=== PATIENT | male | born 1960 | race Caucasian/White ===

== ENCOUNTER → 2016-08-16 | Outpatient (CLI) | payer OTHER ==
[~2016-08-16] MED LIST: CGN1 PO; CLON1TAB3 PO; CLOZ100T PO
[2016-08-16 09:35] LABS: ESTIMATED AVERAGE GLUCOSE 111 mg/dl; HA1C FLAG Normal (Normal)
[2016-08-16 09:44] LABS: PROSTATE SPECIFIC ANTIGEN 1.75 ng/ml (0.000-4.000)
== END | disposition home or self-care (01) ==
LOC: C.LAB 08:44
PROVIDERS: ATTEND Family Medicine
DX: Z00.00 Encounter for general adult medical examination without abnormal findings (principal); Z12.5 Encounter for screening for malignant neoplasm of prostate; R73.9 Hyperglycemia, unspecified; F20.9 Schizophrenia, unspecified

== ENCOUNTER 2016-12-07 11:43 | Emergency (ER) | payer OTHER ==
[~2016-12-07] VITALS: Ht 185.4 cm; Wt 101.9 kg
[~2016-12-07 11:43] MED LIST changes: +BENZ-89 PO; -CGN1 PO
[2016-12-07 12:02] VITALS: Ht 185.4 cm; Wt 101.9 kg
[2016-12-07 12:47] LABS: BASO % 0.5 %; BASO ABS # 0.03 K/uL (0-0.2); COMPLETE YES; EOS % 2.5 %; IG% 0.2 %; LYMPH ABS # 1.57 K/uL (1.2-3.4); MEAN CELL VOLUME 86.3 fL (80-100); MEAN CORPUSCULAR HEMOGLOBIN 30.3 pg (25-34); MEAN CORPUSCULAR HGB CONC 35.1 g/dl (32-36); MEAN PLATELET VOLUME 9.5 fL (7.4-10.4); MONO % 6.5 %; NEUT % 65.3 %; PLATELET COUNT 150 K/uL (130-400); RED BLOOD COUNT 4.75 M/uL (4.7-6.1); WHITE BLOOD COUNT 6.29 K/uL (4.8-10.8)
[2016-12-07 13:04] LABS: CREATININE 0.74 mg/dl (0.60-1.40); POTASSIUM 4.1 mmol/L (3.5-5.1)
--- NOTE | 2016-12-07 13:04 | EMERGENCY ROOM VISIT NOTE ---
History Report prepared by Sanjuana: Ko Burroughs Under the Supervision of: Dr. Regina Kamaar M.D. First contact with patient: 12:31 Chief Complaint: MENTAL HEALTH EVALUATION Stated Complaint: MENTALLY UNSTABLE, MANIC History of Present Illness The patient is a 56 year old male with diagnosed paranoid schizophrenia who presents to the Emergency Room with worsening mental health issues that started over the past month. Per the patient's director of casework department, the patient may not be taking his medications, and has been getting more unstable over the past month. The patient is noted to live unsupervised currently, but usually is known to be responsible. The patient was noted to have had 2 recent run-ins with the police in the last month, and he missed his mental health counseling last week, which was a red flag to the director of casework department. The patient had that scheduled appointment at [facility] in order to get his medications evaluated. He is noted to usually make his appointments on time. The patient has been walking and in and out of the [facility] near where he lives often over the past few days without buying anything. Per the director of casework department, the patient tried to purchase an item there yesterday, and when his card did not work, he started throwing candy bars at the [employer]. Today, the patient was in there 9 times and did not buy anything, so the manager university of the store called to police. The patient says that he is feeling okay and nothing is bothering him. He states that he is not feeling nervous, and he does not know what happened today. He notes that he is taking medications, and is not taking any extra pills. He says that he did not hurt himself today. The patient adds that he is open to an inpatient stay. He smokes cigarettes, but does not drink any alcohol. Source of History: patient, other (director of casework department) Onset: Over past month Position: other (global - mental health issues) Quality: other (unstable) Timing: worsening Note: Associated symptoms: Over past few days, walking in and out of [facility] not buying anything. Was throwing candy bars at [employer] yesterday. Missed appointment last week. Denies anything bothering him. Review of Systems See HPI for pertinent positives & negatives. A total of 10 systems reviewed and were otherwise negative. Past Medical & Surgical Medical Problems: (1) Bronchitis (2) Diabetes (3) PNA (pneumonia) Family History Diabetes mellitus Heart disease Seizures Social History Smoking Status: Never Smoker Alcohol Use: none Marital Status: single Occupation Status: employed Current/Historical Medications Scheduled Benztropine Mesylate (Benztropine Mesylate), 1 MG PO QAM Clonazepam (Klonopin), 1 MG PO HS Clozapine (Clozaril), 400 MG PO HS Olanzapine (Zyprexa), 5 MG PO HS Allergies Coded Allergies: No Known Allergies (Unverified , 12/07/16) Physical Exam Vital Signs Date Time Temp Pulse Resp B/P (MAP) Pulse Ox O2 Delivery O2 Flow Rate FiO2 12/07/16 20:39 36.8 96 16 119/75 96 Room Air 12/07/16 14:34 95 16 117/68 96 Room Air 12/07/16 12:02 37.0 86 18 144/91 97 Room Air Physical Exam Vital signs reviewed. General: Ambulatory but somewhat agitated 56 year old male in room, in no significant distress. HEENT: No scleral icterus, PERRLA, neck supple. Atraumatic. Cardiovascular: Regular rate and rhythm, no extra sounds. Pulmonary: Clear to auscultation bilaterally, normal work of breathing. Abdomen: Soft, nontender, nondistended, positive bowel sounds. Musculoskeletal: Atraumatic, no peripheral edema. Neurologic: Patient awake alert and minimally verbal but responsive to verbal stimuli. Psych: Denies suicidal or homicidal ideations. Skin: Warm, dry, no rash Medical Decision & Procedures Laboratory Results 12/07/16 12:35 Red Blood Count 4.75, Mean Corpuscular Volume 86.3, Mean Corpuscular Hemoglobin 30.3, Mean Corpuscular Hemoglobin Concent 35.1, Mean Platelet Volume 9.5, Neutrophils (%) (Auto) 65.3, Lymphocytes (%) (Auto) 25.0, Monocytes (%) (Auto) 6.5, Eosinophils (%) (Auto) 2.5, Basophils (%) (Auto) 0.5, Neutrophils # (Auto) 4.11, Lymphocytes # (Auto) 1.57, Monocytes # (Auto) 0.41, Eosinophils # (Auto) 0.16, Basophils # (Auto) 0.03 12/07/16 12:35 Test 12/07/16 12:35 12/07/16 12:45 White Blood Count 6.29 K/uL (4.8-10.8) Red Blood Count 4.75 M/uL (4.7-6.1) Hemoglobin 14.4 g/dL (14.0-18.0) Hematocrit 41.0 % (42-52) Mean Corpuscular Volume 86.3 fL (80-100) Mean Corpuscular Hemoglobin 30.3 pg (25-34) Mean Corpuscular Hemoglobin Concent 35.1 g/dl (32-36) Platelet Count 150 K/uL (130-400) Mean Platelet Volume 9.5 fL (7.4-10.4) Neutrophils (%) (Auto) 65.3 % Lymphocytes (%) (Auto) 25.0 % Monocytes (%) (Auto) 6.5 % Eosinophils (%) (Auto) 2.5 % Basophils (%) (Auto) 0.5 % Neutrophils # (Auto) 4.11 K/uL (1.4-6.5) Lymphocytes # (Auto) 1.57 K/uL (1.2-3.4) Monocytes # (Auto) 0.41 K/uL (0.11-0.59) Eosinophils # (Auto) 0.16 K/uL (0-0.5) Basophils # (Auto) 0.03 K/uL (0-0.2) RDW Standard Deviation 41.8 fL (36.4-46.3) RDW Coefficient of Variation 13.1 % (11.5-14.5) Immature Granulocyte % (Auto) 0.2 % Immature Granulocyte # (Auto) 0.01 K/uL (0.00-0.02) Anion Gap 7.0 mmol/L (3-11) Est Creatinine Clear Calc Drug Dose 136.5 ml/min Estimated GFR () 117.8 Estimated GFR (Non- 101.7 BUN/Creatinine Ratio 14.0 (10-20) Calcium Level 9.0 mg/dl (8.5-10.1) Total Bilirubin 0.5 mg/dl (0.2-1) Aspartate Amino Transf (AST/SGOT) 14 U/L (15-37) Alanine Aminotransferase (ALT/SGPT) 32 U/L (12-78) Alkaline Phosphatase 69 U/L (45-117) Total Protein 6.7 gm/dl (6.4-8.2) Albumin 4.3 gm/dl (3.4-5.0) Globulin 2.4 gm/dl (2.5-4.0) Albumin/Globulin Ratio 1.8 (0.9-2) Thyroid Stimulating Hormone (TSH) 1.020 uIu/ml (0.300-4.500) Salicylates Level 1.9 mg/dl (2.8-20) Acetaminophen Level < 2 ug/ml (10-30) Ethyl Alcohol mg/dL < 3.0 mg/dl (0-3) Urine Color DK YELLOW Urine Appearance CLEAR (CLEAR) Urine pH 6.0 (4.5-7.5) Urine Specific [place] 1.026 (1.000-1.030) Urine Protein NEG (NEG) Urine Glucose (UA) NEG (NEG) Urine Ketones NEG (NEG) Urine Occult Blood NEG (NEG) Urine Nitrite NEG (NEG) Urine Bilirubin NEG (NEG) Urine Urobilinogen NEG (NEG) Urine Leukocyte Esterase TRACE (NEG) Urine WBC (Auto) 1-5 /hpf (0-5) Urine RBC (Auto) 0-4 /hpf (0-4) Urine Hyaline Casts (Auto) 1-5 /lpf (0-5) Urine Epithelial Cells (Auto) 0-5 /lpf (0-5) Urine Bacteria (Auto) NEG (NEG) Urine Opiates Screen NEG (NEG) Urine Methadone, Qualitative NEG (NEG) Urine Barbiturates NEG (NEG) Urine Phencyclidine (PCP) Level NEG (NEG) Ur Amphetamine/Methamphetamine NEG (NEG) MDMA (Ecstasy) Screen NEG (NEG) Urine Benzodiazepines Screen NEG (NEG) Urine Cocaine Metabolite NEG (NEG) Urine Marijuana (THC) NEG (NEG) Laboratory results per my review. Medications Administered Medications (Trade) Dose Ordered Sig/Kinsey Route Start Time Stop Time Status Last Admin Dose Admin Lorazepam (Ativan Tab) 2 mg NOW STAT SL 12/07/16 18:43 12/07/16 18:44 DC 12/07/16 18:49 2 MG ECG Indication: altered mental status Rate (beats per minute): 90 Rhythm: sinus rhythm, other (poor quality baseline for interpretation) Findings: no acute ischemic change, prolonged QT (528), no ectopy, other ( repolarization abnormality diffusely) ED Course 1238: Past medical records reviewed. The patient was evaluated in room A6. A complete history and physical examination was performed. 155: I reevaluated and updated the patient. 1842: Ordered Ativan Tab 2 mg SL. 2037: Upon reevaluation, the patient appeared to have improvement of his symptoms. I discussed findings with him. He verbalized agreement of the treatment plan. He was discharged home. Medical Decision Differential diagnosis: Etiologies such as mood disorder, infection, hypoglycemia, electrolyte abnormalities, cardiac sources, intracerebral event, toxicologic, neurologic, as well as others were entertained. This pt was evaluated and appeared to be in no distress. Pt was medically cleared. He was evaluated by 3S nurse liaison. She c/s with psychiatry who recommended 2 mg ativan po. Pt was given this medication and observed. Pt was cooperative in the ED. He was much more forthcoming with information. Pt was felt to be stable for d/c. He was able to safety contract and signed releases for [employer] and [employer]. His CM is aware. Pt is aware of the plan and agrees. Pt will f/u with PCP regarding prolonged QT interval. He is currently not on QT prolonging medications. He will return to the ED for worsening of symptoms or any medical concerns. Medication Reconcilliation Current Medication List: was personally reviewed by me Blood Pressure Screening Patient's blood pressure: Elevated blood pressure Blood pressure disposition: Elevated BP felt to be situational Impression Primary Impression: Mood disorder Additional Impressions: Schizophrenia Prolonged QT interval Scribe Attestation The scribe's documentation has been prepared under my direction and personally reviewed by me in its entirety. I confirm that the note above accurately reflects all work, treatment, procedures, and medical decision making performed by me. Departure Information Dispostion Home / Self-Care Referrals Shawnee Carpio MD (PCP) Patient Instructions My [facility] Additional Instructions Diagnosis: Mood disorder, prolonged QT interval Please continue your medications as prescribed. Follow up with your doctor this week for reevaluation of your EKG. Seek psychiatric reevaluation this week as well. Return to the ED for worsening of symptoms or any medical concerns. Problem Qualifiers
[2016-12-07 13:05] LABS: URINE APPEARANCE CLEAR (CLEAR); URINE BILIRUBIN NEG (NEG); URINE COLOR DK YELLOW; URINE EPITHELIAL CELL AUTO 0-5 /lpf (0-5); URINE NITRITE NEG (NEG); URINE SPECIFIC GRAVITY 1.026 (1.000-1.030); UROBILINOGEN NEG (NEG); ZZUR CULT IF INDIC CLEAN CATCH NO
[2016-12-07 13:05] LABS: ACETAMINOPHEN < 2 ug/ml (10-30)
[2016-12-07 13:06] LABS: MANUAL MICROSCOPIC REQUIRED? NO; REVIEW REQ? NO
[2016-12-07 13:15] LABS: ALB/GLOB RATIO 1.8 (0.9-2); THYROID STIMULATING HORMONE 1.02 uIu/ml (0.300-4.500)
[2016-12-07 13:41] LABS: BENZODIAZEPINE, URINE NEG (NEG); COCAINE,URINE NEG (NEG); PHENCYCLIDINE, URINE NEG (NEG)
[2016-12-07] MEDS ORDERED: OLAN-111 PO (16:34)
[2016-12-07] MEDS ORDERED: CLOZ100T PO (16:34)
[2016-12-07] MEDS ORDERED: BENZ-88 PO (16:34)
[2016-12-07] MEDS ORDERED: LORAZEPAM 1 MG TAB SL STA (18:43)
[2016-12-07 20:39] VITALS: BP 119/75; PULSE 96; TEMP 36.8; O2SAT 96
--- NOTE | 2016-12-07 21:12 | Psych Management Progress Note ---
Psychiatry Miscellaneous Date of Service: Dec 07, 2016. liaison contacted watermelon inspector physician for case review given need for med dosing instructions for discharge from ED. Patient has been monitored for several hours without evidence of agitation. He has consistently denied SI and howard and hasn't expressed any delusions. His frustration tolerance and organization is not as good during period of med non-compliance, only taking 200 mg Clozaril (?restart) for past 2 nights, no Zyprexa. I am unable to locate the patient in the PDMP. He appears to be attending to ADLs. As reported to me, there is no indication for 302 involuntary commitment. QTc is prolonged on EKG obtained by Dr. Kamara. Generally this is not an issue with Clozaril and he has been non-compliant with Zyprexa. Service recognizes that he is not completely his baseline but he doesn't meet acute inpatient criteria at this time either. He agrees (per liaison) to sign releases for his outpatient providers and rehabilitation case coordinator and to call both on Saturday. He agrees to continue his restart of Clozaril of 200 mg this weekend until speaks with outpatient providers. I would recommend a repeat EKG next week per PCP with results to be shared with psychiatrist. A short supply of Ativan 1 mg would not be unreasonable as prn comfort measure for weekend.
[2016-12-14 14:38] LABS: SYNTHETIC CANNABINOIDS QL URIN NEGATIVE (Negative)
== END 2016-12-07 20:52 | disposition home or self-care (01) ==
LOC: C.EDB 11:44 → C.EDA 20:52
DX: F39 Unspecified mood [affective] disorder (principal); F20.0 Paranoid schizophrenia; I45.81 Long QT syndrome; F17.210 Nicotine dependence, cigarettes, uncomplicated; E11.9 Type 2 diabetes mellitus without complications; Z83.3 Family history of diabetes mellitus; Z82.0 Family history of epilepsy and other diseases of the nervous system

== ENCOUNTER 2016-12-12 16:23 | Emergency (ER) | payer OTHER ==
[~2016-12-12] VITALS: Ht 180.3 cm; Wt 100.2 kg
[~2016-12-12 16:23] MED LIST changes: +BENZ-88 PO; -BENZ-89 PO; -CLON1TAB3 PO; +OLAN-111 PO
[2016-12-12 16:26] VITALS: TEMP 36.5; Ht 180.3 cm; Wt 100.2 kg
[2016-12-12] MEDS ORDERED: CLON1TAB3 PO (16:34)
--- NOTE | 2016-12-12 16:43 | EMERGENCY ROOM VISIT NOTE ---
History Report prepared by Sanjuana: Citlali Smith Under the Supervision of: Dr. Walt Buchanan M.D. First contact with patient: 16:28 Chief Complaint: MENTAL HEALTH EVALUATION Stated Complaint: UNSTABLE, MANIC History of Present Illness The patient is a 56 year old male who presents to the Emergency Room for a mental health evaluation. The patient is here with his field case manager. The patient was seen in the ED on Saturday. Per field case manager, he doesn't believe the patient has been taking his medication. The patient was seen by his psychologist today who referred him to the ED because she couldn't find him an inpatient bed. He denies wanting to hurt himself or any one else. The patient lives alone and denies any alcohol, tobacco, or street drug use. The patient lives alone. He notes he has been sleeping around 6-8 hours. The patient denies any abdominal pain. He has a history of mood disorder and schizophrenia. Source of History: patient, other Position: other (generalized) Quality: other (mental health evaluation) Modifying Factors (Relieving): other (none) Associated Symptoms: No abdominal pain Review of Systems See HPI for pertinent positives & negatives. A total of 10 systems reviewed and were otherwise negative. Past Medical & Surgical Medical Problems: (1) Bronchitis (2) Diabetes (3) PNA (pneumonia) Old medical records were reviewed. Nurse's notes were reviewed and I agree with. Family History Diabetes mellitus Heart disease Seizures Social History Smoking Status: Never Smoker Smokeless Tobacco Use: No Alcohol Use: none Drug Use: none Marital Status: single Occupation Status: employed Current/Historical Medications Scheduled Benztropine Mesylate (Benztropine Mesylate), 1 MG PO QAM Clonazepam (Klonopin), 1 MG PO HS Clozapine (Clozaril), 400 MG PO HS Olanzapine (Zyprexa), 5 MG PO HS Allergies Coded Allergies: No Known Allergies (Unverified , 12/07/16) Physical Exam Vital Signs Date Time Temp Pulse Resp B/P (MAP) Pulse Ox O2 Delivery O2 Flow Rate FiO2 12/12/16 18:54 97 18 122/85 97 Room Air 12/12/16 16:26 36.5 92 18 120/79 97 Room Air Physical Exam General: Non-ill appearing middle-aged male in no acute distress. Quiet, answers questions slowly but tersely and appropriately. HEENT: Normal cephalic atraumatic. Pupils are equal round and reactive to light. Extraocular movements are intact. Oropharynx is pink with moist mucous membranes. No swelling of the mouth lips or tongue. Neck: Supple with a midline trachea. No meningeal signs or stiffness, no JVD or bruits. No Stridor. Chest: Clear to auscultation bilaterally. No wheezes or rhonchi. No increased work of breathing. Heart: regular rate and rhythm. Abdomen: Soft nontender, nondistended without rebound guarding or rigidity. Extremities: No cyanosis clubbing or edema. No calf tenderness or assymetry Spine/Back. Non tender to palpation. No CVA tenderness Skin: Good turgor without rashes. Neurologic exam: Cranial nerves two through 12 are intact. Motor and sensation are intact and symmetrical throughout. Psych: Flattened affect. Medical Decision & Procedures Laboratory Results 12/12/16 17:06 Red Blood Count 4.48, Mean Corpuscular Volume 87.1, Mean Corpuscular Hemoglobin 30.1, Mean Corpuscular Hemoglobin Concent 34.6, Mean Platelet Volume 9.7, Neutrophils (%) (Auto) 59.8, Lymphocytes (%) (Auto) 30.1, Monocytes (%) (Auto) 6.0, Eosinophils (%) (Auto) 3.7, Basophils (%) (Auto) 0.3, Neutrophils # (Auto) 4.22, Lymphocytes # (Auto) 2.12, Monocytes # (Auto) 0.42, Eosinophils # (Auto) 0.26, Basophils # (Auto) 0.02 12/12/16 17:06 Test 12/12/16 16:55 12/12/16 17:06 Urine Opiates Screen NEG (NEG) Urine Methadone, Qualitative NEG (NEG) Urine Barbiturates NEG (NEG) Urine Phencyclidine (PCP) Level NEG (NEG) Ur Amphetamine/Methamphetamine NEG (NEG) MDMA (Ecstasy) Screen NEG (NEG) Urine Benzodiazepines Screen NEG (NEG) Urine Cocaine Metabolite NEG (NEG) Urine Marijuana (THC) NEG (NEG) White Blood Count 7.05 K/uL (4.8-10.8) Red Blood Count 4.48 M/uL (4.7-6.1) Hemoglobin 13.5 g/dL (14.0-18.0) Hematocrit 39.0 % (42-52) Mean Corpuscular Volume 87.1 fL (80-100) Mean Corpuscular Hemoglobin 30.1 pg (25-34) Mean Corpuscular Hemoglobin Concent 34.6 g/dl (32-36) Platelet Count 168 K/uL (130-400) Mean Platelet Volume 9.7 fL (7.4-10.4) Neutrophils (%) (Auto) 59.8 % Lymphocytes (%) (Auto) 30.1 % Monocytes (%) (Auto) 6.0 % Eosinophils (%) (Auto) 3.7 % Basophils (%) (Auto) 0.3 % Neutrophils # (Auto) 4.22 K/uL (1.4-6.5) Lymphocytes # (Auto) 2.12 K/uL (1.2-3.4) Monocytes # (Auto) 0.42 K/uL (0.11-0.59) Eosinophils # (Auto) 0.26 K/uL (0-0.5) Basophils # (Auto) 0.02 K/uL (0-0.2) RDW Standard Deviation 42.7 fL (36.4-46.3) RDW Coefficient of Variation 13.4 % (11.5-14.5) Immature Granulocyte % (Auto) 0.1 % Immature Granulocyte # (Auto) 0.01 K/uL (0.00-0.02) Anion Gap 9.0 mmol/L (3-11) Est Creatinine Clear Calc Drug Dose 119.8 ml/min Estimated GFR () 113.5 Estimated GFR (Non- 98.0 BUN/Creatinine Ratio 14.6 (10-20) Calcium Level 9.3 mg/dl (8.5-10.1) Total Bilirubin 0.7 mg/dl (0.2-1) Direct Bilirubin 0.2 mg/dl (0-0.2) Aspartate Amino Transf (AST/SGOT) 17 U/L (15-37) Alanine Aminotransferase (ALT/SGPT) 28 U/L (12-78) Alkaline Phosphatase 74 U/L (45-117) Total Protein 6.6 gm/dl (6.4-8.2) Albumin 4.2 gm/dl (3.4-5.0) Lipase 81 U/L (73-393) Salicylates Level < 1.7 mg/dl (2.8-20) Acetaminophen Level < 2 ug/ml (10-30) Ethyl Alcohol mg/dL < 3.0 mg/dl (0-3) Laboratory studies as stated above per my review. ED Course 1629: Past medical records reviewed. The patient was evaluated in room A8, and a complete history and physical examination were performed. 2004: [place] doesn't have beds, checking on [place]. 2042: Placement pending. Medical Decision Differential diagnoses include: schizophrenia, bipolar disorder, toxicologic process, electrolyte metabolic abnormality. This patient comes in as described above. He was brought in by his case management team he was here a couple days ago a similar complaints. He has a history of schizophrenia and they're worried about his ability to care for himself. He denies any suicidal or homicidal ideations. Multiple blood testing was obtained for medical clearance. He was reassessed frequently. He was medically cleared. Blood work does not suggest an acute electrolyte or metabolic abnormalities. There is nothing to suggest acute infectious process. He has nothing suggest an acute toxicologic process. [place] does not have any beds and we are trying to get him in the [place]. At this point bed search is pending and the patient will be signed out to Dr. Saavedra. Medication Reconcilliation Current Medication List: was personally reviewed by me Blood Pressure Screening Patient's blood pressure: Normal blood pressure Impression Primary Impression: Schizophrenia Additional Impression: Mood disorder Scribe Attestation The scribe's documentation has been prepared under my direction and personally reviewed by me in its entirety. I confirm that the note above accurately reflects all work, treatment, procedures, and medical decision making performed by me. Departure Information Referrals No Doctor, Assigned (PCP) Patient Instructions My [facility] Problem Qualifiers
[2016-12-12 17:31] LABS: BENZODIAZEPINE, URINE NEG (NEG); COCAINE,URINE NEG (NEG); PHENCYCLIDINE, URINE NEG (NEG)
[2016-12-12 17:58] LABS: BASO % 0.3 %; BASO ABS # 0.02 K/uL (0-0.2); COMPLETE YES; EOS % 3.7 %; IG% 0.1 %; LYMPH % 30.1 %; LYMPH ABS # 2.12 K/uL (1.2-3.4); MEAN CELL VOLUME 87.1 fL (80-100); MEAN CORPUSCULAR HEMOGLOBIN 30.1 pg (25-34); MEAN CORPUSCULAR HGB CONC 34.6 g/dl (32-36); MEAN PLATELET VOLUME 9.7 fL (7.4-10.4); NEUT % 59.8 %; PLATELET COUNT 168 K/uL (130-400); RED BLOOD COUNT 4.48 M/uL (4.7-6.1); WHITE BLOOD COUNT 7.05 K/uL (4.8-10.8)
[2016-12-12 18:19] LABS: BUN/CREATININE RATIO 14.6 (10-20); CALCIUM 9.3 mg/dl (8.5-10.1); CREATININE 0.81 mg/dl (0.60-1.40); POTASSIUM 3.8 mmol/L (3.5-5.1)
[2016-12-12 18:25] LABS: ACETAMINOPHEN < 2 ug/ml (10-30)
[2016-12-12] MEDS ORDERED: HALOPERIDOL 5 MG TAB PO STA (21:49)
[2016-12-12] MEDS ORDERED: LORAZEPAM 1 MG TAB SL STA (21:49)
[2016-12-13 00:31] VITALS: BP 120/71; PULSE 89; O2SAT 96
--- NOTE | 2016-12-14 00:59 | EMERGENCY ROOM VISIT NOTE ---
ED Visit Note This is a 56-year-old male who presents emergency department. Received patient in signout. History and physical verified by me. Patient is not acting appropriate and believes that people are talking to him through the TV. I feel he cannot be safely discharged. For this reason a 302 warrant was initiated. The patient was discussed with case management who agreed to admit the patient. Patient and family were in agreement with treatment plan.
== END 2016-12-13 00:31 ==
LOC: C.EDB 16:25 → C.EDA 12-13 00:31
DX: F20.9 Schizophrenia, unspecified (principal); F39 Unspecified mood [affective] disorder; E11.9 Type 2 diabetes mellitus without complications; Z79.899 Other long term (current) drug therapy; Z83.3 Family history of diabetes mellitus; Z82.49 Family history of ischemic heart disease and other diseases of the circulatory system; Z82.0 Family history of epilepsy and other diseases of the nervous system

== ENCOUNTER 2018-02-25 09:27 | Inpatient (IN) ==
[2018-02-25 10:22] LABS: Appearance Urine Clear (Clear); Bilirubin Urine Negative (Negative); Color Urine Yellow; Glucose Urine UA Negative (Negative); Ketones Urine Negative (Negative); Leukocyte Esterase Urine Negative (Negative); Nitrite Urine Negative (Negative); Protein Urine Negative (Negative); Specific Gravity Urine 1.007 (1.000-1.030); Urobilinogen Urine Negative (Negative)
[2018-02-25 10:42] LABS: Amphetamines+Metham, Urine Neg (Neg); Barbiturates, Urine Neg (Neg); Benzodiazepine, Urine Neg (Neg); Cocaine, Urine Neg (Neg); MDMA (Ecstacy), Urine Neg (Neg); Methadone, Urine Neg (Neg); Opiate, Urine Neg (Neg); Phencyclidine, Urine Neg (Neg)
[2018-02-25 10:58] LABS: Basophils # (auto) 0.02 K/uL (0-0.2); Basophils % (auto) 0.3 %; Eosinophils # (auto) 0.06 K/uL (0-0.5); Hematocrit (blood only) 39.4 % (42-52); Hemoglobin 13.3 g/dL (14.0-18.0); Immature Granulocytes # (auto) 0.01 K/uL (0.00-0.02); Immature Granulocytes % (auto) 0.2 %; Lymphocytes % (auto) 22.5 %; Mean Corpuscular Hgb Conc 33.8 g/dL (32-36); Mean Corpuscular Volume 89.1 fL (80-100); Mean Platelet Volume 10.1 fL (7.4-10.4); Monocytes # (auto) 0.43 K/uL (0.11-0.59); Monocytes % (auto) 6.9 %; Neutrophils % (auto) 69.1 %; Platelet Count 203 K/uL (130-400); RDW Coefficient of Variation 13.4 % (11.5-14.5); RDW Standard Deviation 44.1 fL (36.4-46.3); Red Blood Count 4.42 M/uL (4.7-6.1); White Blood Count 6.22 K/uL (4.8-10.8)
[2018-02-25 11:16] LABS: Alanine Aminotransferase 23 U/L (12-78); Albumin Level 4.4 gm/dl (3.4-5.0); Aspartate Aminotransferase 12 U/L (15-37); BUN Creatinine Ratio 9.2 (10-20); Blood Urea Nitrogen 7 mg/dl (7-18); Calcium 9.2 mg/dl (8.5-10.1); Carbon Dioxide 26 mmol/L (21-32); Chloride 107 mmol/L (98-107); Est GFR (African American) 115.1; Est GFR (Non-African American) 99.3; Glucose 109 mg/dl (70-99); Sodium 137 mmol/L (136-145)
[2018-02-25 11:27] LABS: Acetaminophen < 2 ug/ml (10-30); Albumin Globulin Ratio 1.8 (0.9-2); Alkaline Phosphatase 80 U/L (45-117); Bilirubin,Total 0.5 mg/dl (0.2-1); Globulin 2.4 gm/dl (2.5-4.0); Total Protein 6.8 gm/dl (6.4-8.2)
[2018-02-25] MEDS ORDERED: LORazepam 1 MG TAB PO STA (12:14)
[2018-02-25] MEDS ORDERED: HALOPERIDOL 5 MG TAB PO STA ×2 (12:14→13:29)
[2018-02-25] MEDS ORDERED: BENZTROPINE MESYLATE 1 MG TAB PO STA (12:14)
[2018-02-25] MEDS ORDERED: LORazepam 1 MG TAB SL STA (13:29)
[2018-02-25] MEDS ORDERED: ALUMINUM/MAGNESIUM SUSP 30 ML UDC PO PRN (14:17)
[2018-02-25] MEDS ORDERED: ACETAMINOPHEN 325 MG TAB PO PRN (14:17)
[2018-02-25] MEDS ORDERED: BISMUTH SUBSALICYLATE PER ML OMNICELL CHARGE PO PRN (14:17)
[2018-02-25] MEDS ORDERED: MAGNESIUM HYDROXIDE SUSP 30 ML UDC PO PRN (14:17)
[2018-02-25] MEDS ORDERED: SODIUM CHLORIDE 0.65% NA SOLN 45 ML (OCEAN) PRN (14:17)
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
[2018-02-25] MEDS ORDERED: OLANZapine 5 MG TABLET PO SCH (21:00)
[2018-02-26] MEDS: SERTRALINE HCL 100 MG TABLET PO SCH (08:06)
--- NOTE | 2018-02-26 10:11 | Psychiatric Progress Note ---
Date of Service February 26, 2018 Impression / Recommendations Impression 57 yo CM with history of schizophrenia and depression, admitted for deterioration of his schizophrenia with poor self care and possibly suspected in vandalism of vehicles in his living area. Patient is with psychomotor retardation, flat affect and drowsiness. He recieved haldol and ativan in the ER prior to being brought to unit. 02/25/18: Seems to be with some blocking but denies SI/HI/aVh and denies CAH. Will start zyprexa 5mg qhs in addition to home meds. Patient this time with poor functioning and will need treatment for stabilization. 02/26/18: Patient affect fluctuates, and he remains grossly disorganized and incoherent. Is tangential and seems to be distracted. Did deny Si/HI/aVH. Will increase zyprexa to 5mg bid and continue to treat for stabilization. (1) Schizophrenia: -Invega sustenna 156mg IM, last given 02/06/18 -Increase Zyprexa 5mg PO bid (2) Depression: - Continue Zoloft 100mg daily Inventory Assets Strengths: not homeless, access to care, has case management Needs: medications, therapy Risk Factors Assessment Male: Yes : Yes Health Problems: No Substance Use Disorders: Yes Hopelessness: No Protective Factors Assessment : No Responsible for Young Children: No Employed: No Review of Systems Sleep Information Total Hours of Sleep: 7 Sleep Comments: pt DEANNE since 414 and thereafter. pt on q-15 mnute checks Subjective Subjective Patient was found in day room and picked up a puzzle box and said "this is nice center piece". Was rambling throughout interview about incomprehensible statements. When asked about Si/Hi/aVH he denied these. When asked if he cleans his apartment, he states "no, I don't". He started staring at a picture of a edwige on the wall and did not answer anymore questions. Patient was seen & assessed and interval progress reviewed with Treatment Team and Nursing Physical Exam Psychiatric Orientation: alert, oriented to person and oriented to place Apperance: + disheveled; + inappropriately groomed Eye Contact: + poor eye contact Motor Behavior: no abnormal motor movements Speech: normal rate/rhythm/volume of speech Affect: euthymic affect and mood congruent with affect Thought Process: + thought blocking and + tangential thought process Disorganized Thought Content: + preoccupation Suicidal Thoughts: denies suicidal thoughts Homicidal Thoughts: denies homicidal thoughts Hallucinations: no auditory hallucinations and no visual hallucinations distracted Estimated Intelligence: + below average estimated intelligence Insight: + poor insight Judgement: + poor judgement Vital Signs (Past 24 Hours) Last Vital Signs Temp 36.8 C 02/26/18 06:51 Pulse 56 L 02/26/18 06:52 Resp 18 02/26/18 06:51 BP 115/78 02/26/18 06:52 Pulse Ox 96 02/25/18 16:00 Results & Data Laboratory Results Laboratory Results - last 24 hr 02/25/18 02/25/18 02/25/18 10:00 10:00 10:19 WBC 6.22 RBC 4.42 L Hgb 13.3 L Hct 39.4 L MCV 89.1 MCH 30.1 MCHC 33.8 RDW Std Deviation 44.1 RDW Coeff of Ramu 13.4 Plt Count 203 MPV 10.1 Immature Gran % (Auto) 0.2 Neut % (Auto) 69.1 Lymph % (Auto) 22.5 Alexander % (Auto) 6.9 Eos % (Auto) 1.0 Baso % (Auto) 0.3 Immature Gran # (Auto) 0.01 Neut # (Auto) 4.30 Lymph # (Auto) 1.40 Alexander # (Auto) 0.43 Eos # (Auto) 0.06 Baso # (Auto) 0.02 Sodium Potassium Chloride Carbon Dioxide Anion Gap BUN Creatinine Est Cr Clr Drug Dosing Est GFR ( Amer) Est GFR (Non-Af Amer) BUN/Creatinine Ratio Glucose Calcium Total Bilirubin AST ALT Alkaline Phosphatase Total Protein Albumin Globulin Albumin/Globulin Ratio TSH Urine Color Yellow Urine Appearance Clear Urine pH 7.0 Ur Specific [place] 1.007 Urine Protein Negative Urine Glucose (UA) Negative Urine Ketones Negative Urine Blood Negative Urine Nitrite Negative Urine Bilirubin Negative Urine Urobilinogen Negative Ur Leukocyte Esterase Negative Salicylates Urine Opiates Screen Neg Ur Methadone, Qual Neg Acetaminophen Urine Barbiturates Neg Ur Phencyclidine (PCP) Neg U Amphetamin/Meth Scrn Neg MDMA (Ecstasy) Screen Neg U Benzodiazepines Scrn Neg Ur Cocaine Metabolite Neg U Marijuana (THC) Screen Neg Ethyl Alcohol mg/dL 02/25/18 02/25/18 02/25/18 10:19 10:19 10:19 WBC RBC Hgb Hct MCV MCH MCHC RDW Std Deviation RDW Coeff of Ramu Plt Count MPV Immature Gran % (Auto) Neut % (Auto) Lymph % (Auto) Alexander % (Auto) Eos % (Auto) Baso % (Auto) Immature Gran # (Auto) Neut # (Auto) Lymph # (Auto) Alexander # (Auto) Eos # (Auto) Baso # (Auto) Sodium 137 Potassium 4.0 Chloride 107 Carbon Dioxide 26 Anion Gap 4.0 BUN 7 Creatinine 0.77 Est Cr Clr Drug Dosing Not Reportable Est GFR ( Amer) 115.1 Est GFR (Non-Af Amer) 99.3 BUN/Creatinine Ratio 9.2 L Glucose 109 H Calcium 9.2 Total Bilirubin 0.5 AST 12 L ALT 23 Alkaline Phosphatase 80 Total Protein 6.8 Albumin 4.4 Globulin 2.4 L Albumin/Globulin Ratio 1.8 TSH 1.310 Urine Color Urine Appearance Urine pH Ur Specific [place] Urine Protein Urine Glucose (UA) Urine Ketones Urine Blood Urine Nitrite Urine Bilirubin Urine Urobilinogen Ur Leukocyte Esterase Salicylates 4.0 Urine Opiates Screen Ur Methadone, Qual Acetaminophen < 2 L Urine Barbiturates Ur Phencyclidine (PCP) U Amphetamin/Meth Scrn MDMA (Ecstasy) Screen U Benzodiazepines Scrn Ur Cocaine Metabolite U Marijuana (THC) Screen Ethyl Alcohol mg/dL < 3.0 Current Inpatient Medications Current Inpatient Medications: Current Inpatient Medications Acetaminophen (Tylenol) 650 mg PO Q4H PRN PRN Reason: Headache or Minor Fever Stop: 03/27/18 14:16 Al Hydrox/Mg Hydrox/Simethicone (Maalox) 30 ml PO Q4H PRN PRN Reason: GI Upset Stop: 03/27/18 14:16 Bismuth Subsalicylate (Kaopectate) 15 ml PO PRN PRN PRN Reason: Loose Stool Stop: 03/27/18 14:16 Hydroxyzine HCl (Vistaril) 50 mg PO HSZ PRN PRN Reason: Insomnia Stop: 03/27/18 14:16 Magnesium Hydroxide (Milk Of Magnesia) 30 ml PO DAILY PRN PRN Reason: Heartburn Stop: 03/27/18 14:16 Olanzapine (Zyprexa) 5 mg PO BID HANNAH Stop: 03/28/18 10:14 Sertraline HCl (Zoloft) 100 mg PO QAM HANNAH Stop: 03/28/18 08:59 Last Admin: 02/26/18 08:06 Dose: 100 mg Sodium Chloride ([place] Nasal) 1 - 2 sprays NA PRN PRN PRN Reason: Nasal Dryness/Congestion Stop: 03/27/18 14:16 Post Discharge Appointments Sizing Machine Tender Name of Sizing Machine Tender: yovanny marie CPT Code CPT Code 17355 _ (1) Schizophrenia Schizophrenia type: unspecified Qualified Code(s): F20.9 - Schizophrenia, unspecified (2) Depression Depression Type: unspecified Major depression recurrence: Active/Remission status: Major depression episode severity: Psychotic features: Trimester: Qualified Code(s): F32.9 - Major depressive disorder, single episode, unspecified
[2018-02-26] MEDS: OLANZapine 5 MG TABLET PO SCH ×2 (10:22→21:11)
[2018-02-27] MEDS: OLANZapine 5 MG TABLET PO SCH ×2 (07:38→21:04)
[2018-02-27] MEDS: SERTRALINE HCL 100 MG TABLET PO SCH (07:38)
[2018-02-27 07:55] LABS: Chol HDL Ratio 3; Cholesterol 121 mg/dl (0-200); HDL Cholesterol 41 mg/dl; LDL Cholesterol Calculated 65 mg/dl; Triglycerides 76 mg/dl (0-150); VLDL Cholesterol 15 mg/dl
[2018-02-27] MEDS: OLANZapine 5 MG TABLET PO PRN ×2 (09:15→13:37)
[2018-02-27] MEDS: DIVALPROEX DELAY RELEASE 500 MG TAB PO SCH ×2 (09:30→21:04)
--- NOTE | 2018-02-27 10:41 | Psychiatric Progress Note ---
Date of Service February 27, 2018 Impression / Recommendations Impression 303'd yesterday and has decompensated to some degree since then. Confirmed with case folder that the patient did receive his Sustenna injection on 02/07 and so will be due in 1 month. Due to concerns that he can't maintain appropriate boundaries with a roommate we will order a MNPR for now. We will also start Depakote DR 500 mg BID to target racing thoughts and behavioral dysregulation. He was willing to begin this. Will also order Zyprexa 5 mg TID prn psychosis as well. He continues not to be reality based, and remains at risk of harm to self or others if not in a supervised inpatient environment. (1) Schizophrenia: -Invega sustenna 156mg IM, last given 02/06/18 -Increase Zyprexa 5mg PO bid 02/25/18: Seems to be with some blocking but denies SI/HI/aVh and denies CAH. Will start zyprexa 5mg qhs in addition to home meds. Patient this time with poor functioning and will need treatment for stabilization. 02/26/18: Patient affect fluctuates, and he remains grossly disorganized and incoherent. Is tangential and seems to be distracted. Did deny Si/HI/aVH. Will increase zyprexa to 5mg bid and continue to treat for stabilization. 02/18 - Continue Sustenna and Zyprexa and will add prn 5 mg TID - Start Depakote 500 mg BID to target racing thoughts and behavioral dysregulation. - Will need level in 5 days on 03/04 - Continue to coordinate with his OP providers (2) Depression: - Continue Zoloft 100mg daily Inventory Assets Strengths: not homeless, access to care, has case management Needs: medications, therapy Risk Factors Assessment Male: Yes : Yes Health Problems: No Substance Use Disorders: Yes Hopelessness: No Protective Factors Assessment : No Responsible for Young Children: No Employed: No Interval History Identifying Information 57 yo CM with history of schizophrenia and depression, admitted for deterioration of his schizophrenia with poor self care and possibly suspected in vandalism of vehicles in his living area. Patient is with psychomotor retardation, flat affect and drowsiness. He recieved haldol and ativan in the ER prior to being brought to unit. Chief Complaint None stated Review of Systems Sleep Information Total Hours of Sleep: 3.5 Sleep Comments: pt NPO during the night. pt given vistaril x2 during the night. pt wandering along the hallways when awake, pacing and resistant in laying down in bed. pt appeared to be asleep @ 0230 and awoke @0530 to void. pt on q-15 minute checks Meal Information Percent Meal Consumed - Breakfast: 100 Percent Meal Consumed - Lunch: 100 Percent Meal Consumed - Dinner: 100 Subjective Subjective Patient was seen & assessed and interval progress reviewed with Treatment Team. Nursing reports that the patient took his roommates radio out of his arms last night and brought it to the nurses station saying that he couldn't have it. This AM he has been wandering the unit taking things off of the wall, pushing things under doors, and making rambling disconnected statements. At the time I see him he remains so. He says that his thoughts are racing, but cannot tell me whether he is having hallucinations. He stares at the postings on the wall behind me as if having psychotic thoughts. When asked about why he was pulling things off of the wall he says "I don't know". He denies SI/HI. He says "I had to disconnect my bed to talk to you", but when asked for clarification, he is silent. Physical Exam Psychiatric Orientation: alert and cooperative Apperance: appropriately dressed (wearing the same akbar sweater with food stains on the front) and appropriately groomed Eye Contact: + fair eye contact (at times stares at the wall behind me) Motor Behavior: steady gait and station and no abnormal motor movements speech is minimal, comments disjointed Affect: + flat affect Mood: no depressed mood and no anxious mood Thought Process: + thought process not clear or coherent disjointed Thought Content: + delusions Suicidal Thoughts: denies suicidal thoughts Homicidal Thoughts: denies homicidal thoughts cannot clearly answer Cognition: + recent memory not intact, + remote memory not intact, + attention not intact and + language not intact Estimated Intelligence: + below average estimated intelligence Insight: + severely impaired insight Judgement: + severely impaired judgement Vital Signs (Past 24 Hours) Last Vital Signs Temp 36.4 C L 02/27/18 06:59 Pulse 72 02/27/18 07:00 Resp 18 02/27/18 06:59 BP 115/79 02/27/18 07:00 Pulse Ox 96 02/25/18 16:00 Results & Data Laboratory Results Laboratory Results - last 24 hr 02/27/18 07:07 Triglycerides 76 Cholesterol 121 LDL Cholesterol, Calc 65 VLDL Cholesterol, Calc 15 HDL Cholesterol 41 Cholesterol/HDL Ratio 3 Current Inpatient Medications Current Inpatient Medications: Current Inpatient Medications Acetaminophen (Tylenol) 650 mg PO Q4H PRN PRN Reason: Headache or Minor Fever Stop: 03/27/18 14:16 Al Hydrox/Mg Hydrox/Simethicone (Maalox) 30 ml PO Q4H PRN PRN Reason: GI Upset Stop: 03/27/18 14:16 Bismuth Subsalicylate (Kaopectate) 15 ml PO PRN PRN PRN Reason: Loose Stool Stop: 03/27/18 14:16 Divalproex Sodium (Depakote Delay Release) 500 mg PO BID [facility] Stop: 03/29/18 08:59 Last Admin: 02/27/18 09:30 Dose: 500 mg Hydroxyzine HCl (Vistaril) 50 mg PO HSZ PRN PRN Reason: Insomnia Stop: 03/27/18 14:16 Last Admin: 02/27/18 00:47 Dose: 50 mg Magnesium Hydroxide (Milk Of Magnesia) 30 ml PO DAILY PRN PRN Reason: Heartburn Stop: 03/27/18 14:16 Olanzapine (Zyprexa) 5 mg PO BID [facility] Stop: 03/28/18 10:59 Last Admin: 02/27/18 07:38 Dose: 5 mg Olanzapine (Zyprexa) 5 mg PO TID PRN PRN Reason: psychosis Stop: 03/29/18 08:59 Last Admin: 02/27/18 09:15 Dose: 5 mg Sertraline HCl (Zoloft) 100 mg PO QAM HANNAH Stop: 03/28/18 08:59 Last Admin: 02/27/18 07:38 Dose: 100 mg Sodium Chloride ([place] Nasal) 1 - 2 sprays NA PRN PRN PRN Reason: Nasal Dryness/Congestion Stop: 03/27/18 14:16 Post Discharge Appointments Therapist Name of Therapist: [facility] Rn Emergency Name of Rn Emergency: yovanny marie CPT Code CPT Code 88466 _ (1) Depression Active/Remission status: Depression Type: unspecified Major depression episode severity: Major depression recurrence: Psychotic features: Trimester: Qualified Code(s): F32.9 - Major depressive disorder, single episode, unspecified (2) Schizophrenia Schizophrenia type: unspecified Qualified Code(s): F20.9 - Schizophrenia, unspecified
[2018-02-28] MEDS: SERTRALINE HCL 100 MG TABLET PO SCH (09:15)
[2018-02-28] MEDS: DIVALPROEX EXTENDED RELEASE 500 MG TAB PO SCH ×2 (09:16→21:48)
[2018-02-28] MEDS: OLANZapine 5 MG TABLET PO SCH (09:16)
--- NOTE | 2018-02-28 11:14 | Psychiatric Progress Note ---
Date of Service February 28, 2018 Impression / Recommendations Impression 57 yo CM with history of schizophrenia and depression, admitted for deterioration of his schizophrenia with poor self care and possibly suspected in vandalism of vehicles in his living area. Now on 303 and confirmed with special education case manager that the patient did receive his Sustenna injection on 02/07 and so will be due in 1 month. It remains that he can't maintain appropriate boundaries with a roommate will continue with MNPR for now. He continues not to be reality based, and remains at risk of harm to self or others if not in a supervised inpatient environment. Will increase zyprexa as he required 2 prn doses yesterday and change depakote to depakote ER. (1) Schizophrenia: -Invega sustenna 156mg IM, last given 02/06/18 -Increase Zyprexa to 10mg PO bid -Zyprexa 5mg bid prn available for acute needs -Continue Depakote ER 500mg bid for mood 02/25/18: Seems to be with some blocking but denies SI/HI/aVh and denies CAH. Will start zyprexa 5mg qhs in addition to home meds. Patient this time with poor functioning and will need treatment for stabilization. 02/26/18: Patient affect fluctuates, and he remains grossly disorganized and incoherent. Is tangential and seems to be distracted. Did deny Si/HI/aVH. Will increase zyprexa to 5mg bid and continue to treat for stabilization. 02/27/18: - Continue Sustenna and Zyprexa and will add prn 5 mg TID - Start Depakote 500 mg BID to target racing thoughts and behavioral dysregulation. - Will need level in 5 days on 03/04 - Continue to coordinate with his OP providers 02/28/18: Patient with minimal improvement and required 2 prn doses of zyprexa yesterday. Will increase scheduled zyprexa to 10mg bid. Depakote change to Depakote ER to treat mood and tangential racing thoughts. The consideration of returning to clozaril at this time is on hold as issues of compliance with meds and lab draws is of concern. Depakote level in AM. (2) Depression: - Continue Zoloft 100mg daily Inventory Assets Strengths: not homeless, access to care, has case management Needs: medications, therapy Risk Factors Assessment Male: Yes : Yes Health Problems: No Substance Use Disorders: Yes Hopelessness: No Protective Factors Assessment : No Responsible for Young Children: No Employed: No Interval History Identifying Information 57 yo CM with history of schizophrenia and depression, admitted for deterioration of his schizophrenia with poor self care and possibly suspected in vandalism of vehicles in his living area. Patient is with psychomotor retardation, flat affect and drowsiness. He recieved haldol and ativan in the ER prior to being brought to unit. Review of Systems Sleep Information Total Hours of Sleep: 1 Sleep Comments: pt very restless and appeared to be bored: pt trying to find something like word find and pacing the hallways. pt appeared to be asleep @ 0530 and thereafter. pt on q-15 minute checks Meal Information Percent Meal Consumed - Breakfast: 100 Percent Meal Consumed - Lunch: 100 Percent Meal Consumed - Dinner: 100 Subjective Subjective Patient found roaming in the hallway and brought to room for interview. He was calm and able to answer a few questions appropriately. Denies SI/HI/AVH. States that he lives alone in an apartment. States he took zyprexa before, but didn't answer about how it helps him. He makes random comments stating names and cars and sentences that are nonsensical. Per nursing patient is more redirectable but received total zyprexa 10mg prn yesterday in addition to scheduled. Patient was seen & assessed and interval progress reviewed with [Treatment Team ] [Nursing] Physical Exam Psychiatric Orientation: alert, oriented to person and oriented to place Apperance: appropriately dressed and + disheveled Eye Contact: + poor eye contact Motor Behavior: no abnormal motor movements Speech: normal rate/rhythm/volume of speech Affect: + blunted affect and mood congruent with affect Thought Process: + thought blocking and + tangential thought process Thought Content: not paranoid and no delusions Suicidal Thoughts: denies suicidal thoughts Homicidal Thoughts: denies homicidal thoughts Hallucinations: no auditory hallucinations and no visual hallucinations Cognition: recent memory grossly intact and remote memory grossly intact Estimated Intelligence: average estimated intelligence Insight: + poor insight Judgement: + poor judgement Vital Signs (Past 24 Hours) Last Vital Signs Temp 36.7 C 02/28/18 09:45 Pulse 86 02/28/18 09:45 Resp 16 02/28/18 09:45 BP 129/70 02/28/18 09:45 Pulse Ox 96 02/25/18 16:00 Results & Data Current Inpatient Medications Current Inpatient Medications: Current Inpatient Medications Acetaminophen (Tylenol) 650 mg PO Q4H PRN PRN Reason: Headache or Minor Fever Stop: 03/27/18 14:16 Al Hydrox/Mg Hydrox/Simethicone (Maalox) 30 ml PO Q4H PRN PRN Reason: GI Upset Stop: 03/27/18 14:16 Bismuth Subsalicylate (Kaopectate) 15 ml PO PRN PRN PRN Reason: Loose Stool Stop: 03/27/18 14:16 Divalproex Sodium (Depakote Extended Release) 500 mg PO BID HANNAH Stop: 03/30/18 08:59 Last Admin: 02/28/18 09:16 Dose: 500 mg Hydroxyzine HCl (Vistaril) 50 mg PO HSZ PRN PRN Reason: Insomnia Stop: 03/27/18 14:16 Last Admin: 02/27/18 00:47 Dose: 50 mg Magnesium Hydroxide (Milk Of Magnesia) 30 ml PO DAILY PRN PRN Reason: Heartburn Stop: 03/27/18 14:16 Olanzapine (Zyprexa) 5 mg PO TID PRN PRN Reason: psychosis Stop: 03/29/18 08:59 Last Admin: 02/27/18 13:37 Dose: 5 mg Olanzapine (Zyprexa) 10 mg PO BID HANNAH Stop: 03/30/18 20:59 Sertraline HCl (Zoloft) 100 mg PO QAM HANNAH Stop: 03/28/18 08:59 Last Admin: 02/28/18 09:15 Dose: 100 mg Sodium Chloride ([place] Nasal) 1 - 2 sprays NA PRN PRN PRN Reason: Nasal Dryness/Congestion Stop: 03/27/18 14:16 Post Discharge Appointments Psychiatrist Name of Psychiatrist: TOMASZ TATUM [facility] Psychiatrist's Date of Appointment with Psychiatrist: 03/07/18 Time of Appointment with Psychiatrist: 9:45am Psychiatric Appointment Comment: [address], [place] [id number] Therapist Name of Therapist: [facility] [place] Therapist's Date of Therapist Appointment: 03/12/18 Time of Therapist Appointment: 3:30pm Therapy Appointment Comment: [address] [address] [place] [address] Plant Protection Supervisor Name of Plant Protection Supervisor: Gustabo Chandan Mabry Case Management Appointment Comment: [id number], [place] [address] CPT Code CPT Code [id number] _ (1) Schizophrenia Schizophrenia type: unspecified Qualified Code(s): F20.9 - Schizophrenia, unspecified (2) Depression Depression Type: unspecified Major depression recurrence: Active/Remission status: Major depression episode severity: Psychotic features: Trimester: Qualified Code(s): F32.9 - Major depressive disorder, single episode, unspecified
[2018-02-28] MEDS: OLANZapine 10 MG TAB PO SCH (21:48)
[2018-03-01] MEDS: OLANZapine 5 MG TABLET PO PRN (08:17)
[2018-03-01] MEDS: DIVALPROEX EXTENDED RELEASE 500 MG TAB PO SCH ×2 (09:52→21:41)
[2018-03-01] MEDS: SERTRALINE HCL 100 MG TABLET PO SCH (09:52)
[2018-03-01] MEDS: OLANZapine 10 MG TAB PO SCH ×2 (09:52→21:41)
--- NOTE | 2018-03-01 11:26 | Psychiatric Progress Note ---
Date of Service March 01, 2018 Impression / Recommendations Impression 57 yo CM with history of schizophrenia and depression, admitted for deterioration of his schizophrenia with poor self care and possibly suspected in vandalism of vehicles in his living area. Now on 303 and confirmed with caser up that the patient did receive his Sustenna injection on 02/07 and so will be due in 1 month. It remains that he can't maintain appropriate boundaries with a roommate will continue with [facility] for now. He continues not to be reality based, and remains at risk of harm to self or others if not in a supervised inpatient environment. (1) Schizophrenia: -Invega sustenna 156mg IM, last given 02/06/18 -Continue Zyprexa to 10mg PO bid -Zyprexa 5mg bid prn available for acute needs -Increase Depakote ER to 500mg qam and 1000mg qhs for mood 02/25/18: Seems to be with some blocking but denies SI/HI/aVh and denies CAH. Will start zyprexa 5mg qhs in addition to home meds. Patient this time with poor functioning and will need treatment for stabilization. 02/26/18: Patient affect fluctuates, and he remains grossly disorganized and incoherent. Is tangential and seems to be distracted. Did deny Si/HI/aVH. Will increase zyprexa to 5mg bid and continue to treat for stabilization. 02/27/18: - Continue Sustenna and Zyprexa and will add prn 5 mg TID - Start Depakote 500 mg BID to target racing thoughts and behavioral dysregulation. - Will need level in 5 days on 03/04 - Continue to coordinate with his OP providers 02/28/18: Patient with minimal improvement and required 2 prn doses of zyprexa yesterday. Will increase scheduled zyprexa to 10mg bid. Depakote change to Depakote ER to treat mood and tangential racing thoughts. The consideration of returning to clozaril at this time is on hold as issues of compliance with meds and lab draws is of concern. Depakote level in AM. 03/01/18: He continues to be grossly disorganized, tangential and RIS. He is intrusive but redirectable per nursing staff. Increased zyprexa dose plus prn and will continue to treat for stabilization. He is not aggressive or agitated however is unable to care for himself at this time. VPA level was 62 and will increase depakote for mood stabilization and intrusive behaviors. (2) Depression: - Continue Zoloft 100mg daily Inventory Assets Strengths: not homeless, access to care, has case management Needs: medications, therapy Risk Factors Assessment Male: Yes : Yes Health Problems: No Substance Use Disorders: Yes Hopelessness: No Protective Factors Assessment : No Responsible for Young Children: No Employed: No Interval History Identifying Information 57 yo CM with history of schizophrenia and depression, admitted for deterioration of his schizophrenia with poor self care and possibly suspected in vandalism of vehicles in his living area. Patient is with psychomotor retardation, flat affect and drowsiness. He recieved haldol and ativan in the ER prior to being brought to unit. Review of Systems Sleep Information Total Hours of Sleep: 7 Sleep Comments: pt very restless and appeared to be bored: pt trying to find something like word find and pacing the hallways. pt appeared to be asleep @ 0530 and thereafter. pt on q-15 minute checks Meal Information Percent Meal Consumed - Breakfast: 100 Percent Meal Consumed - Lunch: 100 Percent Meal Consumed - Dinner: 100 Subjective Subjective Patient found walking in the halls and was asked if he remembers who I was and he states "ya from the other day" but was not able to choose between, doctor, nurse or social media strategist. Patient was tangential and was not able to answer most questions appropriately. When asked why he takes things off the wall, he states "the flag was made for me". He rambles on non-sensically. Patient was asked to stay away from the other patients rooms and stop removing things from the wall. He stated "ok, I wont". Patient was seen & assessed and interval progress reviewed with Treatment Team and Nursing Physical Exam Psychiatric Orientation: alert, oriented to person and oriented to place Apperance: appropriately dressed and + disheveled Eye Contact: + poor eye contact Motor Behavior: no abnormal motor movements Speech: normal rate/rhythm/volume of speech Affect: + blunted affect elevated mood Thought Process: + thought blocking and + tangential thought process Thought Content: + preoccupation Suicidal Thoughts: denies suicidal thoughts Homicidal Thoughts: denies homicidal thoughts seems to be RIS Cognition: attention grossly intact Estimated Intelligence: average estimated intelligence Insight: + poor insight Judgement: + poor judgement Vital Signs (Past 24 Hours) Last Vital Signs Temp 36.7 C 03/01/18 06:48 Pulse 78 03/01/18 06:48 Resp 20 03/01/18 06:48 BP 128/78 03/01/18 06:48 Pulse Ox 96 02/25/18 16:00 Results & Data Laboratory Results Laboratory Results - last 24 hr 03/01/18 09:04 Valproic Acid 62 Current Inpatient Medications Current Inpatient Medications: Current Inpatient Medications Acetaminophen (Tylenol) 650 mg PO Q4H PRN PRN Reason: Headache or Minor Fever Stop: 03/27/18 14:16 Al Hydrox/Mg Hydrox/Simethicone (Maalox) 30 ml PO Q4H PRN PRN Reason: GI Upset Stop: 03/27/18 14:16 Bismuth Subsalicylate (Kaopectate) 15 ml PO PRN PRN PRN Reason: Loose Stool Stop: 03/27/18 14:16 Divalproex Sodium (Depakote Extended Release) 500 mg PO BID HANNAH Stop: 03/30/18 08:59 Last Admin: 03/01/18 09:52 Dose: 500 mg Hydroxyzine HCl (Vistaril) 50 mg PO HSZ PRN PRN Reason: Insomnia Stop: 03/27/18 14:16 Last Admin: 02/27/18 00:47 Dose: 50 mg Magnesium Hydroxide (Milk Of Magnesia) 30 ml PO DAILY PRN PRN Reason: Heartburn Stop: 03/27/18 14:16 Olanzapine (Zyprexa) 5 mg PO TID PRN PRN Reason: psychosis Stop: 03/29/18 08:59 Last Admin: 03/01/18 08:17 Dose: 5 mg Olanzapine (Zyprexa) 10 mg PO BID HANNAH Stop: 03/30/18 20:59 Last Admin: 03/01/18 09:52 Dose: 10 mg Sertraline HCl (Zoloft) 100 mg PO QAM HANNAH Stop: 03/28/18 08:59 Last Admin: 03/01/18 09:52 Dose: 100 mg Sodium Chloride ([place] Nasal) 1 - 2 sprays NA PRN PRN PRN Reason: Nasal Dryness/Congestion Stop: 03/27/18 14:16 Post Discharge Appointments Psychiatrist Name of Psychiatrist: [facility] TATUM Bolivar Psychiatrist's Date of Appointment with Psychiatrist: 03/07/18 Time of Appointment with Psychiatrist: 9:45am Psychiatric Appointment Comment: [address], [place] [address] Therapist Name of Therapist: [facility] King Amando Sawyer Therapist's Date of Therapist Appointment: 03/12/18 Time of Therapist Appointment: 3:30pm Therapy Appointment Comment: [address], [place] [address] Financial Operations Clerk Name of Financial Operations Clerk: Gustabo Mabry Case Management Appointment Comment: [id number], [place] [address] CPT Code CPT Code 06846 _ (1) Schizophrenia Schizophrenia type: unspecified Qualified Code(s): F20.9 - Schizophrenia, unspecified (2) Depression Depression Type: unspecified Major depression recurrence: Active/Remission status: Major depression episode severity: Psychotic features: Trimester: Qualified Code(s): F32.9 - Major depressive disorder, single episode, unspecified
[2018-03-02] MEDS: DIVALPROEX EXTENDED RELEASE 500 MG TAB PO SCH ×2 (07:32→21:31)
[2018-03-02] MEDS: SERTRALINE HCL 100 MG TABLET PO SCH (07:32)
[2018-03-02] MEDS: OLANZapine 10 MG TAB PO SCH ×2 (07:32→21:31)
--- NOTE | 2018-03-02 13:13 | Psychiatric Progress Note ---
Date of Service March 02, 2018 Impression / Recommendations Impression 57 yo CM with history of schizophrenia and depression, admitted for deterioration of his schizophrenia with poor self care and possibly suspected in vandalism of vehicles in his living area. Now on 303 and confirmed with case management director that the patient did receive his Sustenna injection on 02/07 and so will be due in 1 month. It remains that he can't maintain appropriate boundaries with a roommate will continue with MNPR for now. He continues not to be reality based, and remains at risk of harm to self or others if not in a supervised inpatient environment. (1) Schizophrenia: -Invega sustenna 156mg IM, last given 02/06/18 -Continue Zyprexa to 10mg PO bid -Zyprexa 5mg bid prn available for acute needs -Increase Depakote ER to 500mg qam and 1000mg qhs for mood 02/25/18: Seems to be with some blocking but denies SI/HI/aVh and denies CAH. Will start zyprexa 5mg qhs in addition to home meds. Patient this time with poor functioning and will need treatment for stabilization. 02/26/18: Patient affect fluctuates, and he remains grossly disorganized and incoherent. Is tangential and seems to be distracted. Did deny Si/HI/aVH. Will increase zyprexa to 5mg bid and continue to treat for stabilization. 02/27/18: - Continue Sustenna and Zyprexa and will add prn 5 mg TID - Start Depakote 500 mg BID to target racing thoughts and behavioral dysregulation. - Will need level in 5 days on 03/04 - Continue to coordinate with his OP providers 02/28/18: Patient with minimal improvement and required 2 prn doses of zyprexa yesterday. Will increase scheduled zyprexa to 10mg bid. Depakote change to Depakote ER to treat mood and tangential racing thoughts. The consideration of returning to clozaril at this time is on hold as issues of compliance with meds and lab draws is of concern. Depakote level in AM. 03/01/18: He continues to be grossly disorganized, tangential and RIS. He is intrusive but redirectable per nursing staff. Increased zyprexa dose plus prn and will continue to treat for stabilization. He is not aggressive or agitated however is unable to care for himself at this time. VPA level was 62 and will increase depakote for mood stabilization and intrusive behaviors. 03/02/18: Patient seems to be with mild improvement and is less tangential today. Seems to be able to follow basic line of questioning. Does make random comment about irrelevant things, seems to be preoccupied at times and RIS. Patient is not aggressive or agitated and redirectable per nursing staff. Denies SI/Hi/AVH. (2) Depression: - Continue Zoloft 100mg daily Inventory Assets Strengths: not homeless, access to care, has case management Needs: medications, therapy Risk Factors Assessment Male: Yes : Yes Health Problems: No Substance Use Disorders: Yes Hopelessness: No Protective Factors Assessment : No Responsible for Young Children: No Employed: No Interval History Identifying Information 57 yo CM with history of schizophrenia and depression, admitted for deterioration of his schizophrenia with poor self care and possibly suspected in vandalism of vehicles in his living area. Patient is with psychomotor retardation, flat affect and drowsiness. He recieved haldol and ativan in the ER prior to being brought to unit. Review of Systems Sleep Information Total Hours of Sleep: 5.25 Sleep Comments: pt very restless and appeared to be bored: pt trying to find something like word find and pacing the hallways. pt appeared to be asleep @ 0530 and thereafter. pt on q-15 minute checks Meal Information Percent Meal Consumed - Breakfast: 100 Percent Meal Consumed - Lunch: 100 Percent Meal Consumed - Dinner: 100 Subjective Subjective Patient was able to follow directions to come and interview. He remained calm and answered most questions with yes and no. Was able to say that it snowed outside and he would wear a jacket if he went outside. He denies Si/Hi/aVH. He states that he has been eating fine and wakes up on/off through the night. He reports that he has a couple of brothers and his mother lives in a facility. Patient was seen & assessed and interval progress reviewed with [Treatment Team ] [Nursing] Physical Exam Psychiatric Orientation: alert and oriented to person Apperance: appropriately dressed Eye Contact: + poor eye contact Motor Behavior: no abnormal motor movements Speech: normal rate/rhythm/volume of speech Affect: + blunted affect stated as "ok" Thought Process: + thought blocking and + tangential thought process Thought Content: + preoccupation Suicidal Thoughts: denies suicidal thoughts Homicidal Thoughts: denies homicidal thoughts Hallucinations: no auditory hallucinations and no visual hallucinations Cognition: recent memory grossly intact and remote memory grossly intact Estimated Intelligence: average estimated intelligence Insight: + poor insight Judgement: + poor judgement Vital Signs (Past 24 Hours) Last Vital Signs Temp 36.4 C L 03/02/18 06:28 Pulse 78 03/02/18 06:29 Resp 20 03/02/18 06:28 BP 109/71 03/02/18 06:29 Pulse Ox 96 02/25/18 16:00 Results & Data Current Inpatient Medications Current Inpatient Medications: Current Inpatient Medications Acetaminophen (Tylenol) 650 mg PO Q4H PRN PRN Reason: Headache or Minor Fever Stop: 03/27/18 14:16 Al Hydrox/Mg Hydrox/Simethicone (Maalox) 30 ml PO Q4H PRN PRN Reason: GI Upset Stop: 03/27/18 14:16 Bismuth Subsalicylate (Kaopectate) 15 ml PO PRN PRN PRN Reason: Loose Stool Stop: 03/27/18 14:16 Divalproex Sodium (Depakote Extended Release) 500 mg PO QAM HANNAH Stop: 04/01/18 08:59 Last Admin: 03/02/18 07:32 Dose: 500 mg Divalproex Sodium (Depakote Extended Release) 1,000 mg PO HS HANNAH Stop: 03/31/18 21:59 Last Admin: 03/01/18 21:41 Dose: 1,000 mg Hydroxyzine HCl (Vistaril) 50 mg PO HSZ PRN PRN Reason: Insomnia Stop: 03/27/18 14:16 Last Admin: 02/27/18 00:47 Dose: 50 mg Magnesium Hydroxide (Milk Of Magnesia) 30 ml PO DAILY PRN PRN Reason: Heartburn Stop: 03/27/18 14:16 Olanzapine (Zyprexa) 5 mg PO TID PRN PRN Reason: psychosis Stop: 03/29/18 08:59 Last Admin: 03/01/18 08:17 Dose: 5 mg Olanzapine (Zyprexa) 10 mg PO BID HANNAH Stop: 03/30/18 20:59 Last Admin: 03/02/18 07:32 Dose: 10 mg Sertraline HCl (Zoloft) 100 mg PO QAM HANNAH Stop: 03/28/18 08:59 Last Admin: 03/02/18 07:32 Dose: 100 mg Sodium Chloride ([place] Nasal) 1 - 2 sprays NA PRN PRN PRN Reason: Nasal Dryness/Congestion Stop: 03/27/18 14:16 Post Discharge Appointments Psychiatrist Name of Psychiatrist: [facility] TATUM Bolivar Psychiatrist's Date of Appointment with Psychiatrist: 03/07/18 Time of Appointment with Psychiatrist: 9:45am Psychiatric Appointment Comment: [address], [place] [address] Therapist Name of Therapist: [facility] King Sawyer Therapist's Date of Therapist Appointment: 03/12/18 Time of Therapist Appointment: 3:30pm Therapy Appointment Comment: [address], [place] [address] Sql Developer Name of Senior Oracle [employer] Sql Developer: Gustabo Mabry Case Management Appointment Comment: [id number], [place] [address] CPT Code CPT Code 12596 _ (1) Schizophrenia Schizophrenia type: unspecified Qualified Code(s): F20.9 - Schizophrenia, unspecified (2) Depression Depression Type: unspecified Major depression recurrence: Active/Remission status: Major depression episode severity: Psychotic features: Trimester: Qualified Code(s): F32.9 - Major depressive disorder, single episode, unspecified
[2018-03-03] MEDS: DIVALPROEX EXTENDED RELEASE 500 MG TAB PO SCH ×2 (07:24→21:14)
[2018-03-03] MEDS: SERTRALINE HCL 100 MG TABLET PO SCH (07:24)
[2018-03-03] MEDS: OLANZapine 10 MG TAB PO SCH ×2 (07:24→21:14)
--- NOTE | 2018-03-03 11:33 | Psychiatric Progress Note ---
Date of Service March 03, 2018 Impression / Recommendations Impression Continues with slow progress. Conversation more appropriate and spontaneous. Will ask his case folder Marcell to visit to estimate how close to baseline he is, as we suspect that he may be close. If so will establish a robust aftercare plan moving toward discharge. (1) Schizophrenia: -Invega sustenna 156mg IM, last given 02/06/18 -Continue Zyprexa to 10mg PO bid -Zyprexa 5mg bid prn available for acute needs -Increase Depakote ER to 500mg qam and 1000mg qhs for mood 02/25/18: Seems to be with some blocking but denies SI/HI/aVh and denies CAH. Will start zyprexa 5mg qhs in addition to home meds. Patient this time with poor functioning and will need treatment for stabilization. 02/26/18: Patient affect fluctuates, and he remains grossly disorganized and incoherent. Is tangential and seems to be distracted. Did deny Si/HI/aVH. Will increase zyprexa to 5mg bid and continue to treat for stabilization. 02/27/18: - Continue Sustenna and Zyprexa and will add prn 5 mg TID - Start Depakote 500 mg BID to target racing thoughts and behavioral dysregulation. - Will need level in 5 days on 03/04 - Continue to coordinate with his OP providers 02/28/18: Patient with minimal improvement and required 2 prn doses of zyprexa yesterday. Will increase scheduled zyprexa to 10mg bid. Depakote change to Depakote ER to treat mood and tangential racing thoughts. The consideration of returning to clozaril at this time is on hold as issues of compliance with meds and lab draws is of concern. Depakote level in AM. 03/01/18: He continues to be grossly disorganized, tangential and RIS. He is intrusive but redirectable per nursing staff. Increased zyprexa dose plus prn and will continue to treat for stabilization. He is not aggressive or agitated however is unable to care for himself at this time. VPA level was 62 and will increase depakote for mood stabilization and intrusive behaviors. 03/02/18: Patient seems to be with mild improvement and is less tangential today. Seems to be able to follow basic line of questioning. Does make random comment about irrelevant things, seems to be preoccupied at times and RIS. Patient is not aggressive or agitated and redirectable per nursing staff. Denies SI/Hi/AVH. 03/03 - Continue current meds. Consider shifting bulk of APM to HS given more daytime sedation - Invite case folder in to see patient to estimate closeness to baseline (2) Depression: - Continue Zoloft 100mg daily Inventory Assets Strengths: not homeless, access to care, has case management Needs: medications, therapy Risk Factors Assessment Male: Yes : Yes Health Problems: No Substance Use Disorders: Yes Hopelessness: No Protective Factors Assessment : No Responsible for Young Children: No Employed: No Interval History Identifying Information 57 yo CM with history of schizophrenia and depression, admitted for deterioration of his schizophrenia with poor self care and possibly suspected in vandalism of vehicles in his living area. Patient is with psychomotor retardation, flat affect and drowsiness. He recieved haldol and ativan in the ER prior to being brought to unit. Chief Complaint "Fine". Review of Systems Sleep Information Total Hours of Sleep: 2 Sleep Comments: pt awake @0015 and thereafter. pt walking the hallways, sitting in the dayarea, appeared to be keeping himself awake. pt currently in dayarea looking at a magazine. pt on q-15 minute checks Meal Information Percent Meal Consumed - Breakfast: 100 Percent Meal Consumed - Lunch: 100 Percent Meal Consumed - Dinner: 100 Subjective Subjective Patient was seen & assessed and interval progress reviewed with Treatment Team. Nursing reports that the patient has been more tired than usual. He reports that he is "fine" and rates his mood 4/10 today. He is more appropriate conversationally and the only disconnected comment he makes is to ask me how I like the new sheryl Perry. He asks if he can go home today. He denies that he is hearing voices or having visual experiences. When asked if he feels better he says yes but cannot tell me how. He denies side effects to medications, and denies physical complaints today including N/V/D, CP or SOB. Physical Exam Psychiatric Orientation: alert and cooperative Apperance: appropriately dressed and appropriately groomed Eye Contact: + poor eye contact Motor Behavior: no abnormal motor movements Speech: normal rate/rhythm/volume of speech (more spontaneous than last week) Affect: + flat affect Mood: no depressed mood and no anxious mood more linear, fewer disconnected comments. Thought Content: reality based without delusions Suicidal Thoughts: denies suicidal thoughts Homicidal Thoughts: denies homicidal thoughts Hallucinations: no auditory hallucinations and no visual hallucinations Cognition: attention grossly intact and language grossly intact Estimated Intelligence: average estimated intelligence Insight: + impaired insight Judgement: + impaired judgement Vital Signs (Past 24 Hours) Last Vital Signs Temp 36.6 C 03/03/18 06:52 Pulse 52 L 03/03/18 06:53 Resp 18 03/03/18 06:52 BP 113/75 03/03/18 06:53 Pulse Ox 96 02/25/18 16:00 Results & Data Current Inpatient Medications Current Inpatient Medications: Current Inpatient Medications Acetaminophen (Tylenol) 650 mg PO Q4H PRN PRN Reason: Headache or Minor Fever Stop: 03/27/18 14:16 Al Hydrox/Mg Hydrox/Simethicone (Maalox) 30 ml PO Q4H PRN PRN Reason: GI Upset Stop: 03/27/18 14:16 Bismuth Subsalicylate (Kaopectate) 15 ml PO PRN PRN PRN Reason: Loose Stool Stop: 03/27/18 14:16 Divalproex Sodium (Depakote Extended Release) 500 mg PO QAM HANNAH Stop: 04/01/18 08:59 Last Admin: 03/03/18 07:24 Dose: 500 mg Divalproex Sodium (Depakote Extended Release) 1,000 mg PO HS HANNAH Stop: 03/31/18 21:59 Last Admin: 03/02/18 21:31 Dose: 1,000 mg Hydroxyzine HCl (Vistaril) 50 mg PO HSZ PRN PRN Reason: Insomnia Stop: 03/27/18 14:16 Last Admin: 02/27/18 00:47 Dose: 50 mg Magnesium Hydroxide (Milk Of Magnesia) 30 ml PO DAILY PRN PRN Reason: Heartburn Stop: 03/27/18 14:16 Olanzapine (Zyprexa) 5 mg PO TID PRN PRN Reason: psychosis Stop: 03/29/18 08:59 Last Admin: 03/01/18 08:17 Dose: 5 mg Olanzapine (Zyprexa) 10 mg PO BID HANNAH Stop: 03/30/18 20:59 Last Admin: 03/03/18 07:24 Dose: 10 mg Sertraline HCl (Zoloft) 100 mg PO QAM HANNAH Stop: 03/28/18 08:59 Last Admin: 03/03/18 07:24 Dose: 100 mg Sodium Chloride ([place] Nasal) 1 - 2 sprays NA PRN PRN PRN Reason: Nasal Dryness/Congestion Stop: 03/27/18 14:16 Post Discharge Appointments Psychiatrist Name of Psychiatrist: [facility] TATUM Bolivar Psychiatrist's Date of Appointment with Psychiatrist: 03/07/18 Time of Appointment with Psychiatrist: 9:45am Psychiatric Appointment Comment: [address], [place] [address] Therapist Name of Therapist: SHY Sawyer Therapist's Date of Therapist Appointment: 03/12/18 Time of Therapist Appointment: 3:30pm Therapy Appointment Comment: [address], [place] [address] Delivery Representative Name of Delivery Representative: Gustabo Mabry Case Management Appointment Comment: [id number], [place] [address] CPT Code CPT Code 34567 _ (1) Schizophrenia Schizophrenia type: unspecified Qualified Code(s): F20.9 - Schizophrenia, unspecified (2) Depression Depression Type: unspecified Major depression recurrence: Active/Remission status: Major depression episode severity: Psychotic features: Trimester: Qualified Code(s): F32.9 - Major depressive disorder, single episode, unspecified
[2018-03-04] MEDS: OLANZapine 5 MG TABLET PO PRN (05:53)
[2018-03-04] MEDS: DIVALPROEX EXTENDED RELEASE 500 MG TAB PO SCH ×2 (07:37→21:13)
[2018-03-04] MEDS: OLANZapine 10 MG TAB PO SCH ×2 (07:37→21:13)
[2018-03-04] MEDS: SERTRALINE HCL 100 MG TABLET PO SCH (07:37)
--- NOTE | 2018-03-04 10:29 | Psychiatric Progress Note ---
Date of Service March 04, 2018 Impression / Recommendations Impression 57 yo CM with history of schizophrenia and depression, admitted for deterioration of his schizophrenia with poor self care and possibly suspected in vandalism of vehicles in his living area. Now on 303 and confirmed with case loader operator that the patient did receive his Sustenna injection on 02/07 and so will be due in 1 month. At this time, patient seems to be with continued slow improvement with decreased blocking, tangentiality and ability to be redirectable. He does have some intrusive behaviors however has not been agitated or aggressive. Seems to be maintaining a clean room, eating and complying with self-care. Perhaps he is nearing baseline, however will request assistance of case folder for baseline functioning. (1) Schizophrenia: -Invega sustenna 156mg IM, last given 02/06/18 -Continue Zyprexa to 10mg PO bid -Zyprexa 5mg bid prn available for acute needs -Conitnue Depakote ER to 500mg qam and 1000mg qhs for mood 02/25/18: Seems to be with some blocking but denies SI/HI/aVh and denies CAH. Will start zyprexa 5mg qhs in addition to home meds. Patient this time with poor functioning and will need treatment for stabilization. 02/26/18: Patient affect fluctuates, and he remains grossly disorganized and incoherent. Is tangential and seems to be distracted. Did deny Si/HI/aVH. Will increase zyprexa to 5mg bid and continue to treat for stabilization. 02/27/18: - Continue Sustenna and Zyprexa and will add prn 5 mg TID - Start Depakote 500 mg BID to target racing thoughts and behavioral dysregulation. - Will need level in 5 days on 03/04 - Continue to coordinate with his OP providers 02/28/18: Patient with minimal improvement and required 2 prn doses of zyprexa yesterday. Will increase scheduled zyprexa to 10mg bid. Depakote change to Depakote ER to treat mood and tangential racing thoughts. The consideration of returning to clozaril at this time is on hold as issues of compliance with meds and lab draws is of concern. Depakote level in AM. 03/01/18: He continues to be grossly disorganized, tangential and RIS. He is intrusive but redirectable per nursing staff. Increased zyprexa dose plus prn and will continue to treat for stabilization. He is not aggressive or agitated however is unable to care for himself at this time. VPA level was 62 and will increase depakote for mood stabilization and intrusive behaviors. 03/02/18: Patient seems to be with mild improvement and is less tangential today. Seems to be able to follow basic line of questioning. Does make random comment about irrelevant things, seems to be preoccupied at times and RIS. Patient is not aggressive or agitated and redirectable per nursing staff. Denies SI/Hi/AVH. 03/03 - Continue current meds. Consider shifting bulk of APM to HS given more daytime sedation - Invite case loader operator in to see patient to estimate closeness to baseline 03/04/18: Patient seems to be with continued slow improvement with decreased blocking, tangentiality and ability to be redirectable. He does have some intrusive behaviors however has not been agitated or aggressive. Seems to be maintaining a clean room, eating and complying with self-care. Perhaps he is nearing baseline, however will request assistance of case folder. Continue current regimen at this time. (2) Depression: - Continue Zoloft 100mg daily Inventory Assets Strengths: not homeless, access to care, has case management Needs: medications, therapy Risk Factors Assessment Male: Yes : Yes Health Problems: No Substance Use Disorders: Yes Hopelessness: No Protective Factors Assessment : No Responsible for Young Children: No Employed: No Interval History Identifying Information 57 yo CM with history of schizophrenia and depression, admitted for deterioration of his schizophrenia with poor self care and possibly suspected in vandalism of vehicles in his living area. Patient is with psychomotor retardation, flat affect and drowsiness. He recieved haldol and ativan in the ER prior to being brought to unit. Review of Systems Sleep Information Total Hours of Sleep: 3.75 Sleep Comments: pt given vistaril x2 per rn. pt appeared to sleep one hr during evening shift. pt on q-15 minute checks. pt pacing during the night and busy with word search. Meal Information Percent Meal Consumed - Breakfast: 100 Percent Meal Consumed - Lunch: 100 Percent Meal Consumed - Dinner: 100 Subjective Subjective Patient states "I'm ok" and reports that he likes the physicians shirt. He states that he slept ok, but woke up a few times. He denies SI/HI/aVH. He is reported by nursing to continue to roam around the unit but is redirectable and is not aggressive or agitated. He states that his case loader operator is Tolu and he would like to talk to him if he comes to visit. This is different then when patient was admitted he refused to speak to the case loader operator saying he was illiterate. He states he will shower today and per nursing, he generally has been showering, eating and keeping his room clean. Patient was seen & assessed and interval progress reviewed with Treatment Team and Nursing Physical Exam Psychiatric Orientation: alert, oriented to person and oriented to place Apperance: appropriately dressed Eye Contact: + fair eye contact Motor Behavior: no abnormal motor movements Speech: normal rate/rhythm/volume of speech Affect: + blunted affect stated as "ok" Thought Process: + thought blocking and + tangential thought process at times with blocking and at times tangential. Improved slowly during stay Thought Content: + preoccupation Suicidal Thoughts: denies suicidal thoughts Homicidal Thoughts: denies homicidal thoughts Hallucinations: no auditory hallucinations and no visual hallucinations Estimated Intelligence: + below average estimated intelligence Insight: + limited insight Judgement: + limited judgement Vital Signs (Past 24 Hours) Last Vital Signs Temp 36.7 C 03/04/18 06:55 Pulse 79 03/04/18 06:55 Resp 18 03/04/18 06:55 BP 115/73 03/04/18 06:55 Pulse Ox 96 02/25/18 16:00 Results & Data Current Inpatient Medications Current Inpatient Medications: Current Inpatient Medications Acetaminophen (Tylenol) 650 mg PO Q4H PRN PRN Reason: Headache or Minor Fever Stop: 03/27/18 14:16 Al Hydrox/Mg Hydrox/Simethicone (Maalox) 30 ml PO Q4H PRN PRN Reason: GI Upset Stop: 03/27/18 14:16 Bismuth Subsalicylate (Kaopectate) 15 ml PO PRN PRN PRN Reason: Loose Stool Stop: 03/27/18 14:16 Divalproex Sodium (Depakote Extended Release) 500 mg PO [facility] Stop: 04/01/18 08:59 Last Admin: 03/04/18 07:37 Dose: 500 mg Divalproex Sodium (Depakote Extended Release) 1,000 mg PO HS HANNAH Stop: 03/31/18 21:59 Last Admin: 03/03/18 21:14 Dose: 1,000 mg Hydroxyzine HCl (Vistaril) 50 mg PO HSZ PRN PRN Reason: Insomnia Stop: 03/27/18 14:16 Last Admin: 03/03/18 21:15 Dose: 50 mg Magnesium Hydroxide (Milk Of Magnesia) 30 ml PO DAILY PRN PRN Reason: Heartburn Stop: 03/27/18 14:16 Olanzapine (Zyprexa) 5 mg PO TID PRN PRN Reason: psychosis Stop: 03/29/18 08:59 Last Admin: 03/04/18 05:53 Dose: 5 mg Olanzapine (Zyprexa) 10 mg PO BID HANNAH Stop: 03/30/18 20:59 Last Admin: 03/04/18 07:37 Dose: 10 mg Sertraline HCl (Zoloft) 100 mg PO QAM HANNAH Stop: 03/28/18 08:59 Last Admin: 03/04/18 07:37 Dose: 100 mg Sodium Chloride ([place] Nasal) 1 - 2 sprays NA PRN PRN PRN Reason: Nasal Dryness/Congestion Stop: 03/27/18 14:16 Post Discharge Appointments Psychiatrist Name of Psychiatrist: [facility] Psychiatrist's Date of Appointment with Psychiatrist: 03/07/18 Time of Appointment with Psychiatrist: 9:45am Psychiatric Appointment Comment: [address], [place], [place] [id number] Therapist Name of Therapist: [facility] [place] Therapist's Date of Therapist Appointment: 03/12/18 Time of Therapist Appointment: 3:30pm Therapy Appointment Comment: [address] [place], [place] [id number] Senior Packaging Engineer Name of Senior Packaging Engineer: Gustabo Mabry Phone Number for Senior Packaging Engineer: [phone] Case Management Appointment Comment: [address] [place] [address] CPT Code CPT Code 28806 _ (1) Depression Active/Remission status: Depression Type: unspecified Major depression episode severity: Major depression recurrence: Psychotic features: Trimester: Qualified Code(s): F32.9 - Major depressive disorder, single episode, unspecified (2) Schizophrenia Schizophrenia type: unspecified Qualified Code(s): F20.9 - Schizophrenia, unspecified
[2018-03-05] MEDS: SERTRALINE HCL 100 MG TABLET PO SCH (07:26)
[2018-03-05] MEDS: DIVALPROEX EXTENDED RELEASE 500 MG TAB PO SCH ×2 (07:26→21:31)
[2018-03-05] MEDS: OLANZapine 10 MG TAB PO SCH ×2 (07:27→21:31)
--- NOTE | 2018-03-05 10:15 | Psychiatric Progress Note ---
Date of Service March 05, 2018 Impression / Recommendations Impression 57 yo CM with history of schizophrenia and depression, admitted for deterioration of his schizophrenia with poor self care and possibly suspected in vandalism of vehicles in his living area. Now on 303 and confirmed with supportive employment case manager that the patient did receive his Sustenna injection on 02/07 and so will be due in 1 month. At this time, patient seems to be with continued slow improvement with decreased blocking, tangentiality and ability to be redirectable. He does have some intrusive behaviors however has not been agitated or aggressive. Seems to be maintaining a clean room, eating and complying with self-care. Perhaps he is nearing baseline, however will request assistance of block and case maker for baseline functioning. (1) Schizophrenia: -Invega sustenna 156mg IM, last given 02/06/18 -Continue Zyprexa to 10mg PO bid -Zyprexa 5mg bid prn available for acute needs -Conitnue Depakote ER to 500mg qam and 1000mg qhs for mood 02/25/18: Seems to be with some blocking but denies SI/HI/aVh and denies CAH. Will start zyprexa 5mg qhs in addition to home meds. Patient this time with poor functioning and will need treatment for stabilization. 02/26/18: Patient affect fluctuates, and he remains grossly disorganized and incoherent. Is tangential and seems to be distracted. Did deny Si/HI/aVH. Will increase zyprexa to 5mg bid and continue to treat for stabilization. 02/27/18: - Continue Sustenna and Zyprexa and will add prn 5 mg TID - Start Depakote 500 mg BID to target racing thoughts and behavioral dysregulation. - Will need level in 5 days on 03/04 - Continue to coordinate with his OP providers 02/28/18: Patient with minimal improvement and required 2 prn doses of zyprexa yesterday. Will increase scheduled zyprexa to 10mg bid. Depakote change to Depakote ER to treat mood and tangential racing thoughts. The consideration of returning to clozaril at this time is on hold as issues of compliance with meds and lab draws is of concern. Depakote level in AM. 03/01/18: He continues to be grossly disorganized, tangential and RIS. He is intrusive but redirectable per nursing staff. Increased zyprexa dose plus prn and will continue to treat for stabilization. He is not aggressive or agitated however is unable to care for himself at this time. VPA level was 62 and will increase depakote for mood stabilization and intrusive behaviors. 03/02/18: Patient seems to be with mild improvement and is less tangential today. Seems to be able to follow basic line of questioning. Does make random comment about irrelevant things, seems to be preoccupied at times and RIS. Patient is not aggressive or agitated and redirectable per nursing staff. Denies SI/Hi/AVH. 03/03 - Continue current meds. Consider shifting bulk of APM to HS given more daytime sedation - Invite supportive employment case manager in to see patient to estimate closeness to baseline 03/04/18: Patient seems to be with continued slow improvement with decreased blocking, tangentiality and ability to be redirectable. He does have some intrusive behaviors however has not been agitated or aggressive. Seems to be maintaining a clean room, eating and complying with self-care. Perhaps he is nearing baseline, however will request assistance of block and case maker. Continue current regimen at this time. 03/05/18: Patient remains without changes today and has had slow progression to improvement during admission. Will reach out to block and case maker to assist with determining baseline functioning of patient. (2) Depression: - Continue Zoloft 100mg daily Inventory Assets Strengths: not homeless, access to care, has case management Needs: medications, therapy Risk Factors Assessment Male: Yes : Yes Health Problems: No Substance Use Disorders: Yes Hopelessness: No Protective Factors Assessment : No Responsible for Young Children: No Employed: No Interval History Identifying Information 57 yo CM with history of schizophrenia and depression, admitted for deterioration of his schizophrenia with poor self care and possibly suspected in vandalism of vehicles in his living area. Patient is with psychomotor retardation, flat affect and drowsiness. He recieved haldol and ativan in the ER prior to being brought to unit. Review of Systems Sleep Information Total Hours of Sleep: 4 Sleep Comments: awake at the very beginning of the shift then asleep and awake for the first time at 0120. he got something to drink then back to sleep till 0400. he has been asleep /awake since. he has received 3 cups of coffee so far since 0600. Meal Information Percent Meal Consumed - Breakfast: 100 Percent Meal Consumed - Lunch: 100 Percent Meal Consumed - Dinner: 100 Subjective Subjective Patient states he is "ok". When asked how he was feeling, he states "I'm fine". Per nursing report, he told them they were illeterate yesterday, however when mentioning his block and case maker, he states "can Tolu get me doritos". He denies SI/ Hi/aVH. Seems he has been slowing down and not removing items off the wall like he was when admitted. When asked about the cars in his neighborhood and that they were damaged, he states "I think the greg steele piece is worth $9000". When asked if he damaged any cars he states "no" and states "I like license plates". Patient was seen & assessed and interval progress reviewed with Treatment Team and Nursing Physical Exam Psychiatric Orientation: alert, oriented to person and oriented to place Apperance: appropriately dressed Eye Contact: + poor eye contact Motor Behavior: no abnormal motor movements Speech: normal rate/rhythm/volume of speech Affect: + blunted affect Thought Process: + thought blocking and + tangential thought process some blocking and some tangentiality Thought Content: + preoccupation seems to be preoccupied with his thoughts at times Suicidal Thoughts: denies suicidal thoughts Homicidal Thoughts: denies homicidal thoughts Hallucinations: no auditory hallucinations and no visual hallucinations denies Cognition: language grossly intact Estimated Intelligence: + below average estimated intelligence Insight: + limited insight Judgement: + limited judgement Vital Signs (Past 24 Hours) Last Vital Signs Temp 36.6 C 03/05/18 06:56 Pulse 69 03/05/18 06:57 Resp 18 03/05/18 06:56 BP 121/77 03/05/18 06:57 Pulse Ox 96 02/25/18 16:00 Results & Data Current Inpatient Medications Current Inpatient Medications: Current Inpatient Medications Acetaminophen (Tylenol) 650 mg PO Q4H PRN PRN Reason: Headache or Minor Fever Stop: 03/27/18 14:16 Al Hydrox/Mg Hydrox/Simethicone (Maalox) 30 ml PO Q4H PRN PRN Reason: GI Upset Stop: 03/27/18 14:16 Bismuth Subsalicylate (Kaopectate) 15 ml PO PRN PRN PRN Reason: Loose Stool Stop: 03/27/18 14:16 Divalproex Sodium (Depakote Extended Release) 500 mg PO QAM HANNAH Stop: 04/01/18 08:59 Last Admin: 03/05/18 07:26 Dose: 500 mg Divalproex Sodium (Depakote Extended Release) 1,000 mg PO HS HANNAH Stop: 03/31/18 21:59 Last Admin: 03/04/18 21:13 Dose: 1,000 mg Hydroxyzine HCl (Vistaril) 50 mg PO HSZ PRN PRN Reason: Insomnia Stop: 03/27/18 14:16 Last Admin: 03/03/18 21:15 Dose: 50 mg Magnesium Hydroxide (Milk Of Magnesia) 30 ml PO DAILY PRN PRN Reason: Heartburn Stop: 03/27/18 14:16 Olanzapine (Zyprexa) 5 mg PO TID PRN PRN Reason: psychosis Stop: 03/29/18 08:59 Last Admin: 03/04/18 05:53 Dose: 5 mg Olanzapine (Zyprexa) 10 mg PO BID HANNAH Stop: 03/30/18 20:59 Last Admin: 03/05/18 07:27 Dose: 10 mg Sertraline HCl (Zoloft) 100 mg PO QAM HANNAH Stop: 03/28/18 08:59 Last Admin: 03/05/18 07:26 Dose: 100 mg Sodium Chloride ([place] Nasal) 1 - 2 sprays NA PRN PRN PRN Reason: Nasal Dryness/Congestion Stop: 03/27/18 14:16 Post Discharge Appointments Psychiatrist Name of Psychiatrist: [facility] [place] Psychiatrist's Date of Appointment with Psychiatrist: 03/07/18 Time of Appointment with Psychiatrist: 9:45am Psychiatric Appointment Comment: [address], [place] [id number] Therapist Name of Therapist: [facility] [place] Therapist's Date of Therapist Appointment: 03/12/18 Time of Therapist Appointment: 3:30pm Therapy Appointment Comment: [address], [place] [id number] Applications Support Engineer Name of Applications Support Engineer: Gustabo Mabry Phone Number for Applications Support Engineer: [phone] Case Management Appointment Comment: [address] [place] [address] CPT Code CPT Code 08982 _ (1) Schizophrenia Schizophrenia type: unspecified Qualified Code(s): F20.9 - Schizophrenia, unspecified (2) Depression Depression Type: unspecified Major depression recurrence: Active/Remission status: Major depression episode severity: Psychotic features: Trimester: Qualified Code(s): F32.9 - Major depressive disorder, single episode, unspecified
[2018-03-06] MEDS: SERTRALINE HCL 100 MG TABLET PO SCH (08:01)
[2018-03-06] MEDS: DIVALPROEX EXTENDED RELEASE 500 MG TAB PO SCH ×2 (08:01→21:42)
[2018-03-06] MEDS: OLANZapine 10 MG TAB PO SCH (08:01)
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
[2018-03-06 10:54] LABS: Basophils # (auto) 0.02 K/uL (0-0.2); Basophils % (auto) 0.3 %; Eosinophils # (auto) 0.17 K/uL (0-0.5); Eosinophils % (auto) 2.9 %; Hematocrit (blood only) 38.6 % (42-52); Lymphocytes # (auto) 1.59 K/uL (1.2-3.4); Lymphocytes % (auto) 27.4 %; Mean Corpuscular Hgb Conc 33.7 g/dL (32-36); Mean Corpuscular Volume 89.6 fL (80-100); Mean Platelet Volume 9.7 fL (7.4-10.4); Monocytes # (auto) 0.47 K/uL (0.11-0.59); Monocytes % (auto) 8.1 %; Neutrophils # (auto) 3.55 K/uL (1.4-6.5); Neutrophils % (auto) 61.3 %; Platelet Count 165 K/uL (130-400); RDW Coefficient of Variation 13.2 % (11.5-14.5); RDW Standard Deviation 43.5 fL (36.4-46.3); Red Blood Count 4.31 M/uL (4.7-6.1)
[2018-03-06] MEDS: cloZAPine 25 MG TAB PO SCH ×2 (16:04→21:40)
[2018-03-06] MEDS ORDERED: cloZAPine 25 MG TAB PO SCH (21:00)
[2018-03-06] MEDS: OLANZapine 5 MG TABLET PO SCH (21:42)
[2018-03-07] MEDS: cloZAPine 25 MG TAB PO SCH ×2 (07:43→22:05)
[2018-03-07] MEDS: SERTRALINE HCL 100 MG TABLET PO SCH (07:43)
[2018-03-07] MEDS: OLANZapine 5 MG TABLET PO SCH (07:44)
[2018-03-07] MEDS: DIVALPROEX EXTENDED RELEASE 500 MG TAB PO SCH ×2 (07:44→22:05)
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
[2018-03-07] MEDS ORDERED: cloZAPine 25 MG TAB PO ONE (09:38)
[2018-03-08] MEDS: DIVALPROEX EXTENDED RELEASE 500 MG TAB PO SCH ×2 (07:58→21:03)
[2018-03-08] MEDS: SERTRALINE HCL 100 MG TABLET PO SCH (07:58)
[2018-03-08] MEDS: cloZAPine 25 MG TAB PO SCH (07:59)
[2018-03-08] MEDS ORDERED: cloZAPine 25 MG TAB PO SCH ×2 (11:30→22:00)
--- NOTE | 2018-03-08 11:35 | Psychiatric Progress Note ---
Date of Service March 08, 2018 Impression / Recommendations Impression 57 yo CM with history of schizophrenia and depression, admitted for deterioration of his schizophrenia with poor self care and possibly suspected in vandalism of vehicles in his living area. Now on 303 and received his last Sustenna injection on 02/07. Clozapine was resumed given various reports of stability with previous trials of the medication. Will continue daily titration , as well as weekly CBCs. Pt continues to be wiht thought blocking and tangentiality during conversations. Will require ongoing inpatient mental health treatment due to significant deterioration prior to admission and necessary titration and monitoring with clozapine initiation. (1) Schizophrenia: -Invega sustenna 156mg IM, last given 02/06/18 -Taper Zyprexa to 5mg qhs and 5mg tomorrow morning and then stop -Zyprexa 5mg bid prn available for acute needs -Conitnue Depakote ER to 500mg qam and 1000mg qhs for mood -Start Clozapine 12.5mg bid and titrate (will obtain baseline EKG and ANC prior to this) 02/25/18: Seems to be with some blocking but denies SI/HI/aVh and denies CAH. Will start zyprexa 5mg qhs in addition to home meds. Patient this time with poor functioning and will need treatment for stabilization. 02/26/18: Patient affect fluctuates, and he remains grossly disorganized and incoherent. Is tangential and seems to be distracted. Did deny Si/HI/aVH. Will increase zyprexa to 5mg bid and continue to treat for stabilization. 02/27/18: - Continue Sustenna and Zyprexa and will add prn 5 mg TID - Start Depakote 500 mg BID to target racing thoughts and behavioral dysregulation. - Will need level in 5 days on 03/04 - Continue to coordinate with his OP providers 02/28/18: Patient with minimal improvement and required 2 prn doses of zyprexa yesterday. Will increase scheduled zyprexa to 10mg bid. Depakote change to Depakote ER to treat mood and tangential racing thoughts. The consideration of returning to clozaril at this time is on hold as issues of compliance with meds and lab draws is of concern. Depakote level in AM. 03/01/18: He continues to be grossly disorganized, tangential and RIS. He is intrusive but redirectable per nursing staff. Increased zyprexa dose plus prn and will continue to treat for stabilization. He is not aggressive or agitated however is unable to care for himself at this time. VPA level was 62 and will increase depakote for mood stabilization and intrusive behaviors. 03/02/18: Patient seems to be with mild improvement and is less tangential today. Seems to be able to follow basic line of questioning. Does make random comment about irrelevant things, seems to be preoccupied at times and RIS. Patient is not aggressive or agitated and redirectable per nursing staff. Denies SI/Hi/AVH. 03/03 - Continue current meds. Consider shifting bulk of APM to HS given more daytime sedation - Invite catalytic case operator in to see patient to estimate closeness to baseline 03/04/18: Patient seems to be with continued slow improvement with decreased blocking, tangentiality and ability to be redirectable. He does have some intrusive behaviors however has not been agitated or aggressive. Seems to be maintaining a clean room, eating and complying with self-care. Perhaps he is nearing baseline, however will request assistance of adult protective caseworker. Continue current regimen at this time. 03/05/18: Patient remains without changes today and has had slow progression to improvement during admission. Will reach out to adult protective caseworker to assist with determining baseline functioning of patient. 03/06/18: Patient seems to be quite disorganized, tangential and with loose associations. Will need to change meds for stabilization. Will discontinue zyprexa and start clozapine. According to catalytic case operator, patient is not close to his baseline and is functional when he is. QTC on 03/06/18 is 440 and last two ANC's are within normal. 03/07/18: Will increase clozapine to 25mg BID today, and discontinue olanzapine. Weekly CBC's ordered up to 03/20/18. 03/08/18: Will continue titration of clozapine and follow weeklly CBC's. (2) Depression: - Continue Zoloft 100mg daily Inventory Assets Strengths: not homeless, access to care, has case management Needs: medications, therapy Risk Factors Assessment Male: Yes : Yes Health Problems: No Substance Use Disorders: Yes Hopelessness: No Protective Factors Assessment : No Responsible for Young Children: No Employed: No Interval History Identifying Information 57 yo CM with history of schizophrenia and depression, admitted for deterioration of his schizophrenia with poor self care and possibly suspected in vandalism of vehicles in his living area. Patient is with psychomotor retardation, flat affect and drowsiness. He recieved haldol and ativan in the ER prior to being brought to unit. Chief Complaint "[]". Review of Systems Sleep Information Total Hours of Sleep: 1.75 Sleep Comments: pt awoke @0130 and remained awake thereafter. pt requested and drank 2 orange juices and a cup of decaf coffee. pt remained mostly in his room , standing/leaning by the wall doing puzzles, but at times pacing the hallway. pt quiet during the night. pt on q-15 minute checks Meal Information Percent Meal Consumed - Breakfast: 100 Percent Meal Consumed - Lunch: 100 Percent Meal Consumed - Dinner: 100 Subjective Subjective Patient was found in day room putting a puzzle together. He states "this is a puzzle". He reports "I'm ok" and denies SI/HI/aVH. When asked about showering, he states he plans to do so this afternoon. Conversation was limited as patient fixed on doing puzzle. Patient was seen & assessed and interval progress reviewed with Nursing Physical Exam Psychiatric Orientation: alert, oriented to person and oriented to place Apperance: appropriately dressed Eye Contact: + poor eye contact Motor Behavior: no abnormal motor movements Speech: normal rate/rhythm/volume of speech Affect: + blunted affect and mood congruent with affect Thought Process: + thought blocking Thought Content: + preoccupation Suicidal Thoughts: denies suicidal thoughts Homicidal Thoughts: denies homicidal thoughts Hallucinations: no auditory hallucinations and no visual hallucinations Cognition: attention grossly intact Estimated Intelligence: + below average estimated intelligence Insight: + impaired insight Judgement: + impaired judgement Vital Signs (Past 24 Hours) Last Vital Signs Temp 36.8 C 03/08/18 06:48 Pulse 71 03/08/18 06:49 Resp 16 03/08/18 06:48 BP 121/84 03/08/18 06:49 Pulse Ox 96 02/25/18 16:00 Results & Data Current Inpatient Medications Current Inpatient Medications: Current Inpatient Medications Acetaminophen (Tylenol) 650 mg PO Q4H PRN PRN Reason: Headache or Minor Fever Stop: 03/27/18 14:16 Al Hydrox/Mg Hydrox/Simethicone (Maalox) 30 ml PO Q4H PRN PRN Reason: GI Upset Stop: 03/27/18 14:16 Bismuth Subsalicylate (Kaopectate) 15 ml PO PRN PRN PRN Reason: Loose Stool Stop: 03/27/18 14:16 Clozapine (Clozaril) 50 mg PO BID HANNAH Stop: 04/08/18 08:59 Clozapine (Clozaril) 25 mg PO HS HANNAH Stop: 04/07/18 21:59 Divalproex Sodium (Depakote Extended Release) 500 mg PO QAM HANNAH Stop: 04/01/18 08:59 Last Admin: 03/08/18 07:58 Dose: 500 mg Divalproex Sodium (Depakote Extended Release) 1,000 mg PO HS HANNAH Stop: 03/31/18 21:59 Last Admin: 03/07/18 22:05 Dose: 1,000 mg Hydroxyzine HCl (Vistaril) 50 mg PO HSZ PRN PRN Reason: Insomnia Stop: 03/27/18 14:16 Last Admin: 03/03/18 21:15 Dose: 50 mg Magnesium Hydroxide (Milk Of Magnesia) 30 ml PO DAILY PRN PRN Reason: Heartburn Stop: 03/27/18 14:16 Olanzapine (Zyprexa) 5 mg PO TID PRN PRN Reason: psychosis Stop: 03/29/18 08:59 Last Admin: 03/04/18 05:53 Dose: 5 mg Sertraline HCl (Zoloft) 100 mg PO QAM HANNAH Stop: 03/28/18 08:59 Last Admin: 03/08/18 07:58 Dose: 100 mg Sodium Chloride ([place] Nasal) 1 - 2 sprays NA PRN PRN PRN Reason: Nasal Dryness/Congestion Stop: 03/27/18 14:16 Post Discharge Appointments Psychiatrist Name of Psychiatrist: [facility] King Gardner PA-C Psychiatrist's Date of Appointment with Psychiatrist: 03/18/18 Time of Appointment with Psychiatrist: 10:00am Psychiatric Appointment Comment: [address], [place] [address] Therapist Name of Therapist: [facility] King Sawyer Therapist's Date of Therapist Appointment: 03/19/18 Time of Therapist Appointment: 2:30pm Therapy Appointment Comment: [address], [place] [address] Satellite Tv Technician Installer Name of Satellite Tv Technician Installer: Gustabo Mabry Phone Number for Satellite Tv Technician Installer: [phone] Case Management Appointment Comment: [address], [place] [address] Contact Information Discharge Discharge Address: [facility] Divya Li [address] [place] [address],[place] [address] CPT Code CPT Code 94289 _ (1) Schizophrenia Schizophrenia type: unspecified Qualified Code(s): F20.9 - Schizophrenia, unspecified (2) Depression Depression Type: unspecified Major depression recurrence: Active/Remission status: Major depression episode severity: Psychotic features: Trimester: Qualified Code(s): F32.9 - Major depressive disorder, single episode, unspecified
[2018-03-09] MEDS ORDERED: cloZAPine 25 MG TAB PO SCH ×3 (09:00→22:00)
[2018-03-09] MEDS: DIVALPROEX EXTENDED RELEASE 500 MG TAB PO SCH ×2 (09:29→21:24)
[2018-03-09] MEDS: SERTRALINE HCL 100 MG TABLET PO SCH (09:29)
--- NOTE | 2018-03-09 10:44 | Psychiatric Progress Note ---
Date of Service March 09, 2018 Impression / Recommendations Impression 57 yo CM with history of schizophrenia and depression, admitted for deterioration of his schizophrenia with poor self care and possibly suspected in vandalism of vehicles in his living area. Now on 303 and received his last Sustenna injection on 02/07. Clozapine was resumed given various reports of stability with previous trials of the medication. Will continue daily titration , as well as weekly CBCs. Pt continues to be wiht thought blocking and tangentiality during conversations. Will require ongoing inpatient mental health treatment due to significant deterioration prior to admission and necessary titration and monitoring with clozapine initiation. (1) Schizophrenia: -Invega sustenna 156mg IM, last given 02/06/18 -Taper Zyprexa to 5mg qhs and 5mg tomorrow morning and then stop -Zyprexa 5mg bid prn available for acute needs -Conitnue Depakote ER to 500mg qam and 1000mg qhs for mood -Start Clozapine 12.5mg bid and titrate (will obtain baseline EKG and ANC prior to this) 02/25/18: Seems to be with some blocking but denies SI/HI/aVh and denies CAH. Will start zyprexa 5mg qhs in addition to home meds. Patient this time with poor functioning and will need treatment for stabilization. 02/26/18: Patient affect fluctuates, and he remains grossly disorganized and incoherent. Is tangential and seems to be distracted. Did deny Si/HI/aVH. Will increase zyprexa to 5mg bid and continue to treat for stabilization. 02/27/18: - Continue Sustenna and Zyprexa and will add prn 5 mg TID - Start Depakote 500 mg BID to target racing thoughts and behavioral dysregulation. - Will need level in 5 days on 03/04 - Continue to coordinate with his OP providers 02/28/18: Patient with minimal improvement and required 2 prn doses of zyprexa yesterday. Will increase scheduled zyprexa to 10mg bid. Depakote change to Depakote ER to treat mood and tangential racing thoughts. The consideration of returning to clozaril at this time is on hold as issues of compliance with meds and lab draws is of concern. Depakote level in AM. 03/01/18: He continues to be grossly disorganized, tangential and RIS. He is intrusive but redirectable per nursing staff. Increased zyprexa dose plus prn and will continue to treat for stabilization. He is not aggressive or agitated however is unable to care for himself at this time. VPA level was 62 and will increase depakote for mood stabilization and intrusive behaviors. 03/02/18: Patient seems to be with mild improvement and is less tangential today. Seems to be able to follow basic line of questioning. Does make random comment about irrelevant things, seems to be preoccupied at times and RIS. Patient is not aggressive or agitated and redirectable per nursing staff. Denies SI/Hi/AVH. 03/03 - Continue current meds. Consider shifting bulk of APM to HS given more daytime sedation - Invite case coordinator in to see patient to estimate closeness to baseline 03/04/18: Patient seems to be with continued slow improvement with decreased blocking, tangentiality and ability to be redirectable. He does have some intrusive behaviors however has not been agitated or aggressive. Seems to be maintaining a clean room, eating and complying with self-care. Perhaps he is nearing baseline, however will request assistance of lead case manager. Continue current regimen at this time. 03/05/18: Patient remains without changes today and has had slow progression to improvement during admission. Will reach out to lead case manager to assist with determining baseline functioning of patient. 03/06/18: Patient seems to be quite disorganized, tangential and with loose associations. Will need to change meds for stabilization. Will discontinue zyprexa and start clozapine. According to case coordinator, patient is not close to his baseline and is functional when he is. QTC on 03/06/18 is 440 and last two ANC's are within normal. 03/07/18: Will increase clozapine to 25mg BID today, and discontinue olanzapine. Weekly CBC's ordered up to 03/20/18. 03/08/18: Will continue titration of clozapine and follow weeklly CBC's. 03/09/18: Patient continues to be tangential, with blocking and detached from reality. Would be unable to care for himself if not treated for stabilization and will continue titration of Clozapine at this time. Increase to 75mg big for tomorrow with 50mg dose tonight. (2) Depression: - Continue Zoloft 100mg daily Inventory Assets Strengths: not homeless, access to care, has case management Needs: medications, therapy Risk Factors Assessment Male: Yes : Yes Health Problems: No Substance Use Disorders: Yes Hopelessness: No Protective Factors Assessment : No Responsible for Young Children: No Employed: No Interval History Identifying Information 57 yo CM with history of schizophrenia and depression, admitted for deterioration of his schizophrenia with poor self care and possibly suspected in vandalism of vehicles in his living area. Patient is with psychomotor retardation, flat affect and drowsiness. He recieved haldol and ativan in the ER prior to being brought to unit. Review of Systems Sleep Information Total Hours of Sleep: 4.5 Sleep Comments: brooklynn was awake at 0245 again this night. he comes out to the day area and he is dressed in the clothes he wore yesterday and the previous days as well per pt. report. he did nap a little more, maybe a half hour. Meal Information Percent Meal Consumed - Breakfast: 100 Percent Meal Consumed - Lunch: 100 Percent Meal Consumed - Dinner: 100 Subjective Subjective Patient was found in day area looking at a box of cereal. Stated "this has magnesium and sulfur in it and it and it's made under water". When asked how that's possible, the cereal would get wet? He states "I don't know". He then states "I didn't get the serial killer joke either". He rambles about on non- sensical statements. Denies SI/HI/aVH Patient was seen & assessed and interval progress reviewed with Nursing Physical Exam Psychiatric Orientation: alert, oriented to person and oriented to place Apperance: appropriately dressed Eye Contact: + poor eye contact Motor Behavior: no abnormal motor movements Speech: normal rate/rhythm/volume of speech Affect: + blunted affect and mood congruent with affect Thought Process: + thought blocking and + tangential thought process Thought Content: + preoccupation Suicidal Thoughts: denies suicidal thoughts Homicidal Thoughts: denies homicidal thoughts Hallucinations: no auditory hallucinations and no visual hallucinations denies but seems to be RIS Cognition: attention grossly intact Estimated Intelligence: + below average estimated intelligence Insight: + impaired insight Judgement: + impaired judgement Vital Signs (Past 24 Hours) Last Vital Signs Temp 36.9 C 03/09/18 06:44 Pulse 76 03/09/18 06:44 Resp 18 03/09/18 06:44 BP 123/77 03/09/18 06:44 Pulse Ox 96 02/25/18 16:00 Results & Data Current Inpatient Medications Current Inpatient Medications: Current Inpatient Medications Acetaminophen (Tylenol) 650 mg PO Q4H PRN PRN Reason: Headache or Minor Fever Stop: 03/27/18 14:16 Al Hydrox/Mg Hydrox/Simethicone (Maalox) 30 ml PO Q4H PRN PRN Reason: GI Upset Stop: 03/27/18 14:16 Bismuth Subsalicylate (Kaopectate) 15 ml PO PRN PRN PRN Reason: Loose Stool Stop: 03/27/18 14:16 Divalproex Sodium (Depakote Extended Release) 500 mg PO QAM HANNAH Stop: 04/01/18 08:59 Last Admin: 03/09/18 09:29 Dose: 500 mg Divalproex Sodium (Depakote Extended Release) 1,000 mg PO HS HANNAH Stop: 03/31/18 21:59 Last Admin: 03/08/18 21:03 Dose: 1,000 mg Hydroxyzine HCl (Vistaril) 50 mg PO HSZ PRN PRN Reason: Insomnia Stop: 03/27/18 14:16 Last Admin: 03/03/18 21:15 Dose: 50 mg Magnesium Hydroxide (Milk Of Magnesia) 30 ml PO DAILY PRN PRN Reason: Heartburn Stop: 03/27/18 14:16 Olanzapine (Zyprexa) 5 mg PO TID PRN PRN Reason: psychosis Stop: 03/29/18 08:59 Last Admin: 03/04/18 05:53 Dose: 5 mg Sertraline HCl (Zoloft) 100 mg PO QAM HANNAH Stop: 03/28/18 08:59 Last Admin: 03/09/18 09:29 Dose: 100 mg Sodium Chloride ([place] Nasal) 1 - 2 sprays NA PRN PRN PRN Reason: Nasal Dryness/Congestion Stop: 03/27/18 14:16 Post Discharge Appointments Psychiatrist Name of Psychiatrist: [facility] King Gardner PA-C Psychiatrist's Date of Appointment with Psychiatrist: 03/18/18 Time of Appointment with Psychiatrist: 10:00am Psychiatric Appointment Comment: [address], [place] [address] Therapist Name of Therapist: SHY Malik Lindsey Silverio Therapist's Date of Therapist Appointment: 03/19/18 Time of Therapist Appointment: 2:30pm Therapy Appointment Comment: [address], [place] [address] Senior Sales Representative Name of Senior Sales Representative: Gustabo Hawley King Kinneycarinasimoncarina Phone Number for Senior Sales Representative: [phone] Case Management Appointment Comment: [address] [place] [address] Contact Information Discharge Discharge Address: [facility] Divya Li [address] [place] [address] CPT Code CPT Code 19682 _ (1) Schizophrenia Schizophrenia type: unspecified Qualified Code(s): F20.9 - Schizophrenia, unspecified (2) Depression Depression Type: unspecified Major depression recurrence: Active/Remission status: Major depression episode severity: Psychotic features: Trimester: Qualified Code(s): F32.9 - Major depressive disorder, single episode, unspecified
[2018-03-10] MEDS: SERTRALINE HCL 100 MG TABLET PO SCH (08:51)
[2018-03-10] MEDS: DIVALPROEX EXTENDED RELEASE 500 MG TAB PO SCH ×2 (08:51→21:28)
[2018-03-10] MEDS: cloZAPine 25 MG TAB PO SCH ×2 (08:51→21:28)
--- NOTE | 2018-03-10 09:45 | Psychiatric Progress Note ---
Date of Service March 10, 2018 Impression / Recommendations Impression 57 yo CM with history of schizophrenia and depression, admitted for deterioration of his schizophrenia with poor self care and possibly suspected in vandalism of vehicles in his living area. Now on 303 and received his last Sustenna injection on 02/07. Clozapine was resumed given various reports of stability with previous trials of the medication. Will continue daily titration , as well as weekly CBCs. Pt continues to be with thought blocking and tangentiality during conversations. Will require ongoing inpatient mental health treatment due to significant deterioration prior to admission and necessary titration and monitoring with clozapine initiation. (1) Schizophrenia: -Invega sustenna 117mg IM on 03/10/18 (continue monthly) -Zyprexa 5mg bid prn available for acute needs -Continue Depakote ER to 500mg qam and 1000mg qhs for mood -Continue Clozapine titration with increase from 75mg to 100mg bid for tomorrow 02/25/18: Seems to be with some blocking but denies SI/HI/aVh and denies CAH. Will start zyprexa 5mg qhs in addition to home meds. Patient this time with poor functioning and will need treatment for stabilization. 02/26/18: Patient affect fluctuates, and he remains grossly disorganized and incoherent. Is tangential and seems to be distracted. Did deny Si/HI/aVH. Will increase zyprexa to 5mg bid and continue to treat for stabilization. 02/27/18: - Continue Sustenna and Zyprexa and will add prn 5 mg TID - Start Depakote 500 mg BID to target racing thoughts and behavioral dysregulation. - Will need level in 5 days on 03/04 - Continue to coordinate with his OP providers 02/28/18: Patient with minimal improvement and required 2 prn doses of zyprexa yesterday. Will increase scheduled zyprexa to 10mg bid. Depakote change to Depakote ER to treat mood and tangential racing thoughts. The consideration of returning to clozaril at this time is on hold as issues of compliance with meds and lab draws is of concern. Depakote level in AM. 03/01/18: He continues to be grossly disorganized, tangential and RIS. He is intrusive but redirectable per nursing staff. Increased zyprexa dose plus prn and will continue to treat for stabilization. He is not aggressive or agitated however is unable to care for himself at this time. VPA level was 62 and will increase depakote for mood stabilization and intrusive behaviors. 03/02/18: Patient seems to be with mild improvement and is less tangential today. Seems to be able to follow basic line of questioning. Does make random comment about irrelevant things, seems to be preoccupied at times and RIS. Patient is not aggressive or agitated and redirectable per nursing staff. Denies SI/Hi/AVH. 03/03 - Continue current meds. Consider shifting bulk of APM to HS given more daytime sedation - Invite nurse case management in to see patient to estimate closeness to baseline 03/04/18: Patient seems to be with continued slow improvement with decreased blocking, tangentiality and ability to be redirectable. He does have some intrusive behaviors however has not been agitated or aggressive. Seems to be maintaining a clean room, eating and complying with self-care. Perhaps he is nearing baseline, however will request assistance of bilingual case manager. Continue current regimen at this time. 03/05/18: Patient remains without changes today and has had slow progression to improvement during admission. Will reach out to bilingual case manager to assist with determining baseline functioning of patient. 03/06/18: Patient seems to be quite disorganized, tangential and with loose associations. Will need to change meds for stabilization. Will discontinue zyprexa and start clozapine. According to nurse case management, patient is not close to his baseline and is functional when he is. QTC on 03/06/18 is 440 and last two ANC's are within normal. 03/07/18: Will increase clozapine to 25mg BID today, and discontinue olanzapine. Weekly CBC's ordered up to 03/20/18. 03/08/18: Will continue titration of clozapine and follow weeklly CBC's. 03/09/18: Patient continues to be tangential, with blocking and detached from reality. Would be unable to care for himself if not treated for stabilization and will continue titration of Clozapine at this time. Increase to 75mg big for tomorrow with 50mg dose tonight. 03/10/18: Patient is tangential and disorganized at times and at times is able to answer basic questions. Does seem to RIS and with minimal improvement at this time. Will give monthly Invega today at 117mg IM today. Continue clozapine titration to 100mg bid for tomorrow. (2) Depression: - Continue Zoloft 100mg daily Inventory Assets Strengths: not homeless, access to care, has case management Needs: medications, therapy Risk Factors Assessment Male: Yes : Yes Health Problems: No Substance Use Disorders: Yes Hopelessness: No Protective Factors Assessment : No Responsible for Young Children: No Employed: No Interval History Identifying Information 57 yo CM with history of schizophrenia and depression, admitted for deterioration of his schizophrenia with poor self care and possibly suspected in vandalism of vehicles in his living area. Patient is with psychomotor retardation, flat affect and drowsiness. He recieved haldol and ativan in the ER prior to being brought to unit. Chief Complaint "I'm fine" Review of Systems Sleep Information Total Hours of Sleep: 2.75 Sleep Comments: pt appeared to wake up @ 0230 and thereafter. pt remained mostly in his room with a puzzle book in his hand sitting by the bed or leaning against one of the wall. pt on q-15 minute checks Meal Information Percent Meal Consumed - Breakfast: 100 Percent Meal Consumed - Lunch: 100 Percent Meal Consumed - Dinner: 100 Subjective Subjective Patient states that he is "fine". He was asked about Tolu, his nurse case management, and he states he didn't want to talk to him until he goes home and states that he is "mentally retarded". He made multiple tangential comments of no relevance. Discussed Invega IM today and patient agreed and stated "just give it to me in the deltoid". He denies SI/HI/aVH. Patient was seen & assessed and interval progress reviewed with Treatment Team and Nursing Physical Exam Psychiatric Orientation: alert, oriented to person and oriented to place Apperance: appropriately dressed Eye Contact: + poor eye contact Motor Behavior: no abnormal motor movements Speech: normal rate/rhythm/volume of speech Affect: + blunted affect and mood congruent with affect Thought Process: + thought blocking and + tangential thought process Thought Content: + preoccupation Suicidal Thoughts: denies suicidal thoughts Homicidal Thoughts: denies homicidal thoughts Hallucinations: no auditory hallucinations and no visual hallucinations denies but seems to RIS at times Cognition: attention grossly intact Estimated Intelligence: + below average estimated intelligence Insight: + impaired insight Judgement: + impaired judgement Vital Signs (Past 24 Hours) Last Vital Signs Temp 36.5 C 03/10/18 06:50 Pulse 86 03/10/18 06:50 Resp 18 03/10/18 06:50 BP 131/80 03/10/18 06:50 Pulse Ox 96 02/25/18 16:00 Results & Data Current Inpatient Medications Current Inpatient Medications: Current Inpatient Medications Acetaminophen (Tylenol) 650 mg PO Q4H PRN PRN Reason: Headache or Minor Fever Stop: 03/27/18 14:16 Al Hydrox/Mg Hydrox/Simethicone (Maalox) 30 ml PO Q4H PRN PRN Reason: GI Upset Stop: 03/27/18 14:16 Bismuth Subsalicylate (Kaopectate) 15 ml PO PRN PRN PRN Reason: Loose Stool Stop: 03/27/18 14:16 Clozapine (Clozaril) 75 mg PO BID HANNAH Stop: 03/10/18 21:01 Last Admin: 03/10/18 08:51 Dose: 75 mg Divalproex Sodium (Depakote Extended Release) 500 mg PO QAM HANNAH Stop: 04/01/18 08:59 Last Admin: 03/10/18 08:51 Dose: 500 mg Divalproex Sodium (Depakote Extended Release) 1,000 mg PO HS HANNAH Stop: 03/31/18 21:59 Last Admin: 03/09/18 21:24 Dose: 1,000 mg Hydroxyzine HCl (Vistaril) 50 mg PO HSZ PRN PRN Reason: Insomnia Stop: 03/27/18 14:16 Last Admin: 03/03/18 21:15 Dose: 50 mg Magnesium Hydroxide (Milk Of Magnesia) 30 ml PO DAILY PRN PRN Reason: Heartburn Stop: 03/27/18 14:16 Olanzapine (Zyprexa) 5 mg PO TID PRN PRN Reason: psychosis Stop: 03/29/18 08:59 Last Admin: 03/04/18 05:53 Dose: 5 mg Sertraline HCl (Zoloft) 100 mg PO QAM [facility] Stop: 03/28/18 08:59 Last Admin: 03/10/18 08:51 Dose: 100 mg Sodium Chloride ([place] Nasal) 1 - 2 sprays NA PRN PRN PRN Reason: Nasal Dryness/Congestion Stop: 03/27/18 14:16 Post Discharge Appointments Psychiatrist Name of Psychiatrist: [facility] King Gardner PA-C Psychiatrist's Date of Appointment with Psychiatrist: 03/18/18 Time of Appointment with Psychiatrist: 10:00am Psychiatric Appointment Comment: [address], [place] [address] Therapist Name of Therapist: TOMASZ King Sawyer Therapist's Date of Therapist Appointment: 03/19/18 Time of Therapist Appointment: 2:30pm Therapy Appointment Comment: [address], [place] [address] Heart Surgeon Name of Heart Surgeon: Gustabo Mabry Phone Number for Heart Surgeon: [phone] Case Management Appointment Comment: [address] [place] [address] Contact Information Discharge Discharge Address: [facility] [address] [place] [address] CPT Code CPT Code 56235 _ (1) Schizophrenia Schizophrenia type: unspecified Qualified Code(s): F20.9 - Schizophrenia, unspecified (2) Depression Depression Type: unspecified Major depression recurrence: Active/Remission status: Major depression episode severity: Psychotic features: Trimester: Qualified Code(s): F32.9 - Major depressive disorder, single episode, unspecified
[2018-03-10] MEDS ORDERED: PALIPERIDONE PALMITATE 117 MG/0.75 ML SYR IM ONE (11:00)
[2018-03-11] MEDS: DIVALPROEX EXTENDED RELEASE 500 MG TAB PO SCH ×2 (07:42→21:27)
[2018-03-11] MEDS: SERTRALINE HCL 100 MG TABLET PO SCH (07:42)
[2018-03-11] MEDS ORDERED: cloZAPine 100 MG TAB PO SCH ×3 (09:00→21:00)
--- NOTE | 2018-03-11 10:48 | Psychiatric Progress Note ---
Date of Service March 11, 2018 Impression / Recommendations Impression 57 yo CM with history of schizophrenia and depression, admitted for deterioration of his schizophrenia with poor self care and possibly suspected in vandalism of vehicles in his living area. Now on 303 and received his last Sustenna injection on 02/07. Clozapine was resumed given various reports of stability with previous trials of the medication. Will continue daily titration , as well as weekly CBCs. Pt continues to be with thought blocking and tangentiality during conversations. Will require ongoing inpatient mental health treatment due to significant deterioration prior to admission and necessary titration and monitoring with clozapine initiation. (1) Schizophrenia: -Invega sustenna 117mg IM on 03/10/18 (continue monthly) -Zyprexa 5mg bid prn available for acute needs -Continue Depakote ER to 500mg qam and 1000mg qhs for mood -Continue steady Clozapine titration 02/25/18: Seems to be with some blocking but denies SI/HI/aVh and denies CAH. Will start zyprexa 5mg qhs in addition to home meds. Patient this time with poor functioning and will need treatment for stabilization. 02/26/18: Patient affect fluctuates, and he remains grossly disorganized and incoherent. Is tangential and seems to be distracted. Did deny Si/HI/aVH. Will increase zyprexa to 5mg bid and continue to treat for stabilization. 02/27/18: - Continue Sustenna and Zyprexa and will add prn 5 mg TID - Start Depakote 500 mg BID to target racing thoughts and behavioral dysregulation. - Will need level in 5 days on 03/04 - Continue to coordinate with his OP providers 02/28/18: Patient with minimal improvement and required 2 prn doses of zyprexa yesterday. Will increase scheduled zyprexa to 10mg bid. Depakote change to Depakote ER to treat mood and tangential racing thoughts. The consideration of returning to clozaril at this time is on hold as issues of compliance with meds and lab draws is of concern. Depakote level in AM. 03/01/18: He continues to be grossly disorganized, tangential and RIS. He is intrusive but redirectable per nursing staff. Increased zyprexa dose plus prn and will continue to treat for stabilization. He is not aggressive or agitated however is unable to care for himself at this time. VPA level was 62 and will increase depakote for mood stabilization and intrusive behaviors. 03/02/18: Patient seems to be with mild improvement and is less tangential today. Seems to be able to follow basic line of questioning. Does make random comment about irrelevant things, seems to be preoccupied at times and RIS. Patient is not aggressive or agitated and redirectable per nursing staff. Denies SI/Hi/AVH. 03/03 - Continue current meds. Consider shifting bulk of APM to HS given more daytime sedation - Invite case management social worker in to see patient to estimate closeness to baseline 03/04/18: Patient seems to be with continued slow improvement with decreased blocking, tangentiality and ability to be redirectable. He does have some intrusive behaviors however has not been agitated or aggressive. Seems to be maintaining a clean room, eating and complying with self-care. Perhaps he is nearing baseline, however will request assistance of caser. Continue current regimen at this time. 03/05/18: Patient remains without changes today and has had slow progression to improvement during admission. Will reach out to caser to assist with determining baseline functioning of patient. 03/06/18: Patient seems to be quite disorganized, tangential and with loose associations. Will need to change meds for stabilization. Will discontinue zyprexa and start clozapine. According to case management social worker, patient is not close to his baseline and is functional when he is. QTC on 03/06/18 is 440 and last two ANC's are within normal. 03/07/18: Will increase clozapine to 25mg BID today, and discontinue olanzapine. Weekly CBC's ordered up to 03/20/18. 03/08/18: Will continue titration of clozapine and follow weeklly CBC's. 03/09/18: Patient continues to be tangential, with blocking and detached from reality. Would be unable to care for himself if not treated for stabilization and will continue titration of Clozapine at this time. Increase to 75mg big for tomorrow with 50mg dose tonight. 03/10/18: Patient is tangential and disorganized at times and at times is able to answer basic questions. Does seem to RIS and with minimal improvement at this time. Will give monthly Invega today at 117mg IM today. Continue clozapine titration to 100mg bid for tomorrow. 03/11/18: Patient seemed to be with some sedation this morning and with some difficulty balancing while walking. Patient repeat vital sign completed after interview with WNL. Patient put on fall precautions and asked to remain in bed. It is possible that the increase in clozapine could be contributory and will decrease dose to 75 mg bid and keep at this dose for tolerability. (2) Depression: - Continue Zoloft 100mg daily Inventory Assets Strengths: not homeless, access to care, has case management Needs: medications, therapy Risk Factors Assessment Male: Yes : Yes Health Problems: No Substance Use Disorders: Yes Hopelessness: No Protective Factors Assessment : No Responsible for Young Children: No Employed: No Interval History Identifying Information 57 yo CM with history of schizophrenia and depression, admitted for deterioration of his schizophrenia with poor self care and possibly suspected in vandalism of vehicles in his living area. Patient is with psychomotor retardation, flat affect and drowsiness. He recieved haldol and ativan in the ER prior to being brought to unit. Chief Complaint seemed sedated this morning Review of Systems Sleep Information Total Hours of Sleep: 5.5 Sleep Comments: pt on q-15 minute checks. pt appeared to sleep more tonight. Meal Information Percent Meal Consumed - Breakfast: 100 Percent Meal Consumed - Lunch: 100 Percent Meal Consumed - Dinner: 100 Subjective Subjective Patient with limited interaction as he seemed to be sedated this morning. Was found sleeping on day room chair. Patient taken to room asked to lay down. He stated he slept better last night and doesn't know why he feels sleepy. Patient was seen & assessed and interval progress reviewed with Nursing Physical Exam Psychiatric Orientation: alert, oriented to person and oriented to place Apperance: appropriately dressed Eye Contact: + poor eye contact seemed sedation and was with mild difficulty with balance when walking this morning Speech: normal rate/rhythm/volume of speech Affect: + blunted affect and mood congruent with affect Thought Process: + thought blocking and + tangential thought process Thought Content: + preoccupation Suicidal Thoughts: denies suicidal thoughts Homicidal Thoughts: denies homicidal thoughts Hallucinations: no auditory hallucinations and no visual hallucinations Cognition: attention grossly intact Estimated Intelligence: average estimated intelligence Insight: + impaired insight Judgement: + impaired judgement Vital Signs (Past 24 Hours) Last Vital Signs Temp 36.4 C L 03/11/18 09:28 Pulse 98 H 03/11/18 09:28 Resp 18 03/11/18 06:51 BP 142/89 H 03/11/18 09:28 Pulse Ox 96 02/25/18 16:00 Results & Data Current Inpatient Medications Current Inpatient Medications: Current Inpatient Medications Acetaminophen (Tylenol) 650 mg PO Q4H PRN PRN Reason: Headache or Minor Fever Stop: 03/27/18 14:16 Al Hydrox/Mg Hydrox/Simethicone (Maalox) 30 ml PO Q4H PRN PRN Reason: GI Upset Stop: 03/27/18 14:16 Bismuth Subsalicylate (Kaopectate) 15 ml PO PRN PRN PRN Reason: Loose Stool Stop: 03/27/18 14:16 Clozapine (Clozapine) 100 mg PO BID HANNAH Stop: 04/10/18 20:59 Divalproex Sodium (Depakote Extended Release) 500 mg PO QAM HANNAH Stop: 04/01/18 08:59 Last Admin: 03/11/18 07:42 Dose: 500 mg Divalproex Sodium (Depakote Extended Release) 1,000 mg PO HS HANNAH Stop: 03/31/18 21:59 Last Admin: 03/10/18 21:28 Dose: 1,000 mg Hydroxyzine HCl (Vistaril) 50 mg PO HSZ PRN PRN Reason: Insomnia Stop: 03/27/18 14:16 Last Admin: 03/03/18 21:15 Dose: 50 mg Magnesium Hydroxide (Milk Of Magnesia) 30 ml PO DAILY PRN PRN Reason: Heartburn Stop: 03/27/18 14:16 Olanzapine (Zyprexa) 5 mg PO TID PRN PRN Reason: psychosis Stop: 03/29/18 08:59 Last Admin: 03/04/18 05:53 Dose: 5 mg Sertraline HCl (Zoloft) 100 mg PO QAM [facility]ANNA[facility] Stop: 03/28/18 08:59 Last Admin: 03/11/18 07:42 Dose: 100 mg Sodium Chloride ([place] Nasal) 1 - 2 sprays NA PRN PRN PRN Reason: Nasal Dryness/Congestion Stop: 03/27/18 14:16 Post Discharge Appointments Psychiatrist Name of Psychiatrist: [facility] King Gardner PA-C Psychiatrist's Date of Appointment with Psychiatrist: 03/18/18 Time of Appointment with Psychiatrist: 10:00am Psychiatric Appointment Comment: [address], [place] [address] Therapist Name of Therapist: SHY Sawyer Therapist's Date of Therapist Appointment: 03/19/18 Time of Therapist Appointment: 2:30pm Therapy Appointment Comment: [address], [place] [address] Quality Assurance Coach Name of Quality Assurance Coach: Gustabo Chandan Kinneycarinahanane Phone Number for Quality Assurance Coach: [phone] Case Management Appointment Comment: [id number], [place] [address] Contact Information Discharge Discharge Address: [facility] [address] [place] [address] CPT Code CPT Code 40999 _ (1) Schizophrenia Schizophrenia type: unspecified Qualified Code(s): F20.9 - Schizophrenia, unspecified (2) Depression Depression Type: unspecified Major depression recurrence: Active/Remission status: Major depression episode severity: Psychotic features: Trimester: Qualified Code(s): F32.9 - Major depressive disorder, single episode, unspecified
[2018-03-11] MEDS: cloZAPine 25 MG TAB PO SCH (21:27)
[2018-03-12] MEDS: SERTRALINE HCL 100 MG TABLET PO SCH (08:25)
[2018-03-12] MEDS: DIVALPROEX EXTENDED RELEASE 500 MG TAB PO SCH ×2 (08:25→21:21)
[2018-03-12] MEDS: cloZAPine 25 MG TAB PO SCH ×2 (08:25→21:21)
--- NOTE | 2018-03-12 11:02 | Psychiatric Progress Note ---
Date of Service March 12, 2018 Impression / Recommendations Impression 57 yo CM with history of schizophrenia and depression, admitted for deterioration of his schizophrenia with poor self care and possibly suspected in vandalism of vehicles in his living area. Now on 303 and received his last Sustenna injection on 02/07. Clozapine was resumed given various reports of stability with previous trials of the medication. Will continue daily titration , as well as weekly CBCs. Pt continues to be with thought blocking and tangentiality during conversations. Will require ongoing inpatient mental health treatment due to significant deterioration prior to admission and necessary titration and monitoring with clozapine initiation. (1) Schizophrenia: -Invega sustenna 117mg IM on 03/10/18 (continue monthly) -Zyprexa 5mg bid prn available for acute needs -Continue Depakote ER to 500mg qam and 1000mg qhs for mood -Continue steady Clozapine titration 02/25/18: Seems to be with some blocking but denies SI/HI/aVh and denies CAH. Will start zyprexa 5mg qhs in addition to home meds. Patient this time with poor functioning and will need treatment for stabilization. 02/26/18: Patient affect fluctuates, and he remains grossly disorganized and incoherent. Is tangential and seems to be distracted. Did deny Si/HI/aVH. Will increase zyprexa to 5mg bid and continue to treat for stabilization. 02/27/18: - Continue Sustenna and Zyprexa and will add prn 5 mg TID - Start Depakote 500 mg BID to target racing thoughts and behavioral dysregulation. - Will need level in 5 days on 03/04 - Continue to coordinate with his OP providers 02/28/18: Patient with minimal improvement and required 2 prn doses of zyprexa yesterday. Will increase scheduled zyprexa to 10mg bid. Depakote change to Depakote ER to treat mood and tangential racing thoughts. The consideration of returning to clozaril at this time is on hold as issues of compliance with meds and lab draws is of concern. Depakote level in AM. 03/01/18: He continues to be grossly disorganized, tangential and RIS. He is intrusive but redirectable per nursing staff. Increased zyprexa dose plus prn and will continue to treat for stabilization. He is not aggressive or agitated however is unable to care for himself at this time. VPA level was 62 and will increase depakote for mood stabilization and intrusive behaviors. 03/02/18: Patient seems to be with mild improvement and is less tangential today. Seems to be able to follow basic line of questioning. Does make random comment about irrelevant things, seems to be preoccupied at times and RIS. Patient is not aggressive or agitated and redirectable per nursing staff. Denies SI/Hi/AVH. 03/03 - Continue current meds. Consider shifting bulk of APM to HS given more daytime sedation - Invite supportive employment case manager in to see patient to estimate closeness to baseline 03/04/18: Patient seems to be with continued slow improvement with decreased blocking, tangentiality and ability to be redirectable. He does have some intrusive behaviors however has not been agitated or aggressive. Seems to be maintaining a clean room, eating and complying with self-care. Perhaps he is nearing baseline, however will request assistance of pillowcase cutter. Continue current regimen at this time. 03/05/18: Patient remains without changes today and has had slow progression to improvement during admission. Will reach out to pillowcase cutter to assist with determining baseline functioning of patient. 03/06/18: Patient seems to be quite disorganized, tangential and with loose associations. Will need to change meds for stabilization. Will discontinue zyprexa and start clozapine. According to supportive employment case manager, patient is not close to his baseline and is functional when he is. QTC on 03/06/18 is 440 and last two ANC's are within normal. 03/07/18: Will increase clozapine to 25mg BID today, and discontinue olanzapine. Weekly CBC's ordered up to 03/20/18. 03/08/18: Will continue titration of clozapine and follow weeklly CBC's. 03/09/18: Patient continues to be tangential, with blocking and detached from reality. Would be unable to care for himself if not treated for stabilization and will continue titration of Clozapine at this time. Increase to 75mg big for tomorrow with 50mg dose tonight. 03/10/18: Patient is tangential and disorganized at times and at times is able to answer basic questions. Does seem to RIS and with minimal improvement at this time. Will give monthly Invega today at 117mg IM today. Continue clozapine titration to 100mg bid for tomorrow. 03/11/18: Patient seemed to be with some sedation this morning and with some difficulty balancing while walking. Patient repeat vital sign completed after interview with WNL. Patient put on fall precautions and asked to remain in bed. It is possible that the increase in clozapine could be contributory and will decrease dose to 75 mg bid and keep at this dose for tolerability. 03/12/18: Patient without over sedation today and will continue Clozapine at 75mg bid for today and consider increasing tomorrow. He remains with disorganized thought, RIS and intrusiveness. (2) Depression: - Continue Zoloft 100mg daily Inventory Assets Strengths: not homeless, access to care, has case management Needs: medications, therapy Risk Factors Assessment Male: Yes : Yes Health Problems: No Substance Use Disorders: Yes Hopelessness: No Protective Factors Assessment : No Responsible for Young Children: No Employed: No Interval History Identifying Information 57 yo CM with history of schizophrenia and depression, admitted for deterioration of his schizophrenia with poor self care and possibly suspected in vandalism of vehicles in his living area. Patient is with psychomotor retardation, flat affect and drowsiness. He recieved haldol and ativan in the ER prior to being brought to unit. Review of Systems Sleep Information Total Hours of Sleep: 4 Sleep Comments: pt on q-15 minute checks. pt appeared to sleep more tonight. Meal Information Percent Meal Consumed - Breakfast: 100 Percent Meal Consumed - Lunch: 100 Percent Meal Consumed - Dinner: 100 Subjective Subjective Patient states that "the 3 martians don't now how to tell the time right". He stopped in the middle of the hallway on the way to the office for interview and stood against the wall. He stated that he does not feel drowsy today like he did yesterday. Patient flipped the light switches off and was redirected to interview and informed that he may not do that. He states "ok". When asked about Tolu he states "he's too busy playing that game in his bag". He denies Si /Hi/aVH. does seem to be RIS and with blocking. Patient was seen & assessed and interval progress reviewed with Treatment Team and Nursing Physical Exam Psychiatric Orientation: alert, oriented to person and oriented to place Apperance: appropriately dressed Eye Contact: + fair eye contact Motor Behavior: no abnormal motor movements Speech: normal rate/rhythm/volume of speech Affect: + blunted affect and mood congruent with affect Thought Process: + thought blocking and + tangential thought process Thought Content: + preoccupation Suicidal Thoughts: denies suicidal thoughts Homicidal Thoughts: denies homicidal thoughts Hallucinations: no auditory hallucinations and no visual hallucinations seesm to be RIS Cognition: attention grossly intact Estimated Intelligence: + below average estimated intelligence Insight: + impaired insight Judgement: + impaired judgement Vital Signs (Past 24 Hours) Last Vital Signs Temp 36.4 C L 03/12/18 06:30 Pulse 86 03/12/18 06:32 Resp 18 03/12/18 06:30 BP 132/87 03/12/18 06:32 Pulse Ox 96 02/25/18 16:00 Results & Data Current Inpatient Medications Current Inpatient Medications: Current Inpatient Medications Acetaminophen (Tylenol) 650 mg PO Q4H PRN PRN Reason: Headache or Minor Fever Stop: 03/27/18 14:16 Al Hydrox/Mg Hydrox/Simethicone (Maalox) 30 ml PO Q4H PRN PRN Reason: GI Upset Stop: 03/27/18 14:16 Bismuth Subsalicylate (Kaopectate) 15 ml PO PRN PRN PRN Reason: Loose Stool Stop: 03/27/18 14:16 Clozapine (Clozaril) 75 mg PO BID HANNAH Stop: 04/10/18 20:59 Last Admin: 03/12/18 08:25 Dose: 75 mg Divalproex Sodium (Depakote Extended Release) 500 mg PO QAM HANNAH Stop: 04/01/18 08:59 Last Admin: 03/12/18 08:25 Dose: 500 mg Divalproex Sodium (Depakote Extended Release) 1,000 mg PO HS HANNAH Stop: 03/31/18 21:59 Last Admin: 03/11/18 21:27 Dose: 1,000 mg Hydroxyzine HCl (Vistaril) 50 mg PO HSZ PRN PRN Reason: Insomnia Stop: 03/27/18 14:16 Last Admin: 03/03/18 21:15 Dose: 50 mg Magnesium Hydroxide (Milk Of Magnesia) 30 ml PO DAILY PRN PRN Reason: Heartburn Stop: 03/27/18 14:16 Olanzapine (Zyprexa) 5 mg PO TID PRN PRN Reason: psychosis Stop: 03/29/18 08:59 Last Admin: 03/04/18 05:53 Dose: 5 mg Sertraline HCl (Zoloft) 100 mg PO QAM HANNAH Stop: 03/28/18 08:59 Last Admin: 03/12/18 08:25 Dose: 100 mg Sodium Chloride (Artois Nasal) 1 - 2 sprays NA PRN PRN PRN Reason: Nasal Dryness/Congestion Stop: 03/27/18 14:16 Post Discharge Appointments Psychiatrist Name of Psychiatrist: [facility] King Gardner PA-C Psychiatrist's Date of Appointment with Psychiatrist: 03/18/18 Time of Appointment with Psychiatrist: 10:00am Psychiatric Appointment Comment: Christie Cam, [place] [id number] Therapist Name of Therapist: [facility] King Sawyer Therapist's Date of Therapist Appointment: 03/19/18 Time of Therapist Appointment: 2:30pm Therapy Appointment Comment: Christie Cam, [place] [id number] Driftman Name of Driftman: Gustabo Mabry Phone Number for Driftman: [phone] Case Management Appointment Comment: [id number], [place] [address] Contact Information Discharge Discharge Address: [facility] Divya Li [address] [place], [place] [address] [id number] CPT Code CPT Code 67032 _ (1) Schizophrenia Schizophrenia type: unspecified Qualified Code(s): F20.9 - Schizophrenia, unspecified (2) Depression Depression Type: unspecified Major depression recurrence: Active/Remission status: Major depression episode severity: Psychotic features: Trimester: Qualified Code(s): F32.9 - Major depressive disorder, single episode, unspecified
[2018-03-13 07:18] LABS: Basophils # (auto) 0.03 K/uL (0-0.2); Basophils % (auto) 0.4 %; Eosinophils # (auto) 0.19 K/uL (0-0.5); Eosinophils % (auto) 2.8 %; Hematocrit (blood only) 40.1 % (42-52); Hemoglobin 13.5 g/dL (14.0-18.0); Immature Granulocytes # (auto) 0.03 K/uL (0.00-0.02); Immature Granulocytes % (auto) 0.4 %; Lymphocytes # (auto) 2.03 K/uL (1.2-3.4); Lymphocytes % (auto) 29.9 %; Mean Corpuscular Hgb Conc 33.7 g/dL (32-36); Mean Corpuscular Volume 88.1 fL (80-100); Mean Platelet Volume 9.8 fL (7.4-10.4); Monocytes # (auto) 0.77 K/uL (0.11-0.59); Monocytes % (auto) 11.3 %; Neutrophils # (auto) 3.75 K/uL (1.4-6.5); Neutrophils % (auto) 55.2 %; Platelet Count 137 K/uL (130-400); RDW Coefficient of Variation 13.3 % (11.5-14.5); RDW Standard Deviation 42.2 fL (36.4-46.3); Red Blood Count 4.55 M/uL (4.7-6.1)
[2018-03-13] MEDS: SERTRALINE HCL 100 MG TABLET PO SCH (07:49)
[2018-03-13] MEDS: cloZAPine 25 MG TAB PO SCH ×2 (07:49→21:07)
[2018-03-13] MEDS: DIVALPROEX EXTENDED RELEASE 500 MG TAB PO SCH ×2 (07:49→21:07)
--- NOTE | 2018-03-13 10:28 | Psychiatric Progress Note ---
Date of Service March 13, 2018 Impression / Recommendations Impression 57 yo CM with history of schizophrenia and depression, admitted for deterioration of his schizophrenia with poor self care and possibly suspected in vandalism of vehicles in his living area. Now on 303 and received his last Sustenna injection on 02/07. Clozapine was resumed given various reports of stability with previous trials of the medication. Will continue daily titration , as well as weekly CBCs. Pt continues to be with thought blocking and tangentiality during conversations. Will require ongoing inpatient mental health treatment due to significant deterioration prior to admission and necessary titration and monitoring with clozapine initiation. (1) Schizophrenia: -Invega sustenna 117mg IM on 03/10/18 (continue monthly) -Zyprexa 5mg bid prn available for acute needs -Continue Depakote ER to 500mg qam and 1000mg qhs for mood -Continue steady Clozapine titration 02/25/18: Seems to be with some blocking but denies SI/HI/aVh and denies CAH. Will start zyprexa 5mg qhs in addition to home meds. Patient this time with poor functioning and will need treatment for stabilization. 02/26/18: Patient affect fluctuates, and he remains grossly disorganized and incoherent. Is tangential and seems to be distracted. Did deny Si/HI/aVH. Will increase zyprexa to 5mg bid and continue to treat for stabilization. 02/27/18: - Continue Sustenna and Zyprexa and will add prn 5 mg TID - Start Depakote 500 mg BID to target racing thoughts and behavioral dysregulation. - Will need level in 5 days on 03/04 - Continue to coordinate with his OP providers 02/28/18: Patient with minimal improvement and required 2 prn doses of zyprexa yesterday. Will increase scheduled zyprexa to 10mg bid. Depakote change to Depakote ER to treat mood and tangential racing thoughts. The consideration of returning to clozaril at this time is on hold as issues of compliance with meds and lab draws is of concern. Depakote level in AM. 03/01/18: He continues to be grossly disorganized, tangential and RIS. He is intrusive but redirectable per nursing staff. Increased zyprexa dose plus prn and will continue to treat for stabilization. He is not aggressive or agitated however is unable to care for himself at this time. VPA level was 62 and will increase depakote for mood stabilization and intrusive behaviors. 03/02/18: Patient seems to be with mild improvement and is less tangential today. Seems to be able to follow basic line of questioning. Does make random comment about irrelevant things, seems to be preoccupied at times and RIS. Patient is not aggressive or agitated and redirectable per nursing staff. Denies SI/Hi/AVH. 03/03 - Continue current meds. Consider shifting bulk of APM to HS given more daytime sedation - Invite renal case manager in to see patient to estimate closeness to baseline 03/04/18: Patient seems to be with continued slow improvement with decreased blocking, tangentiality and ability to be redirectable. He does have some intrusive behaviors however has not been agitated or aggressive. Seems to be maintaining a clean room, eating and complying with self-care. Perhaps he is nearing baseline, however will request assistance of renal case manager. Continue current regimen at this time. 03/05/18: Patient remains without changes today and has had slow progression to improvement during admission. Will reach out to renal case manager to assist with determining baseline functioning of patient. 03/06/18: Patient seems to be quite disorganized, tangential and with loose associations. Will need to change meds for stabilization. Will discontinue zyprexa and start clozapine. According to renal case manager, patient is not close to his baseline and is functional when he is. QTC on 03/06/18 is 440 and last two ANC's are within normal. 03/07/18: Will increase clozapine to 25mg BID today, and discontinue olanzapine. Weekly CBC's ordered up to 03/20/18. 03/08/18: Will continue titration of clozapine and follow weeklly CBC's. 03/09/18: Patient continues to be tangential, with blocking and detached from reality. Would be unable to care for himself if not treated for stabilization and will continue titration of Clozapine at this time. Increase to 75mg big for tomorrow with 50mg dose tonight. 03/10/18: Patient is tangential and disorganized at times and at times is able to answer basic questions. Does seem to RIS and with minimal improvement at this time. Will give monthly Invega today at 117mg IM today. Continue clozapine titration to 100mg bid for tomorrow. 03/11/18: Patient seemed to be with some sedation this morning and with some difficulty balancing while walking. Patient repeat vital sign completed after interview with WNL. Patient put on fall precautions and asked to remain in bed. It is possible that the increase in clozapine could be contributory and will decrease dose to 75 mg bid and keep at this dose for tolerability. 03/12/18: Patient without over sedation today and will continue Clozapine at 75mg bid for today and consider increasing tomorrow. He remains with disorganized thought, RIS and intrusiveness. 03/13/17: Patient seems to be less talkative today and continues with blocking, tangentiality and seems preoccupied. Now tolerating clozapine without sedation, abs neutrophil count today was 3.75 and will increase Clozapine to 100mg bid starting tomorrow. (2) Depression: - Continue Zoloft 100mg daily Inventory Assets Strengths: not homeless, access to care, has case management Needs: medications, therapy Risk Factors Assessment Male: Yes : Yes Health Problems: No Substance Use Disorders: Yes Hopelessness: No Protective Factors Assessment : No Responsible for Young Children: No Employed: No Interval History Identifying Information 57 yo CM with history of schizophrenia and depression, admitted for deterioration of his schizophrenia with poor self care and possibly suspected in vandalism of vehicles in his living area. Patient is with psychomotor retardation, flat affect and drowsiness. He recieved haldol and ativan in the ER prior to being brought to unit. Review of Systems Sleep Information Total Hours of Sleep: 6.25 Sleep Comments: slept soundly from [id number]. he was able to fall back to sleep again at 0330 after being informed of his poor sleep this night. he thought he had slept 4 hours. Meal Information Percent Meal Consumed - Breakfast: 100 Percent Meal Consumed - Lunch: 100 Percent Meal Consumed - Dinner: 100 Subjective Subjective Patient was found laying in bed this morning and sat up to talk. He only answered yes and no to most questions. When asked open ended questions, he continued with blocking and remained quiet. Denies Si/HI/aVH. Per nursing, he gets upset and possibly paranoid when his renal case manager speaks to the nurses in the nurses station. Patient was seen & assessed and interval progress reviewed with Nursing Physical Exam Psychiatric Orientation: alert, oriented to person and oriented to place Apperance: appropriately dressed Eye Contact: + poor eye contact Motor Behavior: no abnormal motor movements low volume, rate and tone Affect: + blunted affect and mood congruent with affect Thought Process: + thought blocking Thought Content: + preoccupation Suicidal Thoughts: denies suicidal thoughts Homicidal Thoughts: denies homicidal thoughts Hallucinations: no auditory hallucinations and no visual hallucinations Cognition: attention grossly intact Estimated Intelligence: + below average estimated intelligence Insight: + impaired insight Judgement: + impaired judgement Vital Signs (Past 24 Hours) Last Vital Signs Temp 36.5 C 03/13/18 06:42 Pulse 73 03/13/18 06:42 Resp 16 03/13/18 06:42 BP 129/90 03/13/18 06:42 Pulse Ox 96 02/25/18 16:00 Results & Data Laboratory Results Laboratory Results - last 24 hr 03/13/18 06:56 WBC 6.80 RBC 4.55 L Hgb 13.5 L Hct 40.1 L MCV 88.1 MCH 29.7 MCHC 33.7 RDW Std Deviation 42.2 RDW Coeff of Ramu 13.3 Plt Count 137 MPV 9.8 Immature Gran % (Auto) 0.4 Neut % (Auto) 55.2 Lymph % (Auto) 29.9 Morehouse % (Auto) 11.3 Eos % (Auto) 2.8 Baso % (Auto) 0.4 Immature Gran # (Auto) 0.03 H Neut # (Auto) 3.75 Lymph # (Auto) 2.03 Morehouse # (Auto) 0.77 H Eos # (Auto) 0.19 Baso # (Auto) 0.03 Current Inpatient Medications Current Inpatient Medications: Current Inpatient Medications Acetaminophen (Tylenol) 650 mg PO Q4H PRN PRN Reason: Headache or Minor Fever Stop: 03/27/18 14:16 Al Hydrox/Mg Hydrox/Simethicone (Maalox) 30 ml PO Q4H PRN PRN Reason: GI Upset Stop: 03/27/18 14:16 Bismuth Subsalicylate (Kaopectate) 15 ml PO PRN PRN PRN Reason: Loose Stool Stop: 03/27/18 14:16 Clozapine (Clozaril) 75 mg PO BID HANNAH Stop: 04/10/18 20:59 Last Admin: 03/13/18 07:49 Dose: 75 mg Divalproex Sodium (Depakote Extended Release) 500 mg PO QAM HANNAH Stop: 04/01/18 08:59 Last Admin: 03/13/18 07:49 Dose: 500 mg Divalproex Sodium (Depakote Extended Release) 1,000 mg PO HS HANNAH Stop: 03/31/18 21:59 Last Admin: 03/12/18 21:21 Dose: 1,000 mg Hydroxyzine HCl (Vistaril) 50 mg PO HSZ PRN PRN Reason: Insomnia Stop: 03/27/18 14:16 Last Admin: 03/03/18 21:15 Dose: 50 mg Magnesium Hydroxide (Milk Of Magnesia) 30 ml PO DAILY PRN PRN Reason: Heartburn Stop: 03/27/18 14:16 Olanzapine (Zyprexa) 5 mg PO TID PRN PRN Reason: psychosis Stop: 03/29/18 08:59 Last Admin: 03/04/18 05:53 Dose: 5 mg Sertraline HCl (Zoloft) 100 mg PO QAM HANNAH Stop: 03/28/18 08:59 Last Admin: 03/13/18 07:49 Dose: 100 mg Sodium Chloride (Jenkins Nasal) 1 - 2 sprays NA PRN PRN PRN Reason: Nasal Dryness/Congestion Stop: 03/27/18 14:16 Post Discharge Appointments Psychiatrist Name of Psychiatrist: SHY Gardner PA-C Psychiatrist's Date of Appointment with Psychiatrist: 03/25/18 Time of Appointment with Psychiatrist: 10:00am Psychiatric Appointment Comment: SHY Murphy Therapist Name of Therapist: none Therapist's Date of Therapist Appointment: 03/19/18 Time of Therapist Appointment: 2:30pm Therapy Appointment Comment: Christie [address], [place] [address] Tele Grout Sewer Line Repairer Name of Tele Grout Sewer Line Repairer: Gustabo Mabry Phone Number for Tele Grout Sewer Line Repairer: [phone] Case Management Appointment Comment: [address] [place] [address] Contact Information Discharge Discharge Address: [facility] [address] [place] [address] CPT Code CPT Code 53762 _ (1) Schizophrenia Schizophrenia type: unspecified Qualified Code(s): F20.9 - Schizophrenia, unspecified (2) Depression Depression Type: unspecified Major depression recurrence: Active/Remission status: Major depression episode severity: Psychotic features: Trimester: Qualified Code(s): F32.9 - Major depressive disorder, single episode, unspecified
[2018-03-14] MEDS: SERTRALINE HCL 100 MG TABLET PO SCH (08:03)
[2018-03-14] MEDS: DIVALPROEX EXTENDED RELEASE 500 MG TAB PO SCH ×2 (08:03→21:32)
[2018-03-14] MEDS: cloZAPine 100 MG TAB PO SCH ×2 (08:03→21:32)
--- NOTE | 2018-03-14 09:41 | Psychiatric Progress Note ---
Date of Service March 14, 2018 Impression / Recommendations Impression 57 yo CM with history of schizophrenia and depression, admitted for deterioration of his schizophrenia with poor self care and possibly suspected in vandalism of vehicles in his living area. Now on 303 and received his last Sustenna injection on 02/07. Clozapine was resumed given various reports of stability with previous trials of the medication. Will continue daily titration , as well as weekly CBCs. Pt continues to be with thought blocking and tangentiality during conversations. Will require ongoing inpatient mental health treatment due to significant deterioration prior to admission and necessary titration and monitoring with clozapine initiation. (1) Schizophrenia: -Invega sustenna 117mg IM on 03/10/18 (continue monthly) -Zyprexa 5mg bid prn available for acute needs -Continue Depakote ER to 500mg qam and 1000mg qhs for mood -Continue steady Clozapine titration 02/25/18: Seems to be with some blocking but denies SI/HI/aVh and denies CAH. Will start zyprexa 5mg qhs in addition to home meds. Patient this time with poor functioning and will need treatment for stabilization. 02/26/18: Patient affect fluctuates, and he remains grossly disorganized and incoherent. Is tangential and seems to be distracted. Did deny Si/HI/aVH. Will increase zyprexa to 5mg bid and continue to treat for stabilization. 02/27/18: - Continue Sustenna and Zyprexa and will add prn 5 mg TID - Start Depakote 500 mg BID to target racing thoughts and behavioral dysregulation. - Will need level in 5 days on 03/04 - Continue to coordinate with his OP providers 02/28/18: Patient with minimal improvement and required 2 prn doses of zyprexa yesterday. Will increase scheduled zyprexa to 10mg bid. Depakote change to Depakote ER to treat mood and tangential racing thoughts. The consideration of returning to clozaril at this time is on hold as issues of compliance with meds and lab draws is of concern. Depakote level in AM. 03/01/18: He continues to be grossly disorganized, tangential and RIS. He is intrusive but redirectable per nursing staff. Increased zyprexa dose plus prn and will continue to treat for stabilization. He is not aggressive or agitated however is unable to care for himself at this time. VPA level was 62 and will increase depakote for mood stabilization and intrusive behaviors. 03/02/18: Patient seems to be with mild improvement and is less tangential today. Seems to be able to follow basic line of questioning. Does make random comment about irrelevant things, seems to be preoccupied at times and RIS. Patient is not aggressive or agitated and redirectable per nursing staff. Denies SI/Hi/AVH. 03/03 - Continue current meds. Consider shifting bulk of APM to HS given more daytime sedation - Invite pillowcase folder in to see patient to estimate closeness to baseline 03/04/18: Patient seems to be with continued slow improvement with decreased blocking, tangentiality and ability to be redirectable. He does have some intrusive behaviors however has not been agitated or aggressive. Seems to be maintaining a clean room, eating and complying with self-care. Perhaps he is nearing baseline, however will request assistance of watch caser. Continue current regimen at this time. 03/05/18: Patient remains without changes today and has had slow progression to improvement during admission. Will reach out to watch caser to assist with determining baseline functioning of patient. 03/06/18: Patient seems to be quite disorganized, tangential and with loose associations. Will need to change meds for stabilization. Will discontinue zyprexa and start clozapine. According to pillowcase folder, patient is not close to his baseline and is functional when he is. QTC on 03/06/18 is 440 and last two ANC's are within normal. 03/07/18: Will increase clozapine to 25mg BID today, and discontinue olanzapine. Weekly CBC's ordered up to 03/20/18. 03/08/18: Will continue titration of clozapine and follow weeklly CBC's. 03/09/18: Patient continues to be tangential, with blocking and detached from reality. Would be unable to care for himself if not treated for stabilization and will continue titration of Clozapine at this time. Increase to 75mg big for tomorrow with 50mg dose tonight. 03/10/18: Patient is tangential and disorganized at times and at times is able to answer basic questions. Does seem to RIS and with minimal improvement at this time. Will give monthly Invega today at 117mg IM today. Continue clozapine titration to 100mg bid for tomorrow. 03/11/18: Patient seemed to be with some sedation this morning and with some difficulty balancing while walking. Patient repeat vital sign completed after interview with WNL. Patient put on fall precautions and asked to remain in bed. It is possible that the increase in clozapine could be contributory and will decrease dose to 75 mg bid and keep at this dose for tolerability. 03/12/18: Patient without over sedation today and will continue Clozapine at 75mg bid for today and consider increasing tomorrow. He remains with disorganized thought, RIS and intrusiveness. 03/13/17: Patient seems to be less talkative today and continues with blocking, tangentiality and seems preoccupied. Now tolerating clozapine without sedation, abs neutrophil count today was 3.75 and will increase Clozapine to 100mg bid starting tomorrow. 03/14/18: Patient seems to be with mild improvement in blocking and less tangential today. Was able to have simple conversation without making grossly disorganized statements. Denies Si/Hi/aVH and will continue to titrate clozapine. Consider increasing to 125mg bid tomorrow if patient not having sedation side effects. (2) Depression: - Continue Zoloft 100mg daily Inventory Assets Strengths: not homeless, access to care, has case management Needs: medications, therapy Risk Factors Assessment Male: Yes : Yes Health Problems: No Substance Use Disorders: Yes Hopelessness: No Protective Factors Assessment : No Responsible for Young Children: No Employed: No Interval History Identifying Information 57 yo CM with history of schizophrenia and depression, admitted for deterioration of his schizophrenia with poor self care and possibly suspected in vandalism of vehicles in his living area. Patient is with psychomotor retardation, flat affect and drowsiness. He recieved haldol and ativan in the ER prior to being brought to unit. Chief Complaint "I'm ok" Review of Systems Sleep Information Total Hours of Sleep: 7 Sleep Comments: awake at 0020 after falling to sleep at 2100-he checked the time , got a drink and was able to fall back to sleep at 0045. he was awake again at 300-toileted, came out to check the time and back to sleep at 0400. he has been awake awake since shortly before 0600. Meal Information Percent Meal Consumed - Breakfast: 100 Percent Meal Consumed - Lunch: 100 Percent Meal Consumed - Dinner: 100 Subjective Subjective Patient was reading newspaper in the day area and came for interview. He stated "I'm fine" and showed me a package of magazine articles he states he wants to take home with him. He looked outside and said "i'm surprised by the weather" and when asked should it be like this at this time of year, he states "yes". He asked about the clozaril and dose he is on. He asked if the depakote is really needed and I informed patient about his medications and plans to increase clozaril. He states "ok" and did not seem to be grossly tangential today. Denied SI/HI/aVH. Patient was seen & assessed and interval progress reviewed with Treatment Team and Nursing Physical Exam Psychiatric Orientation: alert, oriented to person and oriented to place Apperance: appropriately dressed Eye Contact: + poor eye contact Motor Behavior: no abnormal motor movements Speech: normal rate/rhythm/volume of speech Affect: + blunted affect and mood congruent with affect Thought Process: + thought blocking and + tangential thought process mild decrease in blocking and less tangential Thought Content: + preoccupation Suicidal Thoughts: denies suicidal thoughts Homicidal Thoughts: denies homicidal thoughts Hallucinations: no auditory hallucinations and no visual hallucinations denies Cognition: attention grossly intact Estimated Intelligence: + below average estimated intelligence Insight: + poor insight Judgement: + poor judgement Vital Signs (Past 24 Hours) Last Vital Signs Temp 36.6 C 03/14/18 06:45 Pulse 89 03/14/18 06:46 Resp 18 03/14/18 06:45 BP 118/79 03/14/18 06:46 Pulse Ox 96 02/25/18 16:00 Results & Data Current Inpatient Medications Current Inpatient Medications: Current Inpatient Medications Acetaminophen (Tylenol) 650 mg PO Q4H PRN PRN Reason: Headache or Minor Fever Stop: 03/27/18 14:16 Al Hydrox/Mg Hydrox/Simethicone (Maalox) 30 ml PO Q4H PRN PRN Reason: GI Upset Stop: 03/27/18 14:16 Bismuth Subsalicylate (Kaopectate) 15 ml PO PRN PRN PRN Reason: Loose Stool Stop: 03/27/18 14:16 Clozapine (Clozapine) 100 mg PO BID [facility]AN[facility] Stop: 04/13/18 08:59 Last Admin: 03/14/18 08:03 Dose: 100 mg Divalproex Sodium (Depakote Extended Release) 500 mg PO QAM [facility] Stop: 04/01/18 08:59 Last Admin: 03/14/18 08:03 Dose: 500 mg Divalproex Sodium (Depakote Extended Release) 1,000 mg PO HS [facility]ANNA[facility] Stop: 03/31/18 21:59 Last Admin: 03/13/18 21:07 Dose: 1,000 mg Hydroxyzine HCl (Vistaril) 50 mg PO HSZ PRN PRN Reason: Insomnia Stop: 03/27/18 14:16 Last Admin: 03/03/18 21:15 Dose: 50 mg Magnesium Hydroxide (Milk Of Magnesia) 30 ml PO DAILY PRN PRN Reason: Heartburn Stop: 03/27/18 14:16 Olanzapine (Zyprexa) 5 mg PO TID PRN PRN Reason: psychosis Stop: 03/29/18 08:59 Last Admin: 03/04/18 05:53 Dose: 5 mg Sertraline HCl (Zoloft) 100 mg PO QAM [facility] Stop: 03/28/18 08:59 Last Admin: 03/14/18 08:03 Dose: 100 mg Sodium Chloride ([place] Nasal) 1 - 2 sprays NA PRN PRN PRN Reason: Nasal Dryness/Congestion Stop: 03/27/18 14:16 Post Discharge Appointments Psychiatrist Name of Psychiatrist: SHY Gardner PA-C Psychiatrist's Date of Appointment with Psychiatrist: 03/25/18 Time of Appointment with Psychiatrist: 10:00am Psychiatric Appointment Comment: SHY Murphy Therapist Name of Therapist: rukhsana Therapist's Date of Therapist Appointment: 03/19/18 Time of Therapist Appointment: 2:30pm Therapy Appointment Comment: [address], [place] [address] Molten Iron Pourer Name of Molten Iron Pourer: Gustabo Mabry Phone Number for Molten Iron Pourer: [phone] Case Management Appointment Comment: [address] [place] [address] Contact Information Discharge Discharge Address: [facility] [address] [place] [address] CPT Code CPT Code 47891 _ (1) Schizophrenia Schizophrenia type: unspecified Qualified Code(s): F20.9 - Schizophrenia, unspecified (2) Depression Depression Type: unspecified Major depression recurrence: Active/Remission status: Major depression episode severity: Psychotic features: Trimester: Qualified Code(s): F32.9 - Major depressive disorder, single episode, unspecified
--- NOTE | 2018-03-15 07:25 | Psychiatric Progress Note ---
Date of Service March 15, 2018 Impression / Recommendations Impression 57-year-old male with schizophrenia and depression who is admitted for deterioration of his schizophrenia with poor self care and suspected in vandalism of vehicles outside his apartment building. He is now on 303 involuntary commitment, and as he continued to have psychotic symptoms on Invega Sustenna, he was started on Clozapine for augmentation due to past good effect of this medication. Inpatient mental health treatment is medically necessary due to the severity of his symptoms, inability to provide for his own basic needs, and ongoing titration and monitoring of antipsychotic medications. (1) Schizophrenia: -Invega sustenna 117mg IM on 03/10/18 (continue monthly) -Zyprexa 5mg bid prn available for acute needs -Continue Depakote ER to 500mg qam and 1000mg qhs for mood -Continue steady Clozapine titration 02/25/18: Seems to be with some blocking but denies SI/HI/aVh and denies CAH. Will start zyprexa 5mg qhs in addition to home meds. Patient this time with poor functioning and will need treatment for stabilization. 02/26/18: Patient affect fluctuates, and he remains grossly disorganized and incoherent. Is tangential and seems to be distracted. Did deny Si/HI/aVH. Will increase zyprexa to 5mg bid and continue to treat for stabilization. 02/27/18: - Continue Sustenna and Zyprexa and will add prn 5 mg TID - Start Depakote 500 mg BID to target racing thoughts and behavioral dysregulation. - Will need level in 5 days on 03/04 - Continue to coordinate with his OP providers 02/28/18: Patient with minimal improvement and required 2 prn doses of zyprexa yesterday. Will increase scheduled zyprexa to 10mg bid. Depakote change to Depakote ER to treat mood and tangential racing thoughts. The consideration of returning to clozaril at this time is on hold as issues of compliance with meds and lab draws is of concern. Depakote level in AM. 03/01/18: He continues to be grossly disorganized, tangential and RIS. He is intrusive but redirectable per nursing staff. Increased zyprexa dose plus prn and will continue to treat for stabilization. He is not aggressive or agitated however is unable to care for himself at this time. VPA level was 62 and will increase depakote for mood stabilization and intrusive behaviors. 03/02/18: Patient seems to be with mild improvement and is less tangential today. Seems to be able to follow basic line of questioning. Does make random comment about irrelevant things, seems to be preoccupied at times and RIS. Patient is not aggressive or agitated and redirectable per nursing staff. Denies SI/Hi/AVH. 03/03 - Continue current meds. Consider shifting bulk of APM to HS given more daytime sedation - Invite wrapper caser in to see patient to estimate closeness to baseline 03/04/18: Patient seems to be with continued slow improvement with decreased blocking, tangentiality and ability to be redirectable. He does have some intrusive behaviors however has not been agitated or aggressive. Seems to be maintaining a clean room, eating and complying with self-care. Perhaps he is nearing baseline, however will request assistance of human services case manager. Continue current regimen at this time. 03/05/18: Patient remains without changes today and has had slow progression to improvement during admission. Will reach out to human services case manager to assist with determining baseline functioning of patient. 03/06/18: Patient seems to be quite disorganized, tangential and with loose associations. Will need to change meds for stabilization. Will discontinue zyprexa and start clozapine. According to wrapper caser, patient is not close to his baseline and is functional when he is. QTC on 03/06/18 is 440 and last two ANC's are within normal. 03/07/18: Will increase clozapine to 25mg BID today, and discontinue olanzapine. Weekly CBC's ordered up to 03/20/18. 03/08/18: Will continue titration of clozapine and follow weeklly CBC's. 03/09/18: Patient continues to be tangential, with blocking and detached from reality. Would be unable to care for himself if not treated for stabilization and will continue titration of Clozapine at this time. Increase to 75mg big for tomorrow with 50mg dose tonight. 03/10/18: Patient is tangential and disorganized at times and at times is able to answer basic questions. Does seem to RIS and with minimal improvement at this time. Will give monthly Invega today at 117mg IM today. Continue clozapine titration to 100mg bid for tomorrow. 03/11/18: Patient seemed to be with some sedation this morning and with some difficulty balancing while walking. Patient repeat vital sign completed after interview with WNL. Patient put on fall precautions and asked to remain in bed. It is possible that the increase in clozapine could be contributory and will decrease dose to 75 mg bid and keep at this dose for tolerability. 03/12/18: Patient without over sedation today and will continue Clozapine at 75mg bid for today and consider increasing tomorrow. He remains with disorganized thought, RIS and intrusiveness. 03/13/17: Patient seems to be less talkative today and continues with blocking, tangentiality and seems preoccupied. Now tolerating clozapine without sedation, abs neutrophil count today was 3.75 and will increase Clozapine to 100mg bid starting tomorrow. 03/14/18: Patient seems to be with mild improvement in blocking and less tangential today. Was able to have simple conversation without making grossly disorganized statements. Denies Si/Hi/aVH and will continue to titrate clozapine. Consider increasing to 125mg bid tomorrow if patient not having sedation side effects. 03/15 -increase clozapine to 125 mg twice daily to target ongoing psychotic symptoms. (2) Depression: - Continue Zoloft 100mg daily Inventory Assets Strengths: not homeless, access to care, has case management Needs: medications, therapy Risk Factors Assessment Male: Yes : Yes Health Problems: No Substance Use Disorders: Yes Hopelessness: No Protective Factors Assessment : No Responsible for Young Children: No Employed: No Interval History Identifying Information 57 y/o CM with history of schizophrenia and depression, admitted for deterioration of his schizophrenia with poor self care and suspected in vandalism of numerous vehicles at his apartment. Chief Complaint "Are you a cheerleader?" Review of Systems Sleep Information Total Hours of Sleep: 5.25 Sleep Comments: awake at 0115-out to the kitchen for water to drink and back to bed/sleep, awake at 0315-toileted and out to the day area/kitchen to check time and get water to drink then back to bed/sleep. awake for the day at 0545. Meal Information Percent Meal Consumed - Breakfast: 100 Percent Meal Consumed - Lunch: 100 Percent Meal Consumed - Dinner: 100 Subjective Subjective Patient was seen & assessed and interval progress reviewed with nursing and social work. Staff report he is resistant to ADLs at times, including showering or doing laundry, continues to be disorganized, nonsensical at times and his speech. He has been compliant with medications. He attempts to attend groups at times, with poor/inappropriate participation. On my assessment, the patient states that he is "fine." He says he has been spending his time here "sleeping. " He says he has not worked on any discharge plans, and is not sure what his goals are, but after a long pause states "restruction." He is unable to explain what he means by this. He then says "I shouldn't have bought a quart of peach yogurt, shouldn't have told them there were walnuts in the coffee..." Physical Exam Mental Examination White male appearing older than his stated age. Casually dressed in the same close since admission. Seated in no acute distress. No abnormal movements. Poor eye contact. Speech is normal rate and volume. Affect is inappropriate, laughing without provocation. Thoughts are tangential, disorganized, answers with unrelated information. Patient denies thoughts of harming himself or anyone else, and denies hallucinations. Attention is grossly intact. Insight and judgment are impaired. Vital Signs (Past 24 Hours) Last Vital Signs Temp 36.4 C L 03/15/18 06:35 Pulse 81 03/15/18 06:35 Resp 18 03/15/18 06:35 BP 130/86 03/15/18 06:35 Pulse Ox 96 02/25/18 16:00 Results & Data Current Inpatient Medications Current Inpatient Medications: Current Inpatient Medications Acetaminophen (Tylenol) 650 mg PO Q4H PRN PRN Reason: Headache or Minor Fever Stop: 03/27/18 14:16 Al Hydrox/Mg Hydrox/Simethicone (Maalox) 30 ml PO Q4H PRN PRN Reason: GI Upset Stop: 03/27/18 14:16 Bismuth Subsalicylate (Kaopectate) 15 ml PO PRN PRN PRN Reason: Loose Stool Stop: 03/27/18 14:16 Clozapine (Clozapine) 100 mg PO BID [facility] Stop: 04/13/18 08:59 Last Admin: 03/14/18 21:32 Dose: 100 mg Divalproex Sodium (Depakote Extended Release) 500 mg PO QAM [facility] Stop: 04/01/18 08:59 Last Admin: 03/14/18 08:03 Dose: 500 mg Divalproex Sodium (Depakote Extended Release) 1,000 mg PO HS [facility]ANNA[facility] Stop: 03/31/18 21:59 Last Admin: 03/14/18 21:32 Dose: 1,000 mg Hydroxyzine HCl (Vistaril) 50 mg PO HSZ PRN PRN Reason: Insomnia Stop: 03/27/18 14:16 Last Admin: 03/03/18 21:15 Dose: 50 mg Magnesium Hydroxide (Milk Of Magnesia) 30 ml PO DAILY PRN PRN Reason: Heartburn Stop: 03/27/18 14:16 Olanzapine (Zyprexa) 5 mg PO TID PRN PRN Reason: psychosis Stop: 03/29/18 08:59 Last Admin: 03/04/18 05:53 Dose: 5 mg Sertraline HCl (Zoloft) 100 mg PO QAM [facility] Stop: 03/28/18 08:59 Last Admin: 03/14/18 08:03 Dose: 100 mg Sodium Chloride ([place] Nasal) 1 - 2 sprays NA PRN PRN PRN Reason: Nasal Dryness/Congestion Stop: 03/27/18 14:16 Post Discharge Appointments Psychiatrist Name of Psychiatrist: [facility] King Gardner PA-C Psychiatrist's Date of Appointment with Psychiatrist: 03/25/18 Time of Appointment with Psychiatrist: 10:00am Psychiatric Appointment Comment: SHY Murphy Therapist Name of Therapist: rukhsana Therapist's Date of Therapist Appointment: 03/19/18 Time of Therapist Appointment: 2:30pm Therapy Appointment Comment: [address], [place] [address] Big 6 Dealer Name of Big 6 Dealer: Gustabo Mabry Phone Number for Big 6 Dealer: [phone] Case Management Appointment Comment: [address] [place] [address] Contact Information Discharge Discharge Address: [facility] [address] [place] [address] CPT Code CPT Code 59302 _ (1) Depression Active/Remission status: Depression Type: unspecified Major depression episode severity: Major depression recurrence: Psychotic features: Trimester: Qualified Code(s): F32.9 - Major depressive disorder, single episode, unspecified (2) Schizophrenia Schizophrenia type: unspecified Qualified Code(s): F20.9 - Schizophrenia, unspecified
[2018-03-15] MEDS: cloZAPine 100 MG TAB PO SCH ×2 (08:36→21:09)
[2018-03-15] MEDS: DIVALPROEX EXTENDED RELEASE 500 MG TAB PO SCH ×2 (08:36→21:09)
[2018-03-15] MEDS: SERTRALINE HCL 100 MG TABLET PO SCH (08:36)
[2018-03-15] MEDS: cloZAPine 25 MG TAB PO SCH (21:09)
--- NOTE | 2018-03-16 08:30 | Psychiatric Progress Note ---
Date of Service March 16, 2018 Impression / Recommendations Impression 57-year-old male with schizophrenia and depression who is admitted for deterioration of his schizophrenia with poor self care and suspected vandalism of vehicles outside his apartment building. As he continued to have psychotic symptoms on Invega Sustenna, he was started on Clozapine for augmentation due to past good effect of this medication. Inpatient mental health treatment is medically necessary due to the severity of his symptoms, inability to provide for his own basic needs, and ongoing titration and monitoring of antipsychotic medications. (1) Schizophrenia: -Invega sustenna 117mg IM on 03/10/18 (continue monthly) -Zyprexa 5mg bid prn available for acute needs -Continue Depakote ER to 500mg qam and 1000mg qhs for mood -Continue steady Clozapine titration 02/25/18: Seems to be with some blocking but denies SI/HI/aVh and denies CAH. Will start zyprexa 5mg qhs in addition to home meds. Patient this time with poor functioning and will need treatment for stabilization. 02/26/18: Patient affect fluctuates, and he remains grossly disorganized and incoherent. Is tangential and seems to be distracted. Did deny Si/HI/aVH. Will increase zyprexa to 5mg bid and continue to treat for stabilization. 02/27/18: - Continue Sustenna and Zyprexa and will add prn 5 mg TID - Start Depakote 500 mg BID to target racing thoughts and behavioral dysregulation. - Will need level in 5 days on 03/04 - Continue to coordinate with his OP providers 02/28/18: Patient with minimal improvement and required 2 prn doses of zyprexa yesterday. Will increase scheduled zyprexa to 10mg bid. Depakote change to Depakote ER to treat mood and tangential racing thoughts. The consideration of returning to clozaril at this time is on hold as issues of compliance with meds and lab draws is of concern. Depakote level in AM. 03/01/18: He continues to be grossly disorganized, tangential and RIS. He is intrusive but redirectable per nursing staff. Increased Zyprexa dose plus prn and will continue to treat for stabilization. He is not aggressive or agitated however is unable to care for himself at this time. VPA level was 62 and will increase Depakote for mood stabilization and intrusive behaviors. 03/02/18: Patient seems to be with mild improvement and is less tangential today. Seems to be able to follow basic line of questioning. Does make random comment about irrelevant things, seems to be preoccupied at times and RIS. Patient is not aggressive or agitated and redirectable per nursing staff. Denies SI/Hi/AVH. 03/03 - Continue current meds. Consider shifting bulk of APM to HS given more daytime sedation - Invite continuous pillowcase cutter in to see patient to estimate closeness to baseline 03/04/18: Patient seems to be with continued slow improvement with decreased blocking, tangentiality and ability to be redirectable. He does have some intrusive behaviors however has not been agitated or aggressive. Seems to be maintaining a clean room, eating and complying with self-care. Perhaps he is nearing baseline, however will request assistance of continuous pillowcase cutter. Continue current regimen at this time. 03/05/18: Patient remains without changes today and has had slow progression to improvement during admission. Will reach out to continuous pillowcase cutter to assist with determining baseline functioning of patient. 03/06/18: Patient seems to be quite disorganized, tangential and with loose associations. Will need to change meds for stabilization. Will discontinue zyprexa and start clozapine. According to continuous pillowcase cutter, patient is not close to his baseline and is functional when he is. QTC on 03/06/18 is 440 and last two ANC's are within normal. 03/07/18: Will increase clozapine to 25mg BID today, and discontinue olanzapine. Weekly CBC's ordered up to 03/20/18. 03/08/18: Will continue titration of clozapine and follow weekly CBC's. 03/09/18: Patient continues to be tangential, with blocking and detached from reality. Would be unable to care for himself if not treated for stabilization and will continue titration of Clozapine at this time. Increase to 75mg big for tomorrow with 50mg dose tonight. 03/10/18: Patient is tangential and disorganized at times and at times is able to answer basic questions. Does seem to RIS and with minimal improvement at this time. Will give monthly Invega today at 117mg IM today. Continue clozapine titration to 100mg bid for tomorrow. 03/11/18: Patient seemed to be with some sedation this morning and with some difficulty balancing while walking. Patient repeat vital sign completed after interview with WNL. Patient put on fall precautions and asked to remain in bed. It is possible that the increase in clozapine could be contributory and will decrease dose to 75 mg bid and keep at this dose for tolerability. 03/12/18: Patient without over sedation today and will continue Clozapine at 75mg bid for today and consider increasing tomorrow. He remains with disorganized thought, RIS and intrusiveness. 03/13/17: Patient seems to be less talkative today and continues with blocking, tangentiality and seems preoccupied. Now tolerating clozapine without sedation, abs neutrophil count today was 3.75 and will increase Clozapine to 100mg bid starting tomorrow. 03/14/18: Patient seems to be with mild improvement in blocking and less tangential today. Was able to have simple conversation without making grossly disorganized statements. Denies Si/Hi/aVH and will continue to titrate clozapine. Consider increasing to 125mg bid tomorrow if patient not having sedation side effects. 03/15 -increase clozapine to 125 mg twice daily to target ongoing psychotic symptoms. 03/16 -continue current medications and plan. (2) Depression: - Continue Zoloft 100mg daily Inventory Assets Strengths: Has housing, access to care, case management services Needs: medications, therapy Risk Factors Assessment Male: Yes : Yes Do You Have Access To A Gun?: No Health Problems: No Mental Health Diagnoses: Yes Substance Use Disorders: Yes Hopelessness: No Smoker: Yes Protective Factors Assessment : No Responsible for Young Children: No Employed: No Interval History Identifying Information 57 y/o CM with history of schizophrenia and depression, admitted for deterioration of his schizophrenia with poor self care and suspected in vandalism of numerous vehicles at his apartment. Chief Complaint "Fine, just reading". Review of Systems Sleep Information Total Hours of Sleep: 5.75 Sleep Comments: sleep hours total between 04/28 and 12/25 shifts. he came out to the kitchen for a drink of water at 0007 then back to bed/sleep. he was awake again at 0505, toileted, got more water to drink, back to bed/sleep. he has been awake since 0330. he stays mainly in his room or walks out to the day area to check the time. Meal Information Percent Meal Consumed - Breakfast: 100 Percent Meal Consumed - Lunch: 100 Percent Meal Consumed - Dinner: 100 Subjective Subjective Patient was seen & assessed and interval progress reviewed with Nursing. Staff report he continues with slow improvement, as disorganization and ability to converse appropriately are improving. He has been able to tolerate groups briefly, but spends most of his time in the day area. Behavior has been less disorganized, but he still needs prompts for bathing, changing clothes, and laundering clothes. On my assessment, he states that mood is "fine," and that he has been spending his time "just reading." He cannot give any further information about what he has been reading. Appetite is good, but sleep is still suboptimal, as he feels tired when he wakes up. He describes his thoughts as "disorganized," but cannot explain this further. He repeatedly says "I don't know," when asked about his future plans and treatment goals while he is here. Physical Exam Mental Examination Overweight white male appearing his stated age. Seated in no acute distress, with no abnormal movements. Poor eye contact, staring straight ahead. Cooperative with the assessment, but a limited historian due to disorganization. Dressed in multiple layers, limited hygiene and grooming. Mood is "fine," and affect is incongruent and flat. Speech is soft, minimal, nonspontaneous. Thoughts remain disorganized, although he is able to answer most questions appropriately. Paucity of thought content. No hallucinations or paranoia evident. Insight and judgment are limited. Vital Signs (Past 24 Hours) Last Vital Signs Temp 36.4 C L 03/16/18 06:24 Pulse 90 03/16/18 06:25 Resp 18 03/16/18 06:24 BP 106/73 03/16/18 06:25 Pulse Ox 96 02/25/18 16:00 Results & Data Current Inpatient Medications Current Inpatient Medications: Current Inpatient Medications Acetaminophen (Tylenol) 650 mg PO Q4H PRN PRN Reason: Headache or Minor Fever Stop: 03/27/18 14:16 Al Hydrox/Mg Hydrox/Simethicone (Maalox) 30 ml PO Q4H PRN PRN Reason: GI Upset Stop: 03/27/18 14:16 Bismuth Subsalicylate (Kaopectate) 15 ml PO PRN PRN PRN Reason: Loose Stool Stop: 03/27/18 14:16 Clozapine (Clozapine) 100 mg PO BID HANNAH Stop: 04/14/18 20:59 Last Admin: 03/15/18 21:09 Dose: 100 mg Clozapine (Clozaril) 25 mg PO BID HANNAH Stop: 04/14/18 20:59 Last Admin: 03/15/18 21:09 Dose: 25 mg Divalproex Sodium (Depakote Extended Release) 500 mg PO QAM HANNAH Stop: 04/01/18 08:59 Last Admin: 03/15/18 08:36 Dose: 500 mg Divalproex Sodium (Depakote Extended Release) 1,000 mg PO HS HANNAH Stop: 03/31/18 21:59 Last Admin: 03/15/18 21:09 Dose: 1,000 mg Hydroxyzine HCl (Vistaril) 50 mg PO HSZ PRN PRN Reason: Insomnia Stop: 03/27/18 14:16 Last Admin: 03/03/18 21:15 Dose: 50 mg Magnesium Hydroxide (Milk Of Magnesia) 30 ml PO DAILY PRN PRN Reason: Heartburn Stop: 03/27/18 14:16 Olanzapine (Zyprexa) 5 mg PO TID PRN PRN Reason: psychosis Stop: 03/29/18 08:59 Last Admin: 03/04/18 05:53 Dose: 5 mg Sertraline HCl (Zoloft) 100 mg PO QAM HANNAH Stop: 03/28/18 08:59 Last Admin: 03/15/18 08:36 Dose: 100 mg Sodium Chloride ([place] Nasal) 1 - 2 sprays NA PRN PRN PRN Reason: Nasal Dryness/Congestion Stop: 03/27/18 14:16 Post Discharge Appointments Psychiatrist Name of Psychiatrist: SHY Gardner PA-C Psychiatrist's Date of Appointment with Psychiatrist: 03/25/18 Time of Appointment with Psychiatrist: 10:00am Psychiatric Appointment Comment: SHY Murphy Therapist Name of Therapist: [email or web address] Therapist's Date of Therapist Appointment: 03/19/18 Time of Therapist Appointment: 2:30pm Therapy Appointment Comment: [address], [place] [address] Crossing Gateman Name of Crossing Gateman: Gustabo Mabry Phone Number for Crossing Gateman: [phone] Case Management Appointment Comment: [phone], [place] [address] Contact Information Discharge Discharge Address: [facility] [place] [address] CPT Code CPT Code 75118 _ (1) Depression Active/Remission status: Depression Type: unspecified Major depression episode severity: Major depression recurrence: Psychotic features: Trimester: Qualified Code(s): F32.9 - Major depressive disorder, single episode, unspecified (2) Schizophrenia Schizophrenia type: unspecified Qualified Code(s): F20.9 - Schizophrenia, unspecified
[2018-03-16] MEDS: cloZAPine 100 MG TAB PO SCH ×2 (08:32→21:15)
[2018-03-16] MEDS: SERTRALINE HCL 100 MG TABLET PO SCH (08:33)
[2018-03-16] MEDS: DIVALPROEX EXTENDED RELEASE 500 MG TAB PO SCH ×2 (08:33→21:14)
[2018-03-16] MEDS: cloZAPine 25 MG TAB PO SCH ×2 (08:33→21:15)
[2018-03-17] MEDS: DIVALPROEX EXTENDED RELEASE 500 MG TAB PO SCH ×2 (07:29→21:06)
[2018-03-17] MEDS: cloZAPine 25 MG TAB PO SCH ×2 (07:29→21:06)
[2018-03-17] MEDS: cloZAPine 100 MG TAB PO SCH ×2 (07:30→21:06)
[2018-03-17] MEDS: SERTRALINE HCL 100 MG TABLET PO SCH (07:30)
--- NOTE | 2018-03-17 08:32 | Psychiatric Progress Note ---
Date of Service March 17, 2018 Impression / Recommendations Impression 57-year-old male with schizophrenia and depression who is admitted for deterioration of his schizophrenia with poor self care and suspected vandalism of vehicles outside his apartment building. As he continued to have psychotic symptoms on Invega Sustenna, he was started on Clozapine for augmentation due to past good response to this medication. Inpatient mental health treatment is medically necessary due to the severity of his symptoms, inability to provide for his own basic needs, and ongoing titration and monitoring of antipsychotic medications. (1) Schizophrenia: to target ongoing psychosis.-Invega sustenna 117mg IM on 03/10/18 ( continue monthly) -Zyprexa 5mg bid prn available for acute needs -Continue Depakote ER to 500mg qam and 1000mg qhs for mood -Continue steady Clozapine titration 02/25/18: Seems to be with some blocking but denies SI/HI/aVh and denies CAH. Will start zyprexa 5mg qhs in addition to home meds. Patient this time with poor functioning and will need treatment for stabilization. 02/26/18: Patient affect fluctuates, and he remains grossly disorganized and incoherent. Is tangential and seems to be distracted. Did deny Si/HI/aVH. Will increase zyprexa to 5mg bid and continue to treat for stabilization. 02/27/18: - Continue Sustenna and Zyprexa and will add prn 5 mg TID - Start Depakote 500 mg BID to target racing thoughts and behavioral dysregulation. - Will need level in 5 days on 03/04 - Continue to coordinate with his OP providers 02/28/18: Patient with minimal improvement and required 2 prn doses of zyprexa yesterday. Will increase scheduled zyprexa to 10mg bid. Depakote change to Depakote ER to treat mood and tangential racing thoughts. The consideration of returning to clozaril at this time is on hold as issues of compliance with meds and lab draws is of concern. Depakote level in AM. 03/01/18: He continues to be grossly disorganized, tangential and RIS. He is intrusive but redirectable per nursing staff. Increased Zyprexa dose plus prn and will continue to treat for stabilization. He is not aggressive or agitated however is unable to care for himself at this time. VPA level was 62 and will increase Depakote for mood stabilization and intrusive behaviors. 03/02/18: Patient seems to be with mild improvement and is less tangential today. Seems to be able to follow basic line of questioning. Does make random comment about irrelevant things, seems to be preoccupied at times and RIS. Patient is not aggressive or agitated and redirectable per nursing staff. Denies SI/Hi/AVH. 03/03 - Continue current meds. Consider shifting bulk of APM to HS given more daytime sedation - Invite disease case manager rn in to see patient to estimate closeness to baseline 03/04/18: Patient seems to be with continued slow improvement with decreased blocking, tangentiality and ability to be redirectable. He does have some intrusive behaviors however has not been agitated or aggressive. Seems to be maintaining a clean room, eating and complying with self-care. Perhaps he is nearing baseline, however will request assistance of catalytic case operator. Continue current regimen at this time. 03/05/18: Patient remains without changes today and has had slow progression to improvement during admission. Will reach out to catalytic case operator to assist with determining baseline functioning of patient. 03/06/18: Patient seems to be quite disorganized, tangential and with loose associations. Will need to change meds for stabilization. Will discontinue zyprexa and start clozapine. According to disease case manager rn, patient is not close to his baseline and is functional when he is. QTC on 03/06/18 is 440 and last two ANC's are within normal. 03/07/18: Will increase clozapine to 25mg BID today, and discontinue olanzapine. Weekly CBC's ordered up to 03/20/18. 03/08/18: Will continue titration of clozapine and follow weekly CBC's. 03/09/18: Patient continues to be tangential, with blocking and detached from reality. Would be unable to care for himself if not treated for stabilization and will continue titration of Clozapine at this time. Increase to 75mg big for tomorrow with 50mg dose tonight. 03/10/18: Patient is tangential and disorganized at times and at times is able to answer basic questions. Does seem to RIS and with minimal improvement at this time. Will give monthly Invega today at 117mg IM today. Continue clozapine titration to 100mg bid for tomorrow. 03/11/18: Patient seemed to be with some sedation this morning and with some difficulty balancing while walking. Patient repeat vital sign completed after interview with WNL. Patient put on fall precautions and asked to remain in bed. It is possible that the increase in clozapine could be contributory and will decrease dose to 75 mg bid and keep at this dose for tolerability. 03/12/18: Patient without over sedation today and will continue Clozapine at 75mg bid for today and consider increasing tomorrow. He remains with disorganized thought, RIS and intrusiveness. 03/13/17: Patient seems to be less talkative today and continues with blocking, tangentiality and seems preoccupied. Now tolerating clozapine without sedation, abs neutrophil count today was 3.75 and will increase Clozapine to 100mg bid starting tomorrow. 03/14/18: Patient seems to be with mild improvement in blocking and less tangential today. Was able to have simple conversation without making grossly disorganized statements. Denies Si/Hi/aVH and will continue to titrate clozapine. Consider increasing to 125mg bid tomorrow if patient not having sedation side effects. 03/15 -increase clozapine to 125 mg twice daily to target ongoing psychotic symptoms. 03/16 -continue current medications and plan. 03/17 -increase clozapine to 150 mg twice daily to target ongoing psychosis. Will need second meeting with disease case manager rn, as was unable to tolerate the first due to psychosis. (2) Depression: - Continue Zoloft 100mg daily Inventory Assets Strengths: Has housing, access to care, case management services Needs: medications, therapy Risk Factors Assessment Male: Yes : Yes Do You Have Access To A Gun?: No Health Problems: No Mental Health Diagnoses: Yes Substance Use Disorders: Yes Hopelessness: No Smoker: Yes Protective Factors Assessment : No Responsible for Young Children: No Employed: No Interval History Identifying Information 57 y/o CM with history of schizophrenia and depression, admitted for deterioration of his schizophrenia with poor self care and suspected in vandalism of numerous vehicles at his apartment. Chief Complaint "Fine, I had too much apple juice". Review of Systems Notes Dizziness, joint pain in elbows and knees -chronic, unable to give further information. Left eyelid swollen for the past 1-2 days per patient, denies pain , itching, vision changes. Sleep Information Total Hours of Sleep: 5.75 Sleep Comments: pt awoke x3, but appeared to be asleep withing 1/2 hr thereafter. pt on q-15 minute checks Meal Information Percent Meal Consumed - Breakfast: 100 Percent Meal Consumed - Lunch: 100 Percent Meal Consumed - Dinner: 100 Subjective Subjective Patient was seen & assessed and interval progress reviewed with Treatment Team. Staff report he goes to groups but does not participate and often falls asleep. He requires staff encouragement and prompting to complete ADLs. On my assessment, the patient was able to answer some questions appropriately, but answers others with unrelated information, and often cannot clarify when asked. He describes mood as "about a 6," and says it is "much better" than on admission. He is not sure what has led to the improvement. He denies thoughts of harming himself or anyone else, but endorses ongoing auditory hallucinations of voices. He does not recognize the voices, cannot say how many there are, and says "I don't know" when asked what they are saying. When attempts are made to further clarify the auditory hallucinations, he states "I don't want to say." He says he feels safe here. Physical Exam Mental Examination Overweight white male appearing his stated age. Casually dressed in the same closed, multiple layers, limited hygiene and grooming. Seated in no acute distress. No abnormal movements. Limited eye contact. Left eyelid is swollen. Cooperative with the assessment, but a limited historian, and did not want to answer questions regarding hallucinations. Mood is "much better," but affect is flattened and congruent. Speech is minimal, monotone. Thoughts are goal-directed at times, but other times answers with unrelated information. Paucity of thought content -blocking versus unwillingness to answer questions. Denies SI and HI, but endorses auditory hallucinations of voices. Insight and judgment are impaired. Vital Signs (Past 24 Hours) Last Vital Signs Temp 36.7 C 03/17/18 06:56 Pulse 105 H 03/17/18 06:57 Resp 18 03/17/18 06:56 BP 116/65 03/17/18 06:57 Pulse Ox 96 02/25/18 16:00 Results & Data Current Inpatient Medications Current Inpatient Medications: Current Inpatient Medications Acetaminophen (Tylenol) 650 mg PO Q4H PRN PRN Reason: Headache or Minor Fever Stop: 03/27/18 14:16 Al Hydrox/Mg Hydrox/Simethicone (Maalox) 30 ml PO Q4H PRN PRN Reason: GI Upset Stop: 03/27/18 14:16 Bismuth Subsalicylate (Kaopectate) 15 ml PO PRN PRN PRN Reason: Loose Stool Stop: 03/27/18 14:16 Clozapine (Clozapine) 100 mg PO BID HANNAH Stop: 04/14/18 20:59 Last Admin: 03/17/18 07:30 Dose: 100 mg Clozapine (Clozaril) 25 mg PO BID HANNAH Stop: 04/14/18 20:59 Last Admin: 03/17/18 07:29 Dose: 25 mg Divalproex Sodium (Depakote Extended Release) 500 mg PO QAM HANNAH Stop: 04/01/18 08:59 Last Admin: 03/17/18 07:29 Dose: 500 mg Divalproex Sodium (Depakote Extended Release) 1,000 mg PO HS HANNAH Stop: 03/31/18 21:59 Last Admin: 03/16/18 21:14 Dose: 1,000 mg Hydroxyzine HCl (Vistaril) 50 mg PO HSZ PRN PRN Reason: Insomnia Stop: 03/27/18 14:16 Last Admin: 03/03/18 21:15 Dose: 50 mg Magnesium Hydroxide (Milk Of Magnesia) 30 ml PO DAILY PRN PRN Reason: Heartburn Stop: 03/27/18 14:16 Olanzapine (Zyprexa) 5 mg PO TID PRN PRN Reason: psychosis Stop: 03/29/18 08:59 Last Admin: 03/04/18 05:53 Dose: 5 mg Sertraline HCl (Zoloft) 100 mg PO QAM HANNAH Stop: 03/28/18 08:59 Last Admin: 03/17/18 07:30 Dose: 100 mg Sodium Chloride ([place] Nasal) 1 - 2 sprays NA PRN PRN PRN Reason: Nasal Dryness/Congestion Stop: 03/27/18 14:16 Post Discharge Appointments Psychiatrist Name of Psychiatrist: SHY Gardner PA-C Psychiatrist's Date of Appointment with Psychiatrist: 03/25/18 Time of Appointment with Psychiatrist: 10:00am Psychiatric Appointment Comment: SHY Murphy Therapist Name of Therapist: none Therapist's Date of Therapist Appointment: 03/19/18 Time of Therapist Appointment: 2:30pm Therapy Appointment Comment: [phone], [facility] [place] [address] Manager Behavior Name of Manager Behavior: Gustabo Mabry Phone Number for Manager Behavior: [phone] Case Management Appointment Comment: [phone], [place] [address] Contact Information Discharge Discharge Address: [facility] Divya Li [address] [place] [address],[place] [address] CPT Code CPT Code 52021 _ (1) Depression Active/Remission status: Depression Type: unspecified Major depression episode severity: Major depression recurrence: Psychotic features: Trimester: Qualified Code(s): F32.9 - Major depressive disorder, single episode, unspecified (2) Schizophrenia Schizophrenia type: unspecified Qualified Code(s): F20.9 - Schizophrenia, unspecified
[2018-03-18] MEDS: cloZAPine 25 MG TAB PO SCH ×2 (07:54→21:17)
[2018-03-18] MEDS: cloZAPine 100 MG TAB PO SCH ×2 (07:55→21:17)
[2018-03-18] MEDS: DIVALPROEX EXTENDED RELEASE 500 MG TAB PO SCH ×2 (07:55→21:17)
[2018-03-18] MEDS: SERTRALINE HCL 100 MG TABLET PO SCH (07:55)
--- NOTE | 2018-03-18 10:35 | Psychiatric Progress Note ---
Date of Service March 18, 2018 Impression / Recommendations Impression 57-year-old male with schizophrenia and depression who is admitted for deterioration of his schizophrenia with poor self care and suspected vandalism of vehicles outside his apartment building. As he continued to have psychotic symptoms on Invega Sustenna, he was started on Clozapine for augmentation due to past good response to this medication. Inpatient mental health treatment is medically necessary due to the severity of his symptoms, inability to provide for his own basic needs, and ongoing titration and monitoring of antipsychotic medications. (1) Schizophrenia: to target ongoing psychosis.-Invega sustenna 117mg IM on 03/10/18 ( continue monthly) -Zyprexa 5mg bid prn available for acute needs -Continue Depakote ER to 500mg qam and 1000mg qhs for mood -Continue steady Clozapine titration 02/25/18: Seems to be with some blocking but denies SI/HI/aVh and denies CAH. Will start zyprexa 5mg qhs in addition to home meds. Patient this time with poor functioning and will need treatment for stabilization. 02/26/18: Patient affect fluctuates, and he remains grossly disorganized and incoherent. Is tangential and seems to be distracted. Did deny Si/HI/aVH. Will increase zyprexa to 5mg bid and continue to treat for stabilization. 02/27/18: - Continue Sustenna and Zyprexa and will add prn 5 mg TID - Start Depakote 500 mg BID to target racing thoughts and behavioral dysregulation. - Will need level in 5 days on 03/04 - Continue to coordinate with his OP providers 02/28/18: Patient with minimal improvement and required 2 prn doses of zyprexa yesterday. Will increase scheduled zyprexa to 10mg bid. Depakote change to Depakote ER to treat mood and tangential racing thoughts. The consideration of returning to clozaril at this time is on hold as issues of compliance with meds and lab draws is of concern. Depakote level in AM. 03/01/18: He continues to be grossly disorganized, tangential and RIS. He is intrusive but redirectable per nursing staff. Increased Zyprexa dose plus prn and will continue to treat for stabilization. He is not aggressive or agitated however is unable to care for himself at this time. VPA level was 62 and will increase Depakote for mood stabilization and intrusive behaviors. 03/02/18: Patient seems to be with mild improvement and is less tangential today. Seems to be able to follow basic line of questioning. Does make random comment about irrelevant things, seems to be preoccupied at times and RIS. Patient is not aggressive or agitated and redirectable per nursing staff. Denies SI/Hi/AVH. 03/03 - Continue current meds. Consider shifting bulk of APM to HS given more daytime sedation - Invite child welfare caseworker in to see patient to estimate closeness to baseline 03/04/18: Patient seems to be with continued slow improvement with decreased blocking, tangentiality and ability to be redirectable. He does have some intrusive behaviors however has not been agitated or aggressive. Seems to be maintaining a clean room, eating and complying with self-care. Perhaps he is nearing baseline, however will request assistance of egg caser. Continue current regimen at this time. 03/05/18: Patient remains without changes today and has had slow progression to improvement during admission. Will reach out to egg caser to assist with determining baseline functioning of patient. 03/06/18: Patient seems to be quite disorganized, tangential and with loose associations. Will need to change meds for stabilization. Will discontinue zyprexa and start clozapine. According to child welfare caseworker, patient is not close to his baseline and is functional when he is. QTC on 03/06/18 is 440 and last two ANC's are within normal. 03/07/18: Will increase clozapine to 25mg BID today, and discontinue olanzapine. Weekly CBC's ordered up to 03/20/18. 03/08/18: Will continue titration of clozapine and follow weekly CBC's. 03/09/18: Patient continues to be tangential, with blocking and detached from reality. Would be unable to care for himself if not treated for stabilization and will continue titration of Clozapine at this time. Increase to 75mg big for tomorrow with 50mg dose tonight. 03/10/18: Patient is tangential and disorganized at times and at times is able to answer basic questions. Does seem to RIS and with minimal improvement at this time. Will give monthly Invega today at 117mg IM today. Continue clozapine titration to 100mg bid for tomorrow. 03/11/18: Patient seemed to be with some sedation this morning and with some difficulty balancing while walking. Patient repeat vital sign completed after interview with WNL. Patient put on fall precautions and asked to remain in bed. It is possible that the increase in clozapine could be contributory and will decrease dose to 75 mg bid and keep at this dose for tolerability. 03/12/18: Patient without over sedation today and will continue Clozapine at 75mg bid for today and consider increasing tomorrow. He remains with disorganized thought, RIS and intrusiveness. 03/13/17: Patient seems to be less talkative today and continues with blocking, tangentiality and seems preoccupied. Now tolerating clozapine without sedation, abs neutrophil count today was 3.75 and will increase Clozapine to 100mg bid starting tomorrow. 03/14/18: Patient seems to be with mild improvement in blocking and less tangential today. Was able to have simple conversation without making grossly disorganized statements. Denies Si/Hi/aVH and will continue to titrate clozapine. Consider increasing to 125mg bid tomorrow if patient not having sedation side effects. 03/15 -increase clozapine to 125 mg twice daily to target ongoing psychotic symptoms. 03/16 -continue current medications and plan. 03/17 -increase clozapine to 150 mg twice daily to target ongoing psychosis. Will need second meeting with child welfare caseworker, as was unable to tolerate the first due to psychosis. 03/18 - Continue current meds - Meeting with Griselda Villarreal tomorrow - Continue with safety and discharge planning (2) Depression: - Continue Zoloft 100mg daily Inventory Assets Strengths: Has housing, access to care, case management services Needs: medications, therapy Risk Factors Assessment Male: Yes : Yes Do You Have Access To A Gun?: No Health Problems: No Mental Health Diagnoses: Yes Substance Use Disorders: Yes Hopelessness: No Smoker: Yes Protective Factors Assessment : No Responsible for Young Children: No Employed: No Interval History Identifying Information 57 y/o CM with history of schizophrenia and depression, admitted for deterioration of his schizophrenia with poor self care and suspected in vandalism of numerous vehicles at his apartment. Chief Complaint "OK". Review of Systems Sleep Information Total Hours of Sleep: 6 Sleep Comments: total sleep hours between 04/28 and 11 shifts. stefania toileted, then out to the kitchen for water to drink at 2325 and 0150. he has been awake for the day since 0415 Meal Information Percent Meal Consumed - Breakfast: 100 Percent Meal Consumed - Lunch: 100 Percent Meal Consumed - Dinner: 100 Nutrition Comment: breakfast recorded from the patient meal record Subjective Subjective Patient was seen & assessed and interval progress reviewed with Treatment Team. The patient remains a reluctant conversationalist. He offers no spontaneous conversation, but answers questions appropriately. He says that he has no problems, including side effects to meds, or aud/vis hallucinations. He is aware that we are working toward discharge and hopes that it will be Saturday. He has agreed to see the rep from [facility] who will see him in his home. I discuss with him that I would like to see how he does with a roommate, to which he responds "OK". Physical Exam Psychiatric Orientation: alert and cooperative Apperance: appropriately dressed and appropriately groomed Eye Contact: + fair eye contact Motor Behavior: no abnormal motor movements Speech: normal rate/rhythm/volume of speech (but minimal, nonspontaneous) Affect: + flat affect Mood: no depressed mood Thought Process: goal directed thought process Thought Content: reality based without delusions Suicidal Thoughts: denies suicidal thoughts Homicidal Thoughts: denies homicidal thoughts Hallucinations: no auditory hallucinations and no visual hallucinations Cognition: attention grossly intact and language grossly intact Estimated Intelligence: + below average estimated intelligence Insight: + limited insight Judgement: + limited judgement Vital Signs (Past 24 Hours) Last Vital Signs Temp 36.6 C 03/18/18 06:34 Pulse 98 H 03/18/18 06:35 Resp 18 03/18/18 06:34 BP 110/71 03/18/18 06:35 Pulse Ox 96 02/25/18 16:00 Results & Data Current Inpatient Medications Current Inpatient Medications: Current Inpatient Medications Acetaminophen (Tylenol) 650 mg PO Q4H PRN PRN Reason: Headache or Minor Fever Stop: 03/27/18 14:16 Al Hydrox/Mg Hydrox/Simethicone (Maalox) 30 ml PO Q4H PRN PRN Reason: GI Upset Stop: 03/27/18 14:16 Bismuth Subsalicylate (Kaopectate) 15 ml PO PRN PRN PRN Reason: Loose Stool Stop: 03/27/18 14:16 Clozapine (Clozapine) 100 mg PO BID HANNAH Stop: 04/14/18 20:59 Last Admin: 03/18/18 07:55 Dose: 100 mg Clozapine (Clozaril) 50 mg PO BID HANNAH Stop: 04/16/18 20:59 Last Admin: 03/18/18 07:54 Dose: 50 mg Divalproex Sodium (Depakote Extended Release) 500 mg PO QAM HANNAH Stop: 04/01/18 08:59 Last Admin: 03/18/18 07:55 Dose: 500 mg Divalproex Sodium (Depakote Extended Release) 1,000 mg PO HS HANNAH Stop: 03/31/18 21:59 Last Admin: 03/17/18 21:06 Dose: 1,000 mg Hydroxyzine HCl (Vistaril) 50 mg PO HSZ PRN PRN Reason: Insomnia Stop: 03/27/18 14:16 Last Admin: 03/03/18 21:15 Dose: 50 mg Magnesium Hydroxide (Milk Of Magnesia) 30 ml PO DAILY PRN PRN Reason: Heartburn Stop: 03/27/18 14:16 Olanzapine (Zyprexa) 5 mg PO TID PRN PRN Reason: psychosis Stop: 03/29/18 08:59 Last Admin: 03/04/18 05:53 Dose: 5 mg Sertraline HCl (Zoloft) 100 mg PO QAM HANNAH Stop: 03/28/18 08:59 Last Admin: 03/18/18 07:55 Dose: 100 mg Sodium Chloride ([place] Nasal) 1 - 2 sprays NA PRN PRN PRN Reason: Nasal Dryness/Congestion Stop: 03/27/18 14:16 Post Discharge Appointments Psychiatrist Name of Psychiatrist: [facility] King Gardner PA-C Psychiatrist's Date of Appointment with Psychiatrist: 03/25/18 Time of Appointment with Psychiatrist: 10:00am Psychiatric Appointment Comment: SHY Murphy Therapist Name of Therapist: rukhsana Therapist's Date of Therapist Appointment: 03/19/18 Time of Therapist Appointment: 2:30pm Therapy Appointment Comment: [address], [place] [address] English Language Learner Teacher Name of English Language Learner Teacher: Gustabo Mabry Phone Number for English Language Learner Teacher: [phone] Case Management Appointment Comment: [address], [place] [address] Contact Information Discharge Discharge [facility] [address] [place] [address] CPT Code CPT Code 08805 _ (1) Schizophrenia Schizophrenia type: unspecified Qualified Code(s): F20.9 - Schizophrenia, unspecified (2) Depression Depression Type: unspecified Major depression recurrence: Active/Remission status: Major depression episode severity: Psychotic features: Trimester: Qualified Code(s): F32.9 - Major depressive disorder, single episode, unspecified
[2018-03-19] MEDS: cloZAPine 25 MG TAB PO SCH ×2 (08:26→21:10)
[2018-03-19] MEDS: SERTRALINE HCL 100 MG TABLET PO SCH (08:26)
[2018-03-19] MEDS: DIVALPROEX EXTENDED RELEASE 500 MG TAB PO SCH ×2 (08:26→21:10)
[2018-03-19] MEDS: cloZAPine 100 MG TAB PO SCH ×2 (08:26→21:10)
--- NOTE | 2018-03-19 11:54 | Psychiatric Progress Note ---
Date of Service March 19, 2018 Impression / Recommendations Impression The patient continues with slow progress, having denies hallucinations for the last 2 days. He continues with delusions ( spring encaser running crack). His behavior is in better control, no longer ripping apart books, or signs from the wall. If progress continues, could consider discharge in the next few days. Will continue current dose of Clozaril. CBCD weekly remains WNL. (1) Schizophrenia: to target ongoing psychosis.-Invega sustenna 117mg IM on 03/10/18 ( continue monthly) -Zyprexa 5mg bid prn available for acute needs -Continue Depakote ER to 500mg qam and 1000mg qhs for mood -Continue steady Clozapine titration 02/25/18: Seems to be with some blocking but denies SI/HI/aVh and denies CAH. Will start zyprexa 5mg qhs in addition to home meds. Patient this time with poor functioning and will need treatment for stabilization. 02/26/18: Patient affect fluctuates, and he remains grossly disorganized and incoherent. Is tangential and seems to be distracted. Did deny Si/HI/aVH. Will increase zyprexa to 5mg bid and continue to treat for stabilization. 02/27/18: - Continue Sustenna and Zyprexa and will add prn 5 mg TID - Start Depakote 500 mg BID to target racing thoughts and behavioral dysregulation. - Will need level in 5 days on 03/04 - Continue to coordinate with his OP providers 02/28/18: Patient with minimal improvement and required 2 prn doses of zyprexa yesterday. Will increase scheduled zyprexa to 10mg bid. Depakote change to Depakote ER to treat mood and tangential racing thoughts. The consideration of returning to clozaril at this time is on hold as issues of compliance with meds and lab draws is of concern. Depakote level in AM. 03/01/18: He continues to be grossly disorganized, tangential and RIS. He is intrusive but redirectable per nursing staff. Increased Zyprexa dose plus prn and will continue to treat for stabilization. He is not aggressive or agitated however is unable to care for himself at this time. VPA level was 62 and will increase Depakote for mood stabilization and intrusive behaviors. 03/02/18: Patient seems to be with mild improvement and is less tangential today. Seems to be able to follow basic line of questioning. Does make random comment about irrelevant things, seems to be preoccupied at times and RIS. Patient is not aggressive or agitated and redirectable per nursing staff. Denies SI/Hi/AVH. 03/03 - Continue current meds. Consider shifting bulk of APM to HS given more daytime sedation - Invite spring encaser in to see patient to estimate closeness to baseline 03/04/18: Patient seems to be with continued slow improvement with decreased blocking, tangentiality and ability to be redirectable. He does have some intrusive behaviors however has not been agitated or aggressive. Seems to be maintaining a clean room, eating and complying with self-care. Perhaps he is nearing baseline, however will request assistance of casework manager. Continue current regimen at this time. 03/05/18: Patient remains without changes today and has had slow progression to improvement during admission. Will reach out to casework manager to assist with determining baseline functioning of patient. 03/06/18: Patient seems to be quite disorganized, tangential and with loose associations. Will need to change meds for stabilization. Will discontinue zyprexa and start clozapine. According to spring encaser, patient is not close to his baseline and is functional when he is. QTC on 03/06/18 is 440 and last two ANC's are within normal. 03/07/18: Will increase clozapine to 25mg BID today, and discontinue olanzapine. Weekly CBC's ordered up to 03/20/18. 03/08/18: Will continue titration of clozapine and follow weekly CBC's. 03/09/18: Patient continues to be tangential, with blocking and detached from reality. Would be unable to care for himself if not treated for stabilization and will continue titration of Clozapine at this time. Increase to 75mg big for tomorrow with 50mg dose tonight. 03/10/18: Patient is tangential and disorganized at times and at times is able to answer basic questions. Does seem to RIS and with minimal improvement at this time. Will give monthly Invega today at 117mg IM today. Continue clozapine titration to 100mg bid for tomorrow. 03/11/18: Patient seemed to be with some sedation this morning and with some difficulty balancing while walking. Patient repeat vital sign completed after interview with WNL. Patient put on fall precautions and asked to remain in bed. It is possible that the increase in clozapine could be contributory and will decrease dose to 75 mg bid and keep at this dose for tolerability. 03/12/18: Patient without over sedation today and will continue Clozapine at 75mg bid for today and consider increasing tomorrow. He remains with disorganized thought, RIS and intrusiveness. 03/13/17: Patient seems to be less talkative today and continues with blocking, tangentiality and seems preoccupied. Now tolerating clozapine without sedation, abs neutrophil count today was 3.75 and will increase Clozapine to 100mg bid starting tomorrow. 03/14/18: Patient seems to be with mild improvement in blocking and less tangential today. Was able to have simple conversation without making grossly disorganized statements. Denies Si/Hi/aVH and will continue to titrate clozapine. Consider increasing to 125mg bid tomorrow if patient not having sedation side effects. 03/15 -increase clozapine to 125 mg twice daily to target ongoing psychotic symptoms. 03/16 -continue current medications and plan. 03/17 -increase clozapine to 150 mg twice daily to target ongoing psychosis. Will need second meeting with spring encaser, as was unable to tolerate the first due to psychosis. 03/18 - Continue current meds - Meeting with Griselda Villarreal tomorrow - Continue with safety and discharge planning 03/19 - Continue current meds - Weekly CBCD - continue safety and discharge planning (2) Depression: - Continue Zoloft 100mg daily Inventory Assets Strengths: Has housing, access to care, case management services Needs: medications, therapy Risk Factors Assessment Male: Yes : Yes Do You Have Access To A Gun?: No Health Problems: No Mental Health Diagnoses: Yes Substance Use Disorders: Yes Hopelessness: No Smoker: Yes Protective Factors Assessment : No Responsible for Young Children: No Employed: No Interval History Identifying Information 57 y/o CM with history of schizophrenia and depression, admitted for deterioration of his schizophrenia with poor self care and suspected in vandalism of numerous vehicles at his apartment. Chief Complaint "OK". Review of Systems Sleep Information Total Hours of Sleep: 6.5 Sleep Comments: sleep hour totals between 04/28 and 11 shifts. he was awake at 0020 and requested, "Can I have a plastic cup from the fridge?" he wanted a plastic container of juice from the fridge. he was able then to go back to bed and slept till 0500. he has been awake since. Meal Information Percent Meal Consumed - Breakfast: 100 Percent Meal Consumed - Lunch: 100 Percent Meal Consumed - Dinner: 100 Nutrition Comment: breakfast recorded from the patient meal record Subjective Subjective Patient was seen & assessed and interval progress reviewed with Treatment Team.He says that he is "OK" and has no problems. I ask if the last increase to Clozaril has been helpful and he says that he likes depakote and Clozaril "and I'll stick with them". He says that since the last increase the voices have "gone away" and denies any visual hallucinations. I asked how his visit with his spring encaser Marcell went and he said that he asked him about "running crack through his apartment" and made a comment about a parole license, not knowing the value of it. I asked if the voices told him that Marcell was running crack and he said no. Despite these questions, he says that it will not interfere with allowing Marcell to be his spring encaser. He denies side effects to meds or other physical complaints. The sty on his left eye remains, but denies pain. Physical Exam Psychiatric Orientation: alert and cooperative Apperance: appropriately dressed and appropriately groomed Eye Contact: + fair eye contact Motor Behavior: no abnormal motor movements Speech: normal rate/rhythm/volume of speech (although some mumbling) Affect: + flat affect Mood: no depressed mood Thought Process: goal directed thought process Thought Content: + delusions (asking about his spring encaser running crack) Suicidal Thoughts: denies suicidal thoughts Homicidal Thoughts: denies homicidal thoughts Hallucinations: no auditory hallucinations and no visual hallucinations Cognition: attention grossly intact and language grossly intact Estimated Intelligence: + below average estimated intelligence Insight: + impaired insight Judgement: + impaired judgement Vital Signs (Past 24 Hours) Last Vital Signs Temp 36.7 C 03/19/18 06:32 Pulse 94 H 03/19/18 06:33 Resp 18 03/19/18 06:32 BP 118/75 03/19/18 06:33 Pulse Ox 96 02/25/18 16:00 Results & Data Current Inpatient Medications Current Inpatient Medications: Current Inpatient Medications Acetaminophen (Tylenol) 650 mg PO Q4H PRN PRN Reason: Headache or Minor Fever Stop: 03/27/18 14:16 Al Hydrox/Mg Hydrox/Simethicone (Maalox) 30 ml PO Q4H PRN PRN Reason: GI Upset Stop: 03/27/18 14:16 Bismuth Subsalicylate (Kaopectate) 15 ml PO PRN PRN PRN Reason: Loose Stool Stop: 03/27/18 14:16 Clozapine (Clozapine) 100 mg PO BID HANNAH Stop: 04/14/18 20:59 Last Admin: 03/19/18 08:26 Dose: 100 mg Clozapine (Clozaril) 50 mg PO BID HANNAH Stop: 04/16/18 20:59 Last Admin: 03/19/18 08:26 Dose: 50 mg Divalproex Sodium (Depakote Extended Release) 500 mg PO QAM HANNAH Stop: 04/01/18 08:59 Last Admin: 03/19/18 08:26 Dose: 500 mg Divalproex Sodium (Depakote Extended Release) 1,000 mg PO HS HANNAH Stop: 03/31/18 21:59 Last Admin: 03/18/18 21:17 Dose: 1,000 mg Hydroxyzine HCl (Vistaril) 50 mg PO HSZ PRN PRN Reason: Insomnia Stop: 03/27/18 14:16 Last Admin: 03/03/18 21:15 Dose: 50 mg Magnesium Hydroxide (Milk Of Magnesia) 30 ml PO DAILY PRN PRN Reason: Heartburn Stop: 03/27/18 14:16 Olanzapine (Zyprexa) 5 mg PO TID PRN PRN Reason: psychosis Stop: 03/29/18 08:59 Last Admin: 03/04/18 05:53 Dose: 5 mg Sertraline HCl (Zoloft) 100 mg PO QAM [facility] Stop: 03/28/18 08:59 Last Admin: 03/19/18 08:26 Dose: 100 mg Sodium Chloride ([place] Nasal) 1 - 2 sprays NA PRN PRN PRN Reason: Nasal Dryness/Congestion Stop: 03/27/18 14:16 Post Discharge Appointments Psychiatrist Name of Psychiatrist: [facility] King Gardner PA-C Psychiatrist's Date of Appointment with Psychiatrist: 03/25/18 Time of Appointment with Psychiatrist: 10:00am Psychiatric Appointment Comment: SHY Murphy Therapist Name of Therapist: none Therapist's Date of Therapist Appointment: 03/19/18 Time of Therapist Appointment: 2:30pm Therapy Appointment Comment: [address], [facility] [place] [address] Order Selector Name of Order Selector: Gustabo Hawley King Kinneycarinasimoncarina Phone Number for Order Selector: [phone] Case Management Appointment Comment: [address] [place] [address] Contact Information Discharge Discharge Address: [facility] [address] [place] [address] CPT Code CPT Code 53880 _ (1) Depression Active/Remission status: Depression Type: unspecified Major depression episode severity: Major depression recurrence: Psychotic features: Trimester: Qualified Code(s): F32.9 - Major depressive disorder, single episode, unspecified (2) Schizophrenia Schizophrenia type: unspecified Qualified Code(s): F20.9 - Schizophrenia, unspecified
[2018-03-20] MEDS: cloZAPine 100 MG TAB PO SCH (07:43)
[2018-03-20] MEDS: cloZAPine 25 MG TAB PO SCH (07:43)
[2018-03-20] MEDS: SERTRALINE HCL 100 MG TABLET PO SCH (07:44)
[2018-03-20] MEDS: DIVALPROEX EXTENDED RELEASE 500 MG TAB PO SCH ×2 (07:44→21:47)
--- NOTE | 2018-03-20 07:57 | Psychiatric Progress Note ---
Date of Service March 20, 2018 Impression / Recommendations Impression Although he has been denying hallucinations for the past couple of days, he continues to be very disorganized and is endorsing delusions. His behavior is in better control, but he appears very depressed, and is declining an increase to his antidepressant. Continue to titrate clozapine, and recommended an increase in his antidepressant to target mood, which he declined today, but will need to be revisited. CBCD weekly remains WNL. Continue with discharge planning: Refused meeting with case managers yesterday, but staff from [facility] [employer] med management will attempt to meet with him today. (1) Schizophrenia: to target ongoing psychosis.-Invega sustenna 117mg IM on 03/10/18 ( continue monthly) -Zyprexa 5mg bid prn available for acute needs -Continue Depakote ER to 500mg qam and 1000mg qhs for mood -Continue steady Clozapine titration 02/25/18: Seems to be with some blocking but denies SI/HI/aVh and denies CAH. Will start zyprexa 5mg qhs in addition to home meds. Patient this time with poor functioning and will need treatment for stabilization. 02/26/18: Patient affect fluctuates, and he remains grossly disorganized and incoherent. Is tangential and seems to be distracted. Did deny Si/HI/aVH. Will increase zyprexa to 5mg bid and continue to treat for stabilization. 02/27/18: - Continue Sustenna and Zyprexa and will add prn 5 mg TID - Start Depakote 500 mg BID to target racing thoughts and behavioral dysregulation. - Will need level in 5 days on 03/04 - Continue to coordinate with his OP providers 02/28/18: Patient with minimal improvement and required 2 prn doses of zyprexa yesterday. Will increase scheduled zyprexa to 10mg bid. Depakote change to Depakote ER to treat mood and tangential racing thoughts. The consideration of returning to clozaril at this time is on hold as issues of compliance with meds and lab draws is of concern. Depakote level in AM. 03/01/18: He continues to be grossly disorganized, tangential and RIS. He is intrusive but redirectable per nursing staff. Increased Zyprexa dose plus prn and will continue to treat for stabilization. He is not aggressive or agitated however is unable to care for himself at this time. VPA level was 62 and will increase Depakote for mood stabilization and intrusive behaviors. 03/02/18: Patient seems to be with mild improvement and is less tangential today. Seems to be able to follow basic line of questioning. Does make random comment about irrelevant things, seems to be preoccupied at times and RIS. Patient is not aggressive or agitated and redirectable per nursing staff. Denies SI/Hi/AVH. 03/03 - Continue current meds. Consider shifting bulk of APM to HS given more daytime sedation - Invite case managers in to see patient to estimate closeness to baseline 03/04/18: Patient seems to be with continued slow improvement with decreased blocking, tangentiality and ability to be redirectable. He does have some intrusive behaviors however has not been agitated or aggressive. Seems to be maintaining a clean room, eating and complying with self-care. Perhaps he is nearing baseline, however will request assistance of gearcase assembler. Continue current regimen at this time. 03/05/18: Patient remains without changes today and has had slow progression to improvement during admission. Will reach out to gearcase assembler to assist with determining baseline functioning of patient. 03/06/18: Patient seems to be quite disorganized, tangential and with loose associations. Will need to change meds for stabilization. Will discontinue zyprexa and start clozapine. According to case managers, patient is not close to his baseline and is functional when he is. QTC on 03/06/18 is 440 and last two ANC's are within normal. 03/07/18: Will increase clozapine to 25mg BID today, and discontinue olanzapine. Weekly CBC's ordered up to 03/20/18. 03/08/18: Will continue titration of clozapine and follow weekly CBC's. 03/09/18: Patient continues to be tangential, with blocking and detached from reality. Would be unable to care for himself if not treated for stabilization and will continue titration of Clozapine at this time. Increase to 75mg big for tomorrow with 50mg dose tonight. 03/10/18: Patient is tangential and disorganized at times and at times is able to answer basic questions. Does seem to RIS and with minimal improvement at this time. Will give monthly Invega today at 117mg IM today. Continue clozapine titration to 100mg bid for tomorrow. 03/11/18: Patient seemed to be with some sedation this morning and with some difficulty balancing while walking. Patient repeat vital sign completed after interview with WNL. Patient put on fall precautions and asked to remain in bed. It is possible that the increase in clozapine could be contributory and will decrease dose to 75 mg bid and keep at this dose for tolerability. 03/12/18: Patient without over sedation today and will continue Clozapine at 75mg bid for today and consider increasing tomorrow. He remains with disorganized thought, RIS and intrusiveness. 03/13/17: Patient seems to be less talkative today and continues with blocking, tangentiality and seems preoccupied. Now tolerating clozapine without sedation, abs neutrophil count today was 3.75 and will increase Clozapine to 100mg bid starting tomorrow. 03/14/18: Patient seems to be with mild improvement in blocking and less tangential today. Was able to have simple conversation without making grossly disorganized statements. Denies Si/Hi/aVH and will continue to titrate clozapine. Consider increasing to 125mg bid tomorrow if patient not having sedation side effects. 03/15 -increase clozapine to 125 mg twice daily to target ongoing psychotic symptoms. 03/16 -continue current medications and plan. 03/17 -increase clozapine to 150 mg twice daily to target ongoing psychosis. Will need second meeting with case managers, as was unable to tolerate the first due to psychosis. 03/18 - Continue current meds - Meeting with Griselda Villarreal tomorrow - Continue with safety and discharge planning 03/19 - Continue current meds - Weekly CBCD - continue safety and discharge planning 03/20 - Consolidate cloazpine to HS and increase to 350mg. - CBCD reviewed: ANC normal at 3.94. - Unable to tolerate meeting with case managers yesterday. Continue to work on discharge planning; mobile med management staff to visit with him today. (2) Depression: - Continue Zoloft 100mg daily 03/20 -patient admits to depressed mood and appears depressed. Recommend increasing sertraline to 150 mg daily, which he declined today, for delusional reasons. Continue to encourage, and revisit tomorrow. Inventory Assets Strengths: Has housing, access to care, case management services Needs: medications, therapy Risk Factors Assessment Male: Yes : Yes Do You Have Access To A Gun?: No Health Problems: No Mental Health Diagnoses: Yes Substance Use Disorders: Yes Previous Psychiatric Hospitalization: Yes Hopelessness: No Smoker: Yes Protective Factors Assessment Jehovah'S Witness Beliefs: No : No Responsible for Young Children: No Employed: No Supportive Family: No Interval History Identifying Information 57 y/o CM with history of schizophrenia and depression, admitted for deterioration of his schizophrenia with poor self care and suspected in vandalism of numerous vehicles at his apartment. Chief Complaint "[]". Review of Systems Sleep Information Total Hours of Sleep: 6.5 Sleep Comments: awake multi times during this night starting at 2330 and last awake was at 0400. he is still sleeping at this time. he has slept in bed #2 but his clothing are on bed #1. stated the depakote was causing him to crave apple jiuce. he got himself an apple juice every time he was awake. Meal Information Percent Meal Consumed - Breakfast: 100 Percent Meal Consumed - Lunch: 100 Percent Meal Consumed - Dinner: 100 Nutrition Comment: breakfast recorded from the patient meal record Subjective Subjective Patient was seen & assessed and interval progress reviewed with Nursing and social work. Staff report he refused to meet with his outpatient case managers yesterday, and told staff he believes he is dealing drugs. [facility] staff are scheduled to meet with him today. His sleep remains broken, up many times overnight. He has appeared sedated during the day. On my assessment, the patient states that his mood is "okay," and struggles to describe it further. He admits that he is depressed, but does not want to increase his antidepressant dose, and cannot explain why. With repeat questioning, he eventually states he is worried that it would cause his blood to "pull in my ankles or feet." He is not able to reality test these concerns. He cannot describe his thoughts, stating "don't know." He denies auditory hallucinations , stating "they went away, couple of days ago." He continues to endorse daytime sedation and is willing to consolidate his clozapine at bedtime. He has difficulty explaining why he did not want to meet with his case managers yesterday, stating "he tried to plug in his computer and I got written up, but I don't care. He gets on my nerves. The long and short of it, he's in a tax dispute with [facility]..." He then pulls out a book of word searches and becomes increasingly disorganized, talking about codes, and says "Liz, it' s Latin, masked facies on my last four commitments." When asked what he has been doing in his spare time, he says "the heat's not as bad, heats the whole room, have to reprogram it every 30 seconds." Physical Exam Psychiatric Orientation: alert, oriented to person, oriented to place and cooperative Apperance: appropriately dressed, + disheveled and appeared stated age Swollen left eyelid is much improved, no redness, only minimal swelling noted. Eye Contact: + fair eye contact and + poor eye contact Motor Behavior: steady gait and station and no abnormal motor movements Minimal, monotone, delayed Affect: + depressed affect and mood congruent with affect Mood: + depressed mood Thought Process: + thought blocking and + tangential thought process Disorganized, often answering with unrelated information, sometimes does not answer at all Thought Content: + delusions and + ideas of reference Suicidal Thoughts: denies suicidal thoughts Homicidal Thoughts: denies homicidal thoughts Hallucinations: no auditory hallucinations and no visual hallucinations But appears to be responding to internal stimuli, distractible, looking off to the side. Cognition: + attention not intact Insight: + impaired insight Judgement: + impaired judgement Vital Signs (Past 24 Hours) Last Vital Signs Temp 36.5 C 03/20/18 06:24 Pulse 90 03/20/18 06:25 Resp 18 03/20/18 06:24 BP 124/83 03/20/18 06:25 Pulse Ox 96 02/25/18 16:00 Results & Data Current Inpatient Medications Current Inpatient Medications: Current Inpatient Medications Acetaminophen (Tylenol) 650 mg PO Q4H PRN PRN Reason: Headache or Minor Fever Stop: 03/27/18 14:16 Al Hydrox/Mg Hydrox/Simethicone (Maalox) 30 ml PO Q4H PRN PRN Reason: GI Upset Stop: 03/27/18 14:16 Bismuth Subsalicylate (Kaopectate) 15 ml PO PRN PRN PRN Reason: Loose Stool Stop: 03/27/18 14:16 Clozapine (Clozapine) 100 mg PO BID HANNAH Stop: 04/14/18 20:59 Last Admin: 03/20/18 07:43 Dose: 100 mg Clozapine (Clozaril) 50 mg PO BID HANNAH Stop: 04/16/18 20:59 Last Admin: 03/20/18 07:43 Dose: 50 mg Divalproex Sodium (Depakote Extended Release) 500 mg PO QAM HANNAH Stop: 04/01/18 08:59 Last Admin: 03/20/18 07:44 Dose: 500 mg Divalproex Sodium (Depakote Extended Release) 1,000 mg PO HS HANNAH Stop: 03/31/18 21:59 Last Admin: 03/19/18 21:10 Dose: 1,000 mg Hydroxyzine HCl (Vistaril) 50 mg PO HSZ PRN PRN Reason: Insomnia Stop: 03/27/18 14:16 Last Admin: 03/03/18 21:15 Dose: 50 mg Magnesium Hydroxide (Milk Of Magnesia) 30 ml PO DAILY PRN PRN Reason: Heartburn Stop: 03/27/18 14:16 Olanzapine (Zyprexa) 5 mg PO TID PRN PRN Reason: psychosis Stop: 03/29/18 08:59 Last Admin: 03/04/18 05:53 Dose: 5 mg Sertraline HCl (Zoloft) 100 mg PO QAM HANNAH Stop: 03/28/18 08:59 Last Admin: 03/20/18 07:44 Dose: 100 mg Sodium Chloride ([place] Nasal) 1 - 2 sprays NA PRN PRN PRN Reason: Nasal Dryness/Congestion Stop: 03/27/18 14:16 Post Discharge Appointments Psychiatrist Name of Psychiatrist: [facility] King Gardner PA-C Psychiatrist's Date of Appointment with Psychiatrist: 03/25/18 Time of Appointment with Psychiatrist: 10:00am Psychiatric Appointment Comment: SHY Murphy Therapist Name of Therapist: none Therapist's Date of Therapist Appointment: 03/19/18 Time of Therapist Appointment: 2:30pm Therapy Appointment Comment: [address], [place] [address] Technical Staff Engineer Name of Technical Staff Engineer: Gustabo Mabry Phone Number for Technical Staff Engineer: [phone] Case Management Appointment Comment: [address] [place] [address] Contact Information [facility] [place] [address] CPT Code CPT Code 79222 _ (1) Depression Active/Remission status: Depression Type: unspecified Major depression episode severity: Major depression recurrence: Psychotic features: Trimester: Qualified Code(s): F32.9 - Major depressive disorder, single episode, unspecified (2) Schizophrenia Schizophrenia type: unspecified Qualified Code(s): F20.9 - Schizophrenia, unspecified
[2018-03-20 08:18] LABS: Basophils # (auto) 0.03 K/uL (0-0.2); Basophils % (auto) 0.4 %; Eosinophils # (auto) 0.23 K/uL (0-0.5); Eosinophils % (auto) 3.2 %; Hematocrit (blood only) 41.4 % (42-52); Hemoglobin 14.1 g/dL (14.0-18.0); Immature Granulocytes % (auto) 1.4 %; Lymphocytes # (auto) 1.99 K/uL (1.2-3.4); Lymphocytes % (auto) 27.9 %; Mean Corpuscular Hgb Conc 34.1 g/dL (32-36); Mean Corpuscular Volume 88.3 fL (80-100); Mean Platelet Volume 9.7 fL (7.4-10.4); Monocytes # (auto) 0.83 K/uL (0.11-0.59); Monocytes % (auto) 11.7 %; Neutrophils # (auto) 3.94 K/uL (1.4-6.5); Neutrophils % (auto) 55.4 %; Platelet Count 152 K/uL (130-400); RDW Coefficient of Variation 13.3 % (11.5-14.5); RDW Standard Deviation 42.9 fL (36.4-46.3); Red Blood Count 4.69 M/uL (4.7-6.1); White Blood Count 7.12 K/uL (4.8-10.8)
[2018-03-20] MEDS ORDERED: cloZAPine 100 MG TAB PO SCH (22:00)
[2018-03-21] MEDS: DIVALPROEX EXTENDED RELEASE 500 MG TAB PO SCH ×2 (08:58→21:20)
[2018-03-21] MEDS: SERTRALINE HCL 100 MG TABLET PO SCH (08:58)
--- NOTE | 2018-03-21 10:06 | Psychiatric Progress Note ---
Date of Service March 21, 2018 Impression / Recommendations Impression Pt continues to be a bit disorganized, and remains tangential during conversation. We again discussed his meeting with his supportive employment case manager - now providing a different reason as to why he is unhappy with his care. These reports appear to be more closely correlated to the patient's lack of insight rather than any disservice on the part of his supportive employment case manager. He will require another meeting prior to discharge, as his supportive employment case manager is a very large component of his outpatient success. Will continue with lab monitoring and discharge planning. Pt again declines titration of his antidepressant medication. (1) Schizophrenia: to target ongoing psychosis.-Invega sustenna 117mg IM on 03/10/18 ( continue monthly) -Zyprexa 5mg bid prn available for acute needs -Continue Depakote ER to 500mg qam and 1000mg qhs for mood -Continue steady Clozapine titration 02/25/18: Seems to be with some blocking but denies SI/HI/aVh and denies CAH. Will start zyprexa 5mg qhs in addition to home meds. Patient this time with poor functioning and will need treatment for stabilization. 02/26/18: Patient affect fluctuates, and he remains grossly disorganized and incoherent. Is tangential and seems to be distracted. Did deny Si/HI/aVH. Will increase zyprexa to 5mg bid and continue to treat for stabilization. 02/27/18: - Continue Sustenna and Zyprexa and will add prn 5 mg TID - Start Depakote 500 mg BID to target racing thoughts and behavioral dysregulation. - Will need level in 5 days on 03/04 - Continue to coordinate with his OP providers 02/28/18: Patient with minimal improvement and required 2 prn doses of zyprexa yesterday. Will increase scheduled zyprexa to 10mg bid. Depakote change to Depakote ER to treat mood and tangential racing thoughts. The consideration of returning to clozaril at this time is on hold as issues of compliance with meds and lab draws is of concern. Depakote level in AM. 03/01/18: He continues to be grossly disorganized, tangential and RIS. He is intrusive but redirectable per nursing staff. Increased Zyprexa dose plus prn and will continue to treat for stabilization. He is not aggressive or agitated however is unable to care for himself at this time. VPA level was 62 and will increase Depakote for mood stabilization and intrusive behaviors. 03/02/18: Patient seems to be with mild improvement and is less tangential today. Seems to be able to follow basic line of questioning. Does make random comment about irrelevant things, seems to be preoccupied at times and RIS. Patient is not aggressive or agitated and redirectable per nursing staff. Denies SI/Hi/AVH. 03/03 - Continue current meds. Consider shifting bulk of APM to HS given more daytime sedation - Invite supportive employment case manager in to see patient to estimate closeness to baseline 03/04/18: Patient seems to be with continued slow improvement with decreased blocking, tangentiality and ability to be redirectable. He does have some intrusive behaviors however has not been agitated or aggressive. Seems to be maintaining a clean room, eating and complying with self-care. Perhaps he is nearing baseline, however will request assistance of case consultant. Continue current regimen at this time. 03/05/18: Patient remains without changes today and has had slow progression to improvement during admission. Will reach out to case consultant to assist with determining baseline functioning of patient. 03/06/18: Patient seems to be quite disorganized, tangential and with loose associations. Will need to change meds for stabilization. Will discontinue zyprexa and start clozapine. According to supportive employment case manager, patient is not close to his baseline and is functional when he is. QTC on 03/06/18 is 440 and last two ANC's are within normal. 03/07/18: Will increase clozapine to 25mg BID today, and discontinue olanzapine. Weekly CBC's ordered up to 03/20/18. 03/08/18: Will continue titration of clozapine and follow weekly CBC's. 03/09/18: Patient continues to be tangential, with blocking and detached from reality. Would be unable to care for himself if not treated for stabilization and will continue titration of Clozapine at this time. Increase to 75mg big for tomorrow with 50mg dose tonight. 03/10/18: Patient is tangential and disorganized at times and at times is able to answer basic questions. Does seem to RIS and with minimal improvement at this time. Will give monthly Invega today at 117mg IM today. Continue clozapine titration to 100mg bid for tomorrow. 03/11/18: Patient seemed to be with some sedation this morning and with some difficulty balancing while walking. Patient repeat vital sign completed after interview with WNL. Patient put on fall precautions and asked to remain in bed. It is possible that the increase in clozapine could be contributory and will decrease dose to 75 mg bid and keep at this dose for tolerability. 03/12/18: Patient without over sedation today and will continue Clozapine at 75mg bid for today and consider increasing tomorrow. He remains with disorganized thought, RIS and intrusiveness. 03/13/17: Patient seems to be less talkative today and continues with blocking, tangentiality and seems preoccupied. Now tolerating clozapine without sedation, abs neutrophil count today was 3.75 and will increase Clozapine to 100mg bid starting tomorrow. 03/14/18: Patient seems to be with mild improvement in blocking and less tangential today. Was able to have simple conversation without making grossly disorganized statements. Denies Si/Hi/aVH and will continue to titrate clozapine. Consider increasing to 125mg bid tomorrow if patient not having sedation side effects. 03/15 -increase clozapine to 125 mg twice daily to target ongoing psychotic symptoms. 03/16 -continue current medications and plan. 03/17 -increase clozapine to 150 mg twice daily to target ongoing psychosis. Will need second meeting with supportive employment case manager, as was unable to tolerate the first due to psychosis. 03/18 - Continue current meds - Meeting with Griselda Villarreal tomorrow - Continue with safety and discharge planning 03/19 - Continue current meds - Weekly CBCD - continue safety and discharge planning 03/20 - Consolidate cloazpine to HS and increase to 350mg. - CBCD reviewed: ANC normal at 3.94. - Unable to tolerate meeting with supportive employment case manager yesterday. Continue to work on discharge planning; mobile med management staff to visit with him today. 03/21 - Continue current medication regimen; declining increase of sertraline at this time - Continue to work on discharge planning - will require another meeting with his supportive employment case manager prior to discharge (2) Depression: - Continue Zoloft 100mg daily 03/20 -patient admits to depressed mood and appears depressed. Recommend increasing sertraline to 150 mg daily, which he declined today, for delusional reasons. Continue to encourage, and revisit tomorrow. 03/21 - Declines increase in sertraline again today, reviewed recommendation and potential benefits but remains unwilling Inventory Assets Strengths: Has housing, access to care, case management services Needs: medications, therapy Risk Factors Assessment Male: Yes : Yes Do You Have Access To A Gun?: No Health Problems: No Mental Health Diagnoses: Yes Substance Use Disorders: Yes Previous Psychiatric Hospitalization: Yes Hopelessness: No Smoker: Yes Protective Factors Assessment Adventism Beliefs: No : No Responsible for Young Children: No Employed: No Supportive Family: No Interval History Identifying Information 57 y/o CM with history of schizophrenia and depression, admitted for deterioration of his schizophrenia with poor self care and suspected in vandalism of numerous vehicles at his apartment. Chief Complaint "I you don't rinse after you brush your teeth, is that considered smuggling toothpaste?" Review of Systems Notes Constitutional: reports mild fatigue Cardiovascular: denied Respiratory: denied Gastrointestinal: denied Neurological: denied Psychiatric: denies symptoms other than stated above Total of at least 10 systems reviewed, pertinent positives as above and in HPI. Sleep Information Total Hours of Sleep: 4.5 Sleep Comments: awake multi times during this night starting at 2330 and last awake was at 0400. he is still sleeping at this time. he has slept in bed #2 but his clothing are on bed #1. stated the depakote was causing him to crave apple jiuce. he got himself an apple juice every time he was awake. Meal Information Percent Meal Consumed - Breakfast: 100 Percent Meal Consumed - Lunch: 100 Percent Meal Consumed - Dinner: 100 Nutrition Comment: breakfast recorded from the patient meal record Subjective Subjective Patient was seen & assessed and interval progress reviewed with Treatment Team. Staff report the patient has appeared a bit more disorganized in the last day or so, unable to tolerate a meeting with his long-standing supportive employment case manager - who is very influential in his outpatient success. Pt was seen today to assess progress since admission. Pt begins our encounter with an odd, unsolicited remark, but is then able to briefly be redirected. He states he does feel as though he is improving, but cannot voice specific changes he has noticed. We discussed his meeting yesterday with his supportive employment case manager, and it is likely the patient's current dissatisfaction with his supportive employment case manager is related to his limited insight, as he was unable to voice any specific or worrisome concerns on the topic. Pt was again offered an increase in his dose of sertraline, as his affect has reportedly been more blunted - but he declines. Pt denies SI and any new psychiatric concerns. Physical Exam Psychiatric Orientation: alert, oriented to person and oriented to place Apperance: appropriately dressed and + disheveled Motor Behavior: steady gait and station and no abnormal motor movements Speech: normal rate/rhythm/volume of speech (monotone) Affect: + blunted affect "a little bit better" Thought Process: + thought blocking and + tangential thought process (unrelated questions and comments frequently during our conversation; though while discussing his supportive employment case manager he clearly states, "I'm trying to change the subject ") Thought Content: + delusions and + ideas of reference Suicidal Thoughts: denies suicidal thoughts Homicidal Thoughts: denies homicidal thoughts Hallucinations: no auditory hallucinations and no visual hallucinations Cognition: + attention not intact Insight: + impaired insight Judgement: + impaired judgement Vital Signs (Past 24 Hours) Last Vital Signs Temp 36.5 C 03/21/18 07:00 Pulse 98 H 03/21/18 07:00 Resp 20 03/21/18 07:00 BP 126/88 03/21/18 07:02 Pulse Ox 96 02/25/18 16:00 Results & Data Current Inpatient Medications Current Inpatient Medications: Current Inpatient Medications Acetaminophen (Tylenol) 650 mg PO Q4H PRN PRN Reason: Headache or Minor Fever Stop: 03/27/18 14:16 Al Hydrox/Mg Hydrox/Simethicone (Maalox) 30 ml PO Q4H PRN PRN Reason: GI Upset Stop: 03/27/18 14:16 Bismuth Subsalicylate (Kaopectate) 15 ml PO PRN PRN PRN Reason: Loose Stool Stop: 03/27/18 14:16 Clozapine (Clozapine) 350 mg PO HS HANNAH Stop: 04/20/18 21:59 Divalproex Sodium (Depakote Extended Release) 500 mg PO QAM HANNAH Stop: 04/01/18 08:59 Last Admin: 03/21/18 08:58 Dose: 500 mg Divalproex Sodium (Depakote Extended Release) 1,000 mg PO HS HANNAH Stop: 03/31/18 21:59 Last Admin: 03/20/18 21:47 Dose: 1,000 mg Hydroxyzine HCl (Vistaril) 50 mg PO HSZ PRN PRN Reason: Insomnia Stop: 03/27/18 14:16 Last Admin: 03/03/18 21:15 Dose: 50 mg Magnesium Hydroxide (Milk Of Magnesia) 30 ml PO DAILY PRN PRN Reason: Heartburn Stop: 03/27/18 14:16 Olanzapine (Zyprexa) 5 mg PO TID PRN PRN Reason: psychosis Stop: 03/29/18 08:59 Last Admin: 03/04/18 05:53 Dose: 5 mg Sertraline HCl (Zoloft) 100 mg PO QAM HANNAH Stop: 03/28/18 08:59 Last Admin: 03/21/18 08:58 Dose: 100 mg Sodium Chloride ([place]ta Nasal) 1 - 2 sprays NA PRN PRN PRN Reason: Nasal Dryness/Congestion Stop: 03/27/18 14:16 Post Discharge Appointments Psychiatrist Name of Psychiatrist: SHY Gardner PA-C Psychiatrist's Date of Appointment with Psychiatrist: 03/25/18 Time of Appointment with Psychiatrist: 10:00am Psychiatric Appointment Comment: SHY Murphy Therapist Name of Therapist: none Therapist's Date of Therapist Appointment: 03/19/18 Time of Therapist Appointment: 2:30pm Therapy Appointment Comment: [address], [place] [address] Modeling Agent Name of Modeling Agent: Gustabo Mabry Phone Number for Modeling Agent: [phone] Case Management Appointment Comment: [address] [place] [address] Contact Information Discharge Discharge Address: [facility] [address] [place] [address] CPT Code CPT Code 93752 _ (1) Schizophrenia Schizophrenia type: unspecified Qualified Code(s): F20.9 - Schizophrenia, unspecified (2) Depression Depression Type: unspecified Major depression recurrence: Active/Remission status: Major depression episode severity: Psychotic features: Trimester: Qualified Code(s): F32.9 - Major depressive disorder, single episode, unspecified
[2018-03-21] MEDS: cloZAPine 100 MG TAB PO SCH (21:20)
[2018-03-22] MEDS: SERTRALINE HCL 100 MG TABLET PO SCH (08:13)
[2018-03-22] MEDS: DIVALPROEX EXTENDED RELEASE 500 MG TAB PO SCH ×2 (08:13→21:05)
--- NOTE | 2018-03-22 13:52 | Psychiatric Progress Note ---
Date of Service March 22, 2018 Impression / Recommendations Impression Pt continues to be disorganized and tangential during conversation. He will require another meeting prior to discharge, as his heel caser is a very large component of his outpatient success. Will continue with lab monitoring and discharge planning. Pt declined titration of his antidepressant medication. (1) Schizophrenia: to target ongoing psychosis.-Invega sustenna 117mg IM on 03/10/18 ( continue monthly) -Zyprexa 5mg bid prn available for acute needs -Continue Depakote ER to 500mg qam and 1000mg qhs for mood -Continue steady Clozapine titration 02/25/18: Seems to be with some blocking but denies SI/HI/aVh and denies CAH. Will start zyprexa 5mg qhs in addition to home meds. Patient this time with poor functioning and will need treatment for stabilization. 02/26/18: Patient affect fluctuates, and he remains grossly disorganized and incoherent. Is tangential and seems to be distracted. Did deny Si/HI/aVH. Will increase zyprexa to 5mg bid and continue to treat for stabilization. 02/27/18: - Continue Sustenna and Zyprexa and will add prn 5 mg TID - Start Depakote 500 mg BID to target racing thoughts and behavioral dysregulation. - Will need level in 5 days on 03/04 - Continue to coordinate with his OP providers 02/28/18: Patient with minimal improvement and required 2 prn doses of zyprexa yesterday. Will increase scheduled zyprexa to 10mg bid. Depakote change to Depakote ER to treat mood and tangential racing thoughts. The consideration of returning to clozaril at this time is on hold as issues of compliance with meds and lab draws is of concern. Depakote level in AM. 03/01/18: He continues to be grossly disorganized, tangential and RIS. He is intrusive but redirectable per nursing staff. Increased Zyprexa dose plus prn and will continue to treat for stabilization. He is not aggressive or agitated however is unable to care for himself at this time. VPA level was 62 and will increase Depakote for mood stabilization and intrusive behaviors. 03/02/18: Patient seems to be with mild improvement and is less tangential today. Seems to be able to follow basic line of questioning. Does make random comment about irrelevant things, seems to be preoccupied at times and RIS. Patient is not aggressive or agitated and redirectable per nursing staff. Denies SI/Hi/AVH. 03/03 - Continue current meds. Consider shifting bulk of APM to HS given more daytime sedation - Invite heel caser in to see patient to estimate closeness to baseline 03/04/18: Patient seems to be with continued slow improvement with decreased blocking, tangentiality and ability to be redirectable. He does have some intrusive behaviors however has not been agitated or aggressive. Seems to be maintaining a clean room, eating and complying with self-care. Perhaps he is nearing baseline, however will request assistance of case assistant. Continue current regimen at this time. 03/05/18: Patient remains without changes today and has had slow progression to improvement during admission. Will reach out to case assistant to assist with determining baseline functioning of patient. 03/06/18: Patient seems to be quite disorganized, tangential and with loose associations. Will need to change meds for stabilization. Will discontinue zyprexa and start clozapine. According to heel caser, patient is not close to his baseline and is functional when he is. QTC on 03/06/18 is 440 and last two ANC's are within normal. 03/07/18: Will increase clozapine to 25mg BID today, and discontinue olanzapine. Weekly CBC's ordered up to 03/20/18. 03/08/18: Will continue titration of clozapine and follow weekly CBC's. 03/09/18: Patient continues to be tangential, with blocking and detached from reality. Would be unable to care for himself if not treated for stabilization and will continue titration of Clozapine at this time. Increase to 75mg big for tomorrow with 50mg dose tonight. 03/10/18: Patient is tangential and disorganized at times and at times is able to answer basic questions. Does seem to RIS and with minimal improvement at this time. Will give monthly Invega today at 117mg IM today. Continue clozapine titration to 100mg bid for tomorrow. 03/11/18: Patient seemed to be with some sedation this morning and with some difficulty balancing while walking. Patient repeat vital sign completed after interview with WNL. Patient put on fall precautions and asked to remain in bed. It is possible that the increase in clozapine could be contributory and will decrease dose to 75 mg bid and keep at this dose for tolerability. 03/12/18: Patient without over sedation today and will continue Clozapine at 75mg bid for today and consider increasing tomorrow. He remains with disorganized thought, RIS and intrusiveness. 03/13/17: Patient seems to be less talkative today and continues with blocking, tangentiality and seems preoccupied. Now tolerating clozapine without sedation, abs neutrophil count today was 3.75 and will increase Clozapine to 100mg bid starting tomorrow. 03/14/18: Patient seems to be with mild improvement in blocking and less tangential today. Was able to have simple conversation without making grossly disorganized statements. Denies Si/Hi/aVH and will continue to titrate clozapine. Consider increasing to 125mg bid tomorrow if patient not having sedation side effects. 03/15 -increase clozapine to 125 mg twice daily to target ongoing psychotic symptoms. 03/16 -continue current medications and plan. 03/17 -increase clozapine to 150 mg twice daily to target ongoing psychosis. Will need second meeting with heel caser, as was unable to tolerate the first due to psychosis. 03/18 - Continue current meds - Meeting with [employer] Phil tomorrow - Continue with safety and discharge planning 03/19 - Continue current meds - Weekly CBCD - continue safety and discharge planning 03/20 - Consolidate cloazpine to HS and increase to 350mg. - CBCD reviewed: ANC normal at 3.94. - Unable to tolerate meeting with heel caser yesterday. Continue to work on discharge planning; mobile med management staff to visit with him today. 03/21 - Continue current medication regimen; declining increase of sertraline at this time - Continue to work on discharge planning - will require another meeting with his heel caser prior to discharge (2) Depression: - Continue Zoloft 100mg daily 03/20 -patient admits to depressed mood and appears depressed. Recommend increasing sertraline to 150 mg daily, which he declined today, for delusional reasons. Continue to encourage, and revisit tomorrow. 03/21 - Declines increase in sertraline again today, reviewed recommendation and potential benefits but remains unwilling Inventory Assets Strengths: Has housing, access to care, case management services Needs: medications, therapy Risk Factors Assessment Male: Yes : Yes Do You Have Access To A Gun?: No Health Problems: No Mental Health Diagnoses: Yes Substance Use Disorders: Yes Previous Psychiatric Hospitalization: Yes Hopelessness: No Smoker: Yes Protective Factors Assessment Jainism Beliefs: No : No Responsible for Young Children: No Employed: No Supportive Family: No Interval History Identifying Information 57 y/o CM with history of schizophrenia and depression, admitted for deterioration of his schizophrenia with poor self care and suspected in vandalism of numerous vehicles at his apartment. Chief Complaint "There is going to be a tribunal". Review of Systems Sleep Information Total Hours of Sleep: 4.5 Sleep Comments: pt on q-15 minute checks. pt awoke x2, remained awake for about 5 minute each and returned back to bed without verbal prompting Meal Information Percent Meal Consumed - Breakfast: 100 Percent Meal Consumed - Lunch: 100 Percent Meal Consumed - Dinner: 100 Nutrition Comment: breakfast recorded from the patient meal record Subjective Subjective Patient was seen & assessed and interval progress reviewed with Nursing and social contact worker. Sleep is improved on higher dosing of Clozaril. Particularly illogical when pushed re: meeting with heel caser. Otherwise cooperative in the milieu. Physical Exam Psychiatric Orientation: alert, oriented to person and oriented to place Apperance: + disheveled Eye Contact: + poor eye contact Motor Behavior: no abnormal motor movements Speech: + pressured speech Affect: + blunted affect Mood: + anxious mood Thought Process: + tangential thought process Thought Content: + preoccupation (with court proceedings) and + delusions paranoid about the display on the phone in the exam room, believes that it's recording at night. Suicidal Thoughts: denies suicidal thoughts Homicidal Thoughts: denies homicidal thoughts Hallucinations: no auditory hallucinations and no visual hallucinations Cognition: language grossly intact Estimated Intelligence: consistent with education level Insight: + poor insight Judgement: + poor judgement Vital Signs (Past 24 Hours) Last Vital Signs Temp 36.2 C L 03/22/18 06:51 Pulse 92 H 03/22/18 06:51 Resp 18 03/22/18 06:51 BP 137/87 03/22/18 06:51 Pulse Ox 96 02/25/18 16:00 Results & Data Current Inpatient Medications Current Inpatient Medications: Current Inpatient Medications Acetaminophen (Tylenol) 650 mg PO Q4H PRN PRN Reason: Headache or Minor Fever Stop: 03/27/18 14:16 Al Hydrox/Mg Hydrox/Simethicone (Maalox) 30 ml PO Q4H PRN PRN Reason: GI Upset Stop: 03/27/18 14:16 Bismuth Subsalicylate (Kaopectate) 15 ml PO PRN PRN PRN Reason: Loose Stool Stop: 03/27/18 14:16 Clozapine (Clozapine) 350 mg PO HS HANNAH Stop: 04/20/18 21:59 Last Admin: 03/21/18 21:20 Dose: 350 mg Divalproex Sodium (Depakote Extended Release) 500 mg PO QAM HANNAH Stop: 04/01/18 08:59 Last Admin: 03/22/18 08:13 Dose: 500 mg Divalproex Sodium (Depakote Extended Release) 1,000 mg PO HS HANNAH Stop: 03/31/18 21:59 Last Admin: 03/21/18 21:20 Dose: 1,000 mg Hydroxyzine HCl (Vistaril) 50 mg PO HSZ PRN PRN Reason: Insomnia Stop: 03/27/18 14:16 Last Admin: 03/03/18 21:15 Dose: 50 mg Magnesium Hydroxide (Milk Of Magnesia) 30 ml PO DAILY PRN PRN Reason: Heartburn Stop: 03/27/18 14:16 Olanzapine (Zyprexa) 5 mg PO TID PRN PRN Reason: psychosis Stop: 03/29/18 08:59 Last Admin: 03/04/18 05:53 Dose: 5 mg Sertraline HCl (Zoloft) 100 mg PO QAM HANNAH Stop: 03/28/18 08:59 Last Admin: 03/22/18 08:13 Dose: 100 mg Sodium Chloride ([place] Nasal) 1 - 2 sprays NA PRN PRN PRN Reason: Nasal Dryness/Congestion Stop: 03/27/18 14:16 Post Discharge Appointments Psychiatrist Name of Psychiatrist: [facility] King Gardner PA-C Psychiatrist's Date of Appointment with Psychiatrist: 03/25/18 Time of Appointment with Psychiatrist: 10:00am Psychiatric Appointment Comment: SHY Murphy Therapist Name of Therapist: rukhsana Therapist's Date of Therapist Appointment: 03/19/18 Time of Therapist Appointment: 2:30pm [facility] [place] [address] Media Reconciliation Specialist Name of Media Reconciliation Specialist: Gustabo Mabry Phone Number for Media Reconciliation Specialist: [phone] Case Management Appointment Comment: [address] [place] [address] Contact Information Discharge Discharge Address: [facility] [address] [place] [address] CPT Code CPT Code 97086 _ (1) Schizophrenia Schizophrenia type: unspecified Qualified Code(s): F20.9 - Schizophrenia, unspecified (2) Depression Depression Type: unspecified Major depression recurrence: Active/Remission status: Major depression episode severity: Psychotic features: Trimester: Qualified Code(s): F32.9 - Major depressive disorder, single episode, unspecified
[2018-03-22] MEDS: cloZAPine 100 MG TAB PO SCH (21:05)
[2018-03-23] MEDS: SERTRALINE HCL 100 MG TABLET PO SCH (08:25)
[2018-03-23] MEDS: DIVALPROEX EXTENDED RELEASE 500 MG TAB PO SCH ×2 (08:25→21:51)
--- NOTE | 2018-03-23 16:50 | Psychiatric Progress Note ---
Date of Service March 23, 2018 Impression / Recommendations Impression Pt continues to be disorganized and tangential during conversation. He will require another meeting prior to discharge, as his case checker is a very large component of his outpatient success. Will continue with lab monitoring and discharge planning. Pt declined titration of his antidepressant medication. (1) Schizophrenia: to target ongoing psychosis.-Invega sustenna 117mg IM on 03/10/18 ( continue monthly) -Zyprexa 5mg bid prn available for acute needs -Continue Depakote ER to 500mg qam and 1000mg qhs for mood -Continue steady Clozapine titration 02/25/18: Seems to be with some blocking but denies SI/HI/aVh and denies CAH. Will start zyprexa 5mg qhs in addition to home meds. Patient this time with poor functioning and will need treatment for stabilization. 02/26/18: Patient affect fluctuates, and he remains grossly disorganized and incoherent. Is tangential and seems to be distracted. Did deny Si/HI/aVH. Will increase zyprexa to 5mg bid and continue to treat for stabilization. 02/27/18: - Continue Sustenna and Zyprexa and will add prn 5 mg TID - Start Depakote 500 mg BID to target racing thoughts and behavioral dysregulation. - Will need level in 5 days on 03/04 - Continue to coordinate with his OP providers 02/28/18: Patient with minimal improvement and required 2 prn doses of zyprexa yesterday. Will increase scheduled zyprexa to 10mg bid. Depakote change to Depakote ER to treat mood and tangential racing thoughts. The consideration of returning to clozaril at this time is on hold as issues of compliance with meds and lab draws is of concern. Depakote level in AM. 03/01/18: He continues to be grossly disorganized, tangential and RIS. He is intrusive but redirectable per nursing staff. Increased Zyprexa dose plus prn and will continue to treat for stabilization. He is not aggressive or agitated however is unable to care for himself at this time. VPA level was 62 and will increase Depakote for mood stabilization and intrusive behaviors. 03/02/18: Patient seems to be with mild improvement and is less tangential today. Seems to be able to follow basic line of questioning. Does make random comment about irrelevant things, seems to be preoccupied at times and RIS. Patient is not aggressive or agitated and redirectable per nursing staff. Denies SI/Hi/AVH. 03/03 - Continue current meds. Consider shifting bulk of APM to HS given more daytime sedation - Invite case checker in to see patient to estimate closeness to baseline 03/04/18: Patient seems to be with continued slow improvement with decreased blocking, tangentiality and ability to be redirectable. He does have some intrusive behaviors however has not been agitated or aggressive. Seems to be maintaining a clean room, eating and complying with self-care. Perhaps he is nearing baseline, however will request assistance of nurse outreach case manager. Continue current regimen at this time. 03/05/18: Patient remains without changes today and has had slow progression to improvement during admission. Will reach out to nurse outreach case manager to assist with determining baseline functioning of patient. 03/06/18: Patient seems to be quite disorganized, tangential and with loose associations. Will need to change meds for stabilization. Will discontinue zyprexa and start clozapine. According to case checker, patient is not close to his baseline and is functional when he is. QTC on 03/06/18 is 440 and last two ANC's are within normal. 03/07/18: Will increase clozapine to 25mg BID today, and discontinue olanzapine. Weekly CBC's ordered up to 03/20/18. 03/08/18: Will continue titration of clozapine and follow weekly CBC's. 03/09/18: Patient continues to be tangential, with blocking and detached from reality. Would be unable to care for himself if not treated for stabilization and will continue titration of Clozapine at this time. Increase to 75mg big for tomorrow with 50mg dose tonight. 03/10/18: Patient is tangential and disorganized at times and at times is able to answer basic questions. Does seem to RIS and with minimal improvement at this time. Will give monthly Invega today at 117mg IM today. Continue clozapine titration to 100mg bid for tomorrow. 03/11/18: Patient seemed to be with some sedation this morning and with some difficulty balancing while walking. Patient repeat vital sign completed after interview with WNL. Patient put on fall precautions and asked to remain in bed. It is possible that the increase in clozapine could be contributory and will decrease dose to 75 mg bid and keep at this dose for tolerability. 03/12/18: Patient without over sedation today and will continue Clozapine at 75mg bid for today and consider increasing tomorrow. He remains with disorganized thought, RIS and intrusiveness. 03/13/17: Patient seems to be less talkative today and continues with blocking, tangentiality and seems preoccupied. Now tolerating clozapine without sedation, abs neutrophil count today was 3.75 and will increase Clozapine to 100mg bid starting tomorrow. 03/14/18: Patient seems to be with mild improvement in blocking and less tangential today. Was able to have simple conversation without making grossly disorganized statements. Denies Si/Hi/aVH and will continue to titrate clozapine. Consider increasing to 125mg bid tomorrow if patient not having sedation side effects. 03/15 -increase clozapine to 125 mg twice daily to target ongoing psychotic symptoms. 03/16 -continue current medications and plan. 03/17 -increase clozapine to 150 mg twice daily to target ongoing psychosis. Will need second meeting with case checker, as was unable to tolerate the first due to psychosis. 03/18 - Continue current meds - Meeting with [employer] Phil tomorrow - Continue with safety and discharge planning 03/19 - Continue current meds - Weekly CBCD - continue safety and discharge planning 03/20 - Consolidate cloazpine to HS and increase to 350mg. - CBCD reviewed: ANC normal at 3.94. - Unable to tolerate meeting with case checker yesterday. Continue to work on discharge planning; mobile med management staff to visit with him today. 03/21 - Continue current medication regimen; declining increase of sertraline at this time - Continue to work on discharge planning - will require another meeting with his case checker prior to discharge (2) Depression: - Continue Zoloft 100mg daily 03/20 -patient admits to depressed mood and appears depressed. Recommend increasing sertraline to 150 mg daily, which he declined today, for delusional reasons. Continue to encourage, and revisit tomorrow. 03/21 - Declines increase in sertraline again today, reviewed recommendation and potential benefits but remains unwilling Inventory Assets Strengths: Has housing, access to care, case management services Needs: medications, therapy Risk Factors Assessment Male: Yes : Yes Do You Have Access To A Gun?: No Health Problems: No Mental Health Diagnoses: Yes Substance Use Disorders: Yes Previous Psychiatric Hospitalization: Yes Hopelessness: No Smoker: Yes Protective Factors Assessment Jehovah'S Witness Beliefs: No : No Responsible for Young Children: No Employed: No Supportive Family: No Interval History Identifying Information 57 y/o CM with history of schizophrenia and depression, admitted for deterioration of his schizophrenia with poor self care and suspected in vandalism of numerous vehicles at his apartment. Chief Complaint "super bowl", then went back to rearranging papers Review of Systems Sleep Information Total Hours of Sleep: 7.75 Sleep Comments: pt on q-15 minute checks Meal Information Percent Meal Consumed - Breakfast: 100 Percent Meal Consumed - Lunch: 100 Percent Meal Consumed - Dinner: 100 Nutrition Comment: breakfast recorded from the patient meal record Subjective Subjective Patient was seen & assessed and interval progress reviewed with Nursing. no acute issues over night, limited ability to converse, likely close to baseline, no agitation, prefers to focus on magazine rather than people. Physical Exam Psychiatric Orientation: alert, oriented to person and oriented to place Apperance: + disheveled Eye Contact: + poor eye contact Motor Behavior: no abnormal motor movements aburpt Affect: + blunted affect Mood: + depressed mood though won't elaborate Thought Process: + tangential thought process Thought Content: + paranoid (?around nurse outreach case manager) Suicidal Thoughts: denies suicidal thoughts Homicidal Thoughts: denies homicidal thoughts Hallucinations: no auditory hallucinations and no visual hallucinations Cognition: language grossly intact; + attention not intact Insight: + limited insight Judgement: + limited judgement Vital Signs (Past 24 Hours) Last Vital Signs Temp 36.6 C 03/23/18 06:59 Pulse 98 H 03/23/18 07:00 Resp 18 03/23/18 06:59 BP 136/80 03/23/18 07:00 Pulse Ox 96 02/25/18 16:00 Results & Data Current Inpatient Medications Current Inpatient Medications: Current Inpatient Medications Acetaminophen (Tylenol) 650 mg PO Q4H PRN PRN Reason: Headache or Minor Fever Stop: 03/27/18 14:16 Last Admin: 03/23/18 11:13 Dose: 650 mg Al Hydrox/Mg Hydrox/Simethicone (Maalox) 30 ml PO Q4H PRN PRN Reason: GI Upset Stop: 03/27/18 14:16 Bismuth Subsalicylate (Kaopectate) 15 ml PO PRN PRN PRN Reason: Loose Stool Stop: 03/27/18 14:16 Clozapine (Clozapine) 350 mg PO HS HANNAH Stop: 04/20/18 21:59 Last Admin: 03/22/18 21:05 Dose: 350 mg Divalproex Sodium (Depakote Extended Release) 500 mg PO QAM HANNAH Stop: 04/01/18 08:59 Last Admin: 03/23/18 08:25 Dose: 500 mg Divalproex Sodium (Depakote Extended Release) 1,000 mg PO HS HANNAH Stop: 03/31/18 21:59 Last Admin: 03/22/18 21:05 Dose: 1,000 mg Hydroxyzine HCl (Vistaril) 50 mg PO HSZ PRN PRN Reason: Insomnia Stop: 03/27/18 14:16 Last Admin: 03/03/18 21:15 Dose: 50 mg Magnesium Hydroxide (Milk Of Magnesia) 30 ml PO DAILY PRN PRN Reason: Heartburn Stop: 03/27/18 14:16 Olanzapine (Zyprexa) 5 mg PO TID PRN PRN Reason: psychosis Stop: 03/29/18 08:59 Last Admin: 03/04/18 05:53 Dose: 5 mg Sertraline HCl (Zoloft) 100 mg PO QAM HANNAH Stop: 03/28/18 08:59 Last Admin: 03/23/18 08:25 Dose: 100 mg Sodium Chloride ([place] Nasal) 1 - 2 sprays NA PRN PRN PRN Reason: Nasal Dryness/Congestion Stop: 03/27/18 14:16 Post Discharge Appointments Psychiatrist Name of Psychiatrist: SHY Gardner PA-C Psychiatrist's Date of Appointment with Psychiatrist: 03/25/18 Time of Appointment with Psychiatrist: 10:00am Psychiatric Appointment Comment: SHY Murphy Therapist Name of Therapist: rukhsana Therapist's Date of Therapist Appointment: 03/19/18 Time of Therapist Appointment: 2:30pm Therapy Appointment Comment: [address], [place] [address] Dip Dyer Name of Dip Dyer: Gustabo Mabry Phone Number for Dip Dyer: [phone] Case Management Appointment Comment: [id number], [place] [address] Contact Information Discharge Discharge Address: [address] [place] [address] CPT Code CPT Code 20502 _ (1) Schizophrenia Schizophrenia type: unspecified Qualified Code(s): F20.9 - Schizophrenia, unspecified (2) Depression Depression Type: unspecified Major depression recurrence: Active/Remission status: Major depression episode severity: Psychotic features: Trimester: Qualified Code(s): F32.9 - Major depressive disorder, single episode, unspecified
[2018-03-23] MEDS: cloZAPine 100 MG TAB PO SCH (21:50)
[2018-03-24] MEDS: DIVALPROEX EXTENDED RELEASE 500 MG TAB PO SCH ×2 (07:35→21:07)
[2018-03-24] MEDS: SERTRALINE HCL 100 MG TABLET PO SCH (07:35)
--- NOTE | 2018-03-24 09:19 | Psychiatric Progress Note ---
Date of Service March 24, 2018 Impression / Recommendations Impression The patient in minimally communicative today, only answering questions, no spontaneous conversation. He denies hallucinations of any kind and says that he will work with Raf, his block and case maker after discharge despite not wanting to do so here on the unit. Staff are concerned that the current chaotic milieu is causing some regression in the patient as he was observed to be tearing up magazines, something he had stopped doing. Overall we are still concerned that if he were to be discharged at this point, that he would not be able or willing to engage in treatment ie case management or to refrain from destroying property , something he was doing prior to admission. We will attempt to have a formal meeting with his block and case maker to address the relationship in the event a new block and case maker will need to be obtained. (1) Schizophrenia: to target ongoing psychosis.-Invega sustenna 117mg IM on 03/10/18 ( continue monthly) -Zyprexa 5mg bid prn available for acute needs -Continue Depakote ER to 500mg qam and 1000mg qhs for mood -Continue steady Clozapine titration 02/25/18: Seems to be with some blocking but denies SI/HI/aVh and denies CAH. Will start zyprexa 5mg qhs in addition to home meds. Patient this time with poor functioning and will need treatment for stabilization. 02/26/18: Patient affect fluctuates, and he remains grossly disorganized and incoherent. Is tangential and seems to be distracted. Did deny Si/HI/aVH. Will increase zyprexa to 5mg bid and continue to treat for stabilization. 02/27/18: - Continue Sustenna and Zyprexa and will add prn 5 mg TID - Start Depakote 500 mg BID to target racing thoughts and behavioral dysregulation. - Will need level in 5 days on 03/04 - Continue to coordinate with his OP providers 02/28/18: Patient with minimal improvement and required 2 prn doses of zyprexa yesterday. Will increase scheduled zyprexa to 10mg bid. Depakote change to Depakote ER to treat mood and tangential racing thoughts. The consideration of returning to clozaril at this time is on hold as issues of compliance with meds and lab draws is of concern. Depakote level in AM. 03/01/18: He continues to be grossly disorganized, tangential and RIS. He is intrusive but redirectable per nursing staff. Increased Zyprexa dose plus prn and will continue to treat for stabilization. He is not aggressive or agitated however is unable to care for himself at this time. VPA level was 62 and will increase Depakote for mood stabilization and intrusive behaviors. 03/02/18: Patient seems to be with mild improvement and is less tangential today. Seems to be able to follow basic line of questioning. Does make random comment about irrelevant things, seems to be preoccupied at times and RIS. Patient is not aggressive or agitated and redirectable per nursing staff. Denies SI/Hi/AVH. 03/03 - Continue current meds. Consider shifting bulk of APM to HS given more daytime sedation - Invite block and case maker in to see patient to estimate closeness to baseline 03/04/18: Patient seems to be with continued slow improvement with decreased blocking, tangentiality and ability to be redirectable. He does have some intrusive behaviors however has not been agitated or aggressive. Seems to be maintaining a clean room, eating and complying with self-care. Perhaps he is nearing baseline, however will request assistance of disease case manager. Continue current regimen at this time. 03/05/18: Patient remains without changes today and has had slow progression to improvement during admission. Will reach out to disease case manager to assist with determining baseline functioning of patient. 03/06/18: Patient seems to be quite disorganized, tangential and with loose associations. Will need to change meds for stabilization. Will discontinue zyprexa and start clozapine. According to block and case maker, patient is not close to his baseline and is functional when he is. QTC on 03/06/18 is 440 and last two ANC's are within normal. 03/07/18: Will increase clozapine to 25mg BID today, and discontinue olanzapine. Weekly CBC's ordered up to 03/20/18. 03/08/18: Will continue titration of clozapine and follow weekly CBC's. 03/09/18: Patient continues to be tangential, with blocking and detached from reality. Would be unable to care for himself if not treated for stabilization and will continue titration of Clozapine at this time. Increase to 75mg big for tomorrow with 50mg dose tonight. 03/10/18: Patient is tangential and disorganized at times and at times is able to answer basic questions. Does seem to RIS and with minimal improvement at this time. Will give monthly Invega today at 117mg IM today. Continue clozapine titration to 100mg bid for tomorrow. 03/11/18: Patient seemed to be with some sedation this morning and with some difficulty balancing while walking. Patient repeat vital sign completed after interview with WNL. Patient put on fall precautions and asked to remain in bed. It is possible that the increase in clozapine could be contributory and will decrease dose to 75 mg bid and keep at this dose for tolerability. 03/12/18: Patient without over sedation today and will continue Clozapine at 75mg bid for today and consider increasing tomorrow. He remains with disorganized thought, RIS and intrusiveness. 03/13/17: Patient seems to be less talkative today and continues with blocking, tangentiality and seems preoccupied. Now tolerating clozapine without sedation, abs neutrophil count today was 3.75 and will increase Clozapine to 100mg bid starting tomorrow. 03/14/18: Patient seems to be with mild improvement in blocking and less tangential today. Was able to have simple conversation without making grossly disorganized statements. Denies Si/Hi/aVH and will continue to titrate clozapine. Consider increasing to 125mg bid tomorrow if patient not having sedation side effects. 03/15 -increase clozapine to 125 mg twice daily to target ongoing psychotic symptoms. 03/16 -continue current medications and plan. 03/17 -increase clozapine to 150 mg twice daily to target ongoing psychosis. Will need second meeting with block and case maker, as was unable to tolerate the first due to psychosis. 03/18 - Continue current meds - Meeting with Griselda Villarreal tomorrow - Continue with safety and discharge planning 03/19 - Continue current meds - Weekly CBCD - continue safety and discharge planning 03/20 - Consolidate cloazpine to HS and increase to 350mg. - CBCD reviewed: ANC normal at 3.94. - Unable to tolerate meeting with block and case maker yesterday. Continue to work on discharge planning; mobile med management staff to visit with him today. 03/21 - Continue current medication regimen; declining increase of sertraline at this time - Continue to work on discharge planning - will require another meeting with his block and case maker prior to discharge 2/4 - Continue current meds - Arrange for meeting with Raf block and case maker (2) Depression: - Continue Zoloft 100mg daily 03/20 -patient admits to depressed mood and appears depressed. Recommend increasing sertraline to 150 mg daily, which he declined today, for delusional reasons. Continue to encourage, and revisit tomorrow. 03/21 - Declines increase in sertraline again today, reviewed recommendation and potential benefits but remains unwilling Inventory Assets Strengths: Has housing, access to care, case management services Needs: medications, therapy Risk Factors Assessment Male: Yes : Yes Do You Have Access To A Gun?: No Health Problems: No Mental Health Diagnoses: Yes Substance Use Disorders: Yes Previous Psychiatric Hospitalization: Yes Hopelessness: No Smoker: Yes Protective Factors Assessment Mandaeism Beliefs: No : No Responsible for Young Children: No Employed: No Supportive Family: No Interval History Identifying Information 57 y/o CM with history of schizophrenia and depression, admitted for deterioration of his schizophrenia with poor self care and suspected in vandalism of numerous vehicles at his apartment. Chief Complaint "I'm OK.". Review of Systems Sleep Information Total Hours of Sleep: 6.25 Sleep Comments: pt on q-15 minute checks Meal Information Percent Meal Consumed - Breakfast: 100 Percent Meal Consumed - Lunch: 100 Percent Meal Consumed - Dinner: 100 Nutrition Comment: breakfast recorded from the patient meal record Subjective Subjective Patient was seen & assessed and interval progress reviewed with Treatment Team. The patient is alert and cooperative but with minimal conversation. He denies again that he is having any more auditory hallucinations saying "They're gone.". He also denies visual experiences. We talk briefly about the commotion currently on the unit and he denies that it is disturbing him in any way. I review our concerns that his meetings with Marcell, his block and case maker, have not gone well and that we are worried that he will refuse to work with him after discharge, to which he responds "I shall". He denies side effects to medications, and denies any physical complaints today. Physical Exam Psychiatric Orientation: alert and cooperative Apperance: appropriately dressed Eye Contact: + fair eye contact Motor Behavior: steady gait and station and no abnormal motor movements Speech: normal rate/rhythm/volume of speech (nonspontaneous) Affect: + flat affect Mood: no depressed mood and no anxious mood Thought Process: goal directed thought process Thought Content: reality based without delusions Suicidal Thoughts: denies suicidal thoughts Homicidal Thoughts: denies homicidal thoughts Hallucinations: no auditory hallucinations and no visual hallucinations Cognition: attention grossly intact and language grossly intact Estimated Intelligence: average estimated intelligence Insight: + impaired insight Judgement: + impaired judgement Vital Signs (Past 24 Hours) Last Vital Signs Temp 36.6 C 03/24/18 06:57 Pulse 92 H 03/24/18 06:58 Resp 18 03/24/18 06:57 BP 134/90 03/24/18 06:58 Pulse Ox 96 02/25/18 16:00 Results & Data Current Inpatient Medications Current Inpatient Medications: Current Inpatient Medications Acetaminophen (Tylenol) 650 mg PO Q4H PRN PRN Reason: Headache or Minor Fever Stop: 03/27/18 14:16 Last Admin: 03/23/18 11:13 Dose: 650 mg Al Hydrox/Mg Hydrox/Simethicone (Maalox) 30 ml PO Q4H PRN PRN Reason: GI Upset Stop: 03/27/18 14:16 Bismuth Subsalicylate (Kaopectate) 15 ml PO PRN PRN PRN Reason: Loose Stool Stop: 03/27/18 14:16 Clozapine (Clozapine) 350 mg PO HS HANNAH Stop: 04/20/18 21:59 Last Admin: 03/23/18 21:50 Dose: 350 mg Divalproex Sodium (Depakote Extended Release) 500 mg PO QAM HANNAH Stop: 04/01/18 08:59 Last Admin: 03/24/18 07:35 Dose: 500 mg Divalproex Sodium (Depakote Extended Release) 1,000 mg PO HS HANNAH Stop: 03/31/18 21:59 Last Admin: 03/23/18 21:51 Dose: 1,000 mg Hydroxyzine HCl (Vistaril) 50 mg PO HSZ PRN PRN Reason: Insomnia Stop: 03/27/18 14:16 Last Admin: 03/03/18 21:15 Dose: 50 mg Magnesium Hydroxide (Milk Of Magnesia) 30 ml PO DAILY PRN PRN Reason: Heartburn Stop: 03/27/18 14:16 Olanzapine (Zyprexa) 5 mg PO TID PRN PRN Reason: psychosis Stop: 03/29/18 08:59 Last Admin: 03/04/18 05:53 Dose: 5 mg Sertraline HCl (Zoloft) 100 mg PO QAM HANNAH Stop: 03/28/18 08:59 Last Admin: 03/24/18 07:35 Dose: 100 mg Sodium Chloride ([place] Nasal) 1 - 2 sprays NA PRN PRN PRN Reason: Nasal Dryness/Congestion Stop: 03/27/18 14:16 Post Discharge Appointments Psychiatrist Name of Psychiatrist: SHY Gardner PA-C Psychiatrist's Date of Appointment with Psychiatrist: 03/25/18 Time of Appointment with Psychiatrist: 10:00am Psychiatric Appointment Comment: SHY Murphy Therapist Name of Therapist: rukhsana Therapist's Date of Therapist Appointment: 03/19/18 Time of Therapist Appointment: 2:30pm Therapy Appointment Comment: [address], [place] [address] Field Superintendent Name of Field Superintendent: Gustabo Mabry Phone Number for Field Superintendent: [phone] Case Management Appointment Comment: [address], [place] [address] Contact Information Discharge Discharge Address: [facility] Divya Li [address] [place] [address],[place] [address] CPT Code CPT Code 39761 _ (1) Schizophrenia Schizophrenia type: unspecified Qualified Code(s): F20.9 - Schizophrenia, unspecified (2) Depression Depression Type: unspecified Major depression recurrence: Active/Remission status: Major depression episode severity: Psychotic features: Trimester: Qualified Code(s): F32.9 - Major depressive disorder, single episode, unspecified
--- NOTE | 2018-03-24 15:37 | Psychiatric Progress Note ---
Date of Service March 24, 2018 Impression / Recommendations Impression This is 57-year-old man with a history of schizophrenia and depression admitted for deteriorating self care and psychotic behavior due to being off of his home medications. Per staff and patient himself, he is improving on the current regimen. Given his progress, we will continue his current medications as is. 1. Schizophrenia - Speech is improving in organization, however he still has a flattened affect. - Continue divalproex 500mg qAM and 1000 mg qHS. - Continue 350 mg clozapine. - Continue olanzapine 5 mg PO TID PRN. - In anticipation of patient discharge, consider consolidating to a single antipsychotic medication. 2. Depression - Mood is a 6.5/10, which is improved from a previously reported 03/30. - Continue 100 mg sertraline qAM. 3. Disposition - Plan to meet with Raf for case management. Inventory Assets Strengths: Has housing, access to care, case management services Needs: medications, therapy Risk Factors Assessment Male: Yes : Yes Do You Have Access To A Gun?: No Health Problems: No Mental Health Diagnoses: Yes Substance Use Disorders: Yes Previous Psychiatric Hospitalization: Yes Hopelessness: No Smoker: Yes Protective Factors Assessment Restoration Beliefs: No : No Responsible for Young Children: No Employed: No Supportive Family: No Interval History Identifying Information 57 y/o CM with history of schizophrenia and depression, admitted for deterioration of his schizophrenia with poor self care and suspected in vandalism of numerous vehicles at his apartment. Chief Complaint "[I'm fine]". Review of Systems Sleep Information Total Hours of Sleep: 6.25 Sleep Comments: pt on q-15 minute checks Meal Information Percent Meal Consumed - Breakfast: 100 Percent Meal Consumed - Lunch: 100 Percent Meal Consumed - Dinner: 100 Nutrition Comment: breakfast recorded from the patient meal record Subjective Subjective Patient was seen & assessed and interval progress reviewed with Treatment Team. This is 57-year-old man with a history of schizophrenia and depression admitted for deteriorating self care and psychotic behavior due to being off of his home medications. He is hospital day 28. Today he says he is "fine" and rates his mood as a 6.5/10. He is conversational about music he likes and memories about his friend who has recently. 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 Today, he enjoyed listening to music by The Who on his speaker and applying lavender essential oils. He did not participate in group activities but did socialize with staff. He says that he is tolerating his medications well and is starting to feel better. He also shares that he has been able to sleep 8 hours per night for the last 3 nights, which is an improvement for him. He denies SI. He has no complaints at this time. Physical Exam Mental Examination This is a middle-aged, overweight man wearing a akbar sweater that has some stains on it. His hair is disheveled. He notes he should go to the store and buy a razor to care for his farrar. Does not appear to be responding to internal stimuli. Appearance: Unkempt Eye Contact: Sporadic Contact Motor Behavior: Unremarkable Speech: Normal Mood: Calm Affect: Dulled Thought Process: Intact and Logical (typically logical, with sporadic random comments) Thought Content: Intact and Linear Hallucinations: None Insight: Fair Judgement: Fair Vital Signs (Past 24 Hours) Last Vital Signs Temp 36.6 C 03/24/18 06:57 Pulse 92 H 03/24/18 06:58 Resp 18 03/24/18 06:57 BP 134/90 03/24/18 06:58 Pulse Ox 96 02/25/18 16:00 Results & Data Current Inpatient Medications Current Inpatient Medications: Current Inpatient Medications Acetaminophen (Tylenol) 650 mg PO Q4H PRN PRN Reason: Headache or Minor Fever Stop: 03/27/18 14:16 Last Admin: 03/23/18 11:13 Dose: 650 mg Al Hydrox/Mg Hydrox/Simethicone (Maalox) 30 ml PO Q4H PRN PRN Reason: GI Upset Stop: 03/27/18 14:16 Bismuth Subsalicylate (Kaopectate) 15 ml PO PRN PRN PRN Reason: Loose Stool Stop: 03/27/18 14:16 Clozapine (Clozapine) 350 mg PO HS HANNAH Stop: 04/20/18 21:59 Last Admin: 03/23/18 21:50 Dose: 350 mg Divalproex Sodium (Depakote Extended Release) 500 mg PO QAM HANNAH Stop: 04/01/18 08:59 Last Admin: 03/24/18 07:35 Dose: 500 mg Divalproex Sodium (Depakote Extended Release) 1,000 mg PO HS HANNAH Stop: 03/31/18 21:59 Last Admin: 03/23/18 21:51 Dose: 1,000 mg Hydroxyzine HCl (Vistaril) 50 mg PO HSZ PRN PRN Reason: Insomnia Stop: 03/27/18 14:16 Last Admin: 03/03/18 21:15 Dose: 50 mg Magnesium Hydroxide (Milk Of Magnesia) 30 ml PO DAILY PRN PRN Reason: Heartburn Stop: 03/27/18 14:16 Olanzapine (Zyprexa) 5 mg PO TID PRN PRN Reason: psychosis Stop: 03/29/18 08:59 Last Admin: 03/04/18 05:53 Dose: 5 mg Sertraline HCl (Zoloft) 100 mg PO QAM HANNAH Stop: 03/28/18 08:59 Last Admin: 03/24/18 07:35 Dose: 100 mg Sodium Chloride ([place] Nasal) 1 - 2 sprays NA PRN PRN PRN Reason: Nasal Dryness/Congestion Stop: 03/27/18 14:16 Post Discharge Appointments Psychiatrist Name of Psychiatrist: SHY Gardner PA-C Psychiatrist's Date of Appointment with Psychiatrist: 04/01/18 Time of Appointment with Psychiatrist: 2:00pm Psychiatric Appointment Comment: HSY Murphy Therapist Name of Therapist: rukhsana Therapist's Date of Therapist Appointment: 03/19/18 Time of Therapist Appointment: 2:30pm Therapy Appointment Comment: [address], [place] [address] Property Loss Insurance Claim Adjuster Name of Property Loss Insurance Claim Adjuster: Gustabo Mabry Phone Number for Property Loss Insurance Claim Adjuster: [phone] Case Management Appointment Comment: [address] [place] [address] Contact Information Discharge Discharge Address: [facility] Divya Li [address] [place] [address] CPT Code CPT Code 04398 [id number]
[2018-03-24] MEDS: cloZAPine 100 MG TAB PO SCH (21:08)
[2018-03-25] MEDS: DIVALPROEX EXTENDED RELEASE 500 MG TAB PO SCH ×2 (08:07→21:10)
[2018-03-25] MEDS: SERTRALINE HCL 100 MG TABLET PO SCH (08:07)
--- NOTE | 2018-03-25 09:14 | Psychiatric Progress Note ---
Date of Service March 25, 2018 Impression / Recommendations Impression Denying aud/vis hallucinations, but reserved, withholding. Meeting scheduled today with casey saw operator Marcell with social work and patient to address any concerns with their relationship moving forward as there are concerns on our part that he will not work with Marcell due to delusions. Still making random comments at times, but behavior appropriate. (1) Schizophrenia: to target ongoing psychosis.-Invega sustenna 117mg IM on 03/10/18 ( continue monthly) -Zyprexa 5mg bid prn available for acute needs -Continue Depakote ER to 500mg qam and 1000mg qhs for mood -Continue steady Clozapine titration 02/25/18: Seems to be with some blocking but denies SI/HI/aVh and denies CAH. Will start zyprexa 5mg qhs in addition to home meds. Patient this time with poor functioning and will need treatment for stabilization. 02/26/18: Patient affect fluctuates, and he remains grossly disorganized and incoherent. Is tangential and seems to be distracted. Did deny Si/HI/aVH. Will increase zyprexa to 5mg bid and continue to treat for stabilization. 02/27/18: - Continue Sustenna and Zyprexa and will add prn 5 mg TID - Start Depakote 500 mg BID to target racing thoughts and behavioral dysregulation. - Will need level in 5 days on 03/04 - Continue to coordinate with his OP providers 02/28/18: Patient with minimal improvement and required 2 prn doses of zyprexa yesterday. Will increase scheduled zyprexa to 10mg bid. Depakote change to Depakote ER to treat mood and tangential racing thoughts. The consideration of returning to clozaril at this time is on hold as issues of compliance with meds and lab draws is of concern. Depakote level in AM. 03/01/18: He continues to be grossly disorganized, tangential and RIS. He is intrusive but redirectable per nursing staff. Increased Zyprexa dose plus prn and will continue to treat for stabilization. He is not aggressive or agitated however is unable to care for himself at this time. VPA level was 62 and will increase Depakote for mood stabilization and intrusive behaviors. 03/02/18: Patient seems to be with mild improvement and is less tangential today. Seems to be able to follow basic line of questioning. Does make random comment about irrelevant things, seems to be preoccupied at times and RIS. Patient is not aggressive or agitated and redirectable per nursing staff. Denies SI/Hi/AVH. 03/03 - Continue current meds. Consider shifting bulk of APM to HS given more daytime sedation - Invite casey saw operator in to see patient to estimate closeness to baseline 03/04/18: Patient seems to be with continued slow improvement with decreased blocking, tangentiality and ability to be redirectable. He does have some intrusive behaviors however has not been agitated or aggressive. Seems to be maintaining a clean room, eating and complying with self-care. Perhaps he is nearing baseline, however will request assistance of counseling case manager. Continue current regimen at this time. 03/05/18: Patient remains without changes today and has had slow progression to improvement during admission. Will reach out to counseling case manager to assist with determining baseline functioning of patient. 03/06/18: Patient seems to be quite disorganized, tangential and with loose associations. Will need to change meds for stabilization. Will discontinue zyprexa and start clozapine. According to casey saw operator, patient is not close to his baseline and is functional when he is. QTC on 03/06/18 is 440 and last two ANC's are within normal. 03/07/18: Will increase clozapine to 25mg BID today, and discontinue olanzapine. Weekly CBC's ordered up to 03/20/18. 03/08/18: Will continue titration of clozapine and follow weekly CBC's. 03/09/18: Patient continues to be tangential, with blocking and detached from reality. Would be unable to care for himself if not treated for stabilization and will continue titration of Clozapine at this time. Increase to 75mg big for tomorrow with 50mg dose tonight. 03/10/18: Patient is tangential and disorganized at times and at times is able to answer basic questions. Does seem to RIS and with minimal improvement at this time. Will give monthly Invega today at 117mg IM today. Continue clozapine titration to 100mg bid for tomorrow. 03/11/18: Patient seemed to be with some sedation this morning and with some difficulty balancing while walking. Patient repeat vital sign completed after interview with WNL. Patient put on fall precautions and asked to remain in bed. It is possible that the increase in clozapine could be contributory and will decrease dose to 75 mg bid and keep at this dose for tolerability. 03/12/18: Patient without over sedation today and will continue Clozapine at 75mg bid for today and consider increasing tomorrow. He remains with disorganized thought, RIS and intrusiveness. 03/13/17: Patient seems to be less talkative today and continues with blocking, tangentiality and seems preoccupied. Now tolerating clozapine without sedation, abs neutrophil count today was 3.75 and will increase Clozapine to 100mg bid starting tomorrow. 03/14/18: Patient seems to be with mild improvement in blocking and less tangential today. Was able to have simple conversation without making grossly disorganized statements. Denies Si/Hi/aVH and will continue to titrate clozapine. Consider increasing to 125mg bid tomorrow if patient not having sedation side effects. 03/15 -increase clozapine to 125 mg twice daily to target ongoing psychotic symptoms. 03/16 -continue current medications and plan. 03/17 -increase clozapine to 150 mg twice daily to target ongoing psychosis. Will need second meeting with casey saw operator, as was unable to tolerate the first due to psychosis. 03/18 - Continue current meds - Meeting with Griselda Villarreal tomorrow - Continue with safety and discharge planning 03/19 - Continue current meds - Weekly CBCD - continue safety and discharge planning 03/20 - Consolidate cloazpine to HS and increase to 350mg. - CBCD reviewed: ANC normal at 3.94. - Unable to tolerate meeting with casey saw operator yesterday. Continue to work on discharge planning; mobile med management staff to visit with him today. 03/21 - Continue current medication regimen; declining increase of sertraline at this time - Continue to work on discharge planning - will require another meeting with his casey saw operator prior to discharge 03/24 - Continue current meds - Arrange for meeting with Raf casey saw operator 03/25 - Continue current meds - Meeting with casey saw operator today. (2) Depression: - Continue Zoloft 100mg daily 03/20 -patient admits to depressed mood and appears depressed. Recommend increasing sertraline to 150 mg daily, which he declined today, for delusional reasons. Continue to encourage, and revisit tomorrow. 03/21 - Declines increase in sertraline again today, reviewed recommendation and potential benefits but remains unwilling Inventory Assets Strengths: Has housing, access to care, case management services Needs: medications, therapy Risk Factors Assessment Male: Yes : Yes Do You Have Access To A Gun?: No Health Problems: No Mental Health Diagnoses: Yes Substance Use Disorders: Yes Previous Psychiatric Hospitalization: Yes Hopelessness: No Smoker: Yes Protective Factors Assessment [employer] Beliefs: No : No Responsible for Young Children: No Employed: No Supportive Family: No Interval History Identifying Information 57 y/o CM with history of schizophrenia and depression, admitted for deterioration of his schizophrenia with poor self care and suspected in vandalism of numerous vehicles at his apartment. Chief Complaint "I'm OK.". Review of Systems Sleep Information Total Hours of Sleep: 8 Sleep Comments: pt appeared to sleep 2.5 hrs during evening shift. pt on q-15 minute checks Meal Information Percent Meal Consumed - Breakfast: 100 Percent Meal Consumed - Lunch: 100 Percent Meal Consumed - Dinner: 100 Nutrition Comment: breakfast recorded from the patient meal record Subjective Subjective Patient was seen & assessed and interval progress reviewed with Treatment Team. The patient is sitting in the group room listening to music. He politely turns it off for our discussion. He is aware that he has a meeting with his casey saw operator today and when asked if he had anything he wanted to discuss in the meeting, he is silent. He continues to deny SI/HI, denies aud/vis hallucinations. He also denies any side effects to meds or physical complaints. Physical Exam Psychiatric Orientation: alert and cooperative Apperance: appropriately dressed Eye Contact: + fair eye contact Motor Behavior: steady gait and station and no abnormal motor movements Speech: normal rate/rhythm/volume of speech (nonspontaneous) Affect: + flat affect Mood: no depressed mood and no anxious mood Thought Process: goal directed thought process Thought Content: reality based without delusions Suicidal Thoughts: denies suicidal thoughts Homicidal Thoughts: denies homicidal thoughts Hallucinations: no auditory hallucinations and no visual hallucinations Cognition: attention grossly intact and language grossly intact Estimated Intelligence: average estimated intelligence Insight: + impaired insight Judgement: + impaired judgement Vital Signs (Past 24 Hours) Last Vital Signs Temp 36.6 C 03/25/18 06:54 Pulse 98 H 03/25/18 06:55 Resp 18 03/25/18 06:54 BP 113/72 03/25/18 06:55 Pulse Ox 96 02/25/18 16:00 Results & Data Current Inpatient Medications Current Inpatient Medications: Current Inpatient Medications Acetaminophen (Tylenol) 650 mg PO Q4H PRN PRN Reason: Headache or Minor Fever Stop: 03/27/18 14:16 Last Admin: 03/23/18 11:13 Dose: 650 mg Al Hydrox/Mg Hydrox/Simethicone (Maalox) 30 ml PO Q4H PRN PRN Reason: GI Upset Stop: 03/27/18 14:16 Bismuth Subsalicylate (Kaopectate) 15 ml PO PRN PRN PRN Reason: Loose Stool Stop: 03/27/18 14:16 Clozapine (Clozapine) 350 mg PO HS HANNAH Stop: 04/20/18 21:59 Last Admin: 03/24/18 21:08 Dose: 350 mg Divalproex Sodium (Depakote Extended Release) 500 mg PO QAM HANNAH Stop: 04/01/18 08:59 Last Admin: 03/25/18 08:07 Dose: 500 mg Divalproex Sodium (Depakote Extended Release) 1,000 mg PO HS HANNAH Stop: 03/31/18 21:59 Last Admin: 03/24/18 21:07 Dose: 1,000 mg Hydroxyzine HCl (Vistaril) 50 mg PO HSZ PRN PRN Reason: Insomnia Stop: 03/27/18 14:16 Last Admin: 03/03/18 21:15 Dose: 50 mg Magnesium Hydroxide (Milk Of Magnesia) 30 ml PO DAILY PRN PRN Reason: Heartburn Stop: 03/27/18 14:16 Olanzapine (Zyprexa) 5 mg PO TID PRN PRN Reason: psychosis Stop: 03/29/18 08:59 Last Admin: 03/04/18 05:53 Dose: 5 mg Sertraline HCl (Zoloft) 100 mg PO QAM [facility] Stop: 03/28/18 08:59 Last Admin: 03/25/18 08:07 Dose: 100 mg Sodium Chloride ([place] Nasal) 1 - 2 sprays NA PRN PRN PRN Reason: Nasal Dryness/Congestion Stop: 03/27/18 14:16 Post Discharge Appointments Psychiatrist Name of Psychiatrist: [facility] King Gardner PA-C Psychiatrist's Date of Appointment with Psychiatrist: 04/01/18 Time of Appointment with Psychiatrist: 2:00pm Psychiatric Appointment Comment: SHY Murphy Therapist Name of Therapist: rukhsana Therapist's Date of Therapist Appointment: 03/19/18 Time of Therapist Appointment: 2:30pm Therapy Appointment Comment: [address], [place] [address] Structural Steel Shop Supervisor Name of Structural Steel Shop Supervisor: Gustabo Hawley King Kinneycarinasimoncarina Phone Number for Structural Steel Shop Supervisor: [phone] Case Management Appointment Comment: [address], [place] [address] Contact Information Discharge Discharge Address: [facility] Divya Li [address] [place] [address],[place] [address] CPT Code CPT Code 06942 _ (1) Depression Active/Remission status: Depression Type: unspecified Major depression episode severity: Major depression recurrence: Psychotic features: Trimester: Qualified Code(s): F32.9 - Major depressive disorder, single episode, unspecified (2) Schizophrenia Schizophrenia type: unspecified Qualified Code(s): F20.9 - Schizophrenia, unspecified
--- NOTE | 2018-03-25 14:38 | Psychiatric Progress Note ---
Date of Service March 25, 2018 Impression / Recommendations Impression This is 57-year-old man with a history of schizophrenia and depression admitted for deteriorating self care and psychotic behavior due to being off of his home medications. Bryce continues to have a flat affect, but he is improving in his thought organization and ability to have a normal conversation. 1. Schizophrenia - Speech is improving in organization, however he still has a flattened affect. He denies hallucinations. - Continue divalproex 500mg qAM and 1000 mg qHS. - Continue 350 mg clozapine. - Continue olanzapine 5 mg PO TID PRN. - Continue monthly IM injection of Invega sustenna 117 mg (last given on 03/10). - In anticipation of patient discharge, consider consolidating to a single antipsychotic medication. 2. Depression - Mood is a 06/27. Denies SI. - Continue 100 mg sertraline qAM. 3. Disposition - Meeting with Raghavendra ann who agreed to continue care as an outpatient. Inventory Assets Strengths: Has housing, access to care, case management services Needs: medications, therapy Risk Factors Assessment Male: Yes : Yes Do You Have Access To A Gun?: No Health Problems: No Mental Health Diagnoses: Yes Substance Use Disorders: Yes Previous Psychiatric Hospitalization: Yes Hopelessness: No Smoker: Yes Protective Factors Assessment [employer]ism Beliefs: No : No Responsible for Young Children: No Employed: No Supportive Family: No Interval History Identifying Information 57 y/o CM with history of schizophrenia and depression, admitted for deterioration of his schizophrenia with poor self care and suspected in vandalism of numerous vehicles at his apartment. Chief Complaint "I'm good." Review of Systems Sleep Information Total Hours of Sleep: 8 Sleep Comments: pt appeared to sleep 2.5 hrs during evening shift. pt on q-15 minute checks Meal Information Percent Meal Consumed - Breakfast: 100 Percent Meal Consumed - Lunch: 100 Percent Meal Consumed - Dinner: 100 Nutrition Comment: breakfast recorded from the patient meal record Subjective Subjective This is 57-year-old man with a history of schizophrenia and depression admitted for deteriorating self care and psychotic behavior due to being off of his home medications. Today he says he is doing "good." He reports that he has been sleeping well. When asked about the radio he was given yesterday, he says, "I love it." He has no issues with his medications but admits that the depakote "makes you wanna rock in a rocking chair." When asked to elaborate, he says, " it makes your feet feel like lead." He met with his outpatient briefcase sewer, Raghavendra, today. Bryce says the meeting "didn't go well but it went." Bryce says that Raghavendra said that his apartment wasn't clean when he has been there in the past. Bryce then recounted all of the cleaning products in his home and insists that he keeps his home clean. Bryce also did not like it one time Raghavendra came over and looked through his kitchen cupboards when Bryce was in his bedroom. He says he doesn't understand why someone would do that. Physical Exam Mental Examination Cooperative. Appearance: Unkempt Eye Contact: Sporadic Contact Motor Behavior: Unremarkable Speech: Delayed (Slow to respond, but does answer questions appropriately) Mood: Euthymic Affect: Flat Thought Process: Thought Blocking Thought Content: Slowed Thinking (becoming more logical) Hallucinations: None Insight: Poor Judgement: Fair Vital Signs (Past 24 Hours) Last Vital Signs Temp 36.6 C 03/25/18 06:54 Pulse 98 H 03/25/18 06:55 Resp 18 03/25/18 06:54 BP 113/72 03/25/18 06:55 Pulse Ox 96 02/25/18 16:00 Results & Data Current Inpatient Medications Current Inpatient Medications: Current Inpatient Medications Acetaminophen (Tylenol) 650 mg PO Q4H PRN PRN Reason: Headache or Minor Fever Stop: 03/27/18 14:16 Last Admin: 03/23/18 11:13 Dose: 650 mg Al Hydrox/Mg Hydrox/Simethicone (Maalox) 30 ml PO Q4H PRN PRN Reason: GI Upset Stop: 03/27/18 14:16 Bismuth Subsalicylate (Kaopectate) 15 ml PO PRN PRN PRN Reason: Loose Stool Stop: 03/27/18 14:16 Clozapine (Clozapine) 350 mg PO HS HANNAH Stop: 04/20/18 21:59 Last Admin: 03/24/18 21:08 Dose: 350 mg Divalproex Sodium (Depakote Extended Release) 500 mg PO QAM HANNAH Stop: 04/01/18 08:59 Last Admin: 03/25/18 08:07 Dose: 500 mg Divalproex Sodium (Depakote Extended Release) 1,000 mg PO HS HANNAH Stop: 03/31/18 21:59 Last Admin: 03/24/18 21:07 Dose: 1,000 mg Hydroxyzine HCl (Vistaril) 50 mg PO HSZ PRN PRN Reason: Insomnia Stop: 03/27/18 14:16 Last Admin: 03/03/18 21:15 Dose: 50 mg Magnesium Hydroxide (Milk Of Magnesia) 30 ml PO DAILY PRN PRN Reason: Heartburn Stop: 03/27/18 14:16 Olanzapine (Zyprexa) 5 mg PO TID PRN PRN Reason: psychosis Stop: 03/29/18 08:59 Last Admin: 03/04/18 05:53 Dose: 5 mg Sertraline HCl (Zoloft) 100 mg PO QAM HANNAH Stop: 03/28/18 08:59 Last Admin: 03/25/18 08:07 Dose: 100 mg Sodium Chloride ([place] Nasal) 1 - 2 sprays NA PRN PRN PRN Reason: Nasal Dryness/Congestion Stop: 03/27/18 14:16 Post Discharge Appointments Psychiatrist Name of Psychiatrist: SHY Gardner PA-C Psychiatrist's Date of Appointment with Psychiatrist: 04/01/18 Time of Appointment with Psychiatrist: 2:00pm Psychiatric Appointment Comment: SHY Murphy Therapist Name of Therapist: [email or web address] Therapist's Date of Therapist Appointment: 03/19/18 Time of Therapist Appointment: 2:30pm Therapy Appointment Comment: [address], [place] [address] Marriage And Family Therapist Name of Marriage And Family Therapist: Gustabo Mabry Phone Number for Marriage And Family Therapist: [phone] Case Management Appointment Comment: [address] [place] [address] Contact Information Discharge Discharge Address: [address] [place] [address] CPT Code CPT Code [id number]
[2018-03-25] MEDS: cloZAPine 100 MG TAB PO SCH (21:10)
[2018-03-26] MEDS: SERTRALINE HCL 100 MG TABLET PO SCH (08:08)
[2018-03-26] MEDS: DIVALPROEX EXTENDED RELEASE 500 MG TAB PO SCH ×2 (08:08→21:32)
--- NOTE | 2018-03-26 09:10 | Psychiatric Progress Note ---
Date of Service March 26, 2018 Impression / Recommendations Impression This is 57-year-old man with schizophrenia and depression admitted for deteriorating self care and psychotic behavior due to being off of his home medications. Bryce continues to have a flat affect, but he is improving in his thought organization and ability to have a normal conversation, and we are making plans for discharge. (1) Schizophrenia: to target ongoing psychosis.-Invega sustenna 117mg IM on 03/10/18 ( continue monthly) -Zyprexa 5mg bid prn available for acute needs -Continue Depakote ER to 500mg qam and 1000mg qhs for mood -Continue steady Clozapine titration 02/25/18: Seems to be with some blocking but denies SI/HI/aVh and denies CAH. Will start zyprexa 5mg qhs in addition to home meds. Patient this time with poor functioning and will need treatment for stabilization. 02/26/18: Patient affect fluctuates, and he remains grossly disorganized and incoherent. Is tangential and seems to be distracted. Did deny Si/HI/aVH. Will increase zyprexa to 5mg bid and continue to treat for stabilization. 02/27/18: - Continue Sustenna and Zyprexa and will add prn 5 mg TID - Start Depakote 500 mg BID to target racing thoughts and behavioral dysregulation. - Will need level in 5 days on 03/04 - Continue to coordinate with his OP providers 02/28/18: Patient with minimal improvement and required 2 prn doses of zyprexa yesterday. Will increase scheduled zyprexa to 10mg bid. Depakote change to Depakote ER to treat mood and tangential racing thoughts. The consideration of returning to clozaril at this time is on hold as issues of compliance with meds and lab draws is of concern. Depakote level in AM. 03/01/18: He continues to be grossly disorganized, tangential and RIS. He is intrusive but redirectable per nursing staff. Increased Zyprexa dose plus prn and will continue to treat for stabilization. He is not aggressive or agitated however is unable to care for himself at this time. VPA level was 62 and will increase Depakote for mood stabilization and intrusive behaviors. 03/02/18: Patient seems to be with mild improvement and is less tangential today. Seems to be able to follow basic line of questioning. Does make random comment about irrelevant things, seems to be preoccupied at times and RIS. Patient is not aggressive or agitated and redirectable per nursing staff. Denies SI/Hi/AVH. 03/03 - Continue current meds. Consider shifting bulk of APM to HS given more daytime sedation - Invite nurse outreach case manager in to see patient to estimate closeness to baseline 03/04/18: Patient seems to be with continued slow improvement with decreased blocking, tangentiality and ability to be redirectable. He does have some intrusive behaviors however has not been agitated or aggressive. Seems to be maintaining a clean room, eating and complying with self-care. Perhaps he is nearing baseline, however will request assistance of caser up. Continue current regimen at this time. 03/05/18: Patient remains without changes today and has had slow progression to improvement during admission. Will reach out to caser up to assist with determining baseline functioning of patient. 03/06/18: Patient seems to be quite disorganized, tangential and with loose associations. Will need to change meds for stabilization. Will discontinue zyprexa and start clozapine. According to nurse outreach case manager, patient is not close to his baseline and is functional when he is. QTC on 03/06/18 is 440 and last two ANC's are within normal. 03/07/18: Will increase clozapine to 25mg BID today, and discontinue olanzapine. Weekly CBC's ordered up to 03/20/18. 03/08/18: Will continue titration of clozapine and follow weekly CBC's. 03/09/18: Patient continues to be tangential, with blocking and detached from reality. Would be unable to care for himself if not treated for stabilization and will continue titration of Clozapine at this time. Increase to 75mg big for tomorrow with 50mg dose tonight. 03/10/18: Patient is tangential and disorganized at times and at times is able to answer basic questions. Does seem to RIS and with minimal improvement at this time. Will give monthly Invega today at 117mg IM today. Continue clozapine titration to 100mg bid for tomorrow. 03/11/18: Patient seemed to be with some sedation this morning and with some difficulty balancing while walking. Patient repeat vital sign completed after interview with WNL. Patient put on fall precautions and asked to remain in bed. It is possible that the increase in clozapine could be contributory and will decrease dose to 75 mg bid and keep at this dose for tolerability. 03/12/18: Patient without over sedation today and will continue Clozapine at 75mg bid for today and consider increasing tomorrow. He remains with disorganized thought, RIS and intrusiveness. 03/13/17: Patient seems to be less talkative today and continues with blocking, tangentiality and seems preoccupied. Now tolerating clozapine without sedation, abs neutrophil count today was 3.75 and will increase Clozapine to 100mg bid starting tomorrow. 03/14/18: Patient seems to be with mild improvement in blocking and less tangential today. Was able to have simple conversation without making grossly disorganized statements. Denies Si/Hi/aVH and will continue to titrate clozapine. Consider increasing to 125mg bid tomorrow if patient not having sedation side effects. 03/15 -increase clozapine to 125 mg twice daily to target ongoing psychotic symptoms. 03/16 -continue current medications and plan. 03/17 -increase clozapine to 150 mg twice daily to target ongoing psychosis. Will need second meeting with nurse outreach case manager, as was unable to tolerate the first due to psychosis. 03/18 - Continue current meds - Meeting with Griselda Villarreal tomorrow - Continue with safety and discharge planning 03/19 - Continue current meds - Weekly CBCD - continue safety and discharge planning 03/20 - Consolidate cloazpine to HS and increase to 350mg. - CBCD reviewed: ANC normal at 3.94. - Unable to tolerate meeting with nurse outreach case manager yesterday. Continue to work on discharge planning; mobile med management staff to visit with him today. 03/21 - Continue current medication regimen; declining increase of sertraline at this time - Continue to work on discharge planning - will require another meeting with his nurse outreach case manager prior to discharge 03/24 - Continue current meds - Arrange for meeting with Raf nurse outreach case manager 03/25 - Continue current meds - Meeting with nurse outreach case manager today. 03/26 -Continue current medications; CBC tomorrow. -Discharge planning with outpatient providers and media production support manager. Next Invega Sustenna injection is due 04/07/2018. (2) Depression: - Continue Zoloft 100mg daily 03/20 -patient admits to depressed mood and appears depressed. Recommend increasing sertraline to 150 mg daily, which he declined today, for delusional reasons. Continue to encourage, and revisit tomorrow. 03/21 - Declines increase in sertraline again today, reviewed recommendation and potential benefits but remains unwilling. 03/26 -patient has repeatedly declined recommendations to increase his antidepressant. Although he reports good mood, affect is flat, but this may be a negative symptom of his schizophrenia. Inventory Assets Strengths: Has housing, access to care, case management services Needs: medications, therapy Risk Factors Assessment Male: Yes : Yes Do You Have Access To A Gun?: No Health Problems: No Mental Health Diagnoses: Yes Substance Use Disorders: Yes Previous Psychiatric Hospitalization: Yes Hopelessness: No Smoker: Yes Protective Factors Assessment Amish Beliefs: No : No Responsible for Young Children: No Employed: No Supportive Family: No Interval History Identifying Information 57 y/o CM with history of schizophrenia and depression, admitted for deterioration of his schizophrenia with poor self care and suspected in vandalism of numerous vehicles at his apartment. Chief Complaint "Very well". Review of Systems Sleep Information Total Hours of Sleep: 6.5 Sleep Comments: pt on q-15 minute checks Meal Information Percent Meal Consumed - Breakfast: 100 Percent Meal Consumed - Lunch: 100 Percent Meal Consumed - Dinner: 100 Nutrition Comment: breakfast recorded from the patient meal record Subjective Subjective Patient was seen & assessed and interval progress reviewed with Treatment Team. Staff report he has been attending groups, but with minimal participation. He is reporting good mood, is eating well, and has been calm and cooperative with treatment. He had a meeting with his outpatient nurse outreach case manager yesterday, which she was able to tolerate, although he was unable to identify why he had been refusing to meet with him earlier in his hospitalization. At times he makes incoherent statements, but overall his thinking and communication have been much more organized. On my assessment, he reports his mood is good, denies hallucinations , paranoia, suicidal thoughts, homicidal thoughts, and side effects to his medications. He states he has been sleeping well "for the past week," and reports good appetite. He is willing for discharge tomorrow, but has difficulty explaining his plans after discharge, stating "I don't know" when asked how he will spend his days. He says he often walks across the street to the grocery store, but cannot think of any other activities he would like to engage in once he returns home. Physical Exam Mental Examination Overweight white male appearing older than his stated age. Dressed in the same close he has been wearing since admission, with fair hygiene and grooming. Seated in no acute distress, with only very brief eye contact. No abnormal movements. Cooperative with the interview, but a limited historian, often giving short, vague answers. Speech is nonspontaneous, minimal, monotone. Mood is "very good," but affect is flat and incongruent. Thoughts are goal directed and appropriate in response to questions, but with paucity of thought content. He denies SI, HI, hallucinations, paranoia, and no delusions are voiced. He is alert and oriented, and insight and judgment are fair. Vital Signs (Past 24 Hours) Last Vital Signs Temp 36.9 C 03/26/18 06:49 Pulse 94 H 03/26/18 06:50 Resp 18 03/26/18 06:49 BP 131/87 03/26/18 06:50 Pulse Ox 96 02/25/18 16:00 Results & Data Current Inpatient Medications Current Inpatient Medications: Current Inpatient Medications Acetaminophen (Tylenol) 650 mg PO Q4H PRN PRN Reason: Headache or Minor Fever Stop: 03/27/18 14:16 Last Admin: 03/23/18 11:13 Dose: 650 mg Al Hydrox/Mg Hydrox/Simethicone (Maalox) 30 ml PO Q4H PRN PRN Reason: GI Upset Stop: 03/27/18 14:16 Bismuth Subsalicylate (Kaopectate) 15 ml PO PRN PRN PRN Reason: Loose Stool Stop: 03/27/18 14:16 Clozapine (Clozapine) 350 mg PO HS [facility]ANNA[facility] Stop: 04/20/18 21:59 Last Admin: 03/25/18 21:10 Dose: 350 mg Divalproex Sodium (Depakote Extended Release) 500 mg PO QAM [facility] Stop: 04/01/18 08:59 Last Admin: 03/26/18 08:08 Dose: 500 mg Divalproex Sodium (Depakote Extended Release) 1,000 mg PO HS [facility]NA[facility] Stop: 03/31/18 21:59 Last Admin: 03/25/18 21:10 Dose: 1,000 mg Hydroxyzine HCl (Vistaril) 50 mg PO HSZ PRN PRN Reason: Insomnia Stop: 03/27/18 14:16 Last Admin: 03/03/18 21:15 Dose: 50 mg Magnesium Hydroxide (Milk Of Magnesia) 30 ml PO DAILY PRN PRN Reason: Heartburn Stop: 03/27/18 14:16 Olanzapine (Zyprexa) 5 mg PO TID PRN PRN Reason: psychosis Stop: 03/29/18 08:59 Last Admin: 03/04/18 05:53 Dose: 5 mg Sertraline HCl (Zoloft) 100 mg PO QAM [facility] Stop: 03/28/18 08:59 Last Admin: 03/26/18 08:08 Dose: 100 mg Sodium Chloride ([place] Nasal) 1 - 2 sprays NA PRN PRN PRN Reason: Nasal Dryness/Congestion Stop: 03/27/18 14:16 Post Discharge Appointments Psychiatrist Name of Psychiatrist: SHY Gardner PA-C Psychiatrist's Date of Appointment with Psychiatrist: 04/01/18 Time of Appointment with Psychiatrist: 2:00pm Psychiatric Appointment Comment: SHY Murphy Therapist Name of Therapist: none Therapist's Date of Therapist Appointment: 03/19/18 Time of Therapist Appointment: 2:30pm Therapy Appointment Comment: [address], [place] [address] Re Recording Mixer Name of Re Recording Mixer: Gustabo Mabry Phone Number for Re Recording Mixer: [phone] Case Management Appointment Comment: [address] [place] [address] Contact Information Discharge Discharge Address: [facility] [address] [place] [address] CPT Code CPT Code 65642 _ (1) Depression Active/Remission status: Depression Type: unspecified Major depression episode severity: Major depression recurrence: Psychotic features: Trimester: Qualified Code(s): F32.9 - Major depressive disorder, single episode, unspecified (2) Schizophrenia Schizophrenia type: unspecified Qualified Code(s): F20.9 - Schizophrenia, unspecified
--- NOTE | 2018-03-26 15:59 | Medical Student Progress Note ---
Date of Service March 26, 2018 Physical Exam 2 Vital Signs (Past 24 Hours): Last Vital Signs Temp 36.9 C 03/26/18 06:49 Pulse 94 H 03/26/18 06:50 Resp 18 03/26/18 06:49 BP 131/87 03/26/18 06:50 Pulse Ox 96 02/25/18 16:00 Results & Data Medications Administered Acetaminophen (Tylenol) 650 mg PO Q4H PRN PRN Reason: Headache or Minor Fever Stop: 03/27/18 14:16 Last Admin: 03/23/18 11:13 Dose: 650 mg Clozapine (Clozapine) 350 mg PO [facility] Stop: 04/20/18 21:59 Last Admin: 03/25/18 21:10 Dose: 350 mg Admin: 03/24/18 21:08 Dose: 350 mg Admin: 03/23/18 21:50 Dose: 350 mg Admin: 03/22/18 21:05 Dose: 350 mg Admin: 03/21/18 21:20 Dose: 350 mg Divalproex Sodium (Depakote Extended Release) 500 mg PO [facility] Stop: 04/01/18 08:59 Last Admin: 03/26/18 08:08 Dose: 500 mg Admin: 03/25/18 08:07 Dose: 500 mg Admin: 03/24/18 07:35 Dose: 500 mg Admin: 03/23/18 08:25 Dose: 500 mg Admin: 03/22/18 08:13 Dose: 500 mg Admin: 03/21/18 08:58 Dose: 500 mg Admin: 03/20/18 07:44 Dose: 500 mg Admin: 03/19/18 08:26 Dose: 500 mg Admin: 03/18/18 07:55 Dose: 500 mg Admin: 03/17/18 07:29 Dose: 500 mg Admin: 03/16/18 08:33 Dose: 500 mg Admin: 03/15/18 08:36 Dose: 500 mg Admin: 03/14/18 08:03 Dose: 500 mg Admin: 03/13/18 07:49 Dose: 500 mg Admin: 03/12/18 08:25 Dose: 500 mg Admin: 03/11/18 07:42 Dose: 500 mg Admin: 03/10/18 08:51 Dose: 500 mg Admin: 03/09/18 09:29 Dose: 500 mg Admin: 03/08/18 07:58 Dose: 500 mg Admin: 03/07/18 07:44 Dose: 500 mg Admin: 03/06/18 08:01 Dose: 500 mg Admin: 03/05/18 07:26 Dose: 500 mg Admin: 03/04/18 07:37 Dose: 500 mg Admin: 03/03/18 07:24 Dose: 500 mg Admin: 03/02/18 07:32 Dose: 500 mg Divalproex Sodium (Depakote Extended Release) 1,000 mg PO HS [facility]ANNA[facility] Stop: 03/31/18 21:59 Last Admin: 03/25/18 21:10 Dose: 1,000 mg Admin: 03/24/18 21:07 Dose: 1,000 mg Admin: 03/23/18 21:51 Dose: 1,000 mg Admin: 03/22/18 21:05 Dose: 1,000 mg Admin: 03/21/18 21:20 Dose: 1,000 mg Admin: 03/20/18 21:47 Dose: 1,000 mg Admin: 03/19/18 21:10 Dose: 1,000 mg Admin: 03/18/18 21:17 Dose: 1,000 mg Admin: 03/17/18 21:06 Dose: 1,000 mg Admin: 03/16/18 21:14 Dose: 1,000 mg Admin: 03/15/18 21:09 Dose: 1,000 mg Admin: 03/14/18 21:32 Dose: 1,000 mg Admin: 03/13/18 21:07 Dose: 1,000 mg Admin: 03/12/18 21:21 Dose: 1,000 mg Admin: 03/11/18 21:27 Dose: 1,000 mg Admin: 03/10/18 21:28 Dose: 1,000 mg Admin: 03/09/18 21:24 Dose: 1,000 mg Admin: 03/08/18 21:03 Dose: 1,000 mg Admin: 03/07/18 22:05 Dose: 1,000 mg Admin: 03/06/18 21:42 Dose: 1,000 mg Admin: 03/05/18 21:31 Dose: 1,000 mg Admin: 03/04/18 21:13 Dose: 1,000 mg Admin: 03/03/18 21:14 Dose: 1,000 mg Admin: 03/02/18 21:31 Dose: 1,000 mg Admin: 03/01/18 21:41 Dose: 1,000 mg Hydroxyzine HCl (Vistaril) 50 mg PO HSZ PRN PRN Reason: Insomnia Stop: 03/27/18 14:16 Last Admin: 03/03/18 21:15 Dose: 50 mg Admin: 02/27/18 00:47 Dose: 50 mg Admin: 02/26/18 23:10 Dose: 50 mg Olanzapine (Zyprexa) 5 mg PO TID PRN PRN Reason: psychosis Stop: 03/29/18 08:59 Last Admin: 03/04/18 05:53 Dose: 5 mg Admin: 03/01/18 08:17 Dose: 5 mg Admin: 02/27/18 13:37 Dose: 5 mg Admin: 02/27/18 09:15 Dose: 5 mg Sertraline HCl (Zoloft) 100 mg PO QAM [facility] Stop: 03/28/18 08:59 Last Admin: 03/26/18 08:08 Dose: 100 mg Admin: 03/25/18 08:07 Dose: 100 mg Admin: 03/24/18 07:35 Dose: 100 mg Admin: 03/23/18 08:25 Dose: 100 mg Admin: 03/22/18 08:13 Dose: 100 mg Admin: 03/21/18 08:58 Dose: 100 mg Admin: 03/20/18 07:44 Dose: 100 mg Admin: 03/19/18 08:26 Dose: 100 mg Admin: 03/18/18 07:55 Dose: 100 mg Admin: 03/17/18 07:30 Dose: 100 mg Admin: 03/16/18 08:33 Dose: 100 mg Admin: 03/15/18 08:36 Dose: 100 mg Admin: 03/14/18 08:03 Dose: 100 mg Admin: 03/13/18 07:49 Dose: 100 mg Admin: 03/12/18 08:25 Dose: 100 mg Admin: 03/11/18 07:42 Dose: 100 mg Admin: 03/10/18 08:51 Dose: 100 mg Admin: 03/09/18 09:29 Dose: 100 mg Admin: 03/08/18 07:58 Dose: 100 mg Admin: 03/07/18 07:43 Dose: 100 mg Admin: 03/06/18 08:01 Dose: 100 mg Admin: 03/05/18 07:26 Dose: 100 mg Admin: 03/04/18 07:37 Dose: 100 mg Admin: 03/03/18 07:24 Dose: 100 mg Admin: 03/02/18 07:32 Dose: 100 mg Admin: 03/01/18 09:52 Dose: 100 mg Admin: 02/28/18 09:15 Dose: 100 mg Admin: 02/27/18 07:38 Dose: 100 mg Admin: 02/26/18 08:06 Dose: 100 mg
--- NOTE | 2018-03-26 16:18 | Medical Student Progress Note ---
Date of Service March 26, 2018 Assessment & Plan (1) Schizophrenia: Schizophrenia type: unspecified Qualified Code(s): F20.9 - Schizophrenia, unspecified (2) Depression: - Continue Zoloft 100mg daily 03/20 -patient admits to depressed mood and appears depressed. Recommend increasing sertraline to 150 mg daily, which he declined today, for delusional reasons. Continue to encourage, and revisit tomorrow. 03/21 - Declines increase in sertraline again today, reviewed recommendation and potential benefits but remains unwilling. 03/26 -patient has repeatedly declined recommendations to increase his antidepressant. Although he reports good mood, affect is flat, but this may be a negative symptom of his schizophrenia. Depression Type: unspecified Major depression recurrence: Active/Remission status: Major depression episode severity: Psychotic features: Trimester: Qualified Code(s): F32.9 - Major depressive disorder, single episode, unspecified Physical Exam 2 Vital Signs (Past 24 Hours): Last Vital Signs Temp 36.9 C 03/26/18 06:49 Pulse 94 H 03/26/18 06:50 Resp 18 03/26/18 06:49 BP 131/87 03/26/18 06:50 Pulse Ox 96 02/25/18 16:00 Results & Data Medications Administered Acetaminophen (Tylenol) 650 mg PO Q4H PRN PRN Reason: Headache or Minor Fever Stop: 03/27/18 14:16 Last Admin: 03/23/18 11:13 Dose: 650 mg Clozapine (Clozapine) 350 mg PO [facility] Stop: 04/20/18 21:59 Last Admin: 03/25/18 21:10 Dose: 350 mg Admin: 03/24/18 21:08 Dose: 350 mg Admin: 03/23/18 21:50 Dose: 350 mg Admin: 03/22/18 21:05 Dose: 350 mg Admin: 03/21/18 21:20 Dose: 350 mg Divalproex Sodium (Depakote Extended Release) 500 mg PO QAM [facility] Stop: 04/01/18 08:59 Last Admin: 03/26/18 08:08 Dose: 500 mg Admin: 03/25/18 08:07 Dose: 500 mg Admin: 03/24/18 07:35 Dose: 500 mg Admin: 03/23/18 08:25 Dose: 500 mg Admin: 03/22/18 08:13 Dose: 500 mg Admin: 03/21/18 08:58 Dose: 500 mg Admin: 03/20/18 07:44 Dose: 500 mg Admin: 03/19/18 08:26 Dose: 500 mg Admin: 03/18/18 07:55 Dose: 500 mg Admin: 03/17/18 07:29 Dose: 500 mg Admin: 03/16/18 08:33 Dose: 500 mg Admin: 03/15/18 08:36 Dose: 500 mg Admin: 03/14/18 08:03 Dose: 500 mg Admin: 03/13/18 07:49 Dose: 500 mg Admin: 03/12/18 08:25 Dose: 500 mg Admin: 03/11/18 07:42 Dose: 500 mg Admin: 03/10/18 08:51 Dose: 500 mg Admin: 03/09/18 09:29 Dose: 500 mg Admin: 03/08/18 07:58 Dose: 500 mg Admin: 03/07/18 07:44 Dose: 500 mg Admin: 03/06/18 08:01 Dose: 500 mg Admin: 03/05/18 07:26 Dose: 500 mg Admin: 03/04/18 07:37 Dose: 500 mg Admin: 03/03/18 07:24 Dose: 500 mg Admin: 03/02/18 07:32 Dose: 500 mg Divalproex Sodium (Depakote Extended Release) 1,000 mg PO HS [facility] Stop: 03/31/18 21:59 Last Admin: 03/25/18 21:10 Dose: 1,000 mg Admin: 03/24/18 21:07 Dose: 1,000 mg Admin: 03/23/18 21:51 Dose: 1,000 mg Admin: 03/22/18 21:05 Dose: 1,000 mg Admin: 03/21/18 21:20 Dose: 1,000 mg Admin: 03/20/18 21:47 Dose: 1,000 mg Admin: 03/19/18 21:10 Dose: 1,000 mg Admin: 03/18/18 21:17 Dose: 1,000 mg Admin: 03/17/18 21:06 Dose: 1,000 mg Admin: 03/16/18 21:14 Dose: 1,000 mg Admin: 03/15/18 21:09 Dose: 1,000 mg Admin: 03/14/18 21:32 Dose: 1,000 mg Admin: 03/13/18 21:07 Dose: 1,000 mg Admin: 03/12/18 21:21 Dose: 1,000 mg Admin: 03/11/18 21:27 Dose: 1,000 mg Admin: 03/10/18 21:28 Dose: 1,000 mg Admin: 03/09/18 21:24 Dose: 1,000 mg Admin: 03/08/18 21:03 Dose: 1,000 mg Admin: 03/07/18 22:05 Dose: 1,000 mg Admin: 03/06/18 21:42 Dose: 1,000 mg Admin: 03/05/18 21:31 Dose: 1,000 mg Admin: 03/04/18 21:13 Dose: 1,000 mg Admin: 03/03/18 21:14 Dose: 1,000 mg Admin: 03/02/18 21:31 Dose: 1,000 mg Admin: 03/01/18 21:41 Dose: 1,000 mg Hydroxyzine HCl (Vistaril) 50 mg PO HSZ PRN PRN Reason: Insomnia Stop: 03/27/18 14:16 Last Admin: 03/03/18 21:15 Dose: 50 mg Admin: 02/27/18 00:47 Dose: 50 mg Admin: 02/26/18 23:10 Dose: 50 mg Olanzapine (Zyprexa) 5 mg PO TID PRN PRN Reason: psychosis Stop: 03/29/18 08:59 Last Admin: 03/04/18 05:53 Dose: 5 mg Admin: 03/01/18 08:17 Dose: 5 mg Admin: 02/27/18 13:37 Dose: 5 mg Admin: 02/27/18 09:15 Dose: 5 mg Sertraline HCl (Zoloft) 100 mg PO QAM [facility] Stop: 03/28/18 08:59 Last Admin: 03/26/18 08:08 Dose: 100 mg Admin: 03/25/18 08:07 Dose: 100 mg Admin: 03/24/18 07:35 Dose: 100 mg Admin: 03/23/18 08:25 Dose: 100 mg Admin: 03/22/18 08:13 Dose: 100 mg Admin: 03/21/18 08:58 Dose: 100 mg Admin: 03/20/18 07:44 Dose: 100 mg Admin: 03/19/18 08:26 Dose: 100 mg Admin: 03/18/18 07:55 Dose: 100 mg Admin: 03/17/18 07:30 Dose: 100 mg Admin: 03/16/18 08:33 Dose: 100 mg Admin: 03/15/18 08:36 Dose: 100 mg Admin: 03/14/18 08:03 Dose: 100 mg Admin: 03/13/18 07:49 Dose: 100 mg Admin: 03/12/18 08:25 Dose: 100 mg Admin: 03/11/18 07:42 Dose: 100 mg Admin: 03/10/18 08:51 Dose: 100 mg Admin: 03/09/18 09:29 Dose: 100 mg Admin: 03/08/18 07:58 Dose: 100 mg Admin: 03/07/18 07:43 Dose: 100 mg Admin: 03/06/18 08:01 Dose: 100 mg Admin: 03/05/18 07:26 Dose: 100 mg Admin: 03/04/18 07:37 Dose: 100 mg Admin: 03/03/18 07:24 Dose: 100 mg Admin: 03/02/18 07:32 Dose: 100 mg Admin: 03/01/18 09:52 Dose: 100 mg Admin: 02/28/18 09:15 Dose: 100 mg Admin: 02/27/18 07:38 Dose: 100 mg Admin: 02/26/18 08:06 Dose: 100 mg
[2018-03-26] MEDS: cloZAPine 100 MG TAB PO SCH (21:31)
[2018-03-27] MEDS: SERTRALINE HCL 100 MG TABLET PO SCH (07:45)
[2018-03-27] MEDS: DIVALPROEX EXTENDED RELEASE 500 MG TAB PO SCH (07:45)
[2018-03-27 07:47] LABS: Basophils # (auto) 0.02 K/uL (0-0.2); Basophils % (auto) 0.3 %; Eosinophils # (auto) 0.24 K/uL (0-0.5); Eosinophils % (auto) 3.9 %; Hematocrit (blood only) 36.3 % (42-52); Hemoglobin 12.4 g/dL (14.0-18.0); Immature Granulocytes # (auto) 0.06 K/uL (0.00-0.02); Lymphocytes % (auto) 22.7 %; Mean Corpuscular Hgb Conc 34.2 g/dL (32-36); Mean Corpuscular Volume 88.1 fL (80-100); Mean Platelet Volume 9.4 fL (7.4-10.4); Monocytes # (auto) 0.77 K/uL (0.11-0.59); Monocytes % (auto) 12.5 %; Neutrophils # (auto) 3.67 K/uL (1.4-6.5); Neutrophils % (auto) 59.6 %; Platelet Count 134 K/uL (130-400); RDW Coefficient of Variation 13.5 % (11.5-14.5); RDW Standard Deviation 43.8 fL (36.4-46.3); Red Blood Count 4.12 M/uL (4.7-6.1); White Blood Count 6.16 K/uL (4.8-10.8)
--- NOTE | 2018-03-27 08:55 | Discharge Summary ---
Date of Service March 27, 2018 History of Present Illness 57 yo CM with history of schizophrenia and depression, admitted for deterioration of his schizophrenia with poor self care and possibly suspected in vandalism of vehicles in his living area. Patient speaks minimally but denies Si/Hi/aVH. Reports he showered and brushed his teeth yesterday and ate food today. States his assistant case manager "Dionisio" brought him to the hospital. He denies CAH, feelings of paranoia or delusional thinking. Patient is calm and does stare with gaze and flat affect. Per assistant case manager, patient has not been taking his medications nor has he been taking care of himself. It was reported his apartment was not in good condition and the assistant case manager was also informed of patient possibly being suspected of vandalizing vehicles in the area he lives. Physical Exam Psychiatric Orientation: alert and cooperative Apperance: appropriately dressed Eye Contact: good eye contact Motor Behavior: steady gait and station and no abnormal motor movements Speech: normal rate/rhythm/volume of speech (minimal) Affect: + flat affect Mood: no depressed mood and no anxious mood Thought Process: goal directed thought process Thought Content: reality based without delusions Suicidal Thoughts: denies suicidal thoughts Homicidal Thoughts: denies homicidal thoughts Hallucinations: no auditory hallucinations and no visual hallucinations Cognition: attention grossly intact and language grossly intact Estimated Intelligence: average estimated intelligence Insight: + limited insight Judgement: + limited judgement Vital Signs (Past 24 Hours) Last Vital Signs Temp 36.3 C L 03/27/18 06:43 Pulse 99 H 03/27/18 06:43 Resp 18 03/27/18 06:43 BP 126/84 03/27/18 06:43 Pulse Ox 96 02/25/18 16:00 Principal Diagnosis Paranoid schizophrenia Psychiatric Data The patient has been on our unit for 30 days. He was admitted with an exacerbation of schizophrenia after stopping his medications and was discovered to be disheveled, disorganized and in need of inpatient care. He was admitted voluntarily. For complete admission information I refer you to the attached H& P. Medications were adjusted throughout his stay. He was continued on Invega Sustenna, with next injection due on or about 04/10/18. Zyprexa was added on a scheduled basis to a dose of 5 mg TID as this seemed to stabilize his disorganization more than oral Invega did. He was continued on Depakote 500 mg AM and 1000 mg HS. Last level was 62 on 03/01/18. He was restarted on Clozapine as historically he had done well on this in the past, and was stopped by the patient due to a misunderstanding, thinking he no longer needed to take it. We have obtained weekly CBCD, per protocol, which have been WNL, with most recent CBCD this AM. Results were sent to his pharmacy in preparation fro discharge. There was some concern throughout his stay that he had delusions &/ or voices that he was no admitted to. For example, he refused to meet with his assistant case manager for most of his stay and would make random statements about him running cocaine. A meeting was eventually held with social service, the patient and his assistant case manager to discuss concerns that he would not allow his assistant case manager to participate in his treatment after discharge, which the patient denied, and had a good conversation with him during that meeting. In the early weeks of his stay he was ripping up magazines and throwing away puzzle pieces and so these things were removed from his access. By the latter weeks of his stay these behaviors stopped. he enjoyed listening to music during his free time. He consistently denied having aud/vis hallucinations and by day of discharge was in good behavioral control, and did not appear to be responding to internal stimuli. Day of Discharge Assessment Today the patient is prepared for discharge. He denies any concerns, says that he will attend his appointments, and take his medications. He denies SI/HI and aud/vis hallucinations. Today his is dressed, as he has been most days in pants and a akbar sweater. Gait and station are WNL. Eye contact is good, affect is flat. Speech in non spontaneous, but of normal rate volume and tone. Thoughts are organized and goal directed in response to questions and without overt evidence of thought disorder. Recent and remote memory are largely intact , but he has trouble remembering details such as the name of his injectable medication. Intelligence is estimated to be average. Insight and judgment are improved over admission. He will be picked up today by his assistant case manager Marcell for transport home. Transition of Care Transition Of Care Record: was reviewed with the patient Advance Directives Advance Directives Information Provided: Yes Advance Directives: No (unknown) Mental Health Advance Directive: No (unknown) Advance Directives on File: No (unknown) Living Will: No (unknown) Power of Care Administrative Tech: No (unknown) Advance Directives Reason:: Declines as Mental Health Visit. Risk Factors Assessment Male: Yes : Yes Do You Have Access To A Gun?: No Health Problems: No Mental Health Diagnoses: Yes Substance Use Disorders: Yes Previous Psychiatric Hospitalization: Yes Hopelessness: No Smoker: Yes Protective Factors Assessment Mosque Beliefs: No : No Responsible for Young Children: No Employed: No Supportive Family: No Antipsychotic Medications The patient is on 3 different antipsychotic medications. Two of these medications, Invega Sustenna and Zyprexa, are being used to augment Clozaril and monotherapy has proven to be ineffective. Total Time Total Time Spent: Greater Than 30 Minutes Total Time Includes: Examination of the patient, Discharge Planning, Medication Reconciliation and Communication with other providers Discharge Data Consultations 02/25/18 14:24 ED Decision to Admit Stat Lab Results 02/25/18 02/25/18 02/25/18 10:00 10:00 10:19 WBC 6.22 RBC 4.42 L Hgb 13.3 L Hct 39.4 L MCV 89.1 MCH 30.1 MCHC 33.8 RDW Std Deviation 44.1 RDW Coeff of Ramu 13.4 Plt Count 203 MPV 10.1 Immature Gran % (Auto) 0.2 Neut % (Auto) 69.1 Lymph % (Auto) 22.5 [place] % (Auto) 6.9 Eos % (Auto) 1.0 Baso % (Auto) 0.3 Immature Gran # (Auto) 0.01 Neut # (Auto) 4.30 Lymph # (Auto) 1.40 [place] # (Auto) 0.43 Eos # (Auto) 0.06 Baso # (Auto) 0.02 Sodium Potassium Chloride Carbon Dioxide Anion Gap BUN Creatinine Est Cr Clr Drug Dosing Est GFR ( Amer) Est GFR (Non-Af Amer) BUN/Creatinine Ratio Glucose Calcium Total Bilirubin AST ALT Alkaline Phosphatase Total Protein Albumin Globulin Albumin/Globulin Ratio Triglycerides Cholesterol LDL Cholesterol, Calc VLDL Cholesterol, Calc HDL Cholesterol Cholesterol/HDL Ratio TSH Urine Color Yellow Urine Appearance Clear Urine pH 7.0 Ur Specific Alex 1.007 Urine Protein Negative Urine Glucose (UA) Negative Urine Ketones Negative Urine Blood Negative Urine Nitrite Negative Urine Bilirubin Negative Urine Urobilinogen Negative Ur Leukocyte Esterase Negative Salicylates Urine Opiates Screen Neg Ur Methadone, Qual Neg Acetaminophen Urine Barbiturates Neg Valproic Acid Ur Phencyclidine (PCP) Neg U Amphetamin/Meth Scrn Neg MDMA (Ecstasy) Screen Neg U Benzodiazepines Scrn Neg Ur Cocaine Metabolite Neg U Marijuana (THC) Screen Neg Ethyl Alcohol mg/dL 02/25/18 02/25/18 02/25/18 10:19 10:19 10:19 WBC RBC Hgb Hct MCV MCH MCHC RDW Std Deviation RDW Coeff of Ramu Plt Count MPV Immature Gran % (Auto) Neut % (Auto) Lymph % (Auto) [place] % (Auto) Eos % (Auto) Baso % (Auto) Immature Gran # (Auto) Neut # (Auto) Lymph # (Auto) [place] # (Auto) Eos # (Auto) Baso # (Auto) Sodium 137 Potassium 4.0 Chloride 107 Carbon Dioxide 26 Anion Gap 4.0 BUN 7 Creatinine 0.77 Est Cr Clr Drug Dosing Not Reportable Est GFR ( Amer) 115.1 Est GFR (Non-Af Amer) 99.3 BUN/Creatinine Ratio 9.2 L Glucose 109 H Calcium 9.2 Total Bilirubin 0.5 AST 12 L ALT 23 Alkaline Phosphatase 80 Total Protein 6.8 Albumin 4.4 Globulin 2.4 L Albumin/Globulin Ratio 1.8 Triglycerides Cholesterol LDL Cholesterol, Calc VLDL Cholesterol, Calc HDL Cholesterol Cholesterol/HDL Ratio TSH 1.310 Urine Color Urine Appearance Urine pH Ur Specific Alex Urine Protein Urine Glucose (UA) Urine Ketones Urine Blood Urine Nitrite Urine Bilirubin Urine Urobilinogen Ur Leukocyte Esterase Salicylates 4.0 Urine Opiates Screen Ur Methadone, Qual Acetaminophen < 2 L Urine Barbiturates Valproic Acid Ur Phencyclidine (PCP) U Amphetamin/Meth Scrn MDMA (Ecstasy) Screen U Benzodiazepines Scrn Ur Cocaine Metabolite U Marijuana (THC) Screen Ethyl Alcohol mg/dL < 3.0 02/27/18 03/01/18 03/06/18 07:07 09:04 10:36 WBC 5.80 RBC 4.31 L Hgb 13.0 L Hct 38.6 L MCV 89.6 MCH 30.2 MCHC 33.7 RDW Std Deviation 43.5 RDW Coeff of Ramu 13.2 Plt Count 165 MPV 9.7 Immature Gran % (Auto) 0.0 Neut % (Auto) 61.3 Lymph % (Auto) 27.4 [place] % (Auto) 8.1 Eos % (Auto) 2.9 Baso % (Auto) 0.3 Immature Gran # (Auto) 0.00 Neut # (Auto) 3.55 Lymph # (Auto) 1.59 [place] # (Auto) 0.47 Eos # (Auto) 0.17 Baso # (Auto) 0.02 Sodium Potassium Chloride Carbon Dioxide Anion Gap BUN Creatinine Est Cr Clr Drug Dosing Est GFR ( Amer) Est GFR (Non-Af Amer) BUN/Creatinine Ratio Glucose Calcium Total Bilirubin AST ALT Alkaline Phosphatase Total Protein Albumin Globulin Albumin/Globulin Ratio Triglycerides 76 Cholesterol 121 LDL Cholesterol, Calc 65 VLDL Cholesterol, Calc 15 HDL Cholesterol 41 Cholesterol/HDL Ratio 3 TSH Urine Color Urine Appearance Urine pH Ur Specific Alex Urine Protein Urine Glucose (UA) Urine Ketones Urine Blood Urine Nitrite Urine Bilirubin Urine Urobilinogen Ur Leukocyte Esterase Salicylates Urine Opiates Screen Ur Methadone, Qual Acetaminophen Urine Barbiturates Valproic Acid 62 Ur Phencyclidine (PCP) U Amphetamin/Meth Scrn MDMA (Ecstasy) Screen U Benzodiazepines Scrn Ur Cocaine Metabolite U Marijuana (THC) Screen Ethyl Alcohol mg/dL 03/13/18 03/20/18 03/27/18 06:56 08:01 07:35 WBC 6.80 7.12 6.16 RBC 4.55 L 4.69 L 4.12 L Hgb 13.5 L 14.1 12.4 L Hct 40.1 L 41.4 L 36.3 L MCV 88.1 88.3 88.1 MCH 29.7 30.1 30.1 MCHC 33.7 34.1 34.2 RDW Std Deviation 42.2 42.9 43.8 RDW Coeff of Ramu 13.3 13.3 13.5 Plt Count 137 152 134 MPV 9.8 9.7 9.4 Immature Gran % (Auto) 0.4 1.4 1.0 Neut % (Auto) 55.2 55.4 59.6 Lymph % (Auto) 29.9 27.9 22.7 [place] % (Auto) 11.3 11.7 12.5 Eos % (Auto) 2.8 3.2 3.9 Baso % (Auto) 0.4 0.4 0.3 Immature Gran # (Auto) 0.03 H 0.10 H 0.06 H Neut # (Auto) 3.75 3.94 3.67 Lymph # (Auto) 2.03 1.99 1.40 [place] # (Auto) 0.77 H 0.83 H 0.77 H Eos # (Auto) 0.19 0.23 0.24 Baso # (Auto) 0.03 0.03 0.02 Sodium Potassium Chloride Carbon Dioxide Anion Gap BUN Creatinine Est Cr Clr Drug Dosing Est GFR ( Amer) Est GFR (Non-Af Amer) BUN/Creatinine Ratio Glucose Calcium Total Bilirubin AST ALT Alkaline Phosphatase Total Protein Albumin Globulin Albumin/Globulin Ratio Triglycerides Cholesterol LDL Cholesterol, Calc VLDL Cholesterol, Calc HDL Cholesterol Cholesterol/HDL Ratio TSH Urine Color Urine Appearance Urine pH Ur Specific Alex Urine Protein Urine Glucose (UA) Urine Ketones Urine Blood Urine Nitrite Urine Bilirubin Urine Urobilinogen Ur Leukocyte Esterase Salicylates Urine Opiates Screen Ur Methadone, Qual Acetaminophen Urine Barbiturates Valproic Acid Ur Phencyclidine (PCP) U Amphetamin/Meth Scrn MDMA (Ecstasy) Screen U Benzodiazepines Scrn Ur Cocaine Metabolite U Marijuana (THC) Screen Ethyl Alcohol mg/dL Hospital Course (1) Schizophrenia: to target ongoing psychosis.-Invega sustenna 117mg IM on 03/10/18 ( continue monthly) -Zyprexa 5mg bid prn available for acute needs -Continue Depakote ER to 500mg qam and 1000mg qhs for mood -Continue steady Clozapine titration 02/25/18: Seems to be with some blocking but denies SI/HI/aVh and denies CAH. Will start zyprexa 5mg qhs in addition to home meds. Patient this time with poor functioning and will need treatment for stabilization. 02/26/18: Patient affect fluctuates, and he remains grossly disorganized and incoherent. Is tangential and seems to be distracted. Did deny Si/HI/aVH. Will increase zyprexa to 5mg bid and continue to treat for stabilization. 02/27/18: - Continue Sustenna and Zyprexa and will add prn 5 mg TID - Start Depakote 500 mg BID to target racing thoughts and behavioral dysregulation. - Will need level in 5 days on 03/04 - Continue to coordinate with his OP providers 02/28/18: Patient with minimal improvement and required 2 prn doses of zyprexa yesterday. Will increase scheduled zyprexa to 10mg bid. Depakote change to Depakote ER to treat mood and tangential racing thoughts. The consideration of returning to clozaril at this time is on hold as issues of compliance with meds and lab draws is of concern. Depakote level in AM. 03/01/18: He continues to be grossly disorganized, tangential and RIS. He is intrusive but redirectable per nursing staff. Increased Zyprexa dose plus prn and will continue to treat for stabilization. He is not aggressive or agitated however is unable to care for himself at this time. VPA level was 62 and will increase Depakote for mood stabilization and intrusive behaviors. 03/02/18: Patient seems to be with mild improvement and is less tangential today. Seems to be able to follow basic line of questioning. Does make random comment about irrelevant things, seems to be preoccupied at times and RIS. Patient is not aggressive or agitated and redirectable per nursing staff. Denies SI/Hi/AVH. 03/03 - Continue current meds. Consider shifting bulk of APM to HS given more daytime sedation - Invite assistant case manager in to see patient to estimate closeness to baseline 03/04/18: Patient seems to be with continued slow improvement with decreased blocking, tangentiality and ability to be redirectable. He does have some intrusive behaviors however has not been agitated or aggressive. Seems to be maintaining a clean room, eating and complying with self-care. Perhaps he is nearing baseline, however will request assistance of assistant case manager. Continue current regimen at this time. 03/05/18: Patient remains without changes today and has had slow progression to improvement during admission. Will reach out to assistant case manager to assist with determining baseline functioning of patient. 03/06/18: Patient seems to be quite disorganized, tangential and with loose associations. Will need to change meds for stabilization. Will discontinue zyprexa and start clozapine. According to assistant case manager, patient is not close to his baseline and is functional when he is. QTC on 03/06/18 is 440 and last two ANC's are within normal. 03/07/18: Will increase clozapine to 25mg BID today, and discontinue olanzapine. Weekly CBC's ordered up to 03/20/18. 03/08/18: Will continue titration of clozapine and follow weekly CBC's. 03/09/18: Patient continues to be tangential, with blocking and detached from reality. Would be unable to care for himself if not treated for stabilization and will continue titration of Clozapine at this time. Increase to 75mg big for tomorrow with 50mg dose tonight. 03/10/18: Patient is tangential and disorganized at times and at times is able to answer basic questions. Does seem to RIS and with minimal improvement at this time. Will give monthly Invega today at 117mg IM today. Continue clozapine titration to 100mg bid for tomorrow. 03/11/18: Patient seemed to be with some sedation this morning and with some difficulty balancing while walking. Patient repeat vital sign completed after interview with WNL. Patient put on fall precautions and asked to remain in bed. It is possible that the increase in clozapine could be contributory and will decrease dose to 75 mg bid and keep at this dose for tolerability. 03/12/18: Patient without over sedation today and will continue Clozapine at 75mg bid for today and consider increasing tomorrow. He remains with disorganized thought, RIS and intrusiveness. 03/13/17: Patient seems to be less talkative today and continues with blocking, tangentiality and seems preoccupied. Now tolerating clozapine without sedation, abs neutrophil count today was 3.75 and will increase Clozapine to 100mg bid starting tomorrow. 03/14/18: Patient seems to be with mild improvement in blocking and less tangential today. Was able to have simple conversation without making grossly disorganized statements. Denies Si/Hi/aVH and will continue to titrate clozapine. Consider increasing to 125mg bid tomorrow if patient not having sedation side effects. 03/15 -increase clozapine to 125 mg twice daily to target ongoing psychotic symptoms. 03/16 -continue current medications and plan. 03/17 -increase clozapine to 150 mg twice daily to target ongoing psychosis. Will need second meeting with assistant case manager, as was unable to tolerate the first due to psychosis. 03/18 - Continue current meds - Meeting with Griselda Villarreal tomorrow - Continue with safety and discharge planning 03/19 - Continue current meds - Weekly CBCD - continue safety and discharge planning 03/20 - Consolidate cloazpine to HS and increase to 350mg. - CBCD reviewed: ANC normal at 3.94. - Unable to tolerate meeting with assistant case manager yesterday. Continue to work on discharge planning; mobile med management staff to visit with him today. 03/21 - Continue current medication regimen; declining increase of sertraline at this time - Continue to work on discharge planning - will require another meeting with his assistant case manager prior to discharge 03/24 - Continue current meds - Arrange for meeting with Raf assistant case manager 03/25 - Continue current meds - Meeting with assistant case manager today. 03/26 -Continue current medications; CBC tomorrow. -Discharge planning with outpatient providers and technical support associate. Next Invega Sustenna injection is due 04/07/2018. (2) Depression: - Continue Zoloft 100mg daily 03/20 -patient admits to depressed mood and appears depressed. Recommend increasing sertraline to 150 mg daily, which he declined today, for delusional reasons. Continue to encourage, and revisit tomorrow. 03/21 - Declines increase in sertraline again today, reviewed recommendation and potential benefits but remains unwilling. 03/26 -patient has repeatedly declined recommendations to increase his antidepressant. Although he reports good mood, affect is flat, but this may be a negative symptom of his schizophrenia. Post Discharge Appointments Primary Care Physician Name Of Family Doctor: Wilfredo NGUYEN [facility] Phone Number: [phone] Provider Appointment Comment: As needed Psychiatrist Name of Psychiatrist: SHY Gardner PA-C Psychiatrist's Date of Appointment with Psychiatrist: 04/01/18 Time of Appointment with Psychiatrist: 2:00pm Psychiatric Appointment Comment: SHY Murphy Therapist Name of Therapist: [email or web address] Therapist's Date of Therapist Appointment: 03/19/18 Time of Therapist Appointment: 2:30pm Therapy Appointment Comment: [address], [facility] [place] [address] Canvas Worker Name of Canvas Worker: Gustabo Mabry Phone Number for Canvas Worker: [phone] Time of Appointment with Canvas Worker: He will pick you up at discharge and take you home Case Management Appointment Comment: [id number], [place] [address] Contact Information Discharge Discharge Address: [facility] [address] [place] [address] Discharge Plan Discharge Items Patient Disposition: Home - Self-Care Reason For Visit: SCHIZOPHRENIA Discharge Diagnosis: Schizophrenia Condition: Fair Discharge Goals: Decrease discomfort and Improve disease control Activity: Resume your previous activity Non-emergency contact: Primary Care Provider and Psychiatrist Call non-emergency contact if: you have any medication questions and your symptoms worsen Diet: Regular Addtl Provider Instructions: SPECIAL CARE INSTRUCTIONS: 1. Follow through with your scheduled aftercare appointments. If unable to keep an appointment, please call to reschedule. 2. Take your medication only as prescribed. Medication should not be changed or stopped without the approval of your doctor. In the event of worsening symptoms or concerns about side effects, contact your doctor immediately. 3. Utilize new healthy coping skills, anger management skills, and stress management skills learned during your hospitalization. Journal feelings and process them with a support person. Identify stressors or situations that may result in relapse, deterioration or inappropriate behaviors and develop a plan to deal with those issues. 4. If your coping skills are ineffective and you are in crisis, contact your outpatient providers for direction. If unable to reach your providers, please call the CAN HELP LINE AT or go to the closest Emergency Room. 5. Avoid alcohol and un-prescribed drugs. 6. You have been provided with the Mental Health Advance Directives Pamphlet for your review. AFTERCARE APPOINTMENTS: * Please call your insurance company prior to your scheduled appointment to confirm your aftercare providers are covered. Take your insurance information to your appointments. WHO TO CALL AND WHEN: Medical Emergencies: For questions or emergencies related to your hospital stay, please contact the Inpatient Behavioral Health Unit at [phone]. A blacksmith hammer operator is on-call 10/09 for the Behavioral Health Unit for emergencies At any time you feel your situation is an emergency, you may also call 911 immediately. Your Doctors Instructions noted above were prepared by provider WENDY Forrest. Prescriptions: New clozapine 100 mg Tablet 350 mg PO HS Qty: 105 RF: 0 olanzapine 5 mg Tablet 5 mg PO TID Qty: 90 RF: 0 divalproex 500 mg Tablet Extended Release 24 Hr 500 mg PO QAM Qty: 30 RF: 0 divalproex 500 mg Tablet Extended Release 24 Hr 1,000 mg PO HS Qty: 60 RF: 0 paliperidone palmitate [Invega Sustenna] 117 mg/0.75 mL syringe 117 mg IM ONCE Qty: 0.75 RF: 0 Continue sertraline 100 mg tablet 100 mg PO QAM RF: 0 Discontinued paliperidone palmitate [Invega Sustenna] 156 mg/mL syringe 156 mg IM UD RF: 0 paliperidone 6 mg tablet extended release 24hr 6 mg PO QAM RF: 0 Stand-Alone Forms: [facility] Discharge Orders: Discharge Order (Routine); Ordered 03/27/18 Ordered By: Arielle Hale Admission Data Admit Date/Time: 02/25/18 14:18 Attending Provider: Lexi Carrero Admit Provider: Timothy Bermudez Primary Care Provider: PCP,NO Other Providers: Timothy Bermudez Service: Psychiatry Other Interventions: Discharge Summary Assessment (RN) Last Done: 03/27/18 09:08 PSY Interdisciplinary Discharge Planning Last Done: 03/27/18 09:04 Pending Studies at Discharge: No
== END 2018-03-27 12:30 | disposition home or self-care (01) | DRG 885 ==
LOC: ED 09:27 → SUATTDRO 14:18 → 3S 14:18

== ENCOUNTER 2023-08-09 04:47 | Inpatient (IN) ==
[2023-08-09] MEDS: SODIUM CHLORIDE 0.9% 500 ML IV ONE (05:07)
--- NOTE | 2023-08-09 05:10 | Emergency Department Note ---
Impression & Plan Breathlessness, Rhinovirus, Fall, Weakness ED Provider Note Provider: Lupillo Tirado MD DATE OF SERVICE: 08/09/2023 CHIEF COMPLAINT: Weakness, shortness of breath, fall HISTORY OF PRESENT ILLNESS: Patient is a 62-year-old gentleman past medical history of hypertension and schizophrenia presenting here today via ambulance from residence complaining of shortness of breath and weakness. Patient states of the last 2 days been feeling more weak. Tonight evidently felt weak and fell to the ground by his report. Roommate evidently tried to assist him up was unsuccessful to left him on the floor. States he was on the floor for couple of hours. Patient complaining of some shortness of breath. States he is a smoker. Again generalized weakness. Denies new numbness or tingling. Denies chest pain to me or abdominal pain. 90% on room air for EMS. No nausea or vomiting reported. PAST MEDICAL HISTORY: As noted above MEDICATIONS: Reviewed home medication list SOCIAL HISTORY: Smoker PHYSICAL EXAM: GENERAL: alert and oriented in no acute distress on stretcher fatigued in appearance Head: normocephalic and atraumatic EYES: No injection, discharge or icterus. PERRL, EOMI. NECK: Trachea midline. Supple without significant midline tenderness ENT: Mucous membranes pink and moist. Pharynx without erythema or exudate. LUNGS: Airway patent. No retractions. Breath sounds scattered expiratory wheeze HEART: Regular rate and rhythm. No chest wall tenderness ABDOMEN: Soft and non-tender, without guarding or rebound. Stable pelvis. There is a slight amount of erythema on the left lateral abdomen (question if he may have been laying on the side) SKIN: Acyanotic, warm, dry. EXTREMITIES: Without swelling, tenderness or deformity does have a little bit erythema and skin tear to the left elbow. NEUROLOGICAL: No focal deficits. No aphasia. No facial droop or slurred speech. Normal strength and tone in the extremities. Sensation to gross touch normal. Ambulatory. EK bpm sinus tachycardia with PAC. No acute ST segment elevation or depression with a left axis and incomplete right bundle branch block. QTc 470. CONTINUOUS CARDIAC MONITORING: was ordered and showed a heart rate of 100s-120s bpm in sinus tachycardia GCS 15. Patient's laboratory studies and imaging reviewed. Differential includes trauma, infection, dehydration, metabolic abnormality, hypo/hyperglycemia, electrolyte disturbance, anemia, hypoxia, PE, pneumonia, cardiac sources, intracerebral event/neurologic, as well as other pathologies. IMPRESSION/MEDICAL DECISION MAKING: Patient appears to been on the floor for at least some period of time with some erythema and started some pressure ulcers left elbow and left abdomen. Fell but denies a lot of significant pain. Will obtain CT imaging. Given his tachycardia and reported shortness of breath and borderline hypoxia will obtain a CT angiogram of the chest. Respiratory viral panel sent. Several days a week this could be infectious in nature. Will obtain blood work and blood cultures as well as lactate and procalcitonin. Some gentle IV fluid hydration ordered. Moderately hypertensive here and not hypotensive. VBG is ordered for completeness as well. Given his smoking history may chronically have a slightly lower SpO2 and possibly some component of COPD as he is slightly wheezy. DuoNeb was ordered. No evidence of facial droop and follows commands. No significant hemiplegia appreciated or new sensory deficit per the patient's report. Broad differential entertained. Question possible rhabdomyolysis and CK ordered as well as Depakote level as he is chronically on this medication appears a bit drowsy. Blood work here without significant anemia or leukocytosis. VBG without acidosis or hypercarbia. No severe electrolyte abnormality or signs of renal dysfunction. No evidence of transaminitis. CK is elevated likely some mild rhabdomyolysis receiving some gentle IV fluid hydration here. Troponin normal. Depakote therapeutic level. Respiratory viral panel positive for entero and rhinovirus likely explains his symptoms. Negative urinalysis. Left elbow x-ray without findings of fracture. Radiology reports noted. No significant trauma. Given Tylenol as temperature was near febrile. Will cover with a dose of doxycycline for any bacterial component be present given his smoking history. On reassessment is feeling a bit better in respect to his breathing but still generally weak. Given his significant weakness and the fact that he is so weak that he fell the hospitalist will be consulted. DIAGNOSIS: Fall, shortness of breath, weakness, entero-/rhinovirus DISPOSITION: Hospitalist will evaluate Patient was agreeable with this plan. Past Med/Surg History Problem List (Updated 08/09/23 @ 06:27 by Lupillo Tirado M.D.) Weakness (Acute) Fall (Acute) Rhinovirus (Acute) Breathlessness (Acute) Mood disorder (Acute) Schizophrenia Hypertension Diabetes (Chronic) Surgical History History of inguinal hernia repair Hx of wisdom tooth extraction Family History Mother Breast cancer Hyperthyroidism Hypertension Father Myocardial infarction Brother Hepatitis Brother No problems noted. Denies family history of Colon cancer Ovarian cancer Prostate cancer Social History Smoking Status: Current every day smoker Tobacco Type: Cigarettes Age Started Using Tobacco: 17; packs per day: 1; Cigarettes Per Day: 20; Second Hand Exposure: Yes; Do You Dip or Chew Tobacco: No; Tobacco Cessation Education Requested by Patient: No Hx Alcohol Use: No Hx Substance Use: No Preferred Language: Kiswahili Communication Ability: Effective Visual Impairment: No Limitations Hearing Ability: Normal Respiratory Care Technician Required: No Beliefs That Will Affect Care: None marital status: Single Current Living Situation: Alone current occupational status: disabled Other Information That Helps Us Care for You: No Feels Safe at Home: Yes Safety Concerns: Feels Safe At This Time Childhood Exposure to Second-Hand Smoke: Yes Diet: regular Dental Care, Regularly: No Physical Activity Frequency: Does not Exercise Seatbelt Use: always Sunscreen Use: No Assistive Devices: None Allergies Allergies Allergy/AdvReac Type Severity Reaction Status Date / Time No Known Allergies Allergy Unverified 08/04/21 10:32 Home Meds Home Medications Medication Instructions Recorded Confirmed sertraline 100 mg tablet 100 mg PO QAM 02/25/18 08/09/23 lisinopril 10 mg tablet 10 mg PO UD 08/09/23 08/09/23 paliperidone palmitate 117 mg/0.75 156 mg IM ONCE 08/09/23 08/09/23 mL intramuscular syringe (Invega Sustenna) Previous Rx's Medication Instructions Recorded clozapine 100 mg tablet 350 mg (3.5 x 100 mg) PO HS #105 05/23/20 tabs divalproex 500 mg tablet,extended 1,000 mg (2 x 500 mg) PO HS #60 05/23/20 release 24 hr tabs divalproex 500 mg tablet,extended 500 mg PO QAM #30 tabs 05/23/20 release 24 hr Results & Data (ED) Vital Signs Vital Signs - 24 hr 08/09/23 04:58 08/09/23 04:58 08/09/23 05:05 Temperature 37.8 C H Temperature Source Oral Pulse Rate 118 H 120 H Pulse Rate [Apical] 120 H Respiratory Rate 22 20 Respiratory Effort / Characteristics Non-Labored Spontaneous Non-Labored Spontaneous Respiratory Depth Normal Normal Respiratory Pattern Regular Regular Blood Pressure 159/98 H Blood Pressure [Right Arm] Blood Pressure Mean 118 Blood Pressure Mean [Right Arm] Blood Pressure Position Lying Blood Pressure Position [Right Arm] Lying Pulse Oximetry 92 92 Oxygen Delivery Method Room Air Room Air Oxygen Flow Rate Sepsis Recent Fever Within 48 Hours Yes Sepsis New/Unexplained Change in Mental Status Yes Sepsis Action Taken by Nursing Physician Notified 08/09/23 05:13 08/09/23 06:28 Temperature Temperature Source Pulse Rate Pulse Rate [Apical] 106 H Respiratory Rate 22 Respiratory Effort / Characteristics Non-Labored Spontaneous Respiratory Depth Normal Respiratory Pattern Regular Blood Pressure Blood Pressure [Right Arm] 157/110 H Blood Pressure Mean Blood Pressure Mean [Right Arm] 125 Blood Pressure Position Blood Pressure Position [Right Arm] Semi-fowlers Pulse Oximetry 92 94 Oxygen Delivery Method Room Air Nasal Cannula Oxygen Flow Rate 2 Sepsis Recent Fever Within 48 Hours Sepsis New/Unexplained Change in Mental Status Sepsis Action Taken by Nursing Laboratory Data 08/09/23 05:00 08/09/23 05:00 Lab Results 08/09/23 08/09/23 08/09/23 Range/Units 05:00 05:11 05:26 WBC 5.39 (4.8-10.8) K/ul RBC 4.56 L (4.70-6.10) M/uL Hgb 13.5 L (14.0-18.0) g/dl POC Hgb 12.2 L (14.0-18.0) g/dl Hct 38.7 L (42.0-52.0) % POC Hct 36 L (42-52) % MCV 84.9 (80.0-100.0) fL MCH 29.6 (25.0-34.0) pg MCHC 34.9 (32.0-36.0) g/dL RDW Std Deviation 41.3 (36.4-46.3) fL RDW Coeff of Ramu 13.3 (11.5-14.5) % Plt Count 149 (130-400) K/uL MPV 8.6 L (9.4-12.4) fL Immature Gran % (Auto) 0.7 % Neut % (Auto) 72.1 % Lymph % (Auto) 8.0 % [place] % (Auto) 18.6 % Eos % (Auto) 0.2 % Baso % (Auto) 0.4 % Neut # (Auto) 3.89 (1.40-6.50) K/uL Lymph # (Auto) 0.43 L (1.20-3.40) K/uL [place] # (Auto) 1.00 H (0.11-0.59) K/uL Eos # (Auto) 0.01 (0.00-0.50) K/uL Baso # (Auto) 0.02 (0.00-0.20) K/uL Immature Gran # (Auto) 0.04 (0.01-0.20) K/uL PT 10.4 (9.0-12.0) Seconds INR 1.0 (0.9-1.1) VBG pH 7.42 H (7.36-7.41) VBG pCO2 40 (38-50) mmHg VBG pO2 54 mmHg VBG HCO3 26 mmol/L VBG O2 Saturation 89.2 % VBG Base Excess 1.3 mEq/L POC Sodium 137 (135-144) mmol/L Sodium 137 (136-145) mmol/L POC Potassium 4.0 (3.3-5.0) mmol/L Potassium 4.0 (3.5-5.1) mmol/L POC Chloride 102 (101-112) mmol/L Chloride 103 (98-107) mmol/L Carbon Dioxide 26 (21-32) mmol/L POC Total CO2 25 (24-31) mmol/L Anion Gap 8 (3-11) POC Anion Gap 15.0 L (16-25) mmol/L POC BUN 9 (7-18) mg/dl BUN 11 (6-23) mg/dl Creatinine 0.68 (0.6-1.4) mg/dl POC Creatinine 0.6 (0.6-1.3) mg/dl Est Cr Clr Drug Dosing 144.7 ml/min Est GFR ( Amer) 117.0 ml/min Est GFR (Non-Af Amer) 100.9 ml/min BUN/Creatinine Ratio 16.2 (10-20) Glucose 164 H (70-99(Fasting)) mg/dl POC Glucose (other) 156 H (70-99) mg/dl Lactate 1.6 (0.4-2.0) mmol/L Calcium 9.7 (8.6-10.3) mg/dl POC Ioniz Calcium Stephen 1.24 (1.12-1.32) mmol/l Magnesium 1.9 (1.7-2.4) mg/dl Total Bilirubin 0.4 (0.2-1.0) mg/dl AST 28 (13-39) U/L ALT 26 (7-52) U/L Alkaline Phosphatase 64 (34-104) U/L Total Creatine Kinase 785 H (30-223) U/L Troponin I High Sens 10.1 (0-20) pg/ml Total Protein 6.4 (6.0-8.3) gm/dl Albumin 4.3 (3.4-5.0) gm/dl Globulin 2.1 L (2.5-4.0) gm/dl Albumin/Globulin Ratio 2.0 (0.9-2) Procalcitonin < 0.02 (0-0.5) ng/ml TSH 4.237 (0.300-4.500) uIu/ml Urine Color Dark Yellow Urine Appearance Clear (Clear) Urine pH 6.5 (4.5-7.5) Ur Specific [place] 1.027 (1.000-1.030) Urine Protein 1+ H (Negative) Urine Glucose (UA) Negative (Negative) Urine Ketones Trace H (Negative) Urine Blood Negative (Negative) Urine Nitrite Negative (Negative) Urine Bilirubin Negative (Negative) Urine Urobilinogen Negative (Negative) Ur Leukocyte Esterase Negative (Negative) Urine WBC (Auto) 0-5 (0-5) /hpf Urine RBC (Auto) 11-20 H (0-2) /hpf U Hyaline Cast (Auto) 0-2 (0-2) /lpf U Epithel Cells (Auto) 0-2 (0-2) /hpf Urine Bacteria (Auto) None Seen (None Seen) Valproic Acid 79 (50-100) mcg/ml Adenovirus (PCR) Not Detected (NotDetected) B. pertussis DNA (PCR) Not Detected (NotDetected) B.parapertussis DNA PCR Not Detected (NotDetected) C. pneumoniae DNA (PCR) Not Detected (NotDetected) Coronavirus OC43 (PCR) Not Detected (NotDetected) Coronavirus HKU1 (PCR) Not Detected (NotDetected) Coronavirus 229E (PCR) Not Detected (NotDetected) SARS-CoV-2 (PCR) Not Detected (NotDetected) Coronavirus NL63 (PCR) Not Detected (NotDetected) Human Metapneumovir PCR Not Detected (NotDetected) Influenza Type A (PCR) Not Detected (NotDetected) Influenza Type B (PCR) Not Detected (NotDetected) M. pneumoniae (PCR) Not Detected (NotDetected) Parainfluenza 1 (PCR) Not Detected (NotDetected) Parainfluenza 2 (PCR) Not Detected (NotDetected) Parainfluenza 3 (PCR) Not Detected (NotDetected) Parainfluenza 4 (PCR) Not Detected (NotDetected) RSV (PCR) Not Detected (NotDetected) Entero/Rhino (PCR) DETECTED A (NotDetected) Administered Medications Albuterol (Albut/Ipratrop 3mg/0.5mg Neb 3 Ml Vial) 3 ml NEB QIDR [facility]; Protocol Stop: 09/08/23 10:59 Last Admin: 08/09/23 11:02 Dose: 3 ml Documented By: MART Divalproex Sodium (Divalproex Extended Release 500 Mg Tab) 500 mg PO QAM [facility] Stop: 09/08/23 10:44 Last Admin: 08/09/23 11:33 Dose: 500 mg Documented By: ISAC Enoxaparin Sodium (Enoxaparin Inj 40 Mg/0.4 Ml Syr) 40 mg SQ Q24H [facility] Stop: 09/08/23 10:59 Last Admin: 08/09/23 11:35 Dose: 40 mg Documented By: JOELLEM Azithromycin 500 mg/ Dextrose 255 mls @ 125 mls/hr IV Q24H [facility] Stop: 08/16/23 10:59 Last Admin: 08/09/23 11:28 Dose: 125 mls/hr Documented By: AVM Ceftriaxone Sodium (Rocephin) 2,000 mg in 50 mls @ 100 mls/hr IV Q24H [facility] Stop: 08/16/23 10:59 Last Infusion: 08/09/23 13:23 Dose: Infused Documented By: Admin: 08/09/23 11:57 Dose: 100 mls/hr Documented By: ISAC Methylprednisolone 40 mg/ (Syringe) 0.64 mls @ 1.5 mls/min IV BID [facility] Stop: 09/08/23 10:59 Last Admin: 08/09/23 11:57 Dose: 1.5 mls/min Documented By: ISAC Lisinopril (Lisinopril 10 Mg Tab) 10 mg PO DAILY [facility] Stop: 09/08/23 10:44 Last Admin: 08/09/23 11:33 Dose: 10 mg Documented By: ISAC Nicotine (Nicotine 21 Mg/24 Hr Tdsy) [facility] Stop: 09/08/23 10:44 Last Admin: 08/09/23 11:26 Dose: 1 patch Documented By: ISAC Sertraline HCl (Sertraline Hcl 100 Mg Tablet) [facility] Stop: 09/08/23 10:44 Last Admin: 08/09/23 11:32 Dose: 100 mg Documented By: ISAC Discontinued Medications Acetaminophen (Acetaminophen 500 Mg Tab) 1,000 mg PO NOW STA Stop: 08/09/23 07:23 Last Admin: 08/09/23 08:06 Dose: 1,000 mg Documented By: ISAC Albuterol (Albut/Ipratrop 3mg/0.5mg Neb 3 Ml Vial) 3 ml NEB NOW STA; Protocol Stop: 08/09/23 04:59 Last Admin: 08/09/23 05:16 Dose: 3 ml Documented By: ANURADHA Doxycycline Hyclate (Doxycycline Hyclate 100 Mg Cap) 100 mg PO NOW STA Stop: 08/09/23 07:42 Last Admin: 08/09/23 08:06 Dose: 100 mg Documented By: ISAC Sodium Chloride (Nss) 500 mls @ 999 mls/hr IV .Q31M ONE Stop: 08/09/23 05:28 Last Infusion: 08/09/23 05:38 Dose: Infused Documented By: Admin: 08/09/23 05:07 Dose: 999 mls/hr Documented By: ANURADHA Lactated Ringer's (Lr) 500 mls @ 999 mls/hr IV .Q31M ONE Stop: 08/09/23 07:52 Last Infusion: 08/09/23 08:50 Dose: Infused Documented By: Admin: 08/09/23 08:06 Dose: 999 mls/hr Documented By: ISAC Ioversol (Optiray 320 125ml) 118 ml IV ONCE ONE Stop: 08/09/23 05:51 Last Admin: 08/09/23 05:50 Dose: 118 ml Documented By: MARQUEZ Methylprednisolone (Methylprednisolone 125 Mg/2 Ml Vial) 60 mg IV NOW STA Stop: 08/09/23 07:51 Last Admin: 08/09/23 08:05 Dose: 60 mg Documented By: ISAC Ondansetron HCl (Ondansetron Inj 2 Mg/Ml 2 Ml Vial) 4 mg IV NOW STA Stop: 08/09/23 07:51 Last Admin: 08/09/23 08:02 Dose: 4 mg Documented By: ISAC Imaging Data Radiologist's Impression: Abdomen/Pelvis CT 08/09/23 04:58 Exam(s): CT ABDOMEN + PELVIS With Contrast IV Amt: 118 ml opti 320 EXAM: CT Abdomen and Pelvis With Intravenous Contrast CLINICAL HISTORY: Reason for exam: fall sob. TECHNIQUE: Axial computed tomography images of the abdomen and pelvis with intravenous contrast. Automated exposure control was utilized for the study. A dose lowering technique was utilized adhering to the principles of ALARA. CONTRAST: Patient received 118 ml opti 320 of IV contrast COMPARISON: No relevant prior studies available. FINDINGS: Lung bases: Unremarkable. No mass. No consolidation. ABDOMEN: Liver: Hepatic steatosis. Gallbladder and bile ducts: Unremarkable. No calcified stones. No ductal dilation. Pancreas: Unremarkable. No mass. No ductal dilation. Spleen: Unremarkable. No splenomegaly. Adrenals: Unremarkable. No mass. Kidneys and ureters: Mild perinephric stranding, nonspecific. Nonobstructing small bilateral renal calculi. Stomach and bowel: Unremarkable. No obstruction. No mucosal thickening. PELVIS: Appendix: Normal appendix. Bladder: Unremarkable. No mass. Reproductive: Mildly enlarged prostate. ABDOMEN and PELVIS: Intraperitoneal space: Unremarkable. No free air. No significant fluid collection. Bones/joints: Degenerative changes of the spine. No acute fracture. No dislocation. Soft tissues: Unremarkable. Vasculature: Unremarkable. No abdominal aortic aneurysm. Lymph nodes: Unremarkable. No enlarged lymph nodes. IMPRESSION: No acute findings in the abdomen or pelvis. Electronically signed by: Roger Guardado M.D. 08/09/23 07:[address] 08/09/23 04:58 Exam(s): CT C SPINE EXAM: CT Cervical Spine Without Intravenous Contrast CLINICAL HISTORY: Reason for exam: fall. TECHNIQUE: Axial computed tomography images of the cervical spine without intravenous contrast. Automated exposure control was utilized for the study. A dose lowering technique was utilized adhering to the principles of ALARA. COMPARISON: CT Cervical Spine dated 02/14/2022 FINDINGS: Vertebrae: See below. Discs/spinal canal/neural foramina: Multilevel degenerative changes similar to the prior with prominent anterior osteophytes, degenerative disc changes and marked facet arthropathy. No severe canal stenosis. Varying degrees of mild to moderate central canal and foraminal stenoses. Soft tissues: Unremarkable. IMPRESSION: No acute findings in the cervical spine. Electronically signed by: Roger Guardado M.D. 08/09/23 07:11 AM Chest CTA 08/09/23 04:58 Exam(s): CTA CHEST IV Amt: 118 ml opti 320 EXAM: CT Angiography Chest With Intravenous Contrast CLINICAL HISTORY: Shortness of breath. TECHNIQUE: Axial computed tomographic angiography images of the chest with intravenous contrast. MIPS images were created and reviewed. CTDI is 27 mGy and DLP is 1503 mGy-cm. Automated exposure control was utilized for the study. A dose lowering technique was utilized adhering to the principles of ALARA. MIP reconstructed images were created and reviewed. COMPARISON: No relevant prior studies available. FINDINGS: Pulmonary arteries: No pulmonary embolus. Aorta: No acute findings. No thoracic aortic aneurysm. Lungs: There is atelectasis of the left lower lobe and lingula. No consolidation. Pleural space: Unremarkable. No significant effusion. No pneumothorax. Heart: A pericardial effusion measures up to 9 mm. Coronary artery calcifications are present. No cardiomegaly. No evidence of RV dysfunction. Bones/joints: There are degenerative changes of the spine. No acute fracture. No dislocation. Soft tissues: Unremarkable. Lymph nodes: Unremarkable. No enlarged lymph nodes. Liver: Mildly nodular contour of the liver is concerning for possible cirrhosis. Underlying fatty infiltration is noted. Clinical correlation is recommended. IMPRESSION: 1. No pulmonary embolus. 2. A pericardial effusion measures up to 9 mm. 3. Mildly nodular contour of the liver is concerning for possible cirrhosis. Underlying fatty infiltration is noted. Clinical correlation is recommended. Electronically signed by: Marquita Garcia MD 08/09/23 08:47 AM Elbow X-Ray 08/09/23 04:58 XR elbow LT min 3V routine HISTORY: 62 years-old Male fall acute left elbow pain status post fall COMPARISON: None TECHNIQUE: 3 views of the left elbow FINDINGS: Mild dorsal soft tissue swelling. Mild osteoarthritis. No acute fracture, dislocation or opaque foreign body. IMPRESSION: No acute fracture or dislocation. ACT 112: Negative or not required by law. The above report was generated using voice recognition software. It may contain grammatical, syntax or spelling errors. Electronically signed by: Colt Johnson M.D. 08/09/2023 6:[address] 08/09/23 04:58 Exam(s): CT HEAD Without Contrast EXAM: CT Head Without Intravenous Contrast CLINICAL HISTORY: Reason for exam: fall, weak. TECHNIQUE: Axial computed tomography images of the head/brain without intravenous contrast. Automated exposure control was utilized for the study. A dose lowering technique was utilized adhering to the principles of ALARA. COMPARISON: CT Head dated 02/14/2022 FINDINGS: Artifacts: Mild motion artifact. Brain: Volume loss with prominent ventricles and sulci. Periventricular white matter hypoattenuation likely reflects chronic small vessel disease. No hemorrhage. Ventricles: See above. Bones/joints: Unremarkable. No acute fracture. Soft tissues: Unremarkable. Sinuses: Bilateral maxillary sinus mucous retention cysts or polyps. Mastoid air cells: Unremarkable as visualized. No mastoid effusion. IMPRESSION: No acute findings in the head/brain. Electronically signed by: Roger Guardado M.D. 08/09/23 07:17 AM Discharge Plan Visit Data Chief Complaint: Illness Stated Complaint: SOB, HIGH BLOOD PRESSURE ED Provider: Lupillo Tirado Discharge Problem: Breathlessness, Rhinovirus, Fall, Weakness Patient Disposition: Admitted As Inpatient Discharge Instructions Interventions: ED Discharge Assessment Last Done: 08/09/23 12:24
[2023-08-09 05:16] LABS: Base Excess VBG 1.3 mEq/L; HCO3 VBG 26 mmol/L; Oxygen Saturation VBG 89.2 %; PCO2 VBG 40 mmHg (38-50); PO2 VBG 54 mmHg; pH VBG 7.42 (7.36-7.41)
[2023-08-09] MEDS: ALBUT/IPRATROP 3MG/0.5MG NEB 3 ML VIAL NEB STA (05:16)
[2023-08-09 05:24] LABS: Basophils # (auto) 0.02 K/uL (0.00-0.20); Basophils % (auto) 0.4 %; Eosinophils # (auto) 0.01 K/uL (0.00-0.50); Eosinophils % (auto) 0.2 %; Hematocrit (blood only) 38.7 % (42.0-52.0); Hemoglobin 13.5 g/dl (14.0-18.0); Immature Granulocytes # (auto) 0.04 K/uL (0.01-0.20); Immature Granulocytes % (auto) 0.7 %; Lymphocytes # (auto) 0.43 K/uL (1.20-3.40); Mean Corpuscular Hemoglobin 29.6 pg (25.0-34.0); Mean Corpuscular Hgb Conc 34.9 g/dL (32.0-36.0); Mean Corpuscular Volume 84.9 fL (80.0-100.0); Mean Platelet Volume 8.6 fL (9.4-12.4); Monocytes % (auto) 18.6 %; Neutrophils # (auto) 3.89 K/uL (1.40-6.50); Neutrophils % (auto) 72.1 %; Platelet Count 149 K/uL (130-400); RDW Coefficient of Variation 13.3 % (11.5-14.5); RDW Standard Deviation 41.3 fL (36.4-46.3); Red Blood Count 4.56 M/uL (4.70-6.10); White Blood Count 5.39 K/ul (4.8-10.8)
[2023-08-09 05:25] LABS: iSTAT Creatinine 0.6 mg/dl (0.6-1.3); iSTAT Hemoglobin 12.2 g/dl (14.0-18.0); iSTAT Ionized Calcium 1.24 mmol/l (1.12-1.32)
[2023-08-09 05:37] LABS: Albumin Level 4.3 gm/dl (3.4-5.0); BUN Creatinine Ratio 16.2 (10-20); Bilirubin,Total 0.4 mg/dl (0.2-1.0); Calcium 9.7 mg/dl (8.6-10.3); Creatinine Clr Calc Pharmacy 144.7 ml/min; Est GFR (Non-African American) 100.9 ml/min; Globulin 2.1 gm/dl (2.5-4.0); Magnesium 1.9 mg/dl (1.7-2.4); Total Protein 6.4 gm/dl (6.0-8.3)
[2023-08-09 05:42] LABS: Troponin I High Sensitivity 10.1 pg/ml (0-20)
[2023-08-09 05:50] LABS: Prothrombin Time 10.4 Seconds (9.0-12.0)
[2023-08-09] MEDS: OPTIRAY 320 125ml IV ONE (05:50)
[2023-08-09 05:51] LABS: Thyroid Stimulating Hormone 4.237 uIu/ml (0.300-4.500)
[2023-08-09 06:13] LABS: Adenovirus PCR Not Detected (NotDetected); Bordetella parapertussis PCR Not Detected (NotDetected); Bordetella pertussis PCR Not Detected (NotDetected); Chlamydia pneumoniae PCR Not Detected (NotDetected); Coronavirus 229E PCR Not Detected (NotDetected); Coronavirus CoV-2 (COVID19)PCR Not Detected (NotDetected); Coronavirus HKU1 PCR Not Detected (NotDetected); Coronavirus NL63 PCR Not Detected (NotDetected); Coronavirus OC43PCR Not Detected (NotDetected); Human Metapneumovirus PCR Not Detected (NotDetected); Influenza A PCR Not Detected (NotDetected); Influenza B PCR Not Detected (NotDetected); Mycoplasma pneumoniae PCR Not Detected (NotDetected); Parainfluenza Virus 1 PCR Not Detected (NotDetected); Parainfluenza Virus 2 PCR Not Detected (NotDetected); Parainfluenza Virus 3 PCR Not Detected (NotDetected); Parainfluenza Virus 4 PCR Not Detected (NotDetected); Respiratory Syncytial VirusPCR Not Detected (NotDetected)
[2023-08-09 06:23] LABS: Rhinovirus/Enterovirus PCR DETECTED (NotDetected)
[2023-08-09 06:25] LABS: Appearance Urine Clear (Clear); Bacteria Urine Automated None Seen (None Seen); Bilirubin Urine Negative (Negative); Blood Urine Negative (Negative); Cast Urine Automated 0-2 /lpf (0-2); Color Urine Dark Yellow; Epithelial Cell Urine Auto 0-2 /hpf (0-2); Glucose Urine UA Negative (Negative); Ketones Urine Trace (Negative); Leukocyte Esterase Urine Negative (Negative); Nitrite Urine Negative (Negative); Protein Urine 1+ (Negative); Specific Gravity Urine 1.027 (1.000-1.030); Urobilinogen Urine Negative (Negative); WBC Urine Automated 0-5 /hpf (0-5); pH Urine 6.5 (4.5-7.5)
--- NOTE | 2023-08-09 06:50 | XRay Report ---
XR elbow LT min 3V routine HISTORY: 62 years-old Male fall acute left elbow pain status post fall COMPARISON: None TECHNIQUE: 3 views of the left elbow FINDINGS: Mild dorsal soft tissue swelling. Mild osteoarthritis. No acute fracture, dislocation or opaque forei gn body. IMPRESSION: No acute fracture or dislocation. ACT 112: Negative or not required by law. The above report was generated using voice recognition software. It may contain grammatical, syntax o r spelling errors. Electronically signed by: Colt Johnson M.D. 08/09/2023 6:48 AM
--- NOTE | 2023-08-09 07:12 | CT Scan Report ---
Exam(s): CT C SPINE EXAM: CT Cervical Spine Without Intravenous Contrast CLINICAL HISTORY: Reason for exam: fall. TECHNIQUE: Axial computed tomography images of the cervical spine without intravenous contrast. Automated exposure control was utilized for the study. A dose lowering technique was utilized adhering to the principles of ALARA. COMPARISON: CT Cervical Spine dated 02/14/2022 FINDINGS: Vertebrae: See below. Discs/spinal canal/neural foramina: Multilevel degenerative changes similar to the prior with prominent anterior osteophytes, degenerative disc changes and marked facet arthropathy. No severe canal stenosis. Varying degrees of mild to moderate central canal and foraminal stenoses. Soft tissues: Unremarkable. IMPRESSION: No acute findings in the cervical spine. Electronically signed by: Roger Guardado M.D. 08/09/23 07:11 AM
--- NOTE | 2023-08-09 07:18 | CT Scan Report ---
Exam(s): CT HEAD Without Contrast EXAM: CT Head Without Intravenous Contrast CLINICAL HISTORY: Reason for exam: fall, weak. TECHNIQUE: Axial computed tomography images of the head/brain without intravenous contrast. Automated exposure control was utilized for the study. A dose lowering technique was utilized adhering to the principles of ALARA. COMPARISON: CT Head dated 02/14/2022 FINDINGS: Artifacts: Mild motion artifact. Brain: Volume loss with prominent ventricles and sulci. Periventricular white matter hypoattenuation likely reflects chronic small vessel disease. No hemorrhage. Ventricles: See above. Bones/joints: Unremarkable. No acute fracture. Soft tissues: Unremarkable. Sinuses: Bilateral maxillary sinus mucous retention cysts or polyps. Mastoid air cells: Unremarkable as visualized. No mastoid effusion. IMPRESSION: No acute findings in the head/brain. Electronically signed by: Roger Guardado M.D. 08/09/23 07:17 AM
--- NOTE | 2023-08-09 07:30 | CT Scan Report ---
Exam(s): CT ABDOMEN + PELVIS With Contrast IV Amt: 118 ml opti 320 EXAM: CT Abdomen and Pelvis With Intravenous Contrast CLINICAL HISTORY: Reason for exam: fall sob. TECHNIQUE: Axial computed tomography images of the abdomen and pelvis with intravenous contrast. Automated exposure control was utilized for the study. A dose lowering technique was utilized adhering to the principles of ALARA. CONTRAST: Patient received 118 ml opti 320 of IV contrast COMPARISON: No relevant prior studies available. FINDINGS: Lung bases: Unremarkable. No mass. No consolidation. ABDOMEN: Liver: Hepatic steatosis. Gallbladder and bile ducts: Unremarkable. No calcified stones. No ductal dilation. Pancreas: Unremarkable. No mass. No ductal dilation. Spleen: Unremarkable. No splenomegaly. Adrenals: Unremarkable. No mass. Kidneys and ureters: Mild perinephric stranding, nonspecific. Nonobstructing small bilateral renal calculi. Stomach and bowel: Unremarkable. No obstruction. No mucosal thickening. PELVIS: Appendix: Normal appendix. Bladder: Unremarkable. No mass. Reproductive: Mildly enlarged prostate. ABDOMEN and PELVIS: Intraperitoneal space: Unremarkable. No free air. No significant fluid collection. Bones/joints: Degenerative changes of the spine. No acute fracture. No dislocation. Soft tissues: Unremarkable. Vasculature: Unremarkable. No abdominal aortic aneurysm. Lymph nodes: Unremarkable. No enlarged lymph nodes. IMPRESSION: No acute findings in the abdomen or pelvis. Electronically signed by: Roger Guardado M.D. 08/09/23 07:29 AM
[2023-08-09] MEDS: ONDANSETRON INJ 2 MG/ML 2 ML VIAL IV STA (08:02)
[2023-08-09] MEDS: methylPREDNISolone 125 MG/2 ML VIAL IV STA (08:05)
[2023-08-09] MEDS: DOXYCYCLINE HYCLATE 100 MG CAP PO STA (08:06)
[2023-08-09] MEDS: ACETAMINOPHEN 500 MG TAB PO STA (08:06)
[2023-08-09] MEDS: LACTATED RINGER'S 500 ML IV ONE (08:06)
--- NOTE | 2023-08-09 08:48 | CT Scan Report ---
Exam(s): CTA CHEST IV Amt: 118 ml opti 320 EXAM: CT Angiography Chest With Intravenous Contrast CLINICAL HISTORY: Shortness of breath. TECHNIQUE: Axial computed tomographic angiography images of the chest with intravenous contrast. MIPS images were created and reviewed. CTDI is 27 mGy and DLP is 1503 mGy-cm. Automated exposure control was utilized for the study. A dose lowering technique was utilized adhering to the principles of ALARA. MIP reconstructed images were created and reviewed. COMPARISON: No relevant prior studies available. FINDINGS: Pulmonary arteries: No pulmonary embolus. Aorta: No acute findings. No thoracic aortic aneurysm. Lungs: There is atelectasis of the left lower lobe and lingula. No consolidation. Pleural space: Unremarkable. No significant effusion. No pneumothorax. Heart: A pericardial effusion measures up to 9 mm. Coronary artery calcifications are present. No cardiomegaly. No evidence of RV dysfunction. Bones/joints: There are degenerative changes of the spine. No acute fracture. No dislocation. Soft tissues: Unremarkable. Lymph nodes: Unremarkable. No enlarged lymph nodes. Liver: Mildly nodular contour of the liver is concerning for possible cirrhosis. Underlying fatty infiltration is noted. Clinical correlation is recommended. IMPRESSION: 1. No pulmonary embolus. 2. A pericardial effusion measures up to 9 mm. 3. Mildly nodular contour of the liver is concerning for possible cirrhosis. Underlying fatty infiltration is noted. Clinical correlation is recommended. Electronically signed by: Marquita Garcia MD 08/09/23 08:47 AM
[2023-08-09] MEDS ORDERED: ALUMINUM/MAGNESIUM SUSP 30 ML UDC PO PRN (10:28)
[2023-08-09] MEDS ORDERED: MAGNESIUM HYDROXIDE SUSP 30 ML UDC PO PRN (10:28)
[2023-08-09] MEDS ORDERED: POLYETHYLENE (MIRALAX) 17 GM PACK PO PRN (10:28)
[2023-08-09] MEDS ORDERED: ONDANSETRON INJ 2 MG/ML 2 ML VIAL IV PRN (10:28)
[2023-08-09] MEDS ORDERED: methylPREDNISolone 1000 MG/16 ML IV SCH (10:28)
[2023-08-09] MEDS: ALBUT/IPRATROP 3MG/0.5MG NEB 3 ML VIAL NEB SCH (11:02)
--- NOTE | 2023-08-09 11:04 | Electrocardiogram Report ---
Test Reason : Blood Pressure : / mmHG Vent. Rate : 118 BPM Atrial Rate : 118 BPM P-R Int : 158 ms QRS Dur : 094 ms QT Int : 336 ms P-R-T Axes : 075 -38 057 degrees QTc Int : 470 ms Sinus tachycardia with Premature atrial complexes Left axis deviation Incomplete right bundle branch block Nonspecific T wave abnormality Abnormal ECG When compared with ECG of 06-MAR-2018 12:20, Premature atrial complexes are now Present Vent. rate has increased BY 48 BPM Nonspecific T wave abnormality now evident in Anterior leads Confirmed by Primo Burgos ([id number]) on 08/09/2023 11:03:57 AM Referred By: REFERRED SELF Confirmed By:Primo Burgos
[2023-08-09] MEDS: NICOTINE 21 MG/24 HR TDSY TD SCH (11:26)
[2023-08-09] MEDS: AZITHROMYCIN 500 MG in DEXTROSE 5% 250 ML IV SCH (11:28)
[2023-08-09] MEDS: SERTRALINE HCL 100 MG TABLET PO SCH (11:32)
[2023-08-09] MEDS: lisinopril 10 MG TAB PO SCH (11:33)
[2023-08-09] MEDS: DIVALPROEX EXTENDED RELEASE 500 MG TAB PO SCH ×2 (11:33→20:00)
[2023-08-09] MEDS: ENOXAPARIN INJ 40 MG/0.4 ML SYR SQ SCH (11:35)
[2023-08-09] MEDS: methylPREDNISolone 40 MG in SYRINGE 0 ML IV SCH (11:57)
[2023-08-09] MEDS: cefTRIAXone SODIUM 2,000 MG/50 ML BAG IV SCH (11:57)
[2023-08-09] MEDS: PALIPERIDONE PALMITATE 156 MG/ML SYR IM SCH (14:31)
--- NOTE | 2023-08-09 16:58 | History & Physical Report ---
Date of Service August 09, 2023 Assessment & Plan (1) Breathlessness: Plan: Clinically appearing consistent with a COPD exacerbationdoes not appear to carry a true baseline of COPD, but clinically this fits, his overall story seems most consistent with that, and acutely we will manage as such: IV steroids, azithromycin for pulmonary anti-inflammatory effect, initially ordered ceftriaxone while the CT review was simply by myselfI thought there was a faint area of infiltrateafter further review by radiology this is not the caseso I will stop the ceftriaxone. DuoNebs. Supportive care. At discharge consider managing with chronic inhalers as though he has COPD versus outpatient follow-up with PFTs. (2) Weakness: Plan: Seems most consistent with being weak from being sick. Hopefully will improve as we treat the above. At the same time, PT/OT eval and treat (3) Schizophrenia: Plan: Home meds, very pleasant does not appear to be paranoid or distrustful, just fairly withdrawn and very limited historian. (4) Diabetes: Plan: Seems to be mild at worst, last A1c 6 months ago was 5.8. Will recheck A1c and follow fingersticks, supplemental insulin only if needed. (5) DVT prophylaxis: Plan: Lovenox Plan admit to telemetry due to tachycardia potentially being a signal for decompensation, at the same time he appears quite stable at the bedside, and likely will be out of quickly downgraded to medical. Anticipate ability to discharge home versus needing rehab largely contingent on how his weakness progresses Admission and Anticipated Discharge Date Admission Date: August 09, 2023 History of Present Illness Chief Complaint: short of breath/weak Primary Care Provider: Shawnee Carpio MD Patient notes that yesterday or maybe the day before he started with fairly sudden onset shortness of breathwas wheezing until this morningnotes wheezing got better in the ER. Any also notes he was very weak all over to where he could not really sit up on his own. Of note he carries a baseline diagnosis of schizophreniaand has fairly short responses and mostly responds to directed questioning, although he is quite pleasant. This simply seems to limit the ability to take a more broad HPI and review of systems. Allergies Allergy/AdvReac Type Severity Reaction Status Date / Time No Known Allergies Allergy Unverified 08/04/21 10:32 Home Medications Medication Instructions Recorded Confirmed Type sertraline 100 mg tablet 100 mg PO QAM 02/25/18 08/09/23 History clozapine 100 mg tablet 350 mg (3.5 x 100 mg) PO HS #105 05/23/20 08/09/23 Rx tabs divalproex 500 mg tablet,extended 1,000 mg (2 x 500 mg) PO HS #60 05/23/20 08/09/23 Rx release 24 hr tabs divalproex 500 mg tablet,extended 500 mg PO QAM #30 tabs 05/23/20 08/09/23 Rx release 24 hr lisinopril 10 mg tablet 10 mg PO UD 08/09/23 08/09/23 History paliperidone palmitate 117 mg/0.75 156 mg IM ONCE 08/09/23 08/09/23 History mL intramuscular syringe (Invega Sustenna) Past Med/Surg History Problem List (Updated 08/09/23 @ 16:53 by Guillaume Arredondo DO) DVT prophylaxis Weakness (Acute) Fall (Acute) Rhinovirus (Acute) Breathlessness (Acute) Mood disorder (Acute) Schizophrenia Hypertension Diabetes (Chronic) Surgical History Hx of wisdom tooth extraction done in 1970s History of inguinal hernia repair done in 1970s Family History Mother Breast cancer Hyperthyroidism Hypertension Father , 84 Myocardial infarction Brother Hepatitis Brother No problems noted. Denies family history of Colon cancer Ovarian cancer Prostate cancer Social History Smoking Status: Current every day smoker Tobacco Type: Cigarettes Age Started Using Tobacco: 17; packs per day: 1; Cigarettes Per Day: 20; Second Hand Exposure: Yes; Do You Dip or Chew Tobacco: No; Tobacco Cessation Education Requested by Patient: No Hx Alcohol Use: No Hx Substance Use: No Preferred Language: Palestinian Communication Ability: Effective Visual Impairment: No Limitations Hearing Ability: Normal Fine Arts Chair Required: No Beliefs That Will Affect Care: None marital status: Single Current Living Situation: Alone current occupational status: disabled Other Information That Helps Us Care for You: No Feels Safe at Home: Yes Safety Concerns: Feels Safe At This Time Childhood Exposure to Second-Hand Smoke: Yes Diet: regular Dental Care, Regularly: No Physical Activity Frequency: Does not Exercise Seatbelt Use: always Sunscreen Use: No Assistive Devices: None Review of Systems Review of Systems: All systems reviewed & are unremarkable except as noted in HPI & below Physical Exam Physical Exam: Awake alert oriented as noted somewhat withdrawn with short answers and poor eye contact although at the same time still maintains pleasant demeanor. HEENT normocephalic atraumatic mucous membranes moist. Cardio distant. Lungs markedly diminished throughout with may be faint upper airway wheezing. Breathing unlabored no accessory muscle use good effort. Skin shows no rashes no pallor or icterus. Extremities are without cyanosis or clubbing, maybe trace bilateral lower extremity edema no calf tenderness no cords. Results & Data Results & Data Vital Signs (Past 12 Hours) Vital Signs Temp Pulse Pulse Pulse Pulse Resp BP 08/09/23 16:10 08/09/23 15:49 98.8 F 100 H 18 08/09/23 15:22 94 H 18 08/09/23 13:25 08/09/23 13:05 99.0 F 104 H 22 08/09/23 11:02 106 H 18 08/09/23 10:00 109 H 20 08/09/23 09:10 106 H 08/09/23 08:50 107 H 20 08/09/23 06:28 106 H 22 08/09/23 05:13 08/09/23 05:05 120 H 08/09/23 04:58 120 H 20 08/09/23 04:58 100.0 F H 118 H 22 159/98 H BP BP Pulse Ox O2 Del Method O2 Del Method O2 Flow Rate O2 Flow Rate 08/09/23 16:10 Nasal Cannula 2 08/09/23 15:49 140/93 96 Nasal Cannula 2.0 08/09/23 15:22 93 Nasal Cannula 2 08/09/23 13:25 Nasal Cannula 2 08/09/23 13:05 168/88 H 93 Nasal Cannula 2 08/09/23 11:02 96 Nasal Cannula 2 08/09/23 10:00 162/107 H 94 Nasal Cannula 2 08/09/23 09:10 08/09/23 08:50 164/108 H 96 Nasal Cannula 2 08/09/23 06:28 157/110 H 94 Nasal Cannula 2 08/09/23 05:13 92 Room Air 08/09/23 05:05 08/09/23 04:58 92 Room Air 08/09/23 04:58 92 Room Air Code Status & VTE Plan VTE Prophylaxis Plan VTE Prophylaxis will be ordered: Yes PG Care Time/CCT Total # of Minutes Spent Total Time Spent with Patient: Total time spent is greater than 50% in coordination of care (as documented) at patient's floor/unit and/or counseling patient: Coding Level of Care Code 93658 INT INP/OBS CARE 3/75MIN Diagnoses Breathlessness R06.81 Weakness R53.1 Schizophrenia, unspecified type F20.9 Schizophrenia type: unspecified Diabetes E11.9 DVT prophylaxis Z29.9 (3) Schizophrenia Schizophrenia type: unspecified Qualified Code(s): F20.9 - Schizophrenia, unspecified
[2023-08-09] MEDS: cloZAPine 100 MG TAB PO SCH (20:30)
[2023-08-09] MEDS: INSULIN ASPART PER UNIT CHARGE SC SCH (20:55)
[2023-08-09 21:37] LABS: A calco-baum cmplx NotReported Not Detected (NotDetected); Bact fragilis Not Reported Not Detected (NotDetected); Blood Culture Id Panel See PCR Comment (NotDetected); C auris Not Reported Not Detected (NotDetected); Calbicans Not Reported Not Detected (NotDetected); Candida glabrata Not Reported Not Detected (NotDetected); Candida krusei Not Reported Not Detected (NotDetected); Cneoformans/gatti Not Reported Not Detected (NotDetected); Cparapsilosis Not Reported Not Detected (NotDetected); E cloacae compx Not Reported Not Detected (NotDetected); Efaecalis Not Reported Not Detected (NotDetected); Efaecium Not Reported Not Detected (NotDetected); Enterobacterales Not Reported Not Detected (NotDetected); Escherichia coli Not Reported Not Detected (NotDetected); H influenzae Not Reported Not Detected (NotDetected); K aerogenes Not Reported Not Detected (NotDetected); Koxytoca Not Reported Not Detected (NotDetected); Kpneumoniae grp Not Reported Not Detected (NotDetected); Lmonocyt Not Reported Not Detected (NotDetected); N meningitidis Not Reported Not Detected (NotDetected); P aeruginosa Not Reported Not Detected (NotDetected); Proteus spp Not Reported Not Detected (NotDetected); Salmonella spp Not Reported Not Detected (NotDetected); Smarcescens Not Reported Not Detected (NotDetected); Staph lugdunensis Not Reported Not Detected (NotDetected); Staph spp. Not Reported DETECTED (NotDetected); Staphaureus Not Reported Not Detected (NotDetected); Staphepi Not Reported Not Detected (NotDetected); Stenmaltophilia Not Reported Not Detected (NotDetected); Strep agal(GrpB) Not Reported Not Detected (NotDetected); Strep pneum Not Reported Not Detected (NotDetected); Strep pyog (GrpA) Not Reported Not Detected (NotDetected); Strep spp Not Reported Not Detected (NotDetected)
[2023-08-09 21:47] LABS: Staphylococcus spp. DETECTED (NotDetected)
[2023-08-09] MEDS ORDERED: VANCOMYCIN CONSULT ACTIVE PRN (22:05)
[2023-08-09] MEDS: VANCOMYCIN HCL 2,250 MG in SODIUM CHLORIDE 0.9% 500 ML IV STA (23:31)
[2023-08-10 07:54] LABS: Basophils # (auto) 0.01 K/uL (0.00-0.20); Basophils % (auto) 0.1 %; Hematocrit (blood only) 37.5 % (42.0-52.0); Immature Granulocytes # (auto) 0.04 K/uL (0.01-0.20); Immature Granulocytes % (auto) 0.5 %; Lymphocytes # (auto) 0.94 K/uL (1.20-3.40); Lymphocytes % (auto) 11.6 %; Mean Corpuscular Hemoglobin 29.6 pg (25.0-34.0); Mean Corpuscular Hgb Conc 34.7 g/dL (32.0-36.0); Mean Corpuscular Volume 85.4 fL (80.0-100.0); Mean Platelet Volume 8.8 fL (9.4-12.4); Monocytes # (auto) 0.84 K/uL (0.11-0.59); Monocytes % (auto) 10.3 %; Neutrophils % (auto) 77.5 %; Platelet Count 145 K/uL (130-400); RDW Coefficient of Variation 13.2 % (11.5-14.5); RDW Standard Deviation 41.1 fL (36.4-46.3); Red Blood Count 4.39 M/uL (4.70-6.10); White Blood Count 8.13 K/ul (4.8-10.8)
[2023-08-10 08:15] LABS: BUN Creatinine Ratio 23.9 (10-20); Calcium 9.4 mg/dl (8.6-10.3); Creatinine Clr Calc Pharmacy 144.8 ml/min; Est GFR (African American) 117.7 ml/min; Est GFR (Non-African American) 101.5 ml/min; Potassium 4.5 mmol/L (3.5-5.1)
[2023-08-10] MEDS: VANCOMYCIN HCL 1,250 MG in SODIUM CHLORIDE 0.9% 250 ML IV SCH (08:23)
[2023-08-10 08:45] LABS: Estimated Average Glucose 123 mg/dl; Hemoglobin A1C 5.9 % (4.5-5.6)
--- NOTE | 2023-08-10 10:59 | Pharmacy Report ---
Pharmacy PK ABX Note - Date of Service August 10, 2023 - Assessment and Plan Assessment 62 year old M receiving Vancomycin and Azithromycin for treatment of possible COPD exacerbation and bacteremia. * Day #1 of antimicrobial therapy. * T of 37.8oC upon admit. SCr stable. No leukocytosis. * MRSA swab negative. Blood cultures growing GPCs in clusters in 2/4 bottles. BCID2 PCR shows just staph species. Plan Vancomycin * Loading dose: 2250 mg IV x 1 * Maintenance dose: 1250 mg IV every 8 hours * Regimen is predicted to achieve target AUC/NATALY of 400-600 mg/L.hr * Trough level ordered for: 08/11/23 Azithromycin * 500 mg IV every 24 hours Pharmacy will continue to follow and will adjust dose/frequency as necessary. Thank you. Pharmacy has transitioned to AUC monitoring for vancomycin. AUC/NATALY is the preferred PK/PD target and is associated with decreased risk of nephrotoxicity compared to traditional trough targets.
--- NOTE | 2023-08-10 13:00 | Hospitalist Progress Note ---
Date of Service August 10, 2023 Assessment & Plan (1) Breathlessness: Plan: COPD vs Sepsis Perfusing well, MAPs acceptable BCx + staph spp., sensitivities pending, on vancomycin Echo completed, results pending Continue IV steroids, azithromycin Duonebs Supportive care otherwise ?chronic inhalers at dc (2) Weakness: Plan: Seems most consistent with being weak from being sick. Hopefully will improve as we treat the above. At the same time, PT/OT eval and treat (3) Schizophrenia: Plan: Home meds, very pleasant does not appear to be paranoid or distrustful, just fairly withdrawn and very limited historian. (4) Diabetes: Plan: A1c this visit 5.9 ACHS checks ISS (5) DVT prophylaxis: Plan: Lovenox Plan will follow up PT/OT recs for discharge as his clinical condition improves FENGI: T2DM Code status: full DVT prophylaxis: lovenox Isolation: none Disposition: PCU Admission and Anticipated Discharge Date Admission Date: August 09, 2023 Supervising Physician Co-Signing Physician Notes Attending Physician Supervision Note: I independently interviewed and examined the patient and verified the zurita history and physical, reviewed labs and image studies and agree with findings and care plan noted above. Staph aureus bacteremia - unclear source. left elbow sore from fall right before admission so less likely to be the cause. Pannus Intertrigo as possible etiology. -continue vancomycin. TTE with no abnormality. -await final cx results. COPD exacerbation -continue IV steroids and azithromycin, nebs. -since improving - wean steroids Schizophrenia -continue depakote and clozapine. Lovenox. Subjective Patient seen and evaluated at bedside this morning. Overnight blood cultures resulted + for gram positive cocci in clusters, PCR + staph spp. Sensitivities pending. Started on vancomycin. No acute concerns from patient today. Nursing notes that there is an open wound on his elbow - possible source of infection. Review of Systems Review of Systems: reviewed, per HPI Physical Exam Physical Exam: Constitutional: ill-appearing, no acute distress HEENT: NCAT CV: extremities well-perfused, no LE edema Resp: no increased work of breathing MSK: no gross deformities appreciated Skin: dessed wound on elbow Neuro: alert, oriented, slow to respond to questioning Results & Data Results & Data Vital Signs (Past 12 Hours) Vital Signs Temp Pulse Pulse Resp BP Pulse Ox O2 Del Method 08/10/23 11:33 36.3 C L 98 H 18 128/99 93 Nasal Cannula 08/10/23 11:14 86 18 94 Nasal Cannula 08/10/23 08:10 Nasal Cannula 08/10/23 08:06 36.6 C 85 20 136/95 98 Nebulizer 08/10/23 07:21 83 18 95 Nasal Cannula 08/10/23 07:00 84 08/10/23 04:30 152/104 H 08/10/23 03:22 36.8 C 76 18 144/98 H 94 Nasal Cannula 08/10/23 01:39 87 O2 Flow Rate 08/10/23 11:33 08/10/23 11:14 2 08/10/23 08:10 2 08/10/23 08:06 08/10/23 07:21 2 08/10/23 07:00 08/10/23 04:30 08/10/23 03:22 2 08/10/23 01:39 Resident Activity Tracking Resident Involvement: Resident Care Provided Care Provided: Adult Hospital Medicine (3) Schizophrenia Schizophrenia type: unspecified Qualified Code(s): F20.9 - Schizophrenia, unspecified
--- NOTE | 2023-08-10 13:28 | XCELERA ---
[id number]
[2023-08-11] MEDS: VANCOMYCIN LEVEL ONE (08:09)
[2023-08-11 09:37] LABS: BUN Creatinine Ratio 23.1 (10-20); Calcium 9.2 mg/dl (8.6-10.3); Creatinine Clr Calc Pharmacy 150.7 ml/min; Est GFR (African American) 119.2 ml/min; Est GFR (Non-African American) 102.8 ml/min; Potassium 4.3 mmol/L (3.5-5.1)
[2023-08-11 09:39] LABS: Hematocrit (blood only) 36.9 % (42.0-52.0); Hemoglobin 12.7 g/dl (14.0-18.0); Immature Granulocytes # (auto) 0.03 K/uL (0.01-0.20); Immature Granulocytes % (auto) 0.4 %; Lymphocytes # (auto) 0.94 K/uL (1.20-3.40); Lymphocytes % (auto) 11.4 %; Mean Corpuscular Hemoglobin 29.3 pg (25.0-34.0); Mean Corpuscular Hgb Conc 34.4 g/dL (32.0-36.0); Mean Platelet Volume 9.3 fL (9.4-12.4); Monocytes % (auto) 6.1 %; Neutrophils # (auto) 6.75 K/uL (1.40-6.50); Neutrophils % (auto) 82.1 %; Platelet Count 166 K/uL (130-400); RDW Coefficient of Variation 13.2 % (11.5-14.5); RDW Standard Deviation 41.1 fL (36.4-46.3); Red Blood Count 4.34 M/uL (4.70-6.10); White Blood Count 8.22 K/ul (4.8-10.8)
--- NOTE | 2023-08-11 09:41 | Pharmacy Report ---
Pharmacy PK ABX Note - Date of Service August 11, 2023 - Assessment and Plan Assessment 08/10: * Awaiting identification of GPCs in blood. * Afebrile and without leukocytosis. Renal fxn stable. 08/09: 62 year old M receiving Vancomycin and Azithromycin for treatment of possible COPD exacerbation and bacteremia. * Day #1 of antimicrobial therapy. * T of 37.8oC upon admit. SCr stable. No leukocytosis. * MRSA swab negative. Blood cultures growing GPCs in clusters in 2/4 bottles. BCID2 PCR shows just staph species. Plan Vancomycin * Current regimen: 1250 mg IV every 8 hours * Trough level obtained 08/11/23 resulted as 9.7 mcg/mL. This is subtherapeutic. * Change to 1500 mg IV every 8 hours. Predicted AUC at steady state: 495 mg/L.hr * Repeat trough level ordered for: 08/13/23 Azithromycin * 500 mg IV every 24 hours Pharmacy will continue to follow and will adjust dose/frequency as necessary. Thank you. Pharmacy has transitioned to AUC monitoring for vancomycin. AUC/NATALY is the preferred PK/PD target and is associated with decreased risk of nephrotoxicity compared to traditional trough targets.
[2023-08-11] MEDS: ACETAMINOPHEN 325 MG TAB PO PRN (11:01)
--- NOTE | 2023-08-11 11:02 | Hospitalist Progress Note ---
Date of Service August 11, 2023 Assessment & Plan (1) Breathlessness: Plan: COPD vs Sepsis Perfusing well, MAPs acceptable BCx + Staph spp. spoke to lab - likely epidermidis dc vanco, start Ancef 2g q8h Echo completed, negative for obvious valvular pathology Continue IV steroids, azithromycin Duonebs Supportive care otherwise ?chronic inhalers at dc (2) Weakness: Plan: Improving with antibiotics PT/OT (3) Schizophrenia: Plan: Continue home meds (4) Diabetes: Plan: A1c this visit 5.9 ACHS checks ISS (5) DVT prophylaxis: Plan: Lovenox Plan will follow up PT/OT recs for discharge as his clinical condition improves FENGI: T2DM Code status: full DVT prophylaxis: lovenox Isolation: none Disposition: PCU Admission and Anticipated Discharge Date Admission Date: August 09, 2023 Supervising Physician Co-Signing Physician Notes Attending Physician Supervision Note: I independently interviewed and examined the patient and verified the zurita history and physical, reviewed labs and image studies and agree with findings and care plan noted above. Staph species coag neg bacteremia - unclear source. left elbow sore from fall right before admission so less likely to be the cause. Pannus Intertrigo as possible etiology. -since staph coag neg - will switch vancomycin to cefazolin. TTE with no abnormality. -await final cx sensitivities. COPD exacerbation -continue IV steroids and azithromycin, nebs. -wean steroid - IV 20mgs bid - transition to PO in am. Schizophrenia -continue depakote and clozapine. Lovenox. Subjective Patient seen and evaluated at bedside this morning. No acute events overnight. Reports feeling better today, breathing improving. Otherwise no acute complaints today. Review of Systems Review of Systems: reviewed, per HPI Physical Exam Physical Exam: Constitutional: ill-appearing, no acute distress HEENT: NCAT CV: extremities well-perfused, no LE edema Resp: no increased work of breathing MSK: no gross deformities appreciated Skin: dessed wound on elbow Neuro: alert, oriented, slow to respond to questioning Results & Data Results & Data Vital Signs (Past 12 Hours) Vital Signs Temp Pulse Resp BP Pulse Ox O2 Del Method O2 Flow Rate 08/11/23 07:52 88 22 158/101 H 95 Nasal Cannula 2 08/11/23 07:23 88 18 97 Nasal Cannula 2 08/11/23 03:49 147/98 H 08/11/23 03:05 36.7 C 91 H 18 96 Nasal Cannula 2.0 Resident Activity Tracking Resident Involvement: Resident Care Provided Care Provided: Adult Hospital Medicine (3) Schizophrenia Schizophrenia type: unspecified Qualified Code(s): F20.9 - Schizophrenia, unspecified
[2023-08-11] MEDS: ceFAZolin 2000MG 2,000 MG/15 ML SYR IV SCH (15:30)
[2023-08-11] MEDS ORDERED: VANCOMYCIN HCL 1,500 MG in SODIUM CHLORIDE 0.9% 500 ML IV SCH (16:00)
[2023-08-11] MEDS: methylPREDNISolone 20 MG in SYRINGE 0 ML IV SCH (21:56)
[2023-08-12] MEDS: ALBUT/IPRATROP 3MG/0.5MG NEB 3 ML VIAL NEB STA (01:23)
[2023-08-12 07:12] LABS: Hematocrit (blood only) 37.6 % (42.0-52.0); Hemoglobin 12.7 g/dl (14.0-18.0); Immature Granulocytes # (auto) 0.05 K/uL (0.01-0.20); Immature Granulocytes % (auto) 0.7 %; Lymphocytes # (auto) 0.94 K/uL (1.20-3.40); Lymphocytes % (auto) 12.7 %; Mean Corpuscular Hemoglobin 28.9 pg (25.0-34.0); Mean Corpuscular Hgb Conc 33.8 g/dL (32.0-36.0); Mean Corpuscular Volume 85.5 fL (80.0-100.0); Mean Platelet Volume 9.2 fL (9.4-12.4); Monocytes % (auto) 9.4 %; Neutrophils # (auto) 5.74 K/uL (1.40-6.50); Neutrophils % (auto) 77.2 %; Platelet Count 184 K/uL (130-400); RDW Standard Deviation 40.5 fL (36.4-46.3); White Blood Count 7.43 K/ul (4.8-10.8)
[2023-08-12 07:30] LABS: BUN Creatinine Ratio 25.4 (10-20); Calcium 9.3 mg/dl (8.6-10.3); Creatinine Clr Calc Pharmacy 156.3 ml/min; Est GFR (African American) 120.7 ml/min; Est GFR (Non-African American) 104.1 ml/min; Potassium 4.3 mmol/L (3.5-5.1)
--- NOTE | 2023-08-12 10:57 | Hospitalist Progress Note ---
Date of Service August 12, 2023 Assessment & Plan (1) Breathlessness: Plan: COPD vs Sepsis VSS BCx + Staph spp. spoke to lab - likely coagulase negative staph (likely epidermidis) but also growing 2 other colonial staph Given patient improvement in clinical status, will continue with Ancef at this time and change if appropriate pending sensitivities TTE without obvious valvular pathology Steroid taper; change to PO Duonebs Wean oxygen as able with O2 goal of 88-92% Supportive care otherwise ?chronic inhalers at dc (2) Weakness: Plan: Improving with antibiotics PT/OT to evaluate needs for discharge planning (3) Schizophrenia: Plan: Continue home meds (4) Diabetes: Plan: A1c this visit 5.9 ACHS checks ISS (5) DVT prophylaxis: Plan: Lovenox Plan FENGI: T2DM Code status: full DVT prophylaxis: lovenox Isolation: none Disposition: PT/OT eval to determine need to physical rehabilitation at discharge given weakness on admission Admission and Anticipated Discharge Date Admission Date: August 09, 2023 Supervising Physician Co-Signing Physician Notes Attending Physician Supervision Note: I independently interviewed and examined the patient and verified the zurita history and physical, reviewed labs and image studies and agree with findings and care plan noted above. Staph species coag neg bacteremia - unclear source. concern of contamination but both tubes +. left elbow sore from fall right before admission so less likely to be the cause. Pannus Intertrigo as possible etiology. -since staph coag neg - continue cefazolin. TTE with no abnormality. -await final cx sensitivities. COPD exacerbation -continue steroids and azithromycin, nebs. -transition steroid to oral prednisone. -d/c azithromycin in am - day 5. Schizophrenia -continue depakote and clozapine. Lovenox. Subjective Patient reporting improvement with his SOB and weakness. No events overnight. Otherwise no concern. Review of Systems Review of Systems: reviewed, per HPI Physical Exam Physical Exam: GENERAL: AAOx3, afebrile, calm, NAD HEAD: NC, AT EYES: EOM intact, OLIVER, non-injected conjunctiva THROAT: normal to visual inspection CHEST: symmetric chest expansions with respirations CARDIO: RRR, no r/m/g PULMONARY: end-expiratory wheezing in bilateral upper airways, no crackles, NC at 2 lpm, normal respiratory effort, no respiratory distress GI: soft, non-distended, non-tender EXTREMITIES: no swelling or calf tenderness in b/l LE SKIN: no rashes noted Results & Data Results & Data Vital Signs (Past 12 Hours) Vital Signs Temp Pulse Pulse Resp BP Pulse Ox O2 Del Method 08/12/23 10:33 08/12/23 08:00 Nasal Cannula 08/12/23 07:20 36.8 C 77 19 155/107 H 99 Nasal Cannula 08/12/23 07:15 77 18 96 Nasal Cannula 08/12/23 03:57 163/105 H 08/12/23 03:29 36.8 C 77 18 163/111 H 94 Nasal Cannula 08/12/23 01:24 94 H 21 96 Nasal Cannula 08/12/23 00:36 74 08/11/23 23:03 36.8 C 71 20 139/89 94 Nasal Cannula O2 Flow Rate 08/12/23 10:33 2 08/12/23 08:00 3 08/12/23 07:20 2.0 08/12/23 07:15 2 08/12/23 03:57 08/12/23 03:29 2.0 08/12/23 01:24 2 08/12/23 00:36 08/11/23 23:03 2 Resident Activity Tracking Resident Involvement: Resident Care Provided Care Provided: Adult Hospital Medicine (3) Schizophrenia Schizophrenia type: unspecified Qualified Code(s): F20.9 - Schizophrenia, unspecified
[2023-08-13] MEDS ORDERED: VANCOMYCIN LEVEL ONE (07:00)
[2023-08-13 07:48] LABS: Basophils # (auto) 0.01 K/uL (0.00-0.20); Basophils % (auto) 0.2 %; Eosinophils # (auto) 0.01 K/uL (0.00-0.50); Eosinophils % (auto) 0.2 %; Hematocrit (blood only) 36.4 % (42.0-52.0); Hemoglobin 12.8 g/dl (14.0-18.0); Immature Granulocytes % (auto) 1.7 %; Lymphocytes # (auto) 1.56 K/uL (1.20-3.40); Lymphocytes % (auto) 26.9 %; Mean Corpuscular Hemoglobin 29.4 pg (25.0-34.0); Mean Corpuscular Hgb Conc 35.2 g/dL (32.0-36.0); Mean Corpuscular Volume 83.7 fL (80.0-100.0); Mean Platelet Volume 8.6 fL (9.4-12.4); Monocytes # (auto) 0.69 K/uL (0.11-0.59); Monocytes % (auto) 11.9 %; Neutrophils # (auto) 3.44 K/uL (1.40-6.50); Neutrophils % (auto) 59.1 %; Platelet Count 184 K/uL (130-400); RDW Coefficient of Variation 12.9 % (11.5-14.5); RDW Standard Deviation 38.9 fL (36.4-46.3); Red Blood Count 4.35 M/uL (4.70-6.10); White Blood Count 5.81 K/ul (4.8-10.8)
[2023-08-13 07:59] LABS: BUN Creatinine Ratio 26.7 (10-20); Calcium 9.4 mg/dl (8.6-10.3); Creatinine Clr Calc Pharmacy 162.8 ml/min; Est GFR (African American) 123.2 ml/min; Est GFR (Non-African American) 106.3 ml/min; Potassium 4.1 mmol/L (3.5-5.1)
[2023-08-13] MEDS: predniSONE 20 MG TAB PO SCH (08:30)
--- NOTE | 2023-08-13 10:31 | Hospitalist Progress Note ---
Date of Service August 13, 2023 Assessment & Plan (1) Breathlessness: Plan: COPD vs Sepsis VSS, AF Oxygen saturations > 91% at room air BCx + Staph spp. x2; possibly coagulase negative Continue Ancef until final sensitivities; consider total of 7-10 days of abx therapy TTE without obvious valvular pathology Steroid taper Duonebs Supportive care otherwise ?chronic inhalers at dc (2) Weakness: Plan: Improving with antibiotics PT/OT to evaluate needs for discharge planning now that weakness has improved (3) Schizophrenia: Plan: Continue home meds (4) Diabetes: Plan: A1c this visit 5.9 ACHS checks ISS (5) DVT prophylaxis: Plan: Lovenox Plan FENGI: T2DM Code status: full DVT prophylaxis: lovenox Isolation: none Disposition: PT/OT eval to determine need to physical rehabilitation at discharge given weakness on admission Admission and Anticipated Discharge Date Admission Date: August 09, 2023 Supervising Physician Co-Signing Physician Notes Attending Physician Supervision Note: I independently interviewed and examined the patient and verified the zurita history and physical, reviewed labs and image studies and agree with findings and care plan noted above. Staph species coag neg bacteremia - unclear source. concern of contamination but both tubes +. left elbow sore from fall right before admission so less likely to be the cause. Pannus Intertrigo as possible etiology. -since staph coag neg - continue cefazolin. TTE with no abnormality. -await final cx sensitivities. COPD exacerbation -continue steroids. finished azithromycin, nebs Schizophrenia -continue depakote and clozapine. Lovenox. Subjective Patient reporting improvement with his SOB and weakness. Has ambulated some in his room without resulting dizziness or lightheadedness. Last night walked to the bathroom and asked for oxygen to be placed due to "making him more comfortable", but O2 saturation was not taken at this time. Currently breathing well at room air. Otherwise no concern. Review of Systems Review of Systems: reviewed, per HPI Physical Exam Physical Exam: GENERAL: AAOx3, afebrile, calm, NAD HEAD: NC, AT EYES: EOM intact, OLIVER, non-injected conjunctiva THROAT: normal to visual inspection CHEST: symmetric chest expansions with respirations CARDIO: RRR, no r/m/g PULMONARY: mild end-expiratory wheezing in bilateral upper airways, no crackles, breathing at room air, normal respiratory effort, no respiratory distress GI: soft, non-distended, non-tender EXTREMITIES: no swelling or calf tenderness in b/l LE SKIN: no rashes noted Results & Data Results & Data Vital Signs (Past 12 Hours) Vital Signs Temp Pulse Pulse Resp BP Pulse Ox O2 Del Method 08/13/23 08:54 160/90 H 08/13/23 07:32 36.6 C 88 19 150/101 H 91 Room Air 08/13/23 07:31 75 08/13/23 02:51 36.9 C 84 18 142/92 H 92 Room Air Resident Activity Tracking Resident Involvement: Resident Care Provided Care Provided: Adult Hospital Medicine (3) Schizophrenia Schizophrenia type: unspecified Qualified Code(s): F20.9 - Schizophrenia, unspecified
[2023-08-13] MEDS: hydrALAZINE HCL 20 MG/ML VIAL IV ONE (21:25)
[2023-08-13] MEDS: METOPROLOL TARTRATE 1 MG/ML VIAL IV STA (22:15)
--- NOTE | 2023-08-13 22:59 | Communication Note ---
Date of Service: August 13, 2023
[2023-08-14 08:29] LABS: Basophils # (auto) 0.01 K/uL (0.00-0.20); Basophils % (auto) 0.2 %; Eosinophils # (auto) 0.04 K/uL (0.00-0.50); Eosinophils % (auto) 0.6 %; Hematocrit (blood only) 39.6 % (42.0-52.0); Hemoglobin 13.8 g/dl (14.0-18.0); Immature Granulocytes # (auto) 0.19 K/uL (0.01-0.20); Lymphocytes # (auto) 1.85 K/uL (1.20-3.40); Lymphocytes % (auto) 28.8 %; Mean Corpuscular Hemoglobin 29.3 pg (25.0-34.0); Mean Corpuscular Hgb Conc 34.8 g/dL (32.0-36.0); Mean Corpuscular Volume 84.1 fL (80.0-100.0); Mean Platelet Volume 8.6 fL (9.4-12.4); Monocytes # (auto) 0.73 K/uL (0.11-0.59); Monocytes % (auto) 11.4 %; Neutrophils # (auto) 3.61 K/uL (1.40-6.50); Platelet Count 191 K/uL (130-400); RDW Coefficient of Variation 12.8 % (11.5-14.5); RDW Standard Deviation 39.5 fL (36.4-46.3); Red Blood Count 4.71 M/uL (4.70-6.10); White Blood Count 6.43 K/ul (4.8-10.8)
[2023-08-14 08:43] LABS: Calcium 9.4 mg/dl (8.6-10.3); Creatinine Clr Calc Pharmacy 162.8 ml/min; Est GFR (African American) 123.2 ml/min; Est GFR (Non-African American) 106.3 ml/min; Potassium 3.6 mmol/L (3.5-5.1)
--- NOTE | 2023-08-14 12:06 | Discharge Summary ---
Date of Service August 15, 2023 Admission HPI Per Admitting Provider Patient notes that yesterday or maybe the day before he started with fairly sudden onset shortness of breathwas wheezing until this morningnotes wheezing got better in the ER. Any also notes he was very weak all over to where he could not really sit up on his own. Of note he carries a baseline diagnosis of schizophreniaand has fairly short responses and mostly responds to directed questioning, although he is quite pleasant. This simply seems to limit the ability to take a more broad HPI and review of systems. Admission Exam Per Admitting Provider Awake alert oriented as noted somewhat withdrawn with short answers and poor eye contact although at the same time still maintains pleasant demeanor. HEENT normocephalic atraumatic mucous membranes moist. Cardio distant. Lungs markedly diminished throughout with may be faint upper airway wheezing. Breathing unlabored no accessory muscle use good effort. Skin shows no rashes no pallor or icterus. Extremities are without cyanosis or clubbing, maybe trace bilateral lower extremity edema no calf tenderness no cords. Principal Diagnosis COPD exacerbation, Gram positive bacteremia Discharge Exam GENERAL: AAOx3, afebrile, calm, ambulating with walker, NAD HEAD: NC, AT EYES: EOM intact, OLIVER, non-injected conjunctiva THROAT: normal to visual inspection CHEST: symmetric chest expansions with respirations CARDIO: RRR, no r/m/g PULMONARY: mild end-expiratory wheezing improved from previous exams, no crackles, breathing at room air, normal respiratory effort, no respiratory distress GI: soft, non-distended, non-tender EXTREMITIES: no swelling or calf tenderness in b/l LE SKIN: no rashes noted Discharge Data Allergies Allergy/AdvReac Type Severity Reaction Status Date / Time No Known Allergies Allergy Unverified 08/04/21 10:32 Consultations 08/09/23 07:50 ED Decision to Admit Stat Ordered Studies 08/09/23 04:58 CT abd pelvis IV con only Stat CT angio chest PE protocol Stat CT cervical spine wo con Stat CT head/brain wo con Stat Hospital Course (1) Breathlessness: COPD exacerbation VSS, AF Oxygen saturations > 91% at room air Steroid taper with 2 more days of Prednisone 40mg PO daily Bacteremia BCx + Coagulase negative Staph spp. x2 Will change Ancef to Keflex to complete abx therapy today TTE without obvious valvular pathology (2) Weakness: Improving with antibiotics but has persisted Has been able to ambulate around room and in hallway with walker PT/OT rec outpatient PT but patient not interested in going to rehab Coordinating home health (3) Schizophrenia: Continue home meds (4) Diabetes: A1c this visit 5.9 Plan Patient found fit and stable to be discharged today with 1 more day of Keflex therapy and 2 days of Prednisone. Case management coordinating home health as patient is not interested in rehab. Discussed benefits of pursuing inpatient rehab as well as risks, but patient still preferred to be discharged home. Total Time Total Time Spent Total Time Spent (In Minutes): As per attending attestation. Discharge Plan Discharge Items Patient Disposition: Home - Home Health Services Reason For Visit: SOB, WEAKNESS Discharge Diagnosis: COPD exacerbation, Gram positive bacteremia Activity: Per Instructions section Non-emergency contact: Primary Care Provider Call non-emergency contact if: your symptoms worsen Follow-up/Referrals: Shawnee Carpio MD [Primary Care Provider] - 08/26/23 4:00 pm (APPOINTMENT WITH WENDY DELGADO) Diet: Carb Consistent or DM2 Addtl Attending Provider Instructions: You were admitted to the hospital for management of a COPD exacerbation. You were managed with steroids ad Azithromycin, as well as oxygen supplementation due to decreasing oxygen levels. Eventually your respiratory status improved and you were taken off of the nasal cannula. Blood cultures taken at the time of admission showed you had a bacteria in your blood, and so you were started on IV antibiotics. Due to improvement of your COPD, as well as having a more clear picture as to antibiotic choice for the bacteria in your blood, we will be discharging you today with 2 more days of Prednisone therapy and an antibiotic called Keflex, which you should take every 6 hours (4 times a day) for today only. Due to your initial weakness when you arrived to the hospital, we spoke with our physical therapists and occupational therapists, who evaluated you and recommended outpatient physical therapy due to weakness. After discussing these recommendations with you, it was preferred to return home, and so we are working to coordinate home health to help you with this in your home. A discharge summary will be sent to your primary care physician to ensure c ontinuity of care. Please bring this discharge summary with you to your next office appointment so that your provider can review it at that time. Follow-up appointments: Make a follow-up appointment with your PCP within the next week. It is very important that you follow up with them shortly after discharge from the hospital. Keep all your follow-up appointments as already scheduled. If you cannot make an appointment, notify your provider. Medications: Your medication list has been reviewed and reconciled upon discharge to ensure accuracy and continuity of care. An updated list of all your medications is included with your hospital discharge paperwork. Please review this list closely, and make note of any changes. If you have any issues filling these prescriptions, please call [phone] and ask to leave a message for Dr. Lal. Take your medications as instructed; do not skip a dose of your medicines. Make sure all of your doctors know every medicine you are taking (including [id number] medicines, vitamins, and supplements). Call your primary care provider before taking any new medicines (including over- the-counter medicines, vitamins, and supplements), because some of these may interact with your current medications, or may make your symptoms worse. Tell your primary care provider if you cannot afford your medications. CONTACT YOUR PRIMARY CARE PROVIDER if you experience any of the following: Worsening of symptoms Fever, chills, or fatigue Difficulty following your treatment plan, or difficulty taking medications CALL 911 OR GO TO THE EMERGENCY DEPARTMENT if you experience any of the following: Sudden, severe abdominal pain or nausea/vomiting Severe chest pain, or chest pain that radiates (moves) to your jaw or arm Sudden, severe shortness of breath or difficulty breathing Thank you for allowing us to participate in your care. 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 lisinopril 10 mg tablet 10 mg PO UD Rx Instructions: original: 10 mg po daily last filled 02/02/23 per pharmacy Invega Sustenna 117 mg/0.75 mL syringe 156 mg IM ONCE Discharge Orders: Discharge Order (Routine); Ordered 08/15/23 Ordered By: Yuliana Lal Admission Data Admit Date/Time: 08/09/23 07:57 Attending Provider: Sherry Hill Admit Provider: Guillaume Arredondo Primary Care Provider: Shawnee Carpio Other Providers: Guillaume Arredondo; [facility] Fax Other Interventions: Discharge Summary Assessment (RN) Last Done: 08/15/23 09:46 Supervising Physician Co-Signing Physician Notes Attending Physician Supervision Note: I independently interviewed and examined the patient and verified the zurita history and physical, reviewed labs and image studies and agree with findings and care plan noted above. COPD exacerbation -treated with steroids, azithromycin, nebs. Staph species coag neg bacteremia - concern of contamination but both tubes +. left elbow sore from fall right before admission so less likely to be the cause. Pannus Intertrigo as possible etiology. -kept on cefazolin - transitioned to keflex on discharge. TTE with no abnormality. Schizophrenia -continued depakote and clozapine. Resident Activity Tracking Resident Involvement: Resident Care Provided Care Provided: Adult Hospital Medicine
--- NOTE | 2023-08-14 16:43 | Hospitalist Progress Note ---
Date of Service August 14, 2023 Assessment & Plan (1) Breathlessness: Plan: COPD vs Sepsis VSS, AF Oxygen saturations > 91% at room air BCx + Coagulase negative Staph spp. x2 Currently on Ancef. Plan for last day of abx tomorrow. TTE without obvious valvular pathology Steroid taper with 3 more days of Prednisone 40mg PO daily Plan for discharge tomorrow when transportation is available to take patient home. (2) Weakness: Plan: Persistent but improving Has been able to ambulate around room and in hallway with walker PT/OT rec outpatient PT but patient not interested in going to rehab Coordinating home health (3) Schizophrenia: Plan: Continue home meds (4) Diabetes: Plan: A1c this visit 5.9 Plan FENGI: T2DM Code status: full DVT prophylaxis: lovenox Isolation: none Disposition: Discharge back home tomorrow; CM coordinating Admission and Anticipated Discharge Date Admission Date: August 09, 2023 Supervising Physician Co-Signing Physician Notes Attending Physician Supervision Note: I independently interviewed and examined the patient and verified the zurita history and physical, reviewed labs and image studies and agree with findings and care plan noted above. Staph species coag neg bacteremia - concern of contamination but both tubes +. left elbow sore from fall right before admission so less likely to be the cause. Pannus Intertrigo as possible etiology. -staph coag neg - continue cefazolin. TTE with no abnormality. COPD exacerbation -continue steroids. finished azithromycin, nebs Schizophrenia -continue depakote and clozapine. Lovenox. anticipate d/c home in am with home health Subjective Patient refers feeling well and notes his respiratory status is back to his baseline. He has been able to ambulate around the hallways with walker. No fevers, chills, or other symptoms. No other concern at this time. Review of Systems Review of Systems: Reviewed Physical Exam Physical Exam: GENERAL: AAOx3, afebrile, calm, sitting on bedside chair, NAD HEAD: NC, AT EYES: EOM intact, OLIVER, non-injected conjunctiva THROAT: normal to visual inspection CHEST: symmetric chest expansions with respirations CARDIO: RRR, no r/m/g PULMONARY: CTA b/l, no crackles, breathing at room air, normal respiratory effort, no respiratory distress GI: soft, non-distended, non-tender EXTREMITIES: no swelling or calf tenderness in b/l LE SKIN: no rashes noted Results & Data Results & Data Vital Signs (Past 12 Hours) Vital Signs Temp Pulse Resp BP Pulse Ox O2 Del Method 08/14/23 15:37 36.7 C 88 18 145/87 H 92 Room Air 08/14/23 15:18 89 18 96 Room Air 08/14/23 12:57 93 H 16 156/101 H 91 Room Air 08/14/23 11:14 98 H 18 156/100 H 91 Room Air 08/14/23 10:32 87 18 92 Room Air 08/14/23 09:13 Room Air 08/14/23 07:45 36.6 C 106 H 20 165/102 H 92 Room Air 08/14/23 07:15 94 H 18 91 Room Air Resident Activity Tracking Resident Involvement: Resident Care Provided Care Provided: Adult Hospital Medicine (3) Schizophrenia Schizophrenia type: unspecified Qualified Code(s): F20.9 - Schizophrenia, unspecified
[2023-08-15] MEDS ORDERED: guaiFENesin SUGAR FREE 100 MG/5 ML UDC PO PRN (03:32)
[2023-08-15 06:14] LABS: Basophils # (auto) 0.02 K/uL (0.00-0.20); Basophils % (auto) 0.2 %; Eosinophils # (auto) 0.09 K/uL (0.00-0.50); Eosinophils % (auto) 1.1 %; Hematocrit (blood only) 35.5 % (42.0-52.0); Hemoglobin 12.3 g/dl (14.0-18.0); Immature Granulocytes # (auto) 0.22 K/uL (0.01-0.20); Immature Granulocytes % (auto) 2.6 %; Lymphocytes # (auto) 2.51 K/uL (1.20-3.40); Lymphocytes % (auto) 29.8 %; Mean Corpuscular Hemoglobin 29.1 pg (25.0-34.0); Mean Corpuscular Hgb Conc 34.6 g/dL (32.0-36.0); Mean Corpuscular Volume 83.9 fL (80.0-100.0); Mean Platelet Volume 8.9 fL (9.4-12.4); Monocytes # (auto) 0.91 K/uL (0.11-0.59); Monocytes % (auto) 10.8 %; Neutrophils # (auto) 4.67 K/uL (1.40-6.50); Neutrophils % (auto) 55.5 %; Platelet Count 194 K/uL (130-400); RDW Coefficient of Variation 12.8 % (11.5-14.5); RDW Standard Deviation 38.7 fL (36.4-46.3); Red Blood Count 4.23 M/uL (4.70-6.10); White Blood Count 8.42 K/ul (4.8-10.8)
[2023-08-15 06:33] LABS: BUN Creatinine Ratio 26.8 (10-20); Calcium 8.8 mg/dl (8.6-10.3); Creatinine Clr Calc Pharmacy 174.4 ml/min; Est GFR (African American) 126.7 ml/min; Est GFR (Non-African American) 109.3 ml/min; Potassium 3.6 mmol/L (3.5-5.1)
== END 2023-08-15 11:16 | disposition home health service (06) | DRG 872 ==
LOC: ED 04:47 → EDINP 07:57 → SUATTDRO 07:57 → 2E 12:24 → 3E 08-13 14:25